=== PATIENT | male | born 1960 | race Caucasian/White ===

== ENCOUNTER 2018-01-01 11:56 | Emergency (ER) | payer BC, OTHER ==
[2018-01-01] MEDS ORDERED: Sodium Chloride 0.9% 10 ML Syringe FLUSH PRN (12:11)
[2018-01-01] MEDS ORDERED: LORazepam 2 MG/ML SDV IVPUSH ONE (12:11)
--- NOTE | 2018-01-01 12:38 | CT ---
Head CT Technique: Multiple axial sections through the brain were obtained. Intravenous contrast was not utilized. Comparison: No prior intracranial imaging. Findings: Ventricles along with basal cisterns and sulci over convexities are mildly prominent. Several small lacunar infarcts are noted within the basal ganglia. No other abnormal parenchymal densities are seen. No evidence of intracranial hemorrhage. No midline shift or mass effect is seen. Bone window settings were reviewed which shows no acute calvarial abnormality. Mild mucosal thickening is seen within portions of the ethmoid sinuses which is felt to be incidental. Impression: 1. Mild senescent change. Incidental sinus findings. 2. Nothing acute is appreciated on noncontrast head CT exam. Diagnostic code #2
[2018-01-01] MEDS ORDERED: Potassium Chloride 20 MEQ Tab.ER PO ONE (14:45)
--- NOTE | 2018-01-01 15:16 | EDM.PDOC ---
ED HPI GENERAL MEDICAL PROBLEM - General Chief Complaint: Neurological Problem Stated Complaint: [facility] Time Seen by Provider: 01/01/18 12:10 Source of Information: Reports: Patient, EMS History Limitations: Reports: No Limitations - History of Present Illness INITIAL COMMENTS - FREE TEXT/NARRATIVE: The patient presents by [facility] for a seizure. He was at work and he had a generalized tonic clonic seizure. This lasted a few minutes. He was post ictal when EMS arrived. He had no headache, neck pain, chest pain, abdominal pain, nausea or vomiting. He does admit to drinking about a litre of alcohol a night but he has been trying to cut back. He has never had a seuzure before. Onset: Sudden Duration: Minutes: Location: Reports: Generalized Improves with: Reports: None Worsens with: Reports: None Associated Symptoms: Reports: No Other Symptoms - Related Data Allergies Allergy/AdvReac Type Severity Reaction Status Date / Time No Known Allergies Allergy Verified 01/01/18 12:01 Home Meds: Home Meds Albuterol [Proventil HFA] 2 puff INH Q4H PRN #1 inhaler 01/01/18 [Rx] Potassium Chloride 20 meq PO DAILY #20 tablet.er 01/01/18 [Rx] Past Medical History Cardiovascular History: Reports: Hypertension Social & Family History - Tobacco Use Smoking Status *Q: Current Every Day Smoker Years of Tobacco use: 40 Packs/Tins Daily: 1 - Recreational Drug Use Recreational Drug Use: No ED ROS GENERAL - Review of Systems Review Of Systems: See Below Constitutional: Reports: No Symptoms HEENT: Reports: No Symptoms Respiratory: Reports: No Symptoms Cardiovascular: Reports: No Symptoms Endocrine: Reports: No Symptoms GI/Abdominal: Reports: No Symptoms : Reports: No Symptoms Musculoskeletal: Reports: No Symptoms Skin: Reports: No Symptoms Neurological: Reports: Seizure. Denies: Headache, Numbness, Tingling - Physical Exam Exam: See Below Exam Limited By: No Limitations General Appearance: Alert, No Apparent Distress Ears: Normal External Exam Nose: Normal Inspection Head Exam: Atraumatic, Normocephalic Neck: Normal Inspection Respiratory/Chest: No Respiratory Distress, Lungs Clear, Normal Breath Sounds Cardiovascular: Regular Rate, Rhythm, No Edema, No Murmur GI/Abdominal: Soft, Non-Tender, No Organomegaly, No Mass Neuro Exam (Abbreviated): Alert, Oriented, No Motor/Sensory Deficits Course - Vital Signs Last Recorded V/S: Last Vital Signs Temp 98.1 F 01/01/18 12:01 Pulse 96 01/01/18 12:01 Resp 14 01/01/18 12:01 BP 191/118 H 01/01/18 12:01 Pulse Ox 97 01/01/18 12:01 - Orders/Labs/Meds Orders: Active Orders 24 hr Category Date Time Status Cardiac Monitoring [RC] . DIRECTED Care 01/01/18 12:11 Active Peripheral IV Care [RC] . DIRECTED Care 01/01/18 12:11 Active Sodium Chloride 0.9% [Saline Flush] Med 01/01/18 12:11 Active 10 ml FLUSH ASDIRECTED PRN Peripheral IV Insertion Adult [OM.PC] Stat Oth 01/01/18 12:11 Ordered Medication Orders Sodium Chloride (Saline Flush) 10 ml FLUSH ASDIRECTED PRN PRN Reason: Keep Vein Open Last Admin: 01/01/18 12:26 Dose: 10 ml Labs: Laboratory Tests 01/01/18 01/01/18 01/01/18 Range/Units 12:02 12:05 12:05 WBC 5.25 (4.23-9.07) K/mm3 RBC 4.22 L (4.63-6.08) M/mm3 Hgb 15.2 (13.7-17.5) gm/L Hct 45.0 (40.1-51.0) % MCV 106.6 H (79.0-92.2) fl MCH 36.0 H (25.7-32.2) pg MCHC 33.8 (32.2-35.5) g/dl RDW Std Deviation 54.9 H (35.1-43.9) fL Plt Count 116 L (163-337) K/mm3 MPV 10.9 (9.4-12.3) fl Neut % (Auto) 70.3 H (34.0-67.9) % Lymph % (Auto) 15.2 L (21.8-53.1) % Dade % (Auto) 12.8 H (5.3-12.2) % Eos % (Auto) 0.4 L (0.8-7.0) Baso % (Auto) 1.1 (0.1-1.2) % Neut # (Auto) 3.69 (1.78-5.38) K/mm3 Lymph # (Auto) 0.80 L (1.32-3.57) K/mm3 Dade # (Auto) 0.67 (0.30-0.82) K/mm3 Eos # (Auto) 0.02 L (0.04-0.54) K/mm3 Baso # (Auto) 0.06 (0.01-0.08) K/mm3 Manual Slide Review Abnormal smear Sodium 137 (136-145) mEq/L Potassium 2.5 L (3.5-5.1) mEq/L Chloride 90 L (98-107) mEq/L Carbon Dioxide 26 (21-32) mEq/L Anion Gap 23.5 H (5-15) BUN 6 L (7-18) mg/dL Creatinine 1.2 (0.7-1.3) mg/dL Est Cr Clr Drug Dosing 73.18 mL/min Estimated GFR (MDRD) > 60 (>60) mL/min BUN/Creatinine Ratio 5.0 L (14-18) Glucose 150 H (74-106) mg/dL POC Glucose 127 H (70-105) mg/dL Calcium 9.2 (8.5-10.1) mg/dL Magnesium 1.2 L (1.8-2.4) mg/dl Total Bilirubin 2.1 H (0.2-1.0) mg/dL AST 299 H (15-37) U/L ALT 124 H (16-63) U/L Alkaline Phosphatase 117 H (46-116) U/L Total Protein 6.9 (6.4-8.2) g/dl Albumin 3.8 (3.4-5.0) g/dl Globulin 3.1 gm/dL Albumin/Globulin Ratio 1.2 (1-2) Ethyl Alcohol 0.00 (0.00) gm% Meds: Medications Generic Name Dose Route Start Last Admin Trade Name Freq PRN Reason Stop Dose Admin Sodium Chloride 10 ml 01/01/18 12:11 01/01/18 12:26 Saline Flush FLUSH 10 ml ASDIRECTED PRN Administration Keep Vein Open Discontinued Medications Generic Name Dose Route Start Last Admin Trade Name Freq PRN Reason Stop Dose Admin Lorazepam 0.5 mg 01/01/18 12:11 01/01/18 12:26 Ativan IVPUSH 01/01/18 12:12 0.5 mg ONETIME ONE Administration Potassium Chloride 20 meq 01/01/18 14:45 01/01/18 14:52 Klor-Con M20 PO 01/01/18 14:46 20 meq ONETIME ONE Administration - Re-Assessments/Exams Free Text/Narrative Re-Assessment/Exam: 01/01/18 15:10 I ordered an IV NS bolus, labs, CT of his head and ativan. The CT of his head shows mild senescent change. Incidental sinus findings. Nothing acute is appreciated on noncontrast head CT exam. His CBC looks good. His potassium was low at 2.5. I ordered 20meq of potassium chloride. His glucose was 150. His magnesium was 2.1. His AST was elevated at 299. His ALT was elevated at 124. His alk phos was elevated at 117. His EOTH was negative. I called the neurologist balloon design printer at [facility] in [place] and we both agreed this was alcohol withdrawal seizures. He does want to stop drinking. I will prescribe him some ativan. He also wanted some medicine for his COPD. He is unsure of the name but the way he describes it was albuterol. Departure - Departure Time of Disposition: 15:20 Disposition: Home, Self-Care 01 Condition: Good Clinical Impression: Seizure COPD (chronic obstructive pulmonary disease) Qualifiers: COPD type: emphysema Emphysema type: unspecified Qualified Code(s): J43.9 - Emphysema, unspecified - Discharge Information Prescriptions: Albuterol [Proventil HFA] 2 puff INH Q4H PRN #1 inhaler PRN Reason: Shortness Of Breath Referrals: PCP,Not In Area [Primary Care Provider] - Yazmin Duarte [Physician] - 1 Week Additional Instructions: Take the ativan as prescribed to avoid any seizures. You may call [facility] for help stopping drinking. Their number is [phone]. Use the albuterol inhaler 2 puffs every 6 hours as needed for shortness of breath or wheezing. Drink plenty of water. Take the potassium daily. Follow up with Dr Duarte in 1 week. - My Orders Last 24 Hours: My Active Orders 01/01/18 12:11 Cardiac Monitoring [RC] . DIRECTED Peripheral IV Care [RC] . DIRECTED Sodium Chloride 0.9% [Saline Flush] 10 ml FLUSH ASDIRECTED PRN Peripheral IV Insertion Adult [OM.PC] Stat - Assessment/Plan Last 24 Hours: My Active Orders 01/01/18 12:11 Cardiac Monitoring [RC] . DIRECTED Peripheral IV Care [RC] . DIRECTED Sodium Chloride 0.9% [Saline Flush] 10 ml FLUSH ASDIRECTED PRN Peripheral IV Insertion Adult [OM.PC] Stat
== END 2018-01-01 15:37 | disposition home or self-care (01) ==
LOC: JD.ED 11:56
DX: G40.409 Other generalized epilepsy and epileptic syndromes, not intractable, without status epilepticus (principal); J43.9 Emphysema, unspecified; I10 Essential (primary) hypertension; F17.210 Nicotine dependence, cigarettes, uncomplicated; Z79.899 Other long term (current) drug therapy
CPT/HCPCS: 36415; 70450; 80053; 82962; 83735; 85025; 96374; 99285; A9270; G0480; J2060; J7050; 99284

== ENCOUNTER 2018-07-05 10:28 | Inpatient (IN) | payer SELFPAY ==
[2018-07-05] MEDS ORDERED: Thiamine 100 MG Tab PO ONE (11:31)
[2018-07-05] MEDS ORDERED: Folic Acid 1 MG Tab PO ONE (11:31)
[2018-07-05] MEDS ORDERED: Sodium Chloride 0.9% 1,000 ML IV ONE ×2 (11:31)
[2018-07-05] MEDS ORDERED: Sodium Chloride 0.9% 10 ML Syringe FLUSH PRN (11:31)
--- NOTE | 2018-07-05 11:38 | EDM.PDOCBH ---
ED HPI GENERAL MEDICAL PROBLEM - General Chief Complaint: Drug or Alcohol Abuse Stated Complaint: DEHYDRATED Time Seen by Provider: 07/05/18 11:10 Source of Information: Reports: Patient History Limitations: Reports: Intoxication - History of Present Illness INITIAL COMMENTS - FREE TEXT/NARRATIVE: Patient is a 58-year-old male who presents to ED wishing to undergo alcohol detox. Patient's been drinking approximately 1 L of whiskey for the past 42 years. In addition smokes about 2-3 packs of cigarettes daily as well. Over the last few days has been attempting to wean off the alcohol. Drinks approximately 2 pints a day. He is wanting help. He has not eaten anything for the past and it 11 days. Has been consuming ensure shakes daily with only diarrhea following. States his mouth is mildly dry. He has a history of seizures with detoxing and is on no medications. He's never undergone inpatient or outpatient treatment for alcoholism. He feels depressed and anxious. There are no hallucinations. Denies any suicidal or homicidal ideations. 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 He has a history of hypertension and COPD. He has not been taking his hypertension meds for the past 2 weeks. Denies any surgeries. Denies recreational drug use. PCP is located in [place]. Patient's last drink was this morning. - Related Data Allergies Allergy/AdvReac Type Severity Reaction Status Date / Time No Known Allergies Allergy Verified 07/05/18 15:53 Home Meds: Home Meds Albuterol [Proventil HFA] 2 puff INH Q4H PRN #1 inhaler 01/01/18 [Rx] Potassium Chloride 20 meq PO DAILY #20 tablet.er 01/01/18 [Rx] Cholecalciferol (Vitamin D3) [Vitamin D3] 0 unit PO DAILY 07/05/18 [History] Fluticasone Propionate [Flovent] 1 puff IN DAILY 07/05/18 [History] Magnesium 0 mg PO DAILY 07/05/18 [History] Vit W-Ca,Fe,FA(<1 mg) [ Vitamins] 1 tab PO DAILY 07/05/18 [ History] Tamsulosin [Flomax] 1 cap PO BEDTIME 07/05/18 [History] Past Medical History Cardiovascular History: Reports: Hypertension Respiratory History: Reports: COPD Gastrointestinal History: Reports: PUD Neurological History: Reports: Seizure, Other (See Below) Other Neuro History: 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 Psychiatric History: Reports: Addiction, Depression Endocrine/Metabolic History: Reports: Vitamin D Deficiency - Infectious Disease History Infectious Disease History: Reports: Chicken Pox, Measles - Past Surgical History HEENT Surgical History: Reports: Tonsillectomy Musculoskeletal Surgical History: Reports: Other (See Below) Other Musculoskeletal Surgeries/Procedures:: had cyst removed from neck, "right below my skull." Social & Family History - Tobacco Use Smoking Status *Q: Current Every Day Smoker Years of Tobacco use: 42 Packs/Tins Daily: 3 Second Hand Smoke Exposure: No - Caffeine Use Caffeine Use: Reports: None - Alcohol Use Days Per Week of Alcohol Use: 7 Number of Drinks Per Day: 20 Total Drinks Per Week: 140 - Recreational Drug Use Recreational Drug Use: No ED ROS GENERAL - Review of Systems Review Of Systems: See Below Constitutional: Reports: Decreased Appetite. Denies: Fever, Chills, Malaise, Weakness, Fatigue HEENT: Reports: No Symptoms Respiratory: Reports: Shortness of Breath (Chronic unchanged), Cough (Chronic unchanged) Cardiovascular: Reports: No Symptoms GI/Abdominal: Reports: Diarrhea (Intermittent with ensure ingestion), Decreased Appetite. Denies: Black Stool, Bloody Stool, Difficulty Swallowing, Hematemesis , Hematochezia, Melena, Nausea, Vomiting : Reports: No Symptoms Musculoskeletal: Reports: No Symptoms Skin: Reports: No Symptoms Neurological: Reports: No Symptoms Psychiatric: Reports: Anxiety, Depression. Denies: Confusion, Cravings, Hallucinations, Homicidal Ideation, Mood Lability, Suicidal Ideation ED EXAM, BEHAVIORAL HEALTH - Physical Exam Exam: See Below Exam Limited By: Intoxication General Appearance: Alert, WD/WN Eye Exam: Bilateral Eye: EOMI, Nystagmus (horizontal), PERRL Ears: Hearing Grossly Normal Nose: Normal Inspection Throat/Mouth: Normal Voice, No Airway Compromise Neck: Normal Inspection, Supple Respiratory/Chest: No Respiratory Distress, Lungs Clear, Normal Breath Sounds, Chest Non-Tender Cardiovascular: Normal Peripheral Pulses, Regular Rate, Rhythm, No Murmur GI/Abdominal: Normal Bowel Sounds, Soft, Non-Tender, No Organomegaly, No Distention Extremities: Normal Inspection Neurological: Alert, Normal Mood/Affect, CN II-XII Intact, Normal Cognition, No Motor/Sensory Deficits, Oriented x 3 Psychiatric: Alert, Normal Affect, Normal Cognition, Normal Mood, Oriented. No : Depressed Mood, Flat Affect, Incoherent, Restless, Tearful, Agitated, Disoriented, Inattentive, Non-Communicative, Poor Eye Contact, Uncooperative, Flight of Ideas, Homicidal Thoughts, Phobic, Roman Catholic Delusions, Suicidal Plan , Suicidal Thoughts, Tangential Thoughts, Auditory Hallucinations, Visual Hallucinations, Grandiose Thoughts, Pressured Speech, Paranoid Thoughts, Threatening Behavior, Other Skin Exam: Warm, Dry, Intact, Normal color, No rash COURSE, BEHAVIORAL HEALTH COMP - Course Vital Signs: Last Vital Signs Temp 98.1 F 07/05/18 20:00 Pulse 84 07/05/18 18:00 Resp 20 07/05/18 20:00 BP 178/97 H 07/05/18 20:00 Pulse Ox 99 07/05/18 20:00 Orders, Labs, Meds: Active Orders 24 hr Category Date Time Status Sodium Chloride 0.9% [Saline Flush] Med 07/05/18 11:31 Active 10 ml FLUSH ASDIRECTED PRN Peripheral IV Insertion Adult [OM.PC] Routine Oth 07/05/18 11:31 Ordered Medication Orders Chlordiazepoxide HCl (Librium) 25 mg PO BID [facility] Last Admin: 07/05/18 20:01 Dose: 25 mg Admin: 07/05/18 17:27 Dose: 25 mg Enoxaparin Sodium (Lovenox) 40 mg SUBCUT Q24H [facility] Last Admin: 07/05/18 17:27 Dose: 40 mg Folic Acid (Folic Acid) 1 mg PO DAILY [facility] Potassium Chloride/Sodium Chloride (1/2 Ns With 20 Meq Kcl) 1,000 mls @ 125 mls /hr IV ASDIRECTED [facility] Last Admin: 07/05/18 20:42 Dose: 125 mls/hr Lorazepam (Ativan) 2 mg IVPUSH Q6H PRN PRN Reason: Anxiety Metoprolol Tartrate (Lopressor) 5 mg IVPUSH Q6H PRN PRN Reason: heart rate > 120 Nicotine (Habitrol) 21 mg TRDERM DAILY [facility] Ondansetron HCl (Zofran) 4 mg IVPUSH Q8H PRN PRN Reason: Nausea/Vomiting Last Admin: 07/05/18 19:57 Dose: 4 mg Potassium Chloride (Klor-Con M20) 60 meq PO TID DIDI Last Admin: 07/05/18 20:00 Dose: 60 meq Quetiapine Fumarate (Seroquel) 25 mg PO BEDTIME DIDI Last Admin: 07/05/18 20:00 Dose: 25 mg Sodium Chloride (Saline Flush) 10 ml FLUSH ASDIRECTED PRN PRN Reason: Keep Vein Open Last Admin: 07/05/18 11:55 Dose: 10 ml Thiamine HCl (Vitamin B-1) 100 mg PO BEDTIME DIDI Last Admin: 07/05/18 20:00 Dose: 100 mg Laboratory Tests 07/05/18 07/05/18 07/05/18 Range/Units 11:30 11:45 11:45 WBC 2.97 L (4.23-9.07) K/mm3 RBC 3.30 L (4.63-6.08) M/mm3 Hgb 13.0 L (13.7-17.5) gm/L Hct 34.6 L (40.1-51.0) % MCV 104.8 H (79.0-92.2) fl MCH 39.4 H (25.7-32.2) pg MCHC 37.6 H (32.2-35.5) g/dl RDW Std Deviation 56.5 H (35.1-43.9) fL Plt Count 200 (163-337) K/mm3 MPV 9.5 (9.4-12.3) fl Neutrophils % (Manual) 60 (40-60) % Band Neutrophils % 1 (0-10) % Lymphocytes % (Manual) 32 (20-40) % Atypical Lymphs % 0 % Monocytes % (Manual) 4 (2-10) % Eosinophils % (Manual) 2 (0.8-7.0) % Basophils % (Manual) 1 (0.2-1.2) Platelet Estimate Adequate Poikilocytosis 1+ slight Anisocytosis 1+ slight RBC Morph Comment clinic receptionist Sodium 135 L (136-145) mEq/L Potassium 1.8 L* (3.5-5.1) mEq/L Chloride 90 L (98-107) mEq/L Carbon Dioxide 42 H* (21-32) mEq/L Anion Gap 4.8 L (5-15) BUN 3 L (7-18) mg/dL Creatinine 0.8 (0.7-1.3) mg/dL Est Cr Clr Drug Dosing 111.63 mL/min Estimated GFR (MDRD) > 60 (>60) mL/min BUN/Creatinine Ratio 3.8 L (14-18) Glucose 119 H (74-106) mg/dL Calcium 8.7 (8.5-10.1) mg/dL Magnesium 1.4 L (1.8-2.4) mg/dl Total Bilirubin 1.8 H (0.2-1.0) mg/dL AST 262 H (15-37) U/L ALT 118 H (16-63) U/L Alkaline Phosphatase 215 H (46-116) U/L Total Protein 6.0 L (6.4-8.2) g/dl Albumin 2.8 L (3.4-5.0) g/dl Globulin 3.2 gm/dL Albumin/Globulin Ratio 0.9 L (1-2) Lipase 335 (73-393) U/L TSH 3rd Generation 2.100 (0.358-3.74) uIU/mL Urine Color Yellow (Yellow) Urine Appearance Clear (Clear) Urine pH 6.5 (5.0-8.0) Ur Specific [place]vere 1.010 (1.005-1.030) Urine Protein Negative (Negative) Urine Glucose (UA) Negative (Negative) Urine Ketones Negative (Negative) Urine Occult Blood Negative (Negative) Urine Nitrite Negative (Negative) Urine Bilirubin Negative (Negative) Urine Urobilinogen 1.0 (0.2-1.0) Ur Leukocyte Esterase Trace H (Negative) Urine RBC 0-5 (0-5) /hpf Urine WBC 5-10 H (0-5) /hpf Ur Epithelial Cells 0-5 (0-5) /hpf Urine Bacteria Few (FEW) /hpf Urine Mucus Few (FEW) /hpf Salicylates (2.8-20) mg/dL Urine Opiates Screen (NEGATIVE) Ur Buprenorphine Scrn (NEGATIVE) Ur Oxycodone Screen (NEGATIVE) Urine Methadone Screen (NEGATIVE) Ur Propoxyphene Screen (NEGATIVE) Acetaminophen 1 L (10-30) ug/mL Ur Barbiturates Screen (NEGATIVE) Ur Tricyclics Screen (NEGATIVE) Ur Phencyclidine Scrn (NEGATIVE) Ur Amphetamine Screen (NEGATIVE) U Methamphetamines Scrn (NEGATIVE) U Benzodiazepines Scrn (NEGATIVE) U Cocaine Metab Screen (NEGATIVE) U Marijuana (THC) Screen (NEGATIVE) Ethyl Alcohol 0.16 (0.00) gm% 07/05/18 07/05/18 Range/Units 11:45 12:40 WBC (4.23-9.07) K/mm3 RBC (4.63-6.08) M/mm3 Hgb (13.7-17.5) gm/L Hct (40.1-51.0) % MCV (79.0-92.2) fl MCH (25.7-32.2) pg MCHC (32.2-35.5) g/dl RDW Std Deviation (35.1-43.9) fL Plt Count (163-337) K/mm3 MPV (9.4-12.3) fl Neutrophils % (Manual) (40-60) % Band Neutrophils % (0-10) % Lymphocytes % (Manual) (20-40) % Atypical Lymphs % % Monocytes % (Manual) (2-10) % Eosinophils % (Manual) (0.8-7.0) % Basophils % (Manual) (0.2-1.2) Platelet Estimate Poikilocytosis Anisocytosis RBC Morph Comment Sodium (136-145) mEq/L Potassium (3.5-5.1) mEq/L Chloride (98-107) mEq/L Carbon Dioxide (21-32) mEq/L Anion Gap (5-15) BUN (7-18) mg/dL Creatinine (0.7-1.3) mg/dL Est Cr Clr Drug Dosing mL/min Estimated GFR (MDRD) (>60) mL/min BUN/Creatinine Ratio (14-18) Glucose (74-106) mg/dL Calcium (8.5-10.1) mg/dL Magnesium (1.8-2.4) mg/dl Total Bilirubin (0.2-1.0) mg/dL AST (15-37) U/L ALT (16-63) U/L Alkaline Phosphatase (46-116) U/L Total Protein (6.4-8.2) g/dl Albumin (3.4-5.0) g/dl Globulin gm/dL Albumin/Globulin Ratio (1-2) Lipase (73-393) U/L TSH 3rd Generation (0.358-3.74) uIU/mL Urine Color (Yellow) Urine Appearance (Clear) Urine pH (5.0-8.0) Ur Specific Revere (1.005-1.030) Urine Protein (Negative) Urine Glucose (UA) (Negative) Urine Ketones (Negative) Urine Occult Blood (Negative) Urine Nitrite (Negative) Urine Bilirubin (Negative) Urine Urobilinogen (0.2-1.0) Ur Leukocyte Esterase (Negative) Urine RBC (0-5) /hpf Urine WBC (0-5) /hpf Ur Epithelial Cells (0-5) /hpf Urine Bacteria (FEW) /hpf Urine Mucus (FEW) /hpf Salicylates 1.2 L (2.8-20) mg/dL Urine Opiates Screen Negative (NEGATIVE) Ur Buprenorphine Scrn Negative (NEGATIVE) Ur Oxycodone Screen Negative (NEGATIVE) Urine Methadone Screen Negative (NEGATIVE) Ur Propoxyphene Screen Negative (NEGATIVE) Acetaminophen (10-30) ug/mL Ur Barbiturates Screen Negative (NEGATIVE) Ur Tricyclics Screen Negative (NEGATIVE) Ur Phencyclidine Scrn Negative (NEGATIVE) Ur Amphetamine Screen Negative (NEGATIVE) U Methamphetamines Scrn Negative (NEGATIVE) U Benzodiazepines Scrn Negative (NEGATIVE) U Cocaine Metab Screen Negative (NEGATIVE) U Marijuana (THC) Screen Negative (NEGATIVE) Ethyl Alcohol (0.00) gm% Medications Generic Name Dose Route Start Last Admin Trade Name Freq PRN Reason Stop Dose Admin Chlordiazepoxide HCl 25 mg 07/05/18 18:00 07/05/18 20:01 Librium PO 25 mg BID DIDI Administration Enoxaparin Sodium 40 mg 07/05/18 17:00 07/05/18 17:27 Lovenox SUBCUT 40 mg Q24H DIDI Administration Folic Acid 1 mg 07/06/18 09:00 Folic Acid PO DAILY [facility] Potassium Chloride/Sodium Chloride 1,000 mls @ 125 mls/hr 07/05/18 16:45 20:42 1/2 Ns With 20 Meq Kcl IV 125 mls/hr ASDIRECTED DIDI Administration Lorazepam 2 mg 07/05/18 16:32 Ativan IVPUSH Q6H PRN Anxiety Metoprolol Tartrate 5 mg 07/05/18 16:32 Lopressor IVPUSH Q6H PRN heart rate > 120 Nicotine 21 mg 07/06/18 09:00 Habitrol TRDERM DAILY [facility] Ondansetron HCl 4 mg 07/05/18 16:37 07/05/18 19:57 Zofran IVPUSH 4 mg Q8H PRN Administration Nausea/Vomiting Potassium Chloride 60 meq 07/05/18 21:00 07/05/18 20:00 Klor-Con M20 PO 60 meq TID DIDI Administration Quetiapine Fumarate 25 mg 07/05/18 21:00 07/05/18 20:00 Seroquel PO 25 mg BEDTIME DIDI Administration Sodium Chloride 10 ml 07/05/18 11:31 07/05/18 11:55 Saline Flush FLUSH 10 ml ASDIRECTED PRN Administration Keep Vein Open Thiamine HCl 100 mg 07/05/18 21:00 07/05/18 20:00 Vitamin B-1 PO 100 mg BEDTIME DIDI Administration Discontinued Medications Generic Name Dose Route Start Last Admin Trade Name Freq PRN Reason Stop Dose Admin Chlordiazepoxide HCl 25 mg 07/05/18 21:00 Librium PO BID DIDI Folic Acid 1 mg 07/05/18 11:31 07/05/18 11:58 Folic Acid PO 07/05/18 11:32 1 mg ONETIME ONE Administration Sodium Chloride 1,000 mls @ 999 mls/hr 07/05/18 11:31 07/05/18 12:57 Normal Saline IV 07/05/18 12:31 999 mls/hr ONETIME ONE Administration Sodium Chloride 1,000 mls @ 999 mls/hr 07/05/18 11:31 07/05/18 11:58 Normal Saline IV 07/05/18 12:31 999 mls/hr .BOLUS ONE Administration Potassium Chloride 10 meq/ 100 mls @ 100 mls/hr 07/05/18 13:00 07/05/18 14:43 Premix IV 07/05/18 13:59 100 mls/hr ASDIRECTED ONE Administration Potassium Chloride 10 meq/ 100 mls @ 100 mls/hr 07/05/18 12:59 07/05/18 13:38 Premix IV 07/05/18 13:58 100 mls/hr ASDIRECTED ONE Administration Magnesium Sulfate 2 gm/ Premix 50 mls @ 25 mls/hr 07/05/18 13:00 07/05/18 13: 55 IV 07/05/18 14:59 25 mls/hr ONETIME ONE Administration Lactated Ringer's 1,000 mls @ 999 mls/hr 07/05/18 16:33 07/05/18 17:25 Ringers, Lactated IV 07/05/18 17:33 999 mls/hr .BOLUS ONE Administration Magnesium Sulfate 4 gm/ Premix 100 mls @ 100 mls/hr 07/05/18 16:35 07/05/18 17:25 IV 07/05/18 17:34 100 mls/hr ONETIME ONE Administration Lactated Ringer's Confirm 07/05/18 19:38 07/05/18 20:01 Ringers, Lactated Administered 07/05/18 19:39 Not Given Dose 1,000 mls @ as directed .ROUTE .STK-MED ONE Lactated Ringer's 1,000 mls @ 999 mls/hr 07/05/18 19:52 07/05/18 20:01 Ringers, Lactated IV 07/05/18 20:52 999 mls/hr .BOLUS ONE Administration Potassium Chloride 40 meq 07/05/18 12:59 07/05/18 13:40 Klor-Con M20 PO 07/05/18 13:00 40 meq ONETIME ONE Administration Potassium Chloride 60 meq 07/05/18 18:26 07/05/18 18:53 Klor-Con M20 PO 07/05/18 18:27 60 meq ONETIME ONE Administration Thiamine HCl 100 mg 07/05/18 11:31 07/05/18 11:58 Vitamin B-1 PO 07/05/18 11:32 100 mg ONETIME ONE Administration Re-Assessment/Re-Exam: IV established with normal saline 2 L bolus. Timing 100 mg by mouth. Folic acid 1 mg by mouth. Initial labs and studies include: CBC, chem 14, urine drug tox, lipase, magnesium, TSH, UA, serum EtOH, salicylate level, acetaminophen level, and EKG. Labs reviewed: White blood cell count 2.97, hemoglobin 13.0, MCV 104, potassium 1.8, chloride 90, potassium 135, CO2 42, AG 4.8, creatinine 0.8, glucose 118, magnesium 1.4, AST to 62, ALT 18, lipase 335, TSH normal, UA positive for trace leukocyte esterase and urine wbc's 5-10. Salicylate 1.2. Urine drug tox negative. Acetaminophen 1. Serum EtOH 0.16. Patient received 20 mEq of potassium IV and 40 mEq by mouth. I have also started 2 g of magnesium. [address] Olea. She will see the patient in the E.D. 1347 Dr. Lynn has evaluated the patient and agrees to admit. Departure - Departure Time of Disposition: 13:53 Disposition: Admitted As Inpatient 65 Condition: Good Clinical Impression: Alcohol abuse - Discharge Information - My Orders Last 24 Hours: My Active Orders 07/05/18 11:31 Sodium Chloride 0.9% [Saline Flush] 10 ml FLUSH ASDIRECTED PRN Peripheral IV Insertion Adult [OM.PC] Routine - Assessment/Plan Last 24 Hours: My Active Orders 07/05/18 11:31 Sodium Chloride 0.9% [Saline Flush] 10 ml FLUSH ASDIRECTED PRN Peripheral IV Insertion Adult [OM.PC] Routine
[2018-07-05] MEDS ORDERED: Potassium Chloride 20 MEQ Tab.ER PO ONE ×2 (12:59→18:26)
[2018-07-05] MEDS ORDERED: Potassium Chloride 10 MEQ in Premix Bag 1 BAG IV ONE ×2 (12:59→13:00)
[2018-07-05] MEDS ORDERED: Magnesium Sulfate/Water 2 GM in Premix Bag 1 BAG IV ONE (13:00)
--- NOTE | 2018-07-05 16:27 | PCM.HP ---
H&P History of Present Illness - General Date of Service: 07/05/18 Admit Problem/Dx: Admission Diagnosis/Problem Admission Diagnosis/Problem Alcoholism Source of Information: Patient, Provider History Limitations: Reports: No Limitations - History of Present Illness Initial Comments - Free Text/Narative: 58 year old male presents to the ED wanting to under go detox for ETOH abuse/ dependence, he is agreeable for SA and psychiatry consultations. The patient drinks approximately 1 liter a day of VO. PMH includes ETOH withdrawal seizures. He states that he is depressed, and does not know how to help himself emotionally or financially. He will be admitted to the ICU per protocol. Onset of Symptoms: Reports: Unknown/Unsure Symptom Onset Date: 07/05/18 Duration of Symptoms: Reports: Day(s):, Getting Worse Location: Reports: Generalized Severity: Moderate Improves with: Reports: Medication Worsens with: Reports: None Associated Symptoms: Reports: Weakness - Related Data Allergies/Adverse Reactions: Allergies Allergy/AdvReac Type Severity Reaction Status Date / Time No Known Allergies Allergy Verified 07/05/18 15:53 Home Medications: Home Meds Albuterol [Proventil HFA] 2 puff INH Q4H PRN #1 inhaler 01/01/18 [Rx] Potassium Chloride 20 meq PO DAILY #20 tablet.er 01/01/18 [Rx] Cholecalciferol (Vitamin D3) [Vitamin D3] 0 unit PO DAILY 07/05/18 [History] Fluticasone Propionate [Flovent] 1 puff IN DAILY 07/05/18 [History] Magnesium 0 mg PO DAILY 07/05/18 [History] Vit W-Ca,Fe,FA(<1 mg) [ Vitamins] 1 tab PO DAILY 07/05/18 [ History] Tamsulosin [Flomax] 1 cap PO BEDTIME 07/05/18 [History] Past Medical History HEENT History: Reports: Impaired Vision Cardiovascular History: Reports: Hypertension Respiratory History: Reports: COPD Gastrointestinal History: Reports: PUD Neurological History: Reports: Seizure, Other (See Below) Other Neuro History: 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 Psychiatric History: Reports: Addiction, Depression Endocrine/Metabolic History: Reports: Vitamin D Deficiency - Infectious Disease History Infectious Disease History: Reports: Chicken Pox, Measles - Past Surgical History HEENT Surgical History: Reports: Tonsillectomy, Other (See Below) Other HEENT Surgeries/Procedures: cyct removal-neck srg Musculoskeletal Surgical History: Reports: Other (See Below) Other Musculoskeletal Surgeries/Procedures:: had cyst removed from neck, "right below my skull." Social & Family History - Family History Cardiac: Reports: Bypass Other Cardiac Family History: Dad Neurological: Reports: CVA Other Neurological Family History: Dad - Tobacco Use Smoking Status *Q: Current Every Day Smoker Years of Tobacco use: 45 Packs/Tins Daily: 3 Second Hand Smoke Exposure: Yes - Caffeine Use Caffeine Use: Reports: None - Alcohol Use Days Per Week of Alcohol Use: 7 Number of Drinks Per Day: 12 Total Drinks Per Week: 84 Date of Last Drink: 07/05/18 Time of Last Drink: 08:00 - Recreational Drug Use Recreational Drug Use: No H&P Review of Systems - Review of Systems: Review Of Systems: See Below General: Reports: Weakness HEENT: Reports: No Symptoms Pulmonary: Reports: No Symptoms Cardiovascular: Reports: No Symptoms Gastrointestinal: Reports: No Symptoms Genitourinary: Reports: No Symptoms Musculoskeletal: Reports: No Symptoms Skin: Reports: No Symptoms Psychiatric: Reports: Depression Neurological: Reports: No Symptoms Hematologic/Lymphatic: Reports: No Symptoms Immunologic: Reports: No Symptoms Exam - Exam Exam: See Below - Vital Signs Vital Signs: Last Vital Signs Temp 37.1 C 07/05/18 15:56 Pulse 80 07/05/18 10:35 Resp 16 07/05/18 15:56 BP 161/99 H 07/05/18 15:56 Pulse Ox 92 L 07/05/18 15:56 Weight: 80.785 kg - Exam General: Alert, Oriented, Cooperative HEENT: Conjunctiva Clear, EOMI, Hearing Intact, Nares Patent, Normal Nasal Septum, Pupils Equal, Pupils Reactive, Scleral Icterus, PERRLA Neck: Trachea Midline Lungs: Normal Respiratory Effort Cardiovascular: Regular Rate, Regular Rhythm GI/Abdominal Exam: Normal Bowel Sounds, Soft, Non-Tender, No Organomegaly, No Distention, Distended (Male) Exam: Deferred Rectal (Males) Exam: Deferred Back Exam: Normal Inspection Extremities: Normal Inspection, Non-Tender, Normal Capillary Refill Skin: Warm Neurological: Cranial Nerves Intact, Normal Speech Neuro Extensive - Mental Status: Alert, Oriented x3 Neuro Extensive - Motor, Sensory, Reflexes: CN II-XII Intact Psychiatric: Alert, Depressed - Patient Data Lab Results Last 24 hrs: Laboratory Results - last 24 hr 07/05/18 07/05/18 07/05/18 Range/Units 11:30 11:45 11:45 WBC 2.97 L (4.23-9.07) K/mm3 RBC 3.30 L (4.63-6.08) M/mm3 Hgb 13.0 L (13.7-17.5) gm/L Hct 34.6 L (40.1-51.0) % MCV 104.8 H (79.0-92.2) fl MCH 39.4 H (25.7-32.2) pg MCHC 37.6 H (32.2-35.5) g/dl RDW Std Deviation 56.5 H (35.1-43.9) fL Plt Count 200 (163-337) K/mm3 MPV 9.5 (9.4-12.3) fl Neutrophils % (Manual) 60 (40-60) % Band Neutrophils % 1 (0-10) % Lymphocytes % (Manual) 32 (20-40) % Atypical Lymphs % 0 % Monocytes % (Manual) 4 (2-10) % Eosinophils % (Manual) 2 (0.8-7.0) % Basophils % (Manual) 1 (0.2-1.2) Platelet Estimate Adequate Poikilocytosis 1+ slight Anisocytosis 1+ slight 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2 gm/dL Albumin/Globulin Ratio 0.9 L (1-2) Lipase 335 (73-393) U/L TSH 3rd Generation 2.100 (0.358-3.74) uIU/mL Urine Color Yellow (Yellow) Urine Appearance Clear (Clear) Urine pH 6.5 (5.0-8.0) Ur Specific [place] 1.010 (1.005-1.030) Urine Protein Negative (Negative) Urine Glucose (UA) Negative (Negative) Urine Ketones Negative (Negative) Urine Occult Blood Negative (Negative) Urine Nitrite Negative (Negative) Urine Bilirubin Negative (Negative) Urine Urobilinogen 1.0 (0.2-1.0) Ur Leukocyte Esterase Trace H (Negative) Urine RBC 0-5 (0-5) /hpf Urine WBC 5-10 H (0-5) /hpf Ur Epithelial Cells 0-5 (0-5) /hpf Urine Bacteria Few (FEW) /hpf Urine Mucus Few (FEW) /hpf Salicylates (2.8-20) mg/dL Urine Opiates Screen (NEGATIVE) Ur Buprenorphine Scrn (NEGATIVE) Ur Oxycodone Screen (NEGATIVE) Urine Methadone Screen (NEGATIVE) Ur Propoxyphene Screen (NEGATIVE) Acetaminophen 1 L (10-30) ug/mL Ur Barbiturates Screen (NEGATIVE) Ur Tricyclics Screen (NEGATIVE) Ur Phencyclidine Scrn (NEGATIVE) Ur Amphetamine Screen (NEGATIVE) U Methamphetamines Scrn (NEGATIVE) U Benzodiazepines Scrn (NEGATIVE) U Cocaine Metab Screen (NEGATIVE) U Marijuana (THC) Screen (NEGATIVE) Ethyl Alcohol 0.16 (0.00) gm% 07/05/18 07/05/18 Range/Units 11:45 12:40 WBC (4.23-9.07) K/mm3 RBC (4.63-6.08) M/mm3 Hgb (13.7-17.5) gm/L Hct (40.1-51.0) % MCV (79.0-92.2) fl MCH (25.7-32.2) pg MCHC (32.2-35.5) g/dl RDW Std Deviation (35.1-43.9) fL Plt Count (163-337) K/mm3 MPV (9.4-12.3) fl Neutrophils % (Manual) (40-60) % Band Neutrophils % (0-10) % Lymphocytes % (Manual) (20-40) % Atypical Lymphs % % Monocytes % (Manual) (2-10) % Eosinophils % (Manual) (0.8-7.0) % Basophils % (Manual) (0.2-1.2) Platelet Estimate Poikilocytosis Anisocytosis RBC Morph Comment Sodium (136-145) mEq/L Potassium (3.5-5.1) mEq/L Chloride (98-107) mEq/L Carbon Dioxide (21-32) mEq/L Anion Gap (5-15) BUN (7-18) mg/dL Creatinine (0.7-1.3) mg/dL Est Cr Clr Drug Dosing mL/min Estimated GFR (MDRD) (>60) mL/min BUN/Creatinine Ratio (14-18) Glucose (74-106) mg/dL Calcium (8.5-10.1) mg/dL Magnesium (1.8-2.4) mg/dl Total Bilirubin (0.2-1.0) mg/dL AST (15-37) U/L ALT (16-63) U/L Alkaline Phosphatase (46-116) U/L Total Protein (6.4-8.2) g/dl Albumin (3.4-5.0) g/dl Globulin gm/dL Albumin/Globulin Ratio (1-2) Lipase (73-393) U/L TSH 3rd Generation (0.358-3.74) uIU/mL Urine Color (Yellow) Urine Appearance (Clear) Urine pH (5.0-8.0) Ur Specific [place] (1.005-1.030) Urine Protein (Negative) Urine Glucose (UA) (Negative) Urine Ketones (Negative) Urine Occult Blood (Negative) Urine Nitrite (Negative) Urine Bilirubin (Negative) Urine Urobilinogen (0.2-1.0) Ur Leukocyte Esterase (Negative) Urine RBC (0-5) /hpf Urine WBC (0-5) /hpf Ur Epithelial Cells (0-5) /hpf Urine Bacteria (FEW) /hpf Urine Mucus (FEW) /hpf Salicylates 1.2 L (2.8-20) mg/dL Urine Opiates Screen Negative (NEGATIVE) Ur Buprenorphine Scrn Negative (NEGATIVE) Ur Oxycodone Screen Negative (NEGATIVE) Urine Methadone Screen Negative (NEGATIVE) Ur Propoxyphene Screen Negative (NEGATIVE) Acetaminophen (10-30) ug/mL Ur Barbiturates Screen Negative (NEGATIVE) Ur Tricyclics Screen Negative (NEGATIVE) Ur Phencyclidine Scrn Negative (NEGATIVE) Ur Amphetamine Screen Negative (NEGATIVE) U Methamphetamines Scrn Negative (NEGATIVE) U Benzodiazepines Scrn Negative (NEGATIVE) U Cocaine Metab Screen Negative (NEGATIVE) U Marijuana (THC) Screen Negative (NEGATIVE) Ethyl Alcohol (0.00) gm% Result Diagrams: 07/07/18 05:35 07/07/18 05:35 - Problem List (1) Alcohol dependence SNOMED Code(s): 83687944 ICD Code: F10.20 - ALCOHOL DEPENDENCE, UNCOMPLICATED Status: Acute Current Visit: Yes (2) Alcohol withdrawal seizure SNOMED Code(s): 117840026 ICD Code: F10.239 - ALCOHOL DEPENDENCE WITH WITHDRAWAL, UNSPECIFIED; R56.9 - UNSPECIFIED CONVULSIONS Status: Acute Current Visit: Yes (3) Major depression in complete remission SNOMED Code(s): 51083474 ICD Code: F32.5 - MAJOR DEPRESSIVE DISORDER, SINGLE EPISODE, IN FULL REMISSION Status: Acute Current Visit: Yes (4) Hypertension SNOMED Code(s): 68161255 ICD Code: I10 - ESSENTIAL (PRIMARY) HYPERTENSION Status: Acute Current Visit: Yes (5) Hypokalemia SNOMED Code(s): 19177041 ICD Code: E87.6 - HYPOKALEMIA Status: Acute Current Visit: Yes (6) Alcohol abuse SNOMED Code(s): 68529269 ICD Code: F10.10 - ALCOHOL ABUSE, UNCOMPLICATED Status: Acute Current Visit: Yes Problem List Initiated/Reviewed/Updated: Yes Orders Last 24hrs: Active Orders 24 hr Category Date Time Status Admission Status [Patient Status] [ADT] Routine ADT 07/05/18 15:18 Active Cardiac Monitoring [RC] . DIRECTED Care 07/05/18 15:18 Active EKG 12 Lead [EKG Documentation Completion] [RC] STAT Care 07/05/18 11:32 Active Peripheral IV Care [RC] . DIRECTED Care 07/05/18 11:31 Active Sodium Chloride 0.9% [Saline Flush] Med 07/05/18 11:31 Active 10 ml FLUSH ASDIRECTED PRN Peripheral IV Insertion Adult [OM.PC] Routine Oth 07/05/18 11:31 Ordered Medication Orders Sodium Chloride (Saline Flush) 10 ml FLUSH ASDIRECTED PRN PRN Reason: Keep Vein Open Last Admin: 07/05/18 11:55 Dose: 10 ml Assessment/Plan Comment:: Impression: ETOH abuse/dependence Cirrhosis Hx of alcohol withdrawal seizures Chronic Tobacco dependence Hypertension Plan: ICU ETOH protocol CIWA Correct electrolytes SZ precautions Aspiration precautions GI/DVT prophylaxis Consult SA/Psych Consult CM
[2018-07-05] MEDS ORDERED: Metoprolol Tartrate 5 MG/5 ML SDV IVPUSH PRN ×2 (16:32→21:02)
[2018-07-05] MEDS ORDERED: Lactated Ringers 1,000 ML IV ONE ×2 (16:33→19:52)
[2018-07-05] MEDS ORDERED: Magnesium Sulfate/Water 4 GM in Premix Bag 1 BAG IV ONE (16:35)
[2018-07-05] MEDS ORDERED: Ondansetron 4 MG/2 ML SDV IVPUSH PRN (16:37)
[2018-07-05 16:40] LABS: ACETAMINOPHEN 1 ug/mL (10-30)
[2018-07-05] MEDS: chlordiazePOXIDE 25 MG Cap PO SCH ×2 (17:27→20:01)
[2018-07-05] MEDS: Enoxaparin 40 MG/0.4 ML Syringe SUBCUT SCH (17:27)
[2018-07-05] MEDS ORDERED: Lactated Ringers 1,000 ML ONE (19:38)
[2018-07-05] MEDS: Thiamine 100 MG Tab PO SCH (20:00)
[2018-07-05] MEDS: Potassium Chloride 20 MEQ Tab.ER PO SCH (20:00)
[2018-07-05] MEDS: QUEtiapine 25 MG Tab PO SCH (20:00)
[2018-07-05] MEDS: Sodium Chloride 0.45% with KCl 1,000 ML IV SCH (20:42)
[2018-07-05] MEDS ORDERED: Tamsulosin 0.4 MG Cap.ER PO SCH (21:00)
[2018-07-05] MEDS ORDERED: chlordiazePOXIDE 25 MG Cap PO SCH (21:00)
[2018-07-05] MEDS ORDERED: Promethazine 12.5 MG in Sodium Chloride 0.9% 50 ML IV PRN (21:02)
[2018-07-05] MEDS: LORazepam 2 MG/ML SDV IVPUSH PRN (21:25)
[2018-07-05] MEDS ORDERED: Terazosin 1 MG Cap PO ONE (21:30)
[2018-07-06] MEDS: Sodium Chloride 0.45% with KCl 1,000 ML IV SCH (05:21)
[2018-07-06] MEDS: hydrALAZINE 20 MG/ML SDV IVPUSH PRN ×2 (05:22→11:37)
[2018-07-06] MEDS: Nicotine 21 MG/24 Hr Patch TRDERM SCH (09:16)
[2018-07-06] MEDS: Folic Acid 1 MG Tab PO SCH (09:17)
[2018-07-06] MEDS: Potassium Chloride 20 MEQ Tab.ER PO SCH ×3 (09:17→20:22)
[2018-07-06] MEDS: chlordiazePOXIDE 25 MG Cap PO SCH ×3 (09:26→20:23)
[2018-07-06] MEDS ORDERED: Albuterol/Ipratropium 3.0-0.5 MG/3 ML Neb Soln NEB PRN (12:34)
[2018-07-06] MEDS: FLUoxetine 10 MG Cap PO SCH (13:03)
--- NOTE | 2018-07-06 13:03 | CR ---
Chest: 2 views of the chest were obtained. Comparison: No prior chest x-ray. Heart size and mediastinum are normal. Posterior costophrenic angles are not well seen most likely positional. Lateral costophrenic angles appear unremarkable. Lungs are clear with no acute parenchymal change. Mild scoliosis is noted within the spine. Bony structures are within normal limits for the patient's age. Impression: 1. Incidental findings. Nothing acute is seen on 2 view chest x-ray. Diagnostic code #2
[2018-07-06] MEDS: Enoxaparin 40 MG/0.4 ML Syringe SUBCUT SCH (15:59)
--- NOTE | 2018-07-06 18:06 | PCM.PN ---
- General Info Date of Service: 07/06/18 Functional Status: Reports: Pain Controlled, Tolerating Diet, Ambulating, Urinating - Review of Systems General: Reports: No Symptoms HEENT: Reports: No Symptoms Pulmonary: Reports: No Symptoms Cardiovascular: Reports: No Symptoms Gastrointestinal: Reports: No Symptoms Genitourinary: Reports: No Symptoms Musculoskeletal: Reports: No Symptoms Skin: Reports: No Symptoms Neurological: Reports: No Symptoms Psychiatric: Reports: No Symptoms - Patient Data Vitals - Most Recent: Last Vital Signs Temp 36.9 C 07/06/18 15:35 Pulse 94 07/06/18 15:35 Resp 16 07/06/18 15:35 BP 144/83 H 07/06/18 15:35 Pulse Ox 89 L 07/06/18 17:16 Weight - Most Recent: 82.599 kg I&O - Last 24 Hours: Intake & Output 07/06/18 07/06/18 07/06/18 06:59 14:59 22:59 Intake Total 3877 440 1530 Output Total 900 Balance 3877 440 630 Lab Results Last 24 Hours: Laboratory Results - last 24 hr 07/05/18 07/06/18 07/06/18 Range/Units 17:44 05:20 05:20 WBC 2.94 L (4.23-9.07) K/mm3 RBC 2.68 L (4.63-6.08) M/mm3 Hgb 10.6 L (13.7-17.5) gm/L Hct 29.2 L (40.1-51.0) % MCV 109.0 H (79.0-92.2) fl MCH 39.6 H (25.7-32.2) pg MCHC 36.3 H (32.2-35.5) g/dl RDW Std Deviation 59.5 H (35.1-43.9) fL Plt Count 145 L (163-337) K/mm3 MPV 10.3 (9.4-12.3) fl Neut % (Auto) 54.4 (34.0-67.9) % Lymph % (Auto) 32.0 (21.8-53.1) % [place] % (Auto) 10.2 (5.3-12.2) % Eos % (Auto) 2.0 (0.8-7.0) Baso % (Auto) 1.4 H (0.1-1.2) % Neut # (Auto) 1.60 L (1.78-5.38) K/mm3 Lymph # (Auto) 0.94 L (1.32-3.57) K/mm3 [place] # (Auto) 0.30 (0.30-0.82) K/mm3 Eos # (Auto) 0.06 (0.04-0.54) K/mm3 Baso # (Auto) 0.04 (0.01-0.08) K/mm3 Manual Slide Review Abnormal smear Sodium 139 138 (136-145) mEq/L Potassium 1.9 L* 2.1 L* (3.5-5.1) mEq/L Chloride 95 L 97 L (98-107) mEq/L Carbon Dioxide 37 H 38 H (21-32) mEq/L Anion Gap 8.9 5.1 (5-15) BUN 2 L 2 L (7-18) mg/dL Creatinine 0.7 0.7 (0.7-1.3) mg/dL Est Cr Clr Drug Dosing 128.41 128.41 mL/min Estimated GFR (MDRD) > 60 > 60 (>60) mL/min BUN/Creatinine Ratio 2.9 L 2.9 L (14-18) Glucose 107 H 88 (74-106) mg/dL Calcium 8.1 L 7.8 L (8.5-10.1) mg/dL Magnesium 2.0 (1.8-2.4) mg/dl Total Bilirubin 2.6 H (0.2-1.0) mg/dL AST 195 H (15-37) U/L ALT 90 H (16-63) U/L Alkaline Phosphatase 174 H (46-116) U/L Total Protein 4.7 L (6.4-8.2) g/dl Albumin 2.2 L (3.4-5.0) g/dl Globulin 2.5 gm/dL Albumin/Globulin Ratio 0.9 L (1-2) Med Orders - Current: Current Medications Albuterol/Ipratropium (Duoneb 3.0-0.5 Mg/3 Ml) 3 ml NEB QID PRN PRN Reason: Shortness of Breath Last Admin: 07/06/18 17:15 Dose: 3 ml Chlordiazepoxide HCl (Librium) 25 mg PO TID [facility] Last Admin: 07/06/18 15:59 Dose: 25 mg Enoxaparin Sodium (Lovenox) 40 mg SUBCUT Q24H [facility] Last Admin: 07/06/18 15:59 Dose: 40 mg Flunisolide (Nasalide Nasal [place]) 0 ml NASBOTH Q12H [facility] Last Admin: 07/06/18 09:26 Dose: 2 sprays Fluoxetine HCl (Prozac) 20 mg PO DAILY [facility] Last Admin: 07/06/18 13:03 Dose: 20 mg Folic Acid (Folic Acid) 1 mg PO DAILY [facility] Last Admin: 07/06/18 09:17 Dose: 1 mg Hydralazine HCl (Apresoline) 20 mg IVPUSH Q6H PRN PRN Reason: Hypertension Last Admin: 07/06/18 11:37 Dose: 20 mg Promethazine HCl 12.5 mg/ (Sodium Chloride) 50.5 mls @ 100 mls/hr IV Q6H PRN PRN Reason: Nausea/Vomiting Lorazepam (Ativan) 2 mg IVPUSH Q6H PRN PRN Reason: Anxiety Last Admin: 07/05/18 21:25 Dose: 2 mg Metoprolol Tartrate (Lopressor) 5 mg IVPUSH Q4H PRN PRN Reason: heart rate > 120 Nicotine (Habitrol) 21 mg TRDERM DAILY [facility] Last Admin: 07/06/18 09:16 Dose: 21 mg Ondansetron HCl (Zofran) 4 mg IVPUSH Q8H PRN PRN Reason: Nausea/Vomiting Last Admin: 07/05/18 19:57 Dose: 4 mg Potassium Chloride (Klor-Con M20) 60 meq PO TID [facility] Last Admin: 07/06/18 15:58 Dose: 60 meq Quetiapine Fumarate (Seroquel) 25 mg PO BEDTIME [facility] Last Admin: 07/05/18 20:00 Dose: 25 mg Sodium Chloride (Saline Flush) 10 ml FLUSH ASDIRECTED PRN PRN Reason: Keep Vein Open Last Admin: 07/05/18 11:55 Dose: 10 ml Terazosin HCl (Hytrin) 4 mg PO BEDTIME [facility] Thiamine HCl (Vitamin B-1) 100 mg PO BEDTIME [facility] Last Admin: 07/05/18 20:00 Dose: 100 mg Discontinued Medications Chlordiazepoxide HCl (Librium) 25 mg PO BID [facility]I Chlordiazepoxide HCl (Librium) 25 mg PO BID [facility] Last Admin: 07/05/18 20:01 Dose: 25 mg Folic Acid (Folic Acid) 1 mg PO ONETIME ONE Stop: 07/05/18 11:32 Last Admin: 07/05/18 11:58 Dose: 1 mg Sodium Chloride (Normal Saline) 1,000 mls @ 999 mls/hr IV ONETIME ONE Stop: 07/05/18 12:31 Last Admin: 07/05/18 12:57 Dose: 999 mls/hr Sodium Chloride (Normal Saline) 1,000 mls @ 999 mls/hr IV .BOLUS ONE Stop: 07/05/18 12:31 Last Admin: 07/05/18 11:58 Dose: 999 mls/hr Potassium Chloride 10 meq/ (Premix) 100 mls @ 100 mls/hr IV ASDIRECTED ONE Stop: 07/05/18 13:59 Last Admin: 07/05/18 14:43 Dose: 100 mls/hr Potassium Chloride 10 meq/ (Premix) 100 mls @ 100 mls/hr IV ASDIRECTED ONE Stop: 07/05/18 13:58 Last Admin: 07/05/18 13:38 Dose: 100 mls/hr Magnesium Sulfate 2 gm/ Premix 50 mls @ 25 mls/hr IV ONETIME ONE Stop: 07/05/18 14:59 Last Admin: 07/05/18 13:55 Dose: 25 mls/hr Lactated Ringer's (Ringers, Lactated) 1,000 mls @ 999 mls/hr IV .BOLUS ONE Stop: 07/05/18 17:33 Last Admin: 07/05/18 17:25 Dose: 999 mls/hr Magnesium Sulfate 4 gm/ Premix 100 mls @ 100 mls/hr IV ONETIME ONE Stop: 07/05/18 17:34 Last Admin: 07/05/18 17:25 Dose: 100 mls/hr Potassium Chloride/Sodium Chloride (1/2 Ns With 20 Meq Kcl) 1,000 mls @ 125 mls /hr IV ASDIRECTED [facility] Last Admin: 07/06/18 05:21 Dose: 125 mls/hr Lactated Ringer's (Ringers, Lactated) Confirm Administered Dose 1,000 mls @ as directed .ROUTE .STK-MED ONE Stop: 07/05/18 19:39 Last Admin: 07/05/18 20:01 Dose: Not Given Lactated Ringer's (Ringers, Lactated) 1,000 mls @ 999 mls/hr IV .BOLUS ONE Stop: 07/05/18 20:52 Last Admin: 07/05/18 20:01 Dose: 999 mls/hr Metoprolol Tartrate (Lopressor) 5 mg IVPUSH Q6H PRN PRN Reason: heart rate > 120 Potassium Chloride (Klor-Con M20) 40 meq PO ONETIME ONE Stop: 07/05/18 13:00 Last Admin: 07/05/18 13:40 Dose: 40 meq Potassium Chloride (Klor-Con M20) 60 meq PO ONETIME ONE Stop: 07/05/18 18:27 Last Admin: 07/05/18 18:53 Dose: 60 meq Tamsulosin HCl (Flomax) 0.4 mg PO BEDTIME [facility] Last Admin: 07/05/18 21:04 Dose: Not Given Terazosin HCl (Hytrin) 4 mg PO BEDTIME [facility] Last Admin: 07/05/18 21:22 Dose: Not Given Terazosin HCl (Hytrin) 4 mg PO ONETIME ONE Stop: 07/05/18 21:31 Last Admin: 07/05/18 21:21 Dose: 4 mg Thiamine HCl (Vitamin B-1) 100 mg PO ONETIME ONE Stop: 07/05/18 11:32 Last Admin: 07/05/18 11:58 Dose: 100 mg Thiamine HCl (Vitamin B-1) 100 mg PO BEDTIME DIDI - Exam Quality Assessment: DVT Prophylaxis General: Alert, Oriented, Cooperative, No Acute Distress HEENT: Pupils Equal, Pupils Reactive, EOMI Neck: Trachea Midline, No JVD Lungs: Normal Respiratory Effort Cardiovascular: Regular Rate, Tachycardia GI/Abdominal Exam: Normal Bowel Sounds, Soft, Non-Tender, No Organomegaly, No Distention (Male) Exam: Deferred Back Exam: Normal Inspection Extremities: Normal Inspection, Non-Tender, Normal Capillary Refill Skin: Warm Neurological: No New Focal Deficit, Normal Gait, Normal Speech Psy/Mental Status: Alert, Normal Affect, Normal Mood - Problem List Review Problem List Initiated/Reviewed/Updated: Yes - My Orders Last 24 Hours: My Active Orders 07/05/18 17:23 Consult to Case Management/Auto Body Repair Estimator [CONS] Routine 07/05/18 20:59 hydrALAZINE [Apresoline] 20 mg IVPUSH Q6H PRN 07/05/18 21:00 Flunisolide [Nasalide Nasal [place]] 0 ml NASBOTH Q12H Potassium Chloride [Klor-Con M20] 60 meq PO TID QUEtiapine [SEROquel] 25 mg PO BEDTIME Thiamine [Vitamin B-1] 100 mg PO BEDTIME 07/05/18 21:02 Metoprolol Tartrate [Lopressor] 5 mg IVPUSH Q4H PRN Promethazine [Phenergan] 12.5 mg Sodium Chloride 0.9% [Normal Saline] 50 ml IV Q6H 07/06/18 09:00 Consult for Substance Abuse [CONS] Routine Consult to Physician [CONS] Routine Folic Acid 1 mg PO DAILY Nicotine [Habitrol] 21 mg TRDERM DAILY chlordiazePOXIDE [Librium] 25 mg PO TID 07/06/18 12:34 RT Aerosol Therapy [RC] ASDIRECTED Albuterol/Ipratropium [DuoNeb 3.0-0.5 MG/3 ML] 3 ml NEB QID PRN 07/06/18 21:00 Terazosin [Hytrin] 4 mg PO BEDTIME 07/06/18 Dinner Regular Diet [DIET] 07/07/18 05:00 CBC WITH AUTO DIFF [HEME] DAILY COMPREHENSIVE METABOLIC PN,CMP [CHEM] DAILY 07/08/18 05:00 CBC WITH AUTO DIFF [HEME] DAILY COMPREHENSIVE METABOLIC PN,CMP [CHEM] DAILY 07/09/18 05:00 CBC WITH AUTO DIFF [HEME] DAILY COMPREHENSIVE METABOLIC PN,CMP [CHEM] DAILY - Plan Plan:: Impression: ETOH abuse/dependence Cirrhosis Hx of alcohol withdrawal seizures Chronic Tobacco dependence Hypertension Plan: ICU ETOH protocol CIWA Advance diet as tolerated SA consult, 07/07 Correct electrolytes SZ precautions Aspiration precautions GI/DVT prophylaxis Consult Psych, 07/06 Consult CM
--- NOTE | 2018-07-06 19:46 | CONS ---
CONSULTING PHYSICIAN: Austin Vieyra MD DATE OF CONSULTATION: 07/06/2018 PSYCHIATRIC EVALUATION This is a 60-minute inpatient clinical event. IDENTIFICATION: The patient is a 58-year-old male, who was admitted to the inpatient MICU at [facility] in [place], [place] on 07/05/2018. He is seen for psychiatric consultation. CHIEF COMPLAINT: "My potassium was way too low." HISTORY OF PRESENT ILLNESS: The patient is a 58-year-old male, who reports that he has been drinking about a liter of whiskey a day, and he states he is "tired of the drinking." He states that he has also been getting more depressed and also having problems with his appetite. He has lost about 10 pounds over the past couple of months. He is more isolative. He has lack of energy, lack of interest, and he states he is "just more down all the time." He denies any mood swings or anxiety. He denies any illicit substance use complicating his clinical picture. He reports variable sleep patterns with sometimes "I don't sleep at all, but lately I have been sleeping a lot." He denies being suicidal or homicidal. He denies any psychotic, delusional, or paranoid symptoms. 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 ALLERGIES: No known drug allergies. PAST MEDICAL HISTORY: 1. Hypertension. 2. Seizure x1 back in 12/2017, which the patient is stating was to his thinking "an alcohol-related seizure" because he has been trying to cut down on his drinking. 3. Hypokalemia. REVIEW OF SYSTEMS: Aside from cardiovascular, neuro, and endocrine, all other major organ-systems are negative at this point in time for acute difficulties or complications. FAMILY PSYCHIATRIC AND CD HISTORY: None reported. PAST PSYCHIATRIC AND CD HISTORY: The patient denies any previous psychiatric hospitalizations or chemical dependency treatments. He has never been to AA. He has denied any past psychiatric medication history, any previous suicide attempts or self-injurious behavior history, or any eating disorder history. He is a 2- to 3-pack per day smoker. SOCIAL HISTORY: The patient was born and raised in [place], [place]. He is and . He has 3 children. He has been in current relationship for 9 years. 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 He lives alone in [place], [place]. He enjoys doing yard work in his spare time, and he is Evangelical in terms of his dany formation. MENTAL STATUS EXAM: The patient is a 58-year-old soft-spoken white male in no apparent distress. Speech is of regular rate and rhythm. The patient is cognitively oriented x3. Psychomotor activity is within normal limits. There are no abnormal motor movements or tics observed. Gait and station are not observed as the patient is in the bed for the purposes of the inpatient consult. Mood is depressed. Affect is consistent with stated mood and restrictive, but cooperative overall for the purposes of the inpatient consult. There is no behavioral or stated evidence of acute suicidal or homicidal ideation or acute psychotic, delusional, or paranoid symptoms. Thought processes are organized. There are no manic symptoms or loose associations evident. Judgment and insight appear unimpaired at this point in time. Motivation for help appears good. VITALS: 137/74, 90, 16, 98.6 degrees. IMPRESSION: Roosevelt I: 1. Alcohol dependence, F10.20. 2. Major depressive disorder, F32.3. Roosevelt II: None. Roosevelt III: 1. Hypokalemia. 2. Hypertension. 3. History of reported seizure x1 back in 12/2017, which the patient feels is alcohol related. Roosevelt IV: Severe. Roosevelt V: 55. PLAN: 1. Sobriety. 2. AA rep to visit the patient while in the unit. 3. Pastoral guidance. 4. CD eval for the purposes of seeing what type of outpatient treatment resources are available for the patient. 5. Folic acid supplementation. 6. Thiamine supplementation. 7. Librium 25 mg t.i.d. for withdrawal symptoms. 8. Ativan per CIWA protocol. 9. Seroquel 25 mg at bedtime is already prescribed. 10.Begin trial of Prozac 20 mg q.a.m. for symptoms of depression. 11.We will continue to follow up with the patient on an as-needed basis while he remains on the inpatient MICU at [facility] in [place], [place]. 12.We will follow up with the patient sooner if there are any complications in the interim. 13.Recommend that when the patient is medically stabilized and transitioned back to the community, they follow up with Outpatient Psychiatry to assess his overall function and efficacy of his newly initiated psychiatric medication regimen for treatment of his depression. 14.If the patient is unable to stay sober on his own, I would recommend more intensive treatment setting such as inpatient treatment for his alcohol dependence. 15.Crisis plan is in place. MICHELLEODAL /[id number]
[2018-07-06] MEDS: Thiamine 100 MG Tab PO SCH (20:23)
[2018-07-06] MEDS: QUEtiapine 25 MG Tab PO SCH (20:23)
[2018-07-06] MEDS ORDERED: Thiamine 100 MG Tab PO SCH (21:00)
[2018-07-06] MEDS: LORazepam 2 MG/ML SDV IVPUSH PRN (22:01)
[2018-07-07] MEDS: FLUoxetine 10 MG Cap PO SCH (08:03)
[2018-07-07] MEDS: Potassium Chloride 20 MEQ Tab.ER PO SCH ×3 (08:03→20:17)
[2018-07-07] MEDS: Nicotine 21 MG/24 Hr Patch TRDERM SCH (08:04)
[2018-07-07] MEDS: Folic Acid 1 MG Tab PO SCH (08:04)
[2018-07-07] MEDS: chlordiazePOXIDE 25 MG Cap PO SCH ×3 (08:04→20:19)
[2018-07-07] MEDS ORDERED: Magnesium Sulfate/Water 4 GM in Premix Bag 1 BAG IV ONE ×2 (11:53→12:10)
--- NOTE | 2018-07-07 17:27 | PCM.PN ---
- General Info Date of Service: 07/07/18 Functional Status: Reports: Pain Controlled, Tolerating Diet, Ambulating, Urinating - Review of Systems General: Reports: No Symptoms HEENT: Reports: No Symptoms Pulmonary: Reports: No Symptoms Cardiovascular: Reports: No Symptoms Gastrointestinal: Reports: No Symptoms Genitourinary: Reports: No Symptoms Musculoskeletal: Reports: No Symptoms Skin: Reports: No Symptoms Neurological: Reports: No Symptoms Psychiatric: Reports: No Symptoms - Patient Data Vitals - Most Recent: Last Vital Signs Temp 37.0 C 07/07/18 15:00 Pulse 90 07/07/18 15:00 Resp 24 H 07/07/18 15:00 BP 151/95 H 07/07/18 15:00 Pulse Ox 92 L 07/07/18 15:00 Weight - Most Recent: 82.599 kg I&O - Last 24 Hours: Intake & Output 07/07/18 07/07/18 07/07/18 06:59 14:59 22:59 Intake Total 640 120 320 Balance 640 120 320 Lab Results Last 24 Hours: Laboratory Results - last 24 hr 07/07/18 07/07/18 07/07/18 Range/Units 05:35 05:35 05:35 WBC 4.33 (4.23-9.07) K/mm3 RBC 2.67 L (4.63-6.08) M/mm3 Hgb 10.5 L (13.7-17.5) gm/L Hct 29.7 L (40.1-51.0) % MCV 111.2 H (79.0-92.2) fl MCH 39.3 H (25.7-32.2) pg MCHC 35.4 (32.2-35.5) g/dl RDW Std Deviation 64.6 H (35.1-43.9) fL Plt Count 144 L (163-337) K/mm3 MPV 10.0 (9.4-12.3) fl Neut % (Auto) 67.0 (34.0-67.9) % Lymph % (Auto) 20.3 L (21.8-53.1) % [place] % (Auto) 7.9 (5.3-12.2) % Eos % (Auto) 3.9 (0.8-7.0) Baso % (Auto) 0.7 (0.1-1.2) % Neut # (Auto) 2.90 (1.78-5.38) K/mm3 Lymph # (Auto) 0.88 L (1.32-3.57) K/mm3 [place] # (Auto) 0.34 (0.30-0.82) K/mm3 Eos # (Auto) 0.17 (0.04-0.54) K/mm3 Baso # (Auto) 0.03 (0.01-0.08) K/mm3 Manual Slide Review Abnormal smear Sodium 136 (136-145) mEq/L Potassium 2.6 L (3.5-5.1) mEq/L Chloride 98 (98-107) mEq/L Carbon Dioxide 36 H (21-32) mEq/L Anion Gap 4.6 L (5-15) BUN 2 L (7-18) mg/dL Creatinine 0.7 (0.7-1.3) mg/dL Est Cr Clr Drug Dosing 128.41 mL/min Estimated GFR (MDRD) > 60 (>60) mL/min BUN/Creatinine Ratio 2.9 L (14-18) Glucose 99 (74-106) mg/dL Calcium 8.3 L (8.5-10.1) mg/dL Magnesium 1.7 L (1.8-2.4) mg/dl Total Bilirubin 2.1 H (0.2-1.0) mg/dL AST 150 H (15-37) U/L ALT 68 H (16-63) U/L Alkaline Phosphatase 170 H (46-116) U/L Total Protein 4.9 L (6.4-8.2) g/dl Albumin 2.2 L (3.4-5.0) g/dl Globulin 2.7 gm/dL Albumin/Globulin Ratio 0.8 L (1-2) Med Orders - Current: Current Medications Albuterol/Ipratropium (Duoneb 3.0-0.5 Mg/3 Ml) 3 ml NEB QID PRN PRN Reason: Shortness of Breath Last Admin: 07/06/18 17:15 Dose: 3 ml Chlordiazepoxide HCl (Librium) 25 mg PO TID [facility] Last Admin: 07/07/18 14:54 Dose: 25 mg Enoxaparin Sodium (Lovenox) 40 mg SUBCUT Q24H [facility] Last Admin: 07/06/18 15:59 Dose: 40 mg Flunisolide (Nasalide Nasal [place]) 0 ml NASBOTH Q12H [facility] Last Admin: 07/07/18 08:05 Dose: 2 sprays Fluoxetine HCl (Prozac) 20 mg PO DAILY [facility] Last Admin: 07/07/18 08:03 Dose: 20 mg Folic Acid (Folic Acid) 1 mg PO DAILY [facility] Last Admin: 07/07/18 08:04 Dose: 1 mg Hydralazine HCl (Apresoline) 20 mg IVPUSH Q6H PRN PRN Reason: Hypertension Last Admin: 07/06/18 11:37 Dose: 20 mg Promethazine HCl 12.5 mg/ (Sodium Chloride) 50.5 mls @ 100 mls/hr IV Q6H PRN PRN Reason: Nausea/Vomiting Lorazepam (Ativan) 2 mg IVPUSH Q6H PRN PRN Reason: Anxiety Last Admin: 07/06/18 22:01 Dose: 2 mg Metoprolol Tartrate (Lopressor) 5 mg IVPUSH Q4H PRN PRN Reason: heart rate > 120 Nicotine (Habitrol) 21 mg TRDERM DAILY [facility] Last Admin: 07/07/18 08:04 Dose: 21 mg Ondansetron HCl (Zofran) 4 mg IVPUSH Q8H PRN PRN Reason: Nausea/Vomiting Last Admin: 07/05/18 19:57 Dose: 4 mg Potassium Chloride (Klor-Con M20) 60 meq PO TID [facility] Last Admin: 07/07/18 14:54 Dose: 60 meq Quetiapine Fumarate (Seroquel) 25 mg PO BEDTIME [facility] Last Admin: 07/06/18 20:23 Dose: 25 mg Sodium Chloride (Saline Flush) 10 ml FLUSH ASDIRECTED PRN PRN Reason: Keep Vein Open Last Admin: 07/05/18 11:55 Dose: 10 ml Terazosin HCl (Hytrin) 4 mg PO BEDTIME [facility] Last Admin: 07/06/18 20:22 Dose: 4 mg Thiamine HCl (Vitamin B-1) 100 mg PO BEDTIME [facility] Last Admin: 07/06/18 20:23 Dose: 100 mg Discontinued Medications Chlordiazepoxide HCl (Librium) 25 mg PO BID [facility] Chlordiazepoxide HCl (Librium) 25 mg PO BID [facility] Last Admin: 07/05/18 20:01 Dose: 25 mg Folic Acid (Folic Acid) 1 mg PO ONETIME ONE Stop: 07/05/18 11:32 Last Admin: 07/05/18 11:58 Dose: 1 mg Sodium Chloride (Normal Saline) 1,000 mls @ 999 mls/hr IV ONETIME ONE Stop: 07/05/18 12:31 Last Admin: 07/05/18 12:57 Dose: 999 mls/hr Sodium Chloride (Normal Saline) 1,000 mls @ 999 mls/hr IV .BOLUS ONE Stop: 07/05/18 12:31 Last Admin: 07/05/18 11:58 Dose: 999 mls/hr Potassium Chloride 10 meq/ (Premix) 100 mls @ 100 mls/hr IV ASDIRECTED ONE Stop: 07/05/18 13:59 Last Admin: 07/05/18 14:43 Dose: 100 mls/hr Potassium Chloride 10 meq/ (Premix) 100 mls @ 100 mls/hr IV ASDIRECTED ONE Stop: 07/05/18 13:58 Last Admin: 07/05/18 13:38 Dose: 100 mls/hr Magnesium Sulfate 2 gm/ Premix 50 mls @ 25 mls/hr IV ONETIME ONE Stop: 07/05/18 14:59 Last Admin: 07/05/18 13:55 Dose: 25 mls/hr Lactated Ringer's (Ringers, Lactated) 1,000 mls @ 999 mls/hr IV .BOLUS ONE Stop: 07/05/18 17:33 Last Admin: 07/05/18 17:25 Dose: 999 mls/hr Magnesium Sulfate 4 gm/ Premix 100 mls @ 100 mls/hr IV ONETIME ONE Stop: 07/05/18 17:34 Last Admin: 07/05/18 17:25 Dose: 100 mls/hr Potassium Chloride/Sodium Chloride (1/2 Ns With 20 Meq Kcl) 1,000 mls @ 125 mls /hr IV ASDIRECTED DIDI Last Admin: 07/06/18 05:21 Dose: 125 mls/hr Lactated Ringer's (Ringers, Lactated) Confirm Administered Dose 1,000 mls @ as directed .ROUTE .STK-MED ONE Stop: 07/05/18 19:39 Last Admin: 07/05/18 20:01 Dose: Not Given Lactated Ringer's (Ringers, Lactated) 1,000 mls @ 999 mls/hr IV .BOLUS ONE Stop: 07/05/18 20:52 Last Admin: 07/05/18 20:01 Dose: 999 mls/hr Magnesium Sulfate 4 gm/ Premix 50 mls @ 25 mls/hr IV ONETIME ONE Stop: 07/07/18 13:52 Last Admin: 07/07/18 13:06 Dose: Not Given Magnesium Sulfate 4 gm/ Premix 100 mls @ 50 mls/hr IV ONETIME ONE Stop: 07/07/18 14:09 Last Infusion: 07/07/18 12:18 Dose: 25 mls/hr Metoprolol Tartrate (Lopressor) 5 mg IVPUSH Q6H PRN PRN Reason: heart rate > 120 Potassium Chloride (Klor-Con M20) 40 meq PO ONETIME ONE Stop: 07/05/18 13:00 Last Admin: 07/05/18 13:40 Dose: 40 meq Potassium Chloride (Klor-Con M20) 60 meq PO ONETIME ONE Stop: 07/05/18 18:27 Last Admin: 07/05/18 18:53 Dose: 60 meq Tamsulosin HCl (Flomax) 0.4 mg PO BEDTIME [facility] Last Admin: 07/05/18 21:04 Dose: Not Given Terazosin HCl (Hytrin) 4 mg PO BEDTIME [facility] Last Admin: 07/05/18 21:22 Dose: Not Given Terazosin HCl (Hytrin) 4 mg PO ONETIME ONE Stop: 07/05/18 21:31 Last Admin: 07/05/18 21:21 Dose: 4 mg Thiamine HCl (Vitamin B-1) 100 mg PO ONETIME ONE Stop: 07/05/18 11:32 Last Admin: 07/05/18 11:58 Dose: 100 mg Thiamine HCl (Vitamin B-1) 100 mg PO BEDTIME DIDI - Exam Quality Assessment: DVT Prophylaxis General: Alert, Oriented, Cooperative, No Acute Distress HEENT: Pupils Equal, Pupils Reactive, EOMI Neck: Supple, Trachea Midline, No JVD Lungs: Normal Respiratory Effort Cardiovascular: Regular Rate, Regular Rhythm GI/Abdominal Exam: Normal Bowel Sounds, Soft, Non-Tender, No Organomegaly, No Distention (Male) Exam: Deferred Back Exam: Normal Inspection Extremities: Normal Inspection, Non-Tender, Normal Capillary Refill Skin: Warm Neurological: No New Focal Deficit, Normal Gait, Normal Speech Psy/Mental Status: Alert, Depressed - Problem List Review Problem List Initiated/Reviewed/Updated: Yes - My Orders Last 24 Hours: My Active Orders 07/06/18 19:47 Patient Status [ADT] Routine 07/06/18 21:00 Terazosin [Hytrin] 4 mg PO BEDTIME 07/06/18 Dinner Regular Diet [DIET] 07/08/18 05:00 CBC WITH AUTO DIFF [HEME] DAILY COMPREHENSIVE METABOLIC PN,CMP [CHEM] DAILY 07/09/18 05:00 CBC WITH AUTO DIFF [HEME] DAILY COMPREHENSIVE METABOLIC PN,CMP [CHEM] DAILY - Plan Plan:: Impression: ETOH abuse/dependence Cirrhosis Hx of alcohol withdrawal seizures Chronic Tobacco dependence Hypertension Plan: ICU ETOH protocol CIWA Prozac started by Psych, 07/06 Advance diet as tolerated SA consult, 07/07; will have paperwork for IP treatment Correct electrolytes SZ precautions Aspiration precautions GI/DVT prophylaxis Consult CM
[2018-07-07] MEDS: Enoxaparin 40 MG/0.4 ML Syringe SUBCUT SCH (18:32)
[2018-07-07] MEDS: QUEtiapine 25 MG Tab PO SCH (20:20)
[2018-07-07] MEDS: Thiamine 100 MG Tab PO SCH (20:21)
[2018-07-07] MEDS: LORazepam 2 MG/ML SDV IVPUSH PRN (20:49)
--- NOTE | 2018-07-08 01:05 | CONS ---
CONSULTING PHYSICIAN: Jef Zhou LAC DATE OF CONSULTATION: 07/07/2018 TIME: 9:48 p.m. REASON FOR CONSULTATION: The patient is a 58-year-old male admitted to [facility] ICU on 07/05/2018 for alcoholism and detoxification. An Alcohol and Drug consultation was requested by his medical treatment team. SOURCE OF INFORMATION: Hospital records, staff report, background research, prescription drug monitoring report, and an JONATHAN was signed to include the patient's brother and sister in the evaluation. HISTORY OF PRESENT ILLNESS: The patient is a 58-year-old male who was brought to [facility] ED by his sister. The patient had a VIVIANA of 0.16 and they requested medical assistance for detoxification as the patient had attempted to achieve sobriety previously in 12/2017 but experienced alcohol-related withdrawals that included seizures. This admission, they requested close medical monitoring. The patient reports that he began approximately a month ago to wean himself off drinking, but he has yet been unsuccessful. When asked when his last drink was, he reported that he drank a half a glass of Straight Guadalupe before entering the hospital on 07/05/2018, but he had also drank about a half a pint the night before. The patient reports that he has been trying to cut back from half to a pint of Guadalupe a day; however, he is yet to be able to achieve sobriety. By self report, it appears it is difficult for the patient to achieve and maintain sobriety because his primary source of social interaction and entertainment is drinking with friends at his home. This has been a pattern of socialization throughout his life. The positives that the patient gets from drinking with friends seem to outweigh any negative consequences he may experience. The patient requested assistance with achieving sobriety. PSYCHOSOCIAL HISTORY: The patient reports that he was born and raised in [place], [place], by his biological parents. His father is and his mother has dementia and lives at [place]. The patient has one brother who lives in [place] and one sister who lives in [place]. The patient lives alone in a home that he owns. The patient reports that he graduated from [employer] in 1976 where he maintained average grades. He reports that he was not involved in any extra- curricular activity, but worked at [employer]. After graduating from high school, the patient reports that he went se[employer]isiving for the next 5 years until he went to the [employer] when he was approximately 20 to 21 years old. 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 The patient reports that he was at age 24 in 1996 and was at approximately 37. The patient reports that he has 3 children from other relationships. He has been in a current relationship for the past 9 years. 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 The patient enjoys socializing with friends and yard work in his spare time and he is a [employer]. MENTAL HEALTH HISTORY: The patient was seen for a psychiatric evaluation by Dr. Austin Vieyra MD, who subsequently diagnosed the patient with major depressive disorder. SUBSTANCE ABUSE HISTORY: The patient reports that he began drinking socially while in high school and would typically drink 6 beers or drinks per occasion. After high school, he went to work [employer] for the next 5 years and states that he would drink 6 to 7 days a week, typically a half to a fifth bottle of VO per occasion. He left that job and went to work on the [employer] where he reports that he had an 800 dollar a month cocaine habit. His primary method of administration was snorting. 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 He reports drinking 4 to 5 times a week, typically 4 to 5 beers per occasion or 4 to 5 drinks. He reports that during his 30s, he started work at his dad's Work in [employer] and drank 6 days a week. He typically would start drinking at happy hour and have 4 to 5 whiskeys. However, he could drink up to 1 L per occasion. During his 40s and 50s, the patient reports drinking 6 days a week up to 1 L per day of whiskey. The patient reports that 4 years ago after [place] moved to [facility], his business suffered greatly and he began to drink 7 days a week, drinking up to 1 L of Guadalupe a day. In the last month, he states he has been trying to wean himself off alcohol as his medical situation has become more problematic. He has been trying to drink a half to a pint of Guadalupe daily; however, he has been experiencing withdrawal symptoms. In 12/2017, he presented to [facility] ICU after an alcohol-related seizure. He was prescribed Librium at that time and was referred to outpatient treatment. The patient did not follow through with the treatment recommendations, and states that he has never had any substance abuse treatment or education. The patient presents with no alcohol or drug-related criminal charges, and he states that he does not drink and drive; rather, he likes to stay at home and drink with his friends. The patient reports that there may be alcoholism somewhere in his biological family history, but he is not sure. Collateral report from the patient's sister indicates that the family is very concerned about the patient as it appears to them his drinking has caused him to lose his business and consequently he has no insurance or money. The patient's sister reports that approximately 7 weeks ago she checked in on the patient and "His eyes were yellow, his skin was medina, his extremities were swollen. He was not able to eat or he would start to shake. He could not do anything but sleep. He did not know if it was day or night. He did not let anyone into his house because it was a mess and he was not going to the bathroom properly." The patient is presenting to [facility] with elevated liver enzymes subsequent to chronic and severe alcohol dependence. ASAM DIMENSIONS: Dimension 1: Score 2. The patient has some difficulty tolerating and coping with withdrawal discomfort, but responds to support and treatment. The patient displays signs and symptoms of [id number] withdrawals including alcohol- related seizures. Dimension 2: Score 2. The patient has some difficulty tolerating and coping with physical problems, has complications of his endocrine system secondary to alcohol use. The patient's sister reports that the patient neglects and does not seek care for serious biomedical problems. Dimension 3: Score 2. The patient was diagnosed by Dr. Austin Vieyra MD, with major depressive disorder. Dimension 4: Score 3+. The patient appears to have minimal awareness of his addiction and resistance to substance abuse treatment is high despite negative consequences, and the patient appears to need intensive motivating strategies in a 24-hour structure. Dimension 5: Score 3+. The patient has little recognition and understanding of relapse and recidivism issues and displays high vulnerability for further substance use or mental health problems. The patient appears to be unable to control use without a 24-hour structure and monitoring. Dimension 6: Score 3. The patient is minimally engaged in structured meaningful activity. His peer group supports and assists him in his drinking habits and his environment could complicate his recovery. DIAGNOSES: The patient meets DSM-5 criteria for the following diagnoses: 1. F10.20, alcohol use disorder, severe. 2. F10.239, alcohol withdrawal without perceptual disturbance. 3. F10.229, alcohol intoxication. 4. F17.200, tobacco use disorder, severe. ASSESSMENT/SUMMARY: The patient presents to [facility] with chronic and severe alcohol dependence with accompanying withdrawals. The patient appears to be in stage IV alcoholism manifesting with psychological dependence and loss of control, deterioration of significant life organs, inability to eat regular nutritious meals without digestive complications, consequential depressive disorder, an inability to achieve and maintain sobriety without professional intervention, impairment in significant life areas, and denial that alcoholism is a mitigating factor in his negative consequences. Although the patient requested assistance in achieving sobriety upon admission, he now maintains that he can achieve sobriety without intervention. The positive social aspects of drinking with friends appears to make life tolerable for this patient, and he verbalizes that he cannot see a life without continuing to have a "couple of drinks with friends." The patient meets ASAM criteria for a level 3.5 medically monitored inpatient treatment as he will need continued medical monitoring and stabilization through the remainder of his detoxification as well as assistance with continued mental healthcare and a structured monitored environment for continued substance abuse abstinence and treatment. The patient meets ASAM imminent danger criteria for a petition for involuntary commitment as this patient demonstrates a maladaptive pattern of alcohol use resulting in substantial deterioration of physical and psychological health based on poor self-control and lack of good judgment with providing for nutrition and personal care. The patient's brother and sister were consulted and the patient's brother verbalized that he believes the patient needs structured care. Without professional intervention, it is almost certain that this patient will continue drinking as he has been unable to achieve sobriety for any length of time throughout his lifetime. Dr. Lynn was consulted regarding the patient's safe discharge plan, and it was agreed upon that a petition for involuntary commitment may be the most beneficial intervention tool to ensure the patient's safety and assist him in achieving sobriety. A petition for involuntary commitment was exercised on 07/07/2018, and placed in the patient's chart. The charge nurse was notified of the executed petition. ANU Galdamez, will be consulted on 07/08/2018, and will be making arrangements with [facility] for screening for the [facility] and transportation with the [facility]'s Department. PARTHA /[id number]
[2018-07-08] MEDS: hydrALAZINE 20 MG/ML SDV IVPUSH PRN ×2 (02:09→08:45)
[2018-07-08] MEDS: FLUoxetine 10 MG Cap PO SCH (08:28)
[2018-07-08] MEDS: Folic Acid 1 MG Tab PO SCH (08:28)
[2018-07-08] MEDS: chlordiazePOXIDE 25 MG Cap PO SCH ×3 (08:28→20:23)
[2018-07-08] MEDS: Potassium Chloride 20 MEQ Tab.ER PO SCH ×3 (08:29→20:22)
[2018-07-08] MEDS: Nicotine 21 MG/24 Hr Patch TRDERM SCH (08:35)
[2018-07-08] MEDS: Enoxaparin 40 MG/0.4 ML Syringe SUBCUT SCH (18:00)
[2018-07-08] MEDS: QUEtiapine 25 MG Tab PO SCH (20:23)
[2018-07-08] MEDS: Thiamine 100 MG Tab PO SCH (20:23)
--- NOTE | 2018-07-08 20:54 | PCM.PN ---
<Sheela Sheets - Last Filed: 07/08/18 21:26> - General Info Date of Service: 07/08/18 Admission Dx/Problem (Free Text): Admission Diagnosis/Problem Admission Diagnosis/Problem Alcoholism Subjective Update: In to see Ebenezer. He is sitting up in bed watching TV. He looks comfortable and currently states he has no complaints. No new symptoms. Will likely transfer tomorrow to [facility]. Functional Status: Reports: Pain Controlled, Tolerating Diet, Ambulating, Urinating - Review of Systems General: Reports: No Symptoms. Denies: Fever, Chills HEENT: Reports: No Symptoms Pulmonary: Reports: No Symptoms. Denies: Shortness of Breath, Cough Cardiovascular: Reports: No Symptoms. Denies: Chest Pain Gastrointestinal: Reports: No Symptoms. Denies: Abdominal Pain, Diarrhea, Nausea, Vomiting Genitourinary: Reports: No Symptoms Musculoskeletal: Reports: No Symptoms Skin: Reports: Jaundice Neurological: Reports: No Symptoms Psychiatric: Reports: No Symptoms - Patient Data Vitals - Most Recent: Last Vital Signs Temp 98.1 F 07/08/18 15:35 Pulse 97 07/08/18 15:35 Resp 26 H 07/08/18 15:35 BP 141/80 H 07/08/18 20:23 Pulse Ox 93 L 07/08/18 15:35 Weight - Most Recent: 84.776 kg I&O - Last 24 Hours: Intake & Output 07/08/18 07/08/18 07/08/18 06:59 14:59 22:59 Intake Total 800 120 400 Balance 800 120 400 Lab Results Last 24 Hours: Laboratory Results - last 24 hr 07/08/18 07/08/18 07/08/18 Range/Units 05:24 05:24 05:24 WBC 5.00 (4.23-9.07) K/mm3 RBC 2.80 L (4.63-6.08) M/mm3 Hgb 10.9 L (13.7-17.5) gm/L Hct 31.6 L (40.1-51.0) % MCV 112.9 H (79.0-92.2) fl MCH 38.9 H (25.7-32.2) pg MCHC 34.5 (32.2-35.5) g/dl RDW Std Deviation 66.7 H (35.1-43.9) fL Plt Count 149 L (163-337) K/mm3 MPV 10.7 (9.4-12.3) fl Neut % (Auto) 72.2 H (34.0-67.9) % Lymph % (Auto) 17.0 L (21.8-53.1) % [place] % (Auto) 7.8 (5.3-12.2) % Eos % (Auto) 2.4 (0.8-7.0) Baso % (Auto) 0.4 (0.1-1.2) % Neut # (Auto) 3.61 (1.78-5.38) K/mm3 Lymph # (Auto) 0.85 L (1.32-3.57) K/mm3 [place] # (Auto) 0.39 (0.30-0.82) K/mm3 Eos # (Auto) 0.12 (0.04-0.54) K/mm3 Baso # (Auto) 0.02 (0.01-0.08) K/mm3 Manual Slide Review Abnormal smear Sodium 136 (136-145) mEq/L Potassium 3.3 L (3.5-5.1) mEq/L Chloride 101 (98-107) mEq/L Carbon Dioxide 29 (21-32) mEq/L Anion Gap 9.3 (5-15) BUN 2 L (7-18) mg/dL Creatinine 0.7 (0.7-1.3) mg/dL Est Cr Clr Drug Dosing 128.41 mL/min Estimated GFR (MDRD) > 60 (>60) mL/min BUN/Creatinine Ratio 2.9 L (14-18) Glucose 107 H (74-106) mg/dL Calcium 8.5 (8.5-10.1) mg/dL Magnesium 1.7 L (1.8-2.4) mg/dl Total Bilirubin 1.7 H (0.2-1.0) mg/dL AST 130 H (15-37) U/L ALT 72 H (16-63) U/L Alkaline Phosphatase 192 H (46-116) U/L Total Protein 5.2 L (6.4-8.2) g/dl Albumin 2.4 L (3.4-5.0) g/dl Globulin 2.8 gm/dL Albumin/Globulin Ratio 0.9 L (1-2) Med Orders - Current: Current Medications Albuterol/Ipratropium (Duoneb 3.0-0.5 Mg/3 Ml) 3 ml NEB QID PRN PRN Reason: Shortness of Breath Last Admin: 07/06/18 17:15 Dose: 3 ml Chlordiazepoxide HCl (Librium) 25 mg PO TID [facility] Last Admin: 07/08/18 20:23 Dose: 25 mg Enoxaparin Sodium (Lovenox) 40 mg SUBCUT Q24H [facility] Last Admin: 07/08/18 18:00 Dose: 40 mg Flunisolide (Nasalide Nasal [place]) 0 ml NASBOTH Q12H [facility] Last Admin: 07/08/18 20:23 Dose: 2 sprays Fluoxetine HCl (Prozac) 20 mg PO DAILY [facility] Last Admin: 07/08/18 08:28 Dose: 20 mg Folic Acid (Folic Acid) 1 mg PO DAILY [facility] Last Admin: 07/08/18 08:28 Dose: 1 mg Hydralazine HCl (Apresoline) 20 mg IVPUSH Q6H PRN PRN Reason: Hypertension Last Admin: 07/08/18 08:45 Dose: 20 mg Promethazine HCl 12.5 mg/ (Sodium Chloride) 50.5 mls @ 100 mls/hr IV Q6H PRN PRN Reason: Nausea/Vomiting Lorazepam (Ativan) 2 mg IVPUSH Q6H PRN PRN Reason: Anxiety Last Admin: 07/07/18 20:49 Dose: 2 mg Metoprolol Tartrate (Lopressor) 5 mg IVPUSH Q4H PRN PRN Reason: heart rate > 120 Nicotine (Habitrol) 21 mg TRDERM DAILY [facility] Last Admin: 07/08/18 08:35 Dose: 21 mg Ondansetron HCl (Zofran) 4 mg IVPUSH Q8H PRN PRN Reason: Nausea/Vomiting Last Admin: 07/05/18 19:57 Dose: 4 mg Potassium Chloride (Klor-Con M20) 60 meq PO TID [facility] Last Admin: 07/08/18 20:22 Dose: 60 meq Quetiapine Fumarate (Seroquel) 25 mg PO BEDTIME [facility] Last Admin: 07/08/18 20:23 Dose: 25 mg Sodium Chloride (Saline Flush) 10 ml FLUSH ASDIRECTED PRN PRN Reason: Keep Vein Open Last Admin: 07/05/18 11:55 Dose: 10 ml Terazosin HCl (Hytrin) 4 mg PO BEDTIME [facility] Last Admin: 07/08/18 20:23 Dose: 4 mg Thiamine HCl (Vitamin B-1) 100 mg PO BEDTIME [facility] Last Admin: 07/08/18 20:23 Dose: 100 mg Discontinued Medications Chlordiazepoxide HCl (Librium) 25 mg PO BID [facility] Chlordiazepoxide HCl (Librium) 25 mg PO BID [facility] Last Admin: 07/05/18 20:01 Dose: 25 mg Folic Acid (Folic Acid) 1 mg PO ONETIME ONE Stop: 07/05/18 11:32 Last Admin: 07/05/18 11:58 Dose: 1 mg Sodium Chloride (Normal Saline) 1,000 mls @ 999 mls/hr IV ONETIME ONE Stop: 07/05/18 12:31 Last Admin: 07/05/18 12:57 Dose: 999 mls/hr Sodium Chloride (Normal Saline) 1,000 mls @ 999 mls/hr IV .BOLUS ONE Stop: 07/05/18 12:31 Last Admin: 07/05/18 11:58 Dose: 999 mls/hr Potassium Chloride 10 meq/ (Premix) 100 mls @ 100 mls/hr IV ASDIRECTED ONE Stop: 07/05/18 13:59 Last Admin: 07/05/18 14:43 Dose: 100 mls/hr Potassium Chloride 10 meq/ (Premix) 100 mls @ 100 mls/hr IV ASDIRECTED ONE Stop: 07/05/18 13:58 Last Admin: 07/05/18 13:38 Dose: 100 mls/hr Magnesium Sulfate 2 gm/ Premix 50 mls @ 25 mls/hr IV ONETIME ONE Stop: 07/05/18 14:59 Last Admin: 07/05/18 13:55 Dose: 25 mls/hr Lactated Ringer's (Ringers, Lactated) 1,000 mls @ 999 mls/hr IV .BOLUS ONE Stop: 07/05/18 17:33 Last Admin: 07/05/18 17:25 Dose: 999 mls/hr Magnesium Sulfate 4 gm/ Premix 100 mls @ 100 mls/hr IV ONETIME ONE Stop: 09/21/18 17:34 Last Admin: 07/05/18 17:25 Dose: 100 mls/hr Potassium Chloride/Sodium Chloride (1/2 Ns With 20 Meq Kcl) 1,000 mls @ 125 mls /hr IV ASDIRECTED [facility] Last Admin: 07/06/18 05:21 Dose: 125 mls/hr Lactated Ringer's (Ringers, Lactated) Confirm Administered Dose 1,000 mls @ as directed .ROUTE .STK-MED ONE Stop: 07/05/18 19:39 Last Admin: 07/05/18 20:01 Dose: Not Given Lactated Ringer's (Ringers, Lactated) 1,000 mls @ 999 mls/hr IV .BOLUS ONE Stop: 07/05/18 20:52 Last Admin: 07/05/18 20:01 Dose: 999 mls/hr Magnesium Sulfate 4 gm/ Premix 50 mls @ 25 mls/hr IV ONETIME ONE Stop: 07/07/18 13:52 Last Admin: 07/07/18 13:06 Dose: Not Given Magnesium Sulfate 4 gm/ Premix 100 mls @ 50 mls/hr IV ONETIME ONE Stop: 07/07/18 14:09 Last Infusion: 07/07/18 12:18 Dose: 25 mls/hr Metoprolol Tartrate (Lopressor) 5 mg IVPUSH Q6H PRN PRN Reason: heart rate > 120 Potassium Chloride (Klor-Con M20) 40 meq PO ONETIME ONE Stop: 07/05/18 13:00 Last Admin: 07/05/18 13:40 Dose: 40 meq Potassium Chloride (Klor-Con M20) 60 meq PO ONETIME ONE Stop: 07/05/18 18:27 Last Admin: 07/05/18 18:53 Dose: 60 meq Tamsulosin HCl (Flomax) 0.4 mg PO BEDTIME [facility] Last Admin: 07/05/18 21:04 Dose: Not Given Terazosin HCl (Hytrin) 4 mg PO BEDTIME [facility] Last Admin: 07/05/18 21:22 Dose: Not Given Terazosin HCl (Hytrin) 4 mg PO ONETIME ONE Stop: 07/05/18 21:31 Last Admin: 07/05/18 21:21 Dose: 4 mg Thiamine HCl (Vitamin B-1) 100 mg PO ONETIME ONE Stop: 07/05/18 11:32 Last Admin: 07/05/18 11:58 Dose: 100 mg Thiamine HCl (Vitamin B-1) 100 mg PO BEDTIME [facility] - Exam Quality Assessment: DVT Prophylaxis. No: Supplemental Oxygen General: Alert, Oriented, Cooperative, No Acute Distress HEENT: Pupils Equal, Pupils Reactive, EOMI, Mucous Membr. Moist/[place] Neck: Supple Lungs: Clear to Auscultation, Normal Respiratory Effort Cardiovascular: Regular Rate, Regular Rhythm GI/Abdominal Exam: Normal Bowel Sounds, Soft, Non-Tender, No Organomegaly, No Distention, No Abnormal Bruit, No Mass, Pelvis Stable (Male) Exam: Deferred Back Exam: Normal Inspection, Full Range of Motion Extremities: Normal Inspection, Normal Range of Motion, Non-Tender, No Pedal Edema, Normal Capillary Refill Peripheral Pulses: 3+: Posterior Tibial (L), Posterior Tibial (R), Dorsalis Pedis (L), Dorsalis Pedis (R) Skin: Warm, Dry, Intact Neurological: No New Focal Deficit Psy/Mental Status: Alert, Normal Affect, Normal Mood - Problem List & Annotations (1) Alcohol abuse SNOMED Code(s): 56404824 Code(s): F10.10 - ALCOHOL ABUSE, UNCOMPLICATED Status: Acute Priority: High Current Visit: Yes (2) Alcohol dependence SNOMED Code(s): 78187862 Code(s): F10.20 - ALCOHOL DEPENDENCE, UNCOMPLICATED Status: Acute Priority: High Current Visit: Yes Qualifiers: Complication of substance-induced condition: with unspecified complication (3) Alcohol withdrawal seizure SNOMED Code(s): 307229660 Code(s): F10.239 - ALCOHOL DEPENDENCE WITH WITHDRAWAL, UNSPECIFIED; R56.9 - UNSPECIFIED CONVULSIONS Status: Acute Priority: High Current Visit: Yes Qualifiers: Complication of substance-induced condition: with unspecified complication Qualified Code(s): F10.239 - Alcohol dependence with withdrawal, unspecified; R56.9 - Unspecified convulsions - Problem List Review Problem List Initiated/Reviewed/Updated: Yes - Plan Plan:: Impression: ETOH abuse/dependence * ETOH 0.16 * Patient's been drinking approximately 1 L of whiskey for the past 42 years; Drinks approximately 2 pints a day * He has not eaten anything for the past and it 11 days * He wants help * SA and Psych Consult * Dr. Vieyra--> AA, Folic acid, Thiamine, Librium, Ativan, Seroquel, Prozac * Jef Zhou--> inpt treatment at [facility] Hx of alcohol withdrawal seizures * He's never undergone inpatient or outpatient treatment for alcoholism Cirrhosis Hypokalemia, Improving * 1.8--> 3.3 * Monitor and Replenish PRN Chronic Tobacco dependence * 2-3 packs of cigarettes daily * Smoking cessation counseling given * Nicotine patch Hypertension * He has not been taking his hypertension meds for the past 2 weeks * Hydralazine PRN COPD Plan: ICU ETOH protocol CIWA protocol Prozac started by Psych, 07/06 Involuntary commitment exercised Sunday07/07/18 Advance diet as tolerated SA consult, 07/07; will have paperwork for IP treatment Correct electrolytes SZ precautions Aspiration precautions GI/DVT prophylaxis Consult CM/SW--> [facility] Service [place] for screening for [facility] Code: Full Code; PCP: Dr. Sudarshan Reed in [place] Likely transfer to [facility] in the AM <Linette Lynn - Last Filed: 07/09/18 13:19> - Patient Data Vitals - Most Recent: Last Vital Signs Temp 36.6 C 07/09/18 09:06 Pulse 88 07/09/18 09:06 Resp 16 07/09/18 09:06 BP 147/84 H 07/09/18 09:06 Pulse Ox 95 07/09/18 09:06 I&O - Last 24 Hours: Intake & Output 07/08/18 07/09/18 07/09/18 22:59 06:59 14:59 Intake Total 490 300 120 Balance 490 300 120 Lab Results Last 24 Hours: Laboratory Results - last 24 hr 07/09/18 07/09/18 Range/Units 05:33 05:38 WBC 6.16 (4.23-9.07) K/mm3 RBC 2.86 L (4.63-6.08) M/mm3 Hgb 11.3 L (13.7-17.5) gm/L Hct 32.5 L (40.1-51.0) % MCV 113.6 H (79.0-92.2) fl MCH 39.5 H (25.7-32.2) pg MCHC 34.8 (32.2-35.5) g/dl RDW Std Deviation 71.3 H (35.1-43.9) fL Plt Count 157 L (163-337) K/mm3 MPV 10.7 (9.4-12.3) fl Neut % (Auto) 74.0 H (34.0-67.9) % Lymph % (Auto) 15.6 L (21.8-53.1) % [place] % (Auto) 7.5 (5.3-12.2) % Eos % (Auto) 2.1 (0.8-7.0) Baso % (Auto) 0.5 (0.1-1.2) % Neut # (Auto) 4.56 (1.78-5.38) K/mm3 Lymph # (Auto) 0.96 L (1.32-3.57) K/mm3 [place] # (Auto) 0.46 (0.30-0.82) K/mm3 Eos # (Auto) 0.13 (0.04-0.54) K/mm3 Baso # (Auto) 0.03 (0.01-0.08) K/mm3 Manual Slide Review Abnormal smear Sodium 135 L (136-145) mEq/L Potassium 4.0 (3.5-5.1) mEq/L Chloride 105 (98-107) mEq/L Carbon Dioxide 25 (21-32) mEq/L Anion Gap 9.0 (5-15) BUN 3 L (7-18) mg/dL Creatinine 0.6 L (0.7-1.3) mg/dL Est Cr Clr Drug Dosing 149.10 mL/min Estimated GFR (MDRD) > 60 (>60) mL/min BUN/Creatinine Ratio 5.0 L (14-18) Glucose 109 H (74-106) mg/dL Calcium 8.9 (8.5-10.1) mg/dL Total Bilirubin 1.5 H (0.2-1.0) mg/dL AST 97 H (15-37) U/L ALT 67 H (16-63) U/L Alkaline Phosphatase 196 H (46-116) U/L Total Protein 5.3 L (6.4-8.2) g/dl Albumin 2.4 L (3.4-5.0) g/dl Globulin 2.9 gm/dL Albumin/Globulin Ratio 0.8 L (1-2) Med Orders - Current: Current Medications Albuterol/Ipratropium (Duoneb 3.0-0.5 Mg/3 Ml) 3 ml NEB QID PRN PRN Reason: Shortness of Breath Last Admin: 07/06/18 17:15 Dose: 3 ml Chlordiazepoxide HCl (Librium) 25 mg PO TID [facility] Last Admin: 07/09/18 09:07 Dose: 25 mg Enoxaparin Sodium (Lovenox) 40 mg SUBCUT Q24H [facility] Last Admin: 07/08/18 18:00 Dose: 40 mg Flunisolide (Nasalide Nasal [place]) 0 ml NASBOTH Q12H [facility] Last Admin: 07/09/18 09:07 Dose: 2 sprays Fluoxetine HCl (Prozac) 20 mg PO DAILY [facility] Last Admin: 07/09/18 09:07 Dose: 20 mg Folic Acid (Folic Acid) 1 mg PO DAILY [facility] Last Admin: 07/09/18 09:07 Dose: 1 mg Hydralazine HCl (Apresoline) 20 mg IVPUSH Q6H PRN PRN Reason: Hypertension Last Admin: 07/08/18 08:45 Dose: 20 mg Promethazine HCl 12.5 mg/ (Sodium Chloride) 50.5 mls @ 100 mls/hr IV Q6H PRN PRN Reason: Nausea/Vomiting Lorazepam (Ativan) 2 mg IVPUSH Q6H PRN PRN Reason: Anxiety Last Admin: 07/07/18 20:49 Dose: 2 mg Metoprolol Tartrate (Lopressor) 5 mg IVPUSH Q4H PRN PRN Reason: heart rate > 120 Miscellaneous Information (Remove Patch) 1 ea TRDERM DAILY [facility] Nicotine (Habitrol) 21 mg TRDERM DAILY [facility] Last Admin: 07/09/18 09:06 Dose: 21 mg Ondansetron HCl (Zofran) 4 mg IVPUSH Q8H PRN PRN Reason: Nausea/Vomiting Last Admin: 07/05/18 19:57 Dose: 4 mg Potassium Chloride (Klor-Con M20) 60 meq PO TID [facility] Last Admin: 07/09/18 09:07 Dose: 60 meq Quetiapine Fumarate (Seroquel) 25 mg PO BEDTIME [facility] Last Admin: 07/08/18 20:23 Dose: 25 mg Sodium Chloride (Saline Flush) 10 ml FLUSH ASDIRECTED PRN PRN Reason: Keep Vein Open Last Admin: 07/05/18 11:55 Dose: 10 ml Terazosin HCl (Hytrin) 4 mg PO BEDTIME [facility] Last Admin: 07/08/18 20:23 Dose: 4 mg Thiamine HCl (Vitamin B-1) 100 mg PO BEDTIME [facility] Last Admin: 07/08/18 20:23 Dose: 100 mg Discontinued Medications Chlordiazepoxide HCl (Librium) 25 mg PO BID [facility] Chlordiazepoxide HCl (Librium) 25 mg PO BID [facility] Last Admin: 07/05/18 20:01 Dose: 25 mg Folic Acid (Folic Acid) 1 mg PO ONETIME ONE Stop: 07/05/18 11:32 Last Admin: 07/05/18 11:58 Dose: 1 mg Sodium Chloride (Normal Saline) 1,000 mls @ 999 mls/hr IV ONETIME ONE Stop: 07/05/18 12:31 Last Admin: 07/05/18 12:57 Dose: 999 mls/hr Sodium Chloride (Normal Saline) 1,000 mls @ 999 mls/hr IV .BOLUS ONE Stop: 07/05/18 12:31 Last Admin: 07/05/18 11:58 Dose: 999 mls/hr Potassium Chloride 10 meq/ (Premix) 100 mls @ 100 mls/hr IV ASDIRECTED ONE Stop: 07/05/18 13:59 Last Admin: 07/05/18 14:43 Dose: 100 mls/hr Potassium Chloride 10 meq/ (Premix) 100 mls @ 100 mls/hr IV ASDIRECTED ONE Stop: 07/05/18 13:58 Last Admin: 07/05/18 13:38 Dose: 100 mls/hr Magnesium Sulfate 2 gm/ Premix 50 mls @ 25 mls/hr IV ONETIME ONE Stop: 07/05/18 14:59 Last Admin: 07/05/18 13:55 Dose: 25 mls/hr Lactated Ringer's (Ringers, Lactated) 1,000 mls @ 999 mls/hr IV .BOLUS ONE Stop: 07/05/18 17:33 Last Admin: 07/05/18 17:25 Dose: 999 mls/hr Magnesium Sulfate 4 gm/ Premix 100 mls @ 100 mls/hr IV ONETIME ONE Stop: 07/05/18 17:34 Last Admin: 07/05/18 17:25 Dose: 100 mls/hr Potassium Chloride/Sodium Chloride (1/2 Ns With 20 Meq Kcl) 1,000 mls @ 125 mls /hr IV ASDIRECTED [facility] Last Admin: 07/06/18 05:21 Dose: 125 mls/hr Lactated Ringer's (Ringers, Lactated) Confirm Administered Dose 1,000 mls @ as directed .ROUTE .STK-MED ONE Stop: 07/05/18 19:39 Last Admin: 07/05/18 20:01 Dose: Not Given Lactated Ringer's (Ringers, Lactated) 1,000 mls @ 999 mls/hr IV .BOLUS ONE Stop: 07/05/18 20:52 Last Admin: 07/05/18 20:01 Dose: 999 mls/hr Magnesium Sulfate 4 gm/ Premix 50 mls @ 25 mls/hr IV ONETIME ONE Stop: 07/07/18 13:52 Last Admin: 07/07/18 13:06 Dose: Not Given Magnesium Sulfate 4 gm/ Premix 100 mls @ 50 mls/hr IV ONETIME ONE Stop: 07/07/18 14:09 Last Infusion: 07/07/18 12:18 Dose: 25 mls/hr Magnesium Sulfate 2 gm/ Premix 50 mls @ 25 mls/hr IV ONETIME ONE Stop: 07/09/18 08:15 Last Admin: 07/09/18 06:47 Dose: 25 mls/hr Magnesium Oxide (Magnesium Oxide) 800 mg PO ONETIME ONE Stop: 07/09/18 09:41 Last Admin: 07/09/18 11:44 Dose: 800 mg Metoprolol Tartrate (Lopressor) 5 mg IVPUSH Q6H PRN PRN Reason: heart rate > 120 Potassium Chloride (Klor-Con M20) 40 meq PO ONETIME ONE Stop: 07/05/18 13:00 Last Admin: 07/05/18 13:40 Dose: 40 meq Potassium Chloride (Klor-Con M20) 60 meq PO ONETIME ONE Stop: 07/05/18 18:27 Last Admin: 07/05/18 18:53 Dose: 60 meq Tamsulosin HCl (Flomax) 0.4 mg PO BEDTIME [facility] Last Admin: 07/05/18 21:04 Dose: Not Given Terazosin HCl (Hytrin) 4 mg PO BEDTIME [facility] Last Admin: 07/05/18 21:22 Dose: Not Given Terazosin HCl (Hytrin) 4 mg PO ONETIME ONE Stop: 07/05/18 21:31 Last Admin: 07/05/18 21:21 Dose: 4 mg Thiamine HCl (Vitamin B-1) 100 mg PO ONETIME ONE Stop: 07/05/18 11:32 Last Admin: 07/05/18 11:58 Dose: 100 mg Thiamine HCl (Vitamin B-1) 100 mg PO BEDTIME [facility] - Problem List & Annotations (1) Alcohol abuse SNOMED Code(s): 06986187 Code(s): F10.10 - ALCOHOL ABUSE, UNCOMPLICATED Status: Acute Priority: High Current Visit: Yes (2) Alcohol dependence SNOMED Code(s): 97152093 Code(s): F10.20 - ALCOHOL DEPENDENCE, UNCOMPLICATED Status: Acute Priority: High Current Visit: Yes Qualifiers: Complication of substance-induced condition: with unspecified complication (3) Alcohol withdrawal seizure SNOMED Code(s): 350899832 Code(s): F10.239 - ALCOHOL DEPENDENCE WITH WITHDRAWAL, UNSPECIFIED; R56.9 - UNSPECIFIED CONVULSIONS Status: Acute Priority: High Current Visit: Yes Qualifiers: Complication of substance-induced condition: with unspecified complication Qualified Code(s): F10.239 - Alcohol dependence with withdrawal, unspecified; R56.9 - Unspecified convulsions (4) Hypertension SNOMED Code(s): 37167043 Code(s): I10 - ESSENTIAL (PRIMARY) HYPERTENSION Status: Acute Current Visit: Yes (5) Major depression in complete remission SNOMED Code(s): 68453485 Code(s): F32.5 - MAJOR DEPRESSIVE DISORDER, SINGLE EPISODE, IN FULL REMISSION Status: Acute Current Visit: Yes (6) COPD (chronic obstructive pulmonary disease) SNOMED Code(s): 01400089 Code(s): J44.9 - CHRONIC OBSTRUCTIVE PULMONARY DISEASE, UNSPECIFIED Status : Acute Current Visit: No Qualifiers: COPD type: emphysema Emphysema type: unspecified Qualified Code(s): J43.9 - Emphysema, unspecified - My Orders Last 24 Hours: My Active Orders 07/09/18 12:26 Ready for Discharge [RC] PER UNIT ROUTINE 07/10/18 09:00 Remove Patch 1 ea TRDERM DAILY - Plan Plan:: Transferred to [place] with telemetry, stable on floor. Will discuss with [facility] providers about transfer for SA treatment.
[2018-07-09] MEDS ORDERED: Magnesium Sulfate/Water 2 GM in Premix Bag 1 BAG IV ONE (06:16)
[2018-07-09] MEDS: Nicotine 21 MG/24 Hr Patch TRDERM SCH (09:06)
[2018-07-09] MEDS: FLUoxetine 10 MG Cap PO SCH (09:07)
[2018-07-09] MEDS: Potassium Chloride 20 MEQ Tab.ER PO SCH (09:07)
[2018-07-09] MEDS: chlordiazePOXIDE 25 MG Cap PO SCH ×2 (09:07→15:29)
[2018-07-09] MEDS: Folic Acid 1 MG Tab PO SCH (09:07)
[2018-07-09] MEDS ORDERED: Magnesium Oxide 400 MG Tab PO ONE (09:40)
--- NOTE | 2018-07-09 12:27 | PCM.DCSUM1 ---
Discharge Summary - Hospital Course Free Text/Narrative:: 58 year old male who was prompted to come to the ED by his sister who was concerned that he had "a month to live". The patient was treated for ETOH detoxification, he received consultation for different forms of substance abuse including: tobacco; ETOH. The patient was seen by the SA counselor as well as Psychiatry. Treatment was provided for acute on chronic chemical dependency. Electrolytes were corrected. Severe hypokalemia was treated over multiple days. He was DCd to [facility] via escort per protocol. Dx Major depression ETOH dependence ETOH withdrawal History ETOH withdrawal seizure Cirrhosis Tobacco dependence Hypokalemia HPI Initial Comments: 58 year old male presents to the ED wanting to under go detox for ETOH abuse/ dependence, he is agreeable for SA and psychiatry consultations. The patient drinks approximately 1 liter a day of VO. PMH includes ETOH withdrawal seizures. He states that he is depressed, and does not know how to help himself emotionally or financially. He will be admitted to the ICU per protocol. Diagnosis: Stroke: No - Discharge Data Discharge Date: 07/09/18 Discharge Disposition: DC/Tfer to Psych Hosp/Unit 65 Condition: Good - Discharge Diagnosis/Problem(s) (1) Alcohol abuse SNOMED Code(s): 38484650 ICD Code: F10.10 - ALCOHOL ABUSE, UNCOMPLICATED Status: Acute Priority: High (2) Alcohol dependence SNOMED Code(s): 32769134 ICD Code: F10.20 - ALCOHOL DEPENDENCE, UNCOMPLICATED Status: Acute Priority: High Qualifiers: Complication of substance-induced condition: with unspecified complication (3) Alcohol withdrawal seizure SNOMED Code(s): 884217980 ICD Code: F10.239 - ALCOHOL DEPENDENCE WITH WITHDRAWAL, UNSPECIFIED; R56.9 - UNSPECIFIED CONVULSIONS Status: Acute Priority: High Qualifiers: Complication of substance-induced condition: with unspecified complication Qualified Code(s): F10.239 - Alcohol dependence with withdrawal, unspecified; R56.9 - Unspecified convulsions (4) Hypertension SNOMED Code(s): 95346375 ICD Code: I10 - ESSENTIAL (PRIMARY) HYPERTENSION Status: Acute (5) Major depression in complete remission SNOMED Code(s): 78946867 ICD Code: F32.5 - MAJOR DEPRESSIVE DISORDER, SINGLE EPISODE, IN FULL REMISSION Status: Acute (6) COPD (chronic obstructive pulmonary disease) SNOMED Code(s): 51889734 ICD Code: J44.9 - CHRONIC OBSTRUCTIVE PULMONARY DISEASE, UNSPECIFIED Status : Acute Qualifiers: COPD type: emphysema Emphysema type: unspecified Qualified Code(s): J43.9 - Emphysema, unspecified - Patient Summary/Data Consults: Consultations 07/05/18 17:23 Consult to Case Management/Clinic Office Coordinator [CONS] Routine 07/06/18 09:00 Consult for Substance Abuse [CONS] Routine Consult to Physician [CONS] Routine - Patient Instructions Diet: Heart Healthy Diet Activity: As Tolerated Driving: Do Not Drive Showering/Bathing: May Shower Notify Provider of: Fever, Increased Pain, Nausea and/or Vomiting - Discharge Plan *PRESCRIPTION DRUG MONITORING PROGRAM REVIEWED*: Not Applicable *COPY OF PRESCRIPTION DRUG MONITORING REPORT IN PATIENT BRIAN: Not Applicable Prescriptions/Med Rec: RX: FLUoxetine [PROzac] 20 mg PO DAILY #30 cap RX: Folic Acid 1 mg PO DAILY #30 tablet RX: Magnesium 500 mg PO DAILY #60 tablet RX: Nicotine [Habitrol] 21 mg TRDERM DAILY 30 Days patch RX: QUEtiapine [SEROquel] 25 mg PO BEDTIME #30 tablet RX: Terazosin [Hytrin] 4 mg PO BEDTIME #30 cap RX: Thiamine [Vitamin B-1] 100 mg PO BEDTIME #30 tablet Home Medications: Home Meds RX: Albuterol [Proventil HFA] 2 puff INH Q4H PRN #1 inhaler 01/01/18 [Rx] RX: Potassium Chloride 20 meq PO DAILY #20 tablet.er 01/01/18 [Rx] RX: Cholecalciferol (Vitamin D3) [Vitamin D3] 0 unit PO DAILY 07/05/18 [History] RX: Fluticasone Propionate [Flovent] 1 puff IN DAILY 07/05/18 [History] RX: Vit W-Ca,Fe,FA(<1 mg) [ Vitamins] 1 tab PO DAILY 07/05/18 [ History] RX: FLUoxetine [PROzac] 20 mg PO DAILY #30 cap 07/09/18 [Rx] RX: Folic Acid 1 mg PO DAILY #30 tablet 07/09/18 [Rx] RX: Magnesium 500 mg PO DAILY #60 tablet 07/09/18 [Rx] RX: Nicotine [Habitrol] 21 mg TRDERM DAILY 30 Days patch 07/09/18 [Rx] RX: QUEtiapine [SEROquel] 25 mg PO BEDTIME #30 tablet 07/09/18 [Rx] RX: Terazosin [Hytrin] 4 mg PO BEDTIME #30 cap 07/09/18 [Rx] RX: Thiamine [Vitamin B-1] 100 mg PO BEDTIME #30 tablet 07/09/18 [Rx] Patient Handouts: Alcohol Use Disorder, What You Need to Know About Alcohol Abuse and Dependence, Adult, Chemical Dependency, How to Take Your Blood Pressure, Recovering From Addiction, Steps to Quit Smoking Referrals: Sudarshan Reed MD [Primary Care Provider] - (schedule a follow up appointment with your primary care provider as soon as possible. Ask about receiving a TDaP vaccine.) - Discharge Summary/Plan Comment DC Time >30 min.: Yes (discussed patient care for transfer to [facility]) Discharge Summary/Plan Comment: Impression: ETOH abuse/dependence * ETOH 0.16 * Patient's been drinking approximately 1 L of whiskey for the past 42 years; Drinks approximately 2 pints a day * He has not eaten anything for the past and it 11 days * He wants help * SA and Psych Consult * Dr. Vieyra--> AA, Folic acid, Thiamine, Librium, Ativan, Seroquel, Prozac * Jef Zhou--> inpt treatment at [facility] Hx of alcohol withdrawal seizures * He's never undergone inpatient or outpatient treatment for alcoholism Cirrhosis Hypokalemia, Improving * 1.8--> 3.3 * Monitor and Replenish PRN Chronic Tobacco dependence * 2-3 packs of cigarettes daily * Smoking cessation counseling given * Nicotine patch Hypertension * He has not been taking his hypertension meds for the past 2 weeks * Hydralazine PRN COPD Plan: ICU ETOH protocol CIWA protocol Prozac started by Psych, 07/06 Involuntary commitment exercised Sunday07/07/18 Advance diet as tolerated SA consult, 07/07; will have paperwork for IP treatment Correct electrolytes SZ precautions Aspiration precautions GI/DVT prophylaxis Consult CM/SW--> [facility] [place] for screening for [facility] Code: Full Code; PCP: Dr. Sudarshan Reed in [place] Likely transfer to [facility] in the AM Additional CC's: Sudarshan Reed Discussed with [facility] substance abuse treatment, he has been accepted. Medication at DC will be continued except benzodiazepines. Prozac and additional recommendations from psych will be continued. - General Info Date of Service: 07/05/18 Functional Status: Reports: Tolerating Diet, Ambulating, Urinating - Review of Systems General: Reports: No Symptoms HEENT: Reports: No Symptoms Pulmonary: Reports: No Symptoms Cardiovascular: Reports: No Symptoms Gastrointestinal: Reports: No Symptoms Genitourinary: Reports: No Symptoms Musculoskeletal: Reports: No Symptoms Skin: Reports: No Symptoms Neurological: Reports: No Symptoms Psychiatric: Reports: No Symptoms - Patient Data Vitals - Most Recent: Last Vital Signs Temp 36.6 C 07/09/18 09:06 Pulse 88 07/09/18 09:06 Resp 16 07/09/18 09:06 BP 147/84 H 07/09/18 09:06 Pulse Ox 95 07/09/18 09:06 Weight - Most Recent: 82.1 kg I&O - Last 24 hours: Intake & Output 07/08/18 07/09/18 07/09/18 22:59 06:59 14:59 Intake Total 490 300 120 Balance 490 300 120 Lab Results - Last 24 hrs: Laboratory Results - last 24 hr 07/09/18 07/09/18 Range/Units 05:33 05:38 WBC 6.16 (4.23-9.07) K/mm3 RBC 2.86 L (4.63-6.08) M/mm3 Hgb 11.3 L (13.7-17.5) gm/L Hct 32.5 L (40.1-51.0) % MCV 113.6 H (79.0-92.2) fl MCH 39.5 H (25.7-32.2) pg MCHC 34.8 (32.2-35.5) g/dl RDW Std Deviation 71.3 H (35.1-43.9) fL Plt Count 157 L (163-337) K/mm3 MPV 10.7 (9.4-12.3) fl Neut % (Auto) 74.0 H (34.0-67.9) % Lymph % (Auto) 15.6 L (21.8-53.1) % [place] % (Auto) 7.5 (5.3-12.2) % Eos % (Auto) 2.1 (0.8-7.0) Baso % (Auto) 0.5 (0.1-1.2) % Neut # (Auto) 4.56 (1.78-5.38) K/mm3 Lymph # (Auto) 0.96 L (1.32-3.57) K/mm3 [place] # (Auto) 0.46 (0.30-0.82) K/mm3 Eos # (Auto) 0.13 (0.04-0.54) K/mm3 Baso # (Auto) 0.03 (0.01-0.08) K/mm3 Manual Slide Review Abnormal smear Sodium 135 L (136-145) mEq/L Potassium 4.0 (3.5-5.1) mEq/L Chloride 105 (98-107) mEq/L Carbon Dioxide 25 (21-32) mEq/L Anion Gap 9.0 (5-15) BUN 3 L (7-18) mg/dL Creatinine 0.6 L (0.7-1.3) mg/dL Est Cr Clr Drug Dosing 149.10 mL/min Estimated GFR (MDRD) > 60 (>60) mL/min BUN/Creatinine Ratio 5.0 L (14-18) Glucose 109 H (74-106) mg/dL Calcium 8.9 (8.5-10.1) mg/dL Total Bilirubin 1.5 H (0.2-1.0) mg/dL AST 97 H (15-37) U/L ALT 67 H (16-63) U/L Alkaline Phosphatase 196 H (46-116) U/L Total Protein 5.3 L (6.4-8.2) g/dl Albumin 2.4 L (3.4-5.0) g/dl Globulin 2.9 gm/dL Albumin/Globulin Ratio 0.8 L (1-2) Med Orders - Current: Current Medications Albuterol/Ipratropium (Duoneb 3.0-0.5 Mg/3 Ml) 3 ml NEB QID PRN PRN Reason: Shortness of Breath Last Admin: 07/06/18 17:15 Dose: 3 ml Chlordiazepoxide HCl (Librium) 25 mg PO TID [facility] Last Admin: 07/09/18 09:07 Dose: 25 mg Enoxaparin Sodium (Lovenox) 40 mg SUBCUT Q24H [facility] Last Admin: 07/08/18 18:00 Dose: 40 mg Flunisolide (Nasalide Nasal [place]) 0 ml NASBOTH Q12H [facility] Last Admin: 07/09/18 09:07 Dose: 2 sprays Fluoxetine HCl (Prozac) 20 mg PO DAILY [facility] Last Admin: 07/09/18 09:07 Dose: 20 mg Folic Acid (Folic Acid) 1 mg PO DAILY [facility] Last Admin: 07/09/18 09:07 Dose: 1 mg Hydralazine HCl (Apresoline) 20 mg IVPUSH Q6H PRN PRN Reason: Hypertension Last Admin: 07/08/18 08:45 Dose: 20 mg Promethazine HCl 12.5 mg/ (Sodium Chloride) 50.5 mls @ 100 mls/hr IV Q6H PRN PRN Reason: Nausea/Vomiting Lorazepam (Ativan) 2 mg IVPUSH Q6H PRN PRN Reason: Anxiety Last Admin: 07/07/18 20:49 Dose: 2 mg Metoprolol Tartrate (Lopressor) 5 mg IVPUSH Q4H PRN PRN Reason: heart rate > 120 Miscellaneous Information (Remove Patch) 1 ea TRDERM DAILY [facility] Nicotine (Habitrol) 21 mg TRDERM DAILY [facility] Last Admin: 07/09/18 09:06 Dose: 21 mg Ondansetron HCl (Zofran) 4 mg IVPUSH Q8H PRN PRN Reason: Nausea/Vomiting Last Admin: 07/05/18 19:57 Dose: 4 mg Potassium Chloride (Klor-Con M20) 60 meq PO TID [facility] Last Admin: 07/09/18 09:07 Dose: 60 meq Quetiapine Fumarate (Seroquel) 25 mg PO BEDTIME [facility] Last Admin: 07/08/18 20:23 Dose: 25 mg Sodium Chloride (Saline Flush) 10 ml FLUSH ASDIRECTED PRN PRN Reason: Keep Vein Open Last Admin: 07/05/18 11:55 Dose: 10 ml Terazosin HCl (Hytrin) 4 mg PO BEDTIME [facility] Last Admin: 07/08/18 20:23 Dose: 4 mg Thiamine HCl (Vitamin B-1) 100 mg PO BEDTIME [facility] Last Admin: 07/08/18 20:23 Dose: 100 mg Discontinued Medications Chlordiazepoxide HCl (Librium) 25 mg PO BID [facility] Chlordiazepoxide HCl (Librium) 25 mg PO BID [facility] Last Admin: 07/05/18 20:01 Dose: 25 mg Folic Acid (Folic Acid) 1 mg PO ONETIME ONE Stop: 07/05/18 11:32 Last Admin: 07/05/18 11:58 Dose: 1 mg Sodium Chloride (Normal Saline) 1,000 mls @ 999 mls/hr IV ONETIME ONE Stop: 07/05/18 12:31 Last Admin: 07/05/18 12:57 Dose: 999 mls/hr Sodium Chloride (Normal Saline) 1,000 mls @ 999 mls/hr IV .BOLUS ONE Stop: 07/05/18 12:31 Last Admin: 07/05/18 11:58 Dose: 999 mls/hr Potassium Chloride 10 meq/ (Premix) 100 mls @ 100 mls/hr IV ASDIRECTED ONE Stop: 07/05/18 13:59 Last Admin: 07/05/18 14:43 Dose: 100 mls/hr Potassium Chloride 10 meq/ (Premix) 100 mls @ 100 mls/hr IV ASDIRECTED ONE Stop: 07/05/18 13:58 Last Admin: 07/05/18 13:38 Dose: 100 mls/hr Magnesium Sulfate 2 gm/ Premix 50 mls @ 25 mls/hr IV ONETIME ONE Stop: 07/05/18 14:59 Last Admin: 07/05/18 13:55 Dose: 25 mls/hr Lactated Ringer's (Ringers, Lactated) 1,000 mls @ 999 mls/hr IV .BOLUS ONE Stop: 07/05/18 17:33 Last Admin: 07/05/18 17:25 Dose: 999 mls/hr Magnesium Sulfate 4 gm/ Premix 100 mls @ 100 mls/hr IV ONETIME ONE Stop: 07/05/18 17:34 Last Admin: 07/05/18 17:25 Dose: 100 mls/hr Potassium Chloride/Sodium Chloride (1/2 Ns With 20 Meq Kcl) 1,000 mls @ 125 mls /hr IV ASDIRECTED [facility] Last Admin: 07/06/18 05:21 Dose: 125 mls/hr Lactated Ringer's (Ringers, Lactated) Confirm Administered Dose 1,000 mls @ as directed .ROUTE .STK-MED ONE Stop: 07/05/18 19:39 Last Admin: 07/05/18 20:01 Dose: Not Given Lactated Ringer's (Ringers, Lactated) 1,000 mls @ 999 mls/hr IV .BOLUS ONE Stop: 07/05/18 20:52 Last Admin: 07/05/18 20:01 Dose: 999 mls/hr Magnesium Sulfate 4 gm/ Premix 50 mls @ 25 mls/hr IV ONETIME ONE Stop: 07/07/18 13:52 Last Admin: 07/07/18 13:06 Dose: Not Given Magnesium Sulfate 4 gm/ Premix 100 mls @ 50 mls/hr IV ONETIME ONE Stop: 07/07/18 14:09 Last Infusion: 07/07/18 12:18 Dose: 25 mls/hr Magnesium Sulfate 2 gm/ Premix 50 mls @ 25 mls/hr IV ONETIME ONE Stop: 07/09/18 08:15 Last Admin: 07/09/18 06:47 Dose: 25 mls/hr Magnesium Oxide (Magnesium Oxide) 800 mg PO ONETIME ONE Stop: 07/09/18 09:41 Last Admin: 07/09/18 11:44 Dose: 800 mg Metoprolol Tartrate (Lopressor) 5 mg IVPUSH Q6H PRN PRN Reason: heart rate > 120 Potassium Chloride (Klor-Con M20) 40 meq PO ONETIME ONE Stop: 07/05/18 13:00 Last Admin: 07/05/18 13:40 Dose: 40 meq Potassium Chloride (Klor-Con M20) 60 meq PO ONETIME ONE Stop: 07/05/18 18:27 Last Admin: 07/05/18 18:53 Dose: 60 meq Tamsulosin HCl (Flomax) 0.4 mg PO BEDTIME DIDI Last Admin: 07/05/18 21:04 Dose: Not Given Terazosin HCl (Hytrin) 4 mg PO BEDTIME DIDI Last Admin: 07/05/18 21:22 Dose: Not Given Terazosin HCl (Hytrin) 4 mg PO ONETIME ONE Stop: 07/05/18 21:31 Last Admin: 07/05/18 21:21 Dose: 4 mg Thiamine HCl (Vitamin B-1) 100 mg PO ONETIME ONE Stop: 07/05/18 11:32 Last Admin: 07/05/18 11:58 Dose: 100 mg Thiamine HCl (Vitamin B-1) 100 mg PO BEDTIME DIDI - Exam Quality Assessment: Reports: DVT Prophylaxis General: Reports: Alert, Oriented, Cooperative, No Acute Distress HEENT: Reports: Pupils Equal, Pupils Reactive, EOMI Neck: Reports: Trachea Midline, No JVD Lungs: Reports: Normal Respiratory Effort, Decreased Breath Sounds, Rhonchi Cardiovascular: Reports: Regular Rate, Regular Rhythm GI/Abdominal Exam: Normal Bowel Sounds, Soft, Non-Tender, No Organomegaly, No Distention (Male) Exam: Deferred Rectal (Males) Exam: Deferred Back Exam: Reports: Normal Inspection Extremities: Normal Inspection, Non-Tender, No Pedal Edema, Normal Capillary Refill Skin: Reports: Warm Neurological: Reports: No New Focal Deficit Psy/Mental Status: Reports: Alert, Depressed
[2018-07-09] MEDS ORDERED: Pneumococcal Polyvalent-23 Vaccine 0.5 ML SDV IM ONE (15:00)
[2018-07-09] MEDS ORDERED: Scopolamine 1.5 MG Transdermal Patch TRDERM ONE (15:20)
== END 2018-07-09 15:45 | DRG 897 ==
LOC: SUPCPDRO 10:28 → JD.ED 10:28 → JD.ICU 15:18 → JD.MS 07-07 14:28
PROVIDERS: ADMIT Internal Medicine Cardiovascular Disease; ATTEND Internal Medicine Cardiovascular Disease
PROC: 3E0234Z Introduction of Serum, Toxoid and Vaccine into Muscle, Percutaneous Approach (ICD-10-PCS; principal; 2018-07-05)
DX: F10.239 Alcohol dependence with withdrawal, unspecified (principal); F32.9 Major depressive disorder, single episode, unspecified; I10 Essential (primary) hypertension; K74.60 Unspecified cirrhosis of liver; E87.6 Hypokalemia; F17.210 Nicotine dependence, cigarettes, uncomplicated; H54.7 Unspecified visual loss; E55.9 Vitamin D deficiency, unspecified; K27.9 Peptic ulcer, site unspecified, unspecified as acute or chronic, without hemorrhage or perforation; F10.229 Alcohol dependence with intoxication, unspecified; J43.9 Emphysema, unspecified; Z23 Encounter for immunization; Z79.899 Other long term (current) drug therapy
CPT/HCPCS: 36415; 71046; 71046-26; 80048; 80053; 80306; 81001; 83690; 83735; 84443; 85007; 85025; 85027; 90471; 90732; 93005; 94640; 96361; 96365; 96366; 96368; 99285; 99285-25; A9270-GY; G0480; J0360; J1650; J2060; J2405; J3475; J3480; J7040; J7050; J7120; J7620-GY

== ENCOUNTER 2018-10-18 08:14 | Emergency (ER) | payer MEDICAID ==
--- NOTE | 2018-10-18 08:34 | EDM.PDOC ---
ED HPI GENERAL MEDICAL PROBLEM - General Chief Complaint: Laceration Stated Complaint: HEAD LAC Time Seen by Provider: 10/18/18 08:34 - History of Present Illness INITIAL COMMENTS - FREE TEXT/NARRATIVE: 58-year-old male presents emergency room with a head laceration. Patient fell around 1 AM this morning. He hit the back of his head on a sharp edge of a head board. He denies loss of consciousness he states he had one drink last night. Patient has a problem with chronic alcoholism. Patient denies any unusual behavior. Last tetanus shot was probably over 10 years ago. Patient does not have any nausea or vomiting. He has a problem of being a little lightheaded when he stands up this is been an ongoing issue for him. Head Pain Score (Numeric/FACES): 5 - Related Data Allergies Allergy/AdvReac Type Severity Reaction Status Date / Time No Known Allergies Allergy Verified 10/18/18 08:21 Home Meds: Home Meds Potassium Chloride 20 meq PO DAILY #20 tablet.er 01/01/18 [Rx] Cholecalciferol (Vitamin D3) [Vitamin D3] 0 unit PO DAILY 07/05/18 [History] Fluticasone Propionate [Flovent] 1 puff IN DAILY 07/05/18 [History] Vit Calc,Iron,Folic [ Vitamins] 1 tab PO DAILY 07/05/18 [ History] Magnesium 500 mg PO DAILY #60 tablet 07/09/18 [Rx] Terazosin [Hytrin] 4 mg PO BEDTIME #30 cap 07/09/18 [Rx] Thiamine [Vitamin B-1] 100 mg PO BEDTIME #30 tablet 07/09/18 [Rx] Past Medical History HEENT History: Reports: Impaired Vision Cardiovascular History: Reports: Hypertension Respiratory History: Reports: COPD Gastrointestinal History: Reports: PUD Neurological History: Reports: Seizure, Other (See Below) Other Neuro History: 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 Psychiatric History: Reports: Addiction, Depression Endocrine/Metabolic History: Reports: Vitamin D Deficiency - Infectious Disease History Infectious Disease History: Reports: Chicken Pox, Measles - Past Surgical History HEENT Surgical History: Reports: Tonsillectomy, Other (See Below) Other HEENT Surgeries/Procedures: cyct removal-neck srg Musculoskeletal Surgical History: Reports: Other (See Below) Other Musculoskeletal Surgeries/Procedures:: had cyst removed from neck, "right below my skull." Social & Family History - Family History Cardiac: Reports: Bypass Other Cardiac Family History: Dad Neurological: Reports: CVA Other Neurological Family History: Dad - Caffeine Use Caffeine Use: Reports: None ED ROS GENERAL - Review of Systems Review Of Systems: See Below Constitutional: Reports: No Symptoms HEENT: Reports: No Symptoms Respiratory: Reports: No Symptoms Cardiovascular: Reports: No Symptoms GI/Abdominal: Reports: No Symptoms Neurological: Reports: No Symptoms Psychiatric: Reports: No Symptoms ED EXAM, SKIN/RASH Exam: See Below Exam Limited By: Other (The patient does smell of alcohol use) General Appearance: Alert, No Apparent Distress Eye Exam: Bilateral Eye: EOMI, Normal Inspection, PERRL Ears: Normal External Exam, Normal Canal, Hearing Grossly Normal, Normal TMs Nose: Normal Inspection, Normal Mucosa, No Blood Throat/Mouth: Normal Inspection, Normal Lips, Normal Teeth, Normal Gums, Normal Oropharynx, Normal Voice, No Airway Compromise Head: Other (He has a large scalp laceration right occiput. No significant swelling or tenderness noted with palpation). No: Facial Swelling, Sinus Tenderness Neck: Normal Inspection, Supple, Non-Tender, Full Range of Motion Respiratory/Chest: No Respiratory Distress, Lungs Clear, Normal Breath Sounds Cardiovascular: Regular Rate, Rhythm, No Edema, No Murmur GI/Abdominal: Normal Bowel Sounds, Soft, Non-Tender Back Exam: Normal Inspection, Full Range of Motion. No: CVA Tenderness (L), CVA Tenderness (R) Extremities: Normal Inspection, No Pedal Edema Neurological: Alert, Oriented, Normal Cognition, Normal Reflexes, No Motor/ Sensory Deficits, Other (Cranial nerves II through XII grossly intact all muscle groups the upper extremities are equal and appropriate bilaterally deep tendon reflexes the brachial radialis are equal and appropriate bilaterally. Cerebellar testing is within normal limits) ED SKIN PROCEDURES - Laceration/Wound Repair Head Lac/Wound length In cm: 7 Appearance: Clean, Other (Curvilinear) Anesthetic Type: Local Local Anesthesia - Lidocaine (Xylocaine): 1% Plain Local Anesthetic Volume: Other (6 mL of lidocaine without epinephrine were used) Skin Prep: Saline Exploration/Debridement/Repair: Wound Explored, In a Bloodless Field, Explored to Base Closed with: [place] # of Sutures: 8 Suture Type: Other ([place]) Tetanus Status Addressed: Other (Tetanus is updated) Complications: No Progress/Comments: Patient tolerated primary closure with lidocaine and kelli Course - Vital Signs Last Recorded V/S: Last Vital Signs Temp 36.7 C 10/18/18 08:31 Pulse 94 10/18/18 08:31 Resp 16 10/18/18 08:31 BP 167/99 H 10/18/18 08:31 Pulse Ox 97 10/18/18 08:31 Orthostatic Blood Pressure [ 141/101 Standing] Orthostatic Blood Pressure [ 159/112 Sitting] Orthostatic Blood Pressure [ 165/105 Supine] - Orders/Labs/Meds Orders: Active Orders 24 hr Category Date Time Status Vaccines to be Administered [RC] PER UNIT ROUTINE Care 10/18/18 08:47 Active Meds: Medications Discontinued Medications Generic Name Dose Route Start Last Admin Trade Name Cleo PRN Reason Stop Dose Admin Diphtheria/Tetanus/Acell Pertussis 0.5 ml 10/18/18 08:46 10/18/18 09:03 Adacel IM 10/18/18 08:47 0.5 ml .ONCE ONE Administration Lidocaine HCl 10 ml 10/18/18 08:46 10/18/18 09:04 Xylocaine 1% INJECT 10/18/18 08:47 10 ml ONETIME ONE Administration - Re-Assessments/Exams Free Text/Narrative Re-Assessment/Exam: 10/18/18 08:53 With the patient smelling of alcohol history of alcoholism and recommended patient get a head CT. After some discussion he agrees with this we will also update his tetanus anticipate primary closure of his scalp laceration 10/18/18 10:[address] did confirm my initial impression of no acute changes he has some age- related changes we will discharge home Departure - Departure Time of Disposition: 10:27 Disposition: Home, Self-Care 01 Clinical Impression: Head injury, Scalp laceration - Discharge Information Instructions: Stitches, Kelli, or Adhesive Wound Closure, [id number], Head Injury, Adult, [id number] Referrals: Wang Garsia MD [Primary Care Provider] - Forms: ED Department Discharge Additional Instructions: Return to the emergency room with any questions problems worsening symptoms. Staple removal in 12 days. This can be done at the clinic or here at the emergency room. Avoid alcohol. Follow-up with your regular provider early next week for recheck. - My Orders Last 24 Hours: My Active Orders 10/18/18 08:47 Vaccines to be Administered [RC] PER UNIT ROUTINE - Assessment/Plan Last 24 Hours: My Active Orders 10/18/18 08:47 Vaccines to be Administered [RC] PER UNIT ROUTINE
[2018-10-18] MEDS ORDERED: Diphtheria,Pertussis(Acell),Tetanus Vaccine 0.5 ML Syringe IM ONE (08:46)
[2018-10-18] MEDS ORDERED: Lidocaine 1% 10 ML MDV INJECT ONE (08:46)
--- NOTE | 2018-10-18 09:28 | CT ---
Head CT Technique: Multiple axial sections through the brain were obtained. Intravenous contrast was not utilized. Comparison: Prior head CT study of 01/01/18. Findings: Ventricles along with basal cisterns and sulci over the convexities are mildly prominent. 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 No other abnormal parenchymal densities are seen. No evidence of intracranial hemorrhage. No midline shift or mass effect is seen. Soft tissue swelling is noted within the posterior right scalp. Small amount of soft tissue air is seen compatible with scalp laceration. Bone window settings were reviewed which show no acute skull fracture. Visualized sinuses show minimal mucosal thickening within the ethmoid sinuses which is incidental. Impression: 1. Senescent change as noted above. 2. Soft tissue swelling within the posterior right scalp with soft tissue air compatible with scalp laceration. 3. No skull fracture is seen. No acute intracranial abnormality is identified. Diagnostic code #2
== END 2018-10-18 10:38 | disposition home or self-care (01) ==
LOC: JD.ED 08:14
DX: S01.01XA Laceration without foreign body of scalp, initial encounter (principal); S09.90XA Unspecified injury of head, initial encounter; I10 Essential (primary) hypertension; J44.9 Chronic obstructive pulmonary disease, unspecified; Z23 Encounter for immunization; Z79.899 Other long term (current) drug therapy; W22.8XXA Striking against or struck by other objects, initial encounter
CPT/HCPCS: 12002; 70450; 70450-26; 90471; 90700; 99284-25

== ENCOUNTER 2018-10-29 11:21 | Emergency (ER) | payer MEDICAID | END 2018-10-29 11:33 | disposition home or self-care (01) | LOC: JD.ED 11:21 | DX: S01.01XD Laceration without foreign body of scalp, subsequent encounter (principal); W22.8XXD Striking against or struck by other objects, subsequent encounter ==

== ENCOUNTER 2018-11-20 13:38 | Emergency (ER) | payer MEDICAID ==
[2018-11-20] MEDS ORDERED: Sodium Chloride 0.9% 10 ML Syringe FLUSH PRN (14:08)
[2018-11-20] MEDS ORDERED: Aspirin 81 MG Tab.Chew PO ONE (14:08)
--- NOTE | 2018-11-20 14:42 | CR ---
Chest: Portable view of the chest was obtained. Comparison: Previous chest x-ray of 07/06/18. Heart size is normal. Tortuous thoracic aorta is seen. Lungs are clear with no acute parenchymal change. Mild scoliosis is noted within the spine with slight degenerative change. Impression: 1. Incidental findings. Nothing acute is appreciated. Diagnostic code #2
[2018-11-20] MEDS ORDERED: Potassium Chloride 20 MEQ Tab.ER ONE (15:24)
[2018-11-20] MEDS ORDERED: Potassium Chloride 20 MEQ Tab.ER PO ONE (15:26)
--- NOTE | 2018-11-20 16:39 | EDM.PDOC ---
ED HPI GENERAL MEDICAL PROBLEM - General Chief Complaint: Chest Pain Stated Complaint: PAIN IN HIS CHEST Time Seen by Provider: 11/20/18 13:57 Source of Information: Reports: Patient, RN Notes Reviewed - History of Present Illness INITIAL COMMENTS - FREE TEXT/NARRATIVE: 58-year-old male comes in with mild achy chest discomfort left lower chest the last several days. Did go to the walk-in clinic today with that concern and they did refer him here for further evaluation. He has not been coughing any more than usual and is not short of breath. No fever chills abdominal pain nausea or vomiting. Does have history of hypertension. He has no known history for coronary artery disease. His family history is negative for heart disease. He does smoke Chest Pain Score (Numeric/FACES): 1 - Related Data Allergies Allergy/AdvReac Type Severity Reaction Status Date / Time No Known Allergies Allergy Verified 11/20/18 13:47 Home Meds: Home Meds Potassium Chloride 20 meq PO DAILY #20 tablet.er 01/01/18 [Rx] Cholecalciferol (Vitamin D3) [Vitamin D3] 0 unit PO DAILY 07/05/18 [History] Vit Calc,Iron,Folic [ Vitamins] 1 tab PO DAILY 07/05/18 [ History] Magnesium 500 mg PO DAILY #60 tablet 07/09/18 [Rx] Terazosin [Hytrin] 4 mg PO DAILY 11/20/18 [History] Thiamine [Vitamin B-1] 100 mg PO DAILY 11/20/18 [History] Past Medical History HEENT History: Reports: Impaired Vision Cardiovascular History: Reports: Hypertension Respiratory History: Reports: COPD Gastrointestinal History: Reports: PUD Musculoskeletal History: Reports: Back Pain, Chronic Neurological History: Reports: Seizure, Other (See Below) Other Neuro History: 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 Psychiatric History: Reports: Addiction, Depression Endocrine/Metabolic History: Reports: Vitamin D Deficiency - Infectious Disease History Infectious Disease History: Reports: Chicken Pox, Measles - Past Surgical History HEENT Surgical History: Reports: Tonsillectomy, Other (See Below) Other HEENT Surgeries/Procedures: cyct removal-neck srg Musculoskeletal Surgical History: Reports: Other (See Below) Other Musculoskeletal Surgeries/Procedures:: had cyst removed from neck, "right below my skull." Social & Family History - Family History Cardiac: Reports: Bypass Other Cardiac Family History: Dad Neurological: Reports: CVA Other Neurological Family History: Dad - Tobacco Use Smoking Status *Q: Current Every Day Smoker Years of Tobacco use: 40 Packs/Tins Daily: 2 Second Hand Smoke Exposure: No - Caffeine Use Caffeine Use: Reports: None - Alcohol Use Days Per Week of Alcohol Use: 7 Number of Drinks Per Day: 4 Total Drinks Per Week: 28 - Recreational Drug Use Recreational Drug Use: No ED ROS GENERAL - Review of Systems Review Of Systems: See Below Constitutional: Denies: Fever, Chills HEENT: Denies: Throat Pain Respiratory: Reports: Cough. Denies: Shortness of Breath, Wheezing, Pleuritic Chest Pain, Sputum (Chronic) GI/Abdominal: Denies: Abdominal Pain, Nausea, Vomiting Musculoskeletal: Denies: Shoulder Pain, Arm Pain, Back Pain Skin: Reports: No Symptoms Neurological: Denies: Dizziness, Trouble Speaking, Difficulty Walking ED EXAM, GENERAL - Physical Exam Exam: See Below General Appearance: Alert, No Apparent Distress Eye Exam: Bilateral Eye: PERRL Throat/Mouth: Normal Inspection Head: Atraumatic Neck: Supple Respiratory/Chest: No Respiratory Distress, Lungs Clear, Normal Breath Sounds, Chest Non-Tender. No: Respiratory Distress, Rhonchi, Wheezing Cardiovascular: Regular Rate, Rhythm GI/Abdominal: Soft, Non-Tender Back Exam: No: CVA Tenderness (L), CVA Tenderness (R) Extremities: No: Pedal Edema, Leg Pain Neurological: Alert, Oriented, No Motor/Sensory Deficits Skin Exam: Warm, Dry, Normal Color EKG INTERPRETATION EKG Date: 11/20/18 Rhythm: NSR [place]: Normal P-Wave: Present QRS: Normal ST-T: Other (There are T-wave inversions V3, [address] elevation, mild ST depression V4 and 5) Course - Vital Signs Last Recorded V/S: Last Vital Signs Temp 97.9 F 11/20/18 13:40 Pulse 74 11/20/18 13:40 Resp 16 11/20/18 13:40 BP 182/92 H 11/20/18 13:40 Pulse Ox 98 11/20/18 13:40 - Orders/Labs/Meds Orders: Active Orders 24 hr Category Date Time Status EKG 12 Lead [EKG Documentation Completion] [RC] STAT Care 11/20/18 14:08 Active Peripheral IV Care [RC] . DIRECTED Care 11/20/18 14:08 Active Peripheral IV Insertion Adult [OM.PC] Stat Oth 11/20/18 14:08 Ordered Labs: Laboratory Tests 11/20/18 11/20/18 11/20/18 Range/Units 14:14 14:14 14:14 WBC 5.44 (4.23-9.07) K/mm3 RBC 4.79 (4.63-6.08) M/mm3 Hgb 16.2 (13.7-17.5) gm/L Hct 46.4 (40.1-51.0) % MCV 96.9 H (79.0-92.2) fl MCH 33.8 H (25.7-32.2) pg MCHC 34.9 (32.2-35.5) g/dl RDW Std Deviation 54.9 H (35.1-43.9) fL Plt Count 196 (163-337) K/mm3 MPV 9.6 (9.4-12.3) fl Neut % (Auto) 68.7 H (34.0-67.9) % Lymph % (Auto) 18.6 L (21.8-53.1) % Walker % (Auto) 11.4 (5.3-12.2) % Eos % (Auto) 0.4 L (0.8-7.0) Baso % (Auto) 0.9 (0.1-1.2) % Neut # (Auto) 3.74 (1.78-5.38) K/mm3 Lymph # (Auto) 1.01 L (1.32-3.57) K/mm3 [place] # (Auto) 0.62 (0.30-0.82) K/mm3 Eos # (Auto) 0.02 L (0.04-0.54) K/mm3 Baso # (Auto) 0.05 (0.01-0.08) K/mm3 Sodium 142 (136-145) mEq/L Potassium 3.0 L (3.5-5.1) mEq/L Chloride 99 (98-107) mEq/L Carbon Dioxide 32 (21-32) mEq/L Anion Gap 14.0 (5-15) BUN 10 (7-18) mg/dL Creatinine 1.0 (0.7-1.3) mg/dL Est Cr Clr Drug Dosing 89.89 mL/min Estimated GFR (MDRD) > 60 (>60) mL/min BUN/Creatinine Ratio 10.0 L (14-18) Glucose 135 H (74-106) mg/dL Calcium 9.3 (8.5-10.1) mg/dL Total Bilirubin 1.2 H (0.2-1.0) mg/dL AST 35 (15-37) U/L ALT 28 (16-63) U/L Alkaline Phosphatase 111 (46-116) U/L Troponin I < 0.017 (0.00-0.056) ng/mL Total Protein 7.0 (6.4-8.2) g/dl Albumin 3.5 (3.4-5.0) g/dl Globulin 3.5 gm/dL Albumin/Globulin Ratio 1.0 (1-2) 11/20/18 Range/Units 16:30 WBC (4.23-9.07) K/mm3 RBC (4.63-6.08) M/mm3 Hgb (13.7-17.5) gm/L Hct (40.1-51.0) % MCV (79.0-92.2) fl MCH (25.7-32.2) pg MCHC (32.2-35.5) g/dl RDW Std Deviation (35.1-43.9) fL Plt Count (163-337) K/mm3 MPV (9.4-12.3) fl Neut % (Auto) (34.0-67.9) % Lymph % (Auto) (21.8-53.1) % Walker % (Auto) (5.3-12.2) % Eos % (Auto) (0.8-7.0) Baso % (Auto) (0.1-1.2) % Neut # (Auto) (1.78-5.38) K/mm3 Lymph # (Auto) (1.32-3.57) K/mm3 Walker # (Auto) (0.30-0.82) K/mm3 Eos # (Auto) (0.04-0.54) K/mm3 Baso # (Auto) (0.01-0.08) K/mm3 Sodium (136-145) mEq/L Potassium (3.5-5.1) mEq/L Chloride (98-107) mEq/L Carbon Dioxide (21-32) mEq/L Anion Gap (5-15) BUN (7-18) mg/dL Creatinine (0.7-1.3) mg/dL Est Cr Clr Drug Dosing mL/min Estimated GFR (MDRD) (>60) mL/min BUN/Creatinine Ratio (14-18) Glucose (74-106) mg/dL Calcium (8.5-10.1) mg/dL Total Bilirubin (0.2-1.0) mg/dL AST (15-37) U/L ALT (16-63) U/L Alkaline Phosphatase (46-116) U/L Troponin I < 0.017 (0.00-0.056) ng/mL Total Protein (6.4-8.2) g/dl Albumin (3.4-5.0) g/dl Globulin gm/dL Albumin/Globulin Ratio (1-2) Meds: Medications Discontinued Medications Generic Name Dose Route Start Last Admin Trade Name Freq PRN Reason Stop Dose Admin Aspirin 324 mg 11/20/18 14:08 11/20/18 14:22 Aspirin PO 11/20/18 14:09 324 mg ONETIME ONE Administration Potassium Chloride Confirm 11/20/18 15:24 11/20/18 15:27 Klor-Con M20 Administered 11/20/18 15:25 Not Given Dose 20 meq .ROUTE .STK-MED ONE Potassium Chloride 20 meq 11/20/18 15:26 11/20/18 15:27 Klor-Con M20 PO 11/20/18 15:27 20 meq ONETIME ONE Administration Sodium Chloride 10 ml 11/20/18 14:08 11/20/18 14:14 Saline Flush FLUSH 10 ml ASDIRECTED PRN Administration Keep Vein Open - Re-Assessments/Exams Free Text/Narrative Re-Assessment/Exam: 11/21/18 08:47 Patient did rest comfortably while in the ED. His initial troponin came back normal other labs all relatively normal. Chest x-ray was normal. We also did do a repeat troponin which came back normal. disharge instructions as documented. 11/21/18 08:48. Blood pressure was mildly elevated initially but did trend down. He states his provider has called in a medication change for him. Have advised him to increase his medication as prescribed. Departure - Departure Time of Disposition: 08:47 Disposition: Home, Self-Care 01 Condition: Fair Clinical Impression: Atypical chest pain, Hypertension Referrals: PCP,None [Primary Care Provider] - Forms: ED Department Discharge - My Orders Last 24 Hours: My Active Orders 11/20/18 14:08 EKG 12 Lead [EKG Documentation Completion] [RC] STAT Peripheral IV Care [RC] . DIRECTED Peripheral IV Insertion Adult [OM.PC] Stat - Assessment/Plan Last 24 Hours: My Active Orders 11/20/18 14:08 EKG 12 Lead [EKG Documentation Completion] [RC] STAT Peripheral IV Care [RC] . DIRECTED Peripheral IV Insertion Adult [OM.PC] Stat
== END 2018-11-20 17:32 | disposition home or self-care (01) ==
LOC: JD.ED 13:38
DX: R07.89 Other chest pain (principal); I10 Essential (primary) hypertension; F17.210 Nicotine dependence, cigarettes, uncomplicated; Z79.899 Other long term (current) drug therapy
CPT/HCPCS: 36415; 71045; 80053; 84484; 85025; 93005; 99285; A9270

== ENCOUNTER 2018-11-26 11:57 | Emergency (ER) | payer MEDICAID ==
--- NOTE | 2018-11-26 12:40 | EDM.PDOC ---
ED HPI GENERAL MEDICAL PROBLEM - General Chief Complaint: Cardiovascular Problem Stated Complaint: HIGH BLOOD PRESSURE Time Seen by Provider: 11/26/18 12:12 Source of Information: Reports: Patient, RN Notes Reviewed - History of Present Illness INITIAL COMMENTS - FREE TEXT/NARRATIVE: 58 year old male presents with hx of elevated BP at home this AM. States he can "feel when his BP is elevated" Did take his usual AM medication about an hour ago. No chest pain or difficulty breathing. Chronic cough. Not short or breath. No [place] or other unusual sx. - Related Data Allergies Allergy/AdvReac Type Severity Reaction Status Date / Time No Known Allergies Allergy Verified 11/26/18 12:14 Home Meds: Home Meds FLUoxetine HCl [Fluoxetine] 20 mg PO DAILY 11/26/18 [History] Lisinopril/Hydrochlorothiazide [Lisinopril-Hctz 20-25 mg Tab] 2 tab PO DAILY 10/02 [History] Naltrexone HCl [Revia] 50 mg PO DAILY 11/26/18 [History] traZODone HCl [Trazodone HCl] 100 mg PO BEDTIME 11/26/18 [History] Past Medical History HEENT History: Reports: Impaired Vision Cardiovascular History: Reports: Hypertension Respiratory History: Reports: COPD Gastrointestinal History: Reports: PUD Musculoskeletal History: Reports: Back Pain, Chronic Neurological History: Reports: Seizure, Other (See Below) Other Neuro History: 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 Psychiatric History: Reports: Addiction, Depression Endocrine/Metabolic History: Reports: Vitamin D Deficiency - Infectious Disease History Infectious Disease History: Reports: Chicken Pox, Measles - Past Surgical History HEENT Surgical History: Reports: Tonsillectomy, Other (See Below) Other HEENT Surgeries/Procedures: cyct removal-neck srg Musculoskeletal Surgical History: Reports: Other (See Below) Other Musculoskeletal Surgeries/Procedures:: had cyst removed from neck, "right below my skull." Social & Family History - Family History Cardiac: Reports: Bypass Other Cardiac Family History: Dad Neurological: Reports: CVA Other Neurological Family History: Dad - Tobacco Use Smoking Status *Q: Current Every Day Smoker Years of Tobacco use: 40 Packs/Tins Daily: 3 Used Tobacco, but Quit: No Second Hand Smoke Exposure: No - Caffeine Use Caffeine Use: Reports: None - Alcohol Use Days Per Week of Alcohol Use: 3 Number of Drinks Per Day: 7 Total Drinks Per Week: 21 - Recreational Drug Use Recreational Drug Use: No ED ROS GENERAL - Review of Systems Review Of Systems: See Below Constitutional: Denies: Fever, Chills, Diaphoresis HEENT: Denies: Vertigo, Vision Change Respiratory: Reports: Cough (chronic). Denies: Shortness of Breath, Wheezing Cardiovascular: Denies: Chest Pain Endocrine: Denies: Fatigue GI/Abdominal: Denies: Abdominal Pain, Nausea, Vomiting Musculoskeletal: Reports: No Symptoms Skin: Reports: No Symptoms Neurological: Reports: Dizziness (mild gone), Headache (mild, gone). Denies: Numbness, Tingling, Trouble Speaking, Difficulty Walking ED EXAM, GENERAL - Physical Exam Exam: See Below General Appearance: Alert, No Apparent Distress Eye Exam: Bilateral Eye: PERRL Throat/Mouth: Normal Inspection, Normal Oropharynx Head: Atraumatic. No: Facial Swelling Neck: Supple, Full Range of Motion Respiratory/Chest: Lungs Clear, Normal Breath Sounds Cardiovascular: Regular Rate, Rhythm GI/Abdominal: Soft, Non-Tender Back Exam: No: CVA Tenderness (L), CVA Tenderness (R) Extremities: Normal Inspection. No: Pedal Edema, Leg Pain, Increased Warmth, Redness Skin Exam: Warm, Dry, Normal Color Course - Vital Signs Last Recorded V/S: Last Vital Signs Temp 98.5 F 11/26/18 12:11 Pulse 85 11/26/18 12:11 Resp 18 11/26/18 12:11 BP 155/90 H 11/26/18 13:51 Pulse Ox 96 11/26/18 12:11 - Orders/Labs/Meds Meds: Medications Discontinued Medications Generic Name Dose Route Start Last Admin Trade Name Cleo PRN Reason Stop Dose Admin Clonidine HCl 0.1 mg 11/26/18 13:18 11/26/18 13:24 Catapres PO 11/26/18 13:19 0.1 mg ONETIME ONE Administration - Re-Assessments/Exams Free Text/Narrative Re-Assessment/Exam: 11/26/18 22:14 EKG, other labs not done today, he had complete eval here in the ED 6 days ago for atypical chest pain. He is in NSR, no ectopy, BP only mildly high on arrival, given clonidine 0.1 mg PO. He is asking why his BP is often elevated in the morning even after he takes his medication. I suspect he is not giving it enough time to work. We called pharmacy, are informed he is currently taking lisinopril/hctz 2 tabs q AM, will have him go to 1 bid and see if that helps even out his BP, discharge instr. as documented. Departure - Departure Time of Disposition: 13:32 Disposition: Home, Self-Care 01 Condition: Fair Clinical Impression: Hypertension Qualifiers: Hypertension type: essential hypertension Qualified Code(s): I10 - Essential ( primary) hypertension Instructions: Hypertension Referrals: Doris Waller PA-C [Ordering Only Provider] - Forms: ED Department Discharge Additional Instructions: Take your lisinopril/Hctz blood pressure medicine one tab in the morning when you first get up, 2nd tab in the evening any time after your evening meal. This should even out your blood pressure through out the day better. Keep a record of some readings and follow up with Doris at the clinic as planned. If your reading continue high 2nd medication will need to be added.
[2018-11-26] MEDS ORDERED: cloNIDine 0.1 MG Tab PO ONE (13:18)
== END 2018-11-26 13:50 | disposition home or self-care (01) ==
LOC: JD.ED 11:57
DX: I10 Essential (primary) hypertension (principal); J44.9 Chronic obstructive pulmonary disease, unspecified; F17.210 Nicotine dependence, cigarettes, uncomplicated; Z79.899 Other long term (current) drug therapy
CPT/HCPCS: 99283; A9270

== ENCOUNTER 2018-11-27 17:47 | Emergency (ER) | payer MEDICAID ==
[2018-11-27] MEDS ORDERED: LORazepam 2 MG/ML SDV IVPUSH ONE (18:21)
[2018-11-27] MEDS ORDERED: Sodium Chloride 0.9% 10 ML Syringe FLUSH PRN (18:21)
[2018-11-27] MEDS ORDERED: Sodium Chloride 0.9% 1,000 ML IV SCH (18:30)
--- NOTE | 2018-11-27 19:37 | EDM.PDOC ---
ED HPI GENERAL MEDICAL PROBLEM - General Chief Complaint: Neurological Problem Stated Complaint: [facility] Time Seen by Provider: 11/27/18 17:56 Source of Information: Reports: Patient, RN Notes Reviewed - History of Present Illness INITIAL COMMENTS - FREE TEXT/NARRATIVE: 58 year old male was at [facility], therapy session, had a brief generalize seizure. Hx of quite heavy alcohol consumption. No alcohol today. Was seen here in the ED 1 week ago for atypical chest pain, yesterday for HTN at clinic, referred here, on arrival to ED yesterday BP only mildly elevated. See those records for details. On arrival to ED today awake, does not really remember what happend. No chest pain, difficulty breathing, [place], neck, back, abd or other pain at this time. Hx of 1 prior seizure about a yr ago, likely alcohol withdrawal. No hx of known seizure disorder. - Related Data Allergies Allergy/AdvReac Type Severity Reaction Status Date / Time No Known Allergies Allergy Verified 11/26/18 12:14 Home Meds: Home Meds FLUoxetine HCl [Fluoxetine] 20 mg PO DAILY 11/26/18 [History] Lisinopril/Hydrochlorothiazide [Lisinopril-Hctz 20-25 mg Tab] 2 tab PO DAILY 10/02 [History] Naltrexone HCl [Revia] 50 mg PO DAILY 11/26/18 [History] traZODone HCl [Trazodone HCl] 100 mg PO BEDTIME 11/26/18 [History] Past Medical History HEENT History: Reports: Impaired Vision Cardiovascular History: Reports: Hypertension Respiratory History: Reports: COPD Gastrointestinal History: Reports: PUD Musculoskeletal History: Reports: Back Pain, Chronic Neurological History: Reports: Seizure, Other (See Below) Other Neuro History: 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 Psychiatric History: Reports: Addiction, Depression Endocrine/Metabolic History: Reports: Vitamin D Deficiency - Infectious Disease History Infectious Disease History: Reports: Chicken Pox, Measles - Past Surgical History HEENT Surgical History: Reports: Tonsillectomy, Other (See Below) Other HEENT Surgeries/Procedures: cyct removal-neck srg Musculoskeletal Surgical History: Reports: Other (See Below) Other Musculoskeletal Surgeries/Procedures:: had cyst removed from neck, "right below my skull." Social & Family History - Family History Family Medical History: Noncontributory Cardiac: Reports: Bypass Other Cardiac Family History: Dad Neurological: Reports: CVA Other Neurological Family History: Dad - Tobacco Use Smoking Status *Q: Current Every Day Smoker Years of Tobacco use: 40 Packs/Tins Daily: 3 - Caffeine Use Caffeine Use: Reports: None - Alcohol Use Days Per Week of Alcohol Use: 7 Number of Drinks Per Day: 3 Total Drinks Per Week: 21 - Recreational Drug Use Recreational Drug Use: No ED ROS GENERAL - Review of Systems Review Of Systems: See Below Constitutional: Denies: Fever, Chills, Diaphoresis HEENT: Reports: No Symptoms Respiratory: Denies: Shortness of Breath Cardiovascular: Denies: Chest Pain GI/Abdominal: Denies: Abdominal Pain, Nausea, Vomiting Musculoskeletal: Reports: No Symptoms Skin: Reports: No Symptoms Neurological: Reports: Dizziness (improving). Denies: Numbness, Tingling, Trouble Speaking, Weakness ED EXAM, NEURO - Physical Exam Exam: See Below General Appearance: Alert, No Apparent Distress Eye Exam: Bilateral Eye: PERRL Throat/Mouth: Normal Inspection, Normal Oropharynx, Other (no tongue injury) Head Exam: Atraumatic Neck: Supple, Non-Tender Respiratory/Chest: No Respiratory Distress, Lungs Clear, Normal Breath Sounds Cardiovascular: Regular Rate, Rhythm GI/Abdominal: Soft, Non-Tender Neurological: Alert, No Motor/Sensory Deficits Back Exam: No: CVA Tenderness (L), CVA Tenderness (R) Extremities: Normal Inspection, Normal Range of Motion. No: Pedal Edema Skin Exam: Warm, Dry, Intact, Normal Color EKG INTERPRETATION EKG Date: 11/27/18 Rhythm: Other (sinus tach, rate 120) [place]: Normal P-Wave: Present QRS: Normal ST-T: Depressed (V4,5,6) Course - Vital Signs Last Recorded V/S: Last Vital Signs Temp 99.0 F 11/27/18 17:51 Pulse 123 H 11/27/18 17:51 Resp 18 11/27/18 17:51 BP 204/120 H 11/27/18 17:51 Pulse Ox 96 11/27/18 17:51 - Orders/Labs/Meds Orders: Active Orders 24 hr Category Date Time Status EKG 12 Lead [EKG Documentation Completion] [RC] STAT Care 11/27/18 18:24 Active Peripheral IV Care [RC] . DIRECTED Care 11/27/18 18:22 Active Sodium Chloride 0.9% [Normal Saline] 1,000 ml Med 11/27/18 18:30 Active IV ONETIME Sodium Chloride 0.9% [Saline Flush] Med 11/27/18 18:21 Active 10 ml FLUSH ASDIRECTED PRN Peripheral IV Insertion Adult [OM.PC] Stat Oth 11/27/18 18:21 Ordered Medication Orders Sodium Chloride (Normal Saline) 1,000 mls @ 999 mls/hr IV ONETIME DIDI Last Admin: 11/27/18 18:28 Dose: 999 mls/hr Sodium Chloride (Saline Flush) 10 ml FLUSH ASDIRECTED PRN PRN Reason: Keep Vein Open Last Admin: 11/27/18 18:28 Dose: 10 ml Labs: Laboratory Tests 11/27/18 11/27/18 Range/Units 18:50 18:50 WBC 6.71 (4.23-9.07) K/mm3 RBC 4.39 L (4.63-6.08) M/mm3 Hgb 15.5 (13.7-17.5) gm/L Hct 43.4 (40.1-51.0) % MCV 98.9 H (79.0-92.2) fl MCH 35.3 H (25.7-32.2) pg MCHC 35.7 H (32.2-35.5) g/dl RDW Std Deviation 58.8 H (35.1-43.9) fL Plt Count 142 L (163-337) K/mm3 MPV 9.7 (9.4-12.3) fl Neut % (Auto) 81.3 H (34.0-67.9) % Lymph % (Auto) 9.4 L (21.8-53.1) % [place] % (Auto) 8.6 (5.3-12.2) % Eos % (Auto) 0.1 L (0.8-7.0) Baso % (Auto) 0.3 (0.1-1.2) % Neut # (Auto) 5.45 H (1.78-5.38) K/mm3 Lymph # (Auto) 0.63 L (1.32-3.57) K/mm3 [place] # (Auto) 0.58 (0.30-0.82) K/mm3 Eos # (Auto) 0.01 L (0.04-0.54) K/mm3 Baso # (Auto) 0.02 (0.01-0.08) K/mm3 Manual Slide Review Normal smear Sodium 133 L (136-145) mEq/L Potassium 3.2 L (3.5-5.1) mEq/L Chloride 94 L (98-107) mEq/L Carbon Dioxide 29 (21-32) mEq/L Anion Gap 13.2 (5-15) BUN 11 (7-18) mg/dL Creatinine 1.2 (0.7-1.3) mg/dL Est Cr Clr Drug Dosing 74.91 mL/min Estimated GFR (MDRD) > 60 (>60) mL/min BUN/Creatinine Ratio 9.2 L (14-18) Glucose 182 H (74-106) mg/dL Calcium 9.3 (8.5-10.1) mg/dL Total Bilirubin 2.1 H (0.2-1.0) mg/dL AST 41 H (15-37) U/L ALT 31 (16-63) U/L Alkaline Phosphatase 98 (46-116) U/L Total Protein 7.0 (6.4-8.2) g/dl Albumin 3.6 (3.4-5.0) g/dl Globulin 3.4 gm/dL Albumin/Globulin Ratio 1.1 (1-2) Ethyl Alcohol 0.00 (0.00) gm% Meds: Medications Generic Name Dose Route Start Last Admin Trade Name Freq PRN Reason Stop Dose Admin Sodium Chloride 1,000 mls @ 999 mls/hr 11/27/18 18:30 11/27/18 18:28 Normal Saline IV 999 mls/hr ONETIME DIDI Administration Sodium Chloride 10 ml 11/27/18 18:21 11/27/18 18:28 Saline Flush FLUSH 10 ml ASDIRECTED PRN Administration Keep Vein Open Discontinued Medications Generic Name Dose Route Start Last Admin Trade Name Freq PRN Reason Stop Dose Admin Lorazepam 1 mg 11/27/18 18:21 11/27/18 18:28 Ativan IVPUSH 11/27/18 18:22 1 mg ONETIME ONE Administration Lorazepam 1 mg 11/27/18 20:03 11/27/18 20:20 Ativan PO 11/27/18 20:04 1 mg ONETIME ONE Administration - Re-Assessments/Exams Free Text/Narrative Re-Assessment/Exam: 11/27/18 20:34 gave patient 1 mg ativan, close to 1 liter NS, he has been resting comfortably, labs are OK, no further seizure activity, he states he just had head CT at clinic very recently, will not repeat that at this time, He wants to quite drinking, discharge instr. as documented. Departure - Departure Time of Disposition: 20:36 Disposition: Home, Self-Care 01 Condition: Fair Clinical Impression: Alcohol withdrawal seizure Qualifiers: Complication of substance-induced condition: with unspecified complication Qualified Code(s): F10.239 - Alcohol dependence with withdrawal, unspecified - Discharge Information Instructions: Alcohol Withdrawal, [id number] Referrals: PCP,None [Primary Care Provider] - Forms: ED Department Discharge Additional Instructions: continue to avoid further alcohol, continue blood pressure medication, potassium and other medications as previously prescribed and advised. Drink plenty of water to maintain hydration. Ativan 1mg has been sent home with you. Take that tonight at bedtime. Than take ativan 0.5 mg q 6 to 8 hr the next 2 to 3 days to help for any further alcohol withdrawal symptoms you may have. Follow up clinic as needed, return to ED as needed. - My Orders Last 24 Hours: My Active Orders 11/27/18 18:21 Sodium Chloride 0.9% [Saline Flush] 10 ml FLUSH ASDIRECTED PRN Peripheral IV Insertion Adult [OM.PC] Stat 11/27/18 18:22 Peripheral IV Care [RC] . DIRECTED 11/27/18 18:24 EKG 12 Lead [EKG Documentation Completion] [RC] STAT 11/27/18 18:30 Sodium Chloride 0.9% [Normal Saline] 1,000 ml IV ONETIME - Assessment/Plan Last 24 Hours: My Active Orders 11/27/18 18:21 Sodium Chloride 0.9% [Saline Flush] 10 ml FLUSH ASDIRECTED PRN Peripheral IV Insertion Adult [OM.PC] Stat 11/27/18 18:22 Peripheral IV Care [RC] . DIRECTED 11/27/18 18:24 EKG 12 Lead [EKG Documentation Completion] [RC] STAT 11/27/18 18:30 Sodium Chloride 0.9% [Normal Saline] 1,000 ml IV ONETIME
[2018-11-27] MEDS ORDERED: LORazepam 1 MG Tab PO ONE (20:03)
== END 2018-11-27 20:20 | disposition home or self-care (01) ==
LOC: JD.ED 17:47
DX: F10.239 Alcohol dependence with withdrawal, unspecified (principal); F17.210 Nicotine dependence, cigarettes, uncomplicated; I10 Essential (primary) hypertension; Z79.899 Other long term (current) drug therapy
CPT/HCPCS: 36415; 80053; 85025; 93005; 96361; 96374; 99284; A9270; G0480; J2060; J7040; 93010

== ENCOUNTER 2018-12-27 13:24 | Emergency (ER) | payer MEDICAID ==
--- NOTE | 2018-12-27 14:12 | EDM.PDOCBH ---
ED HPI GENERAL MEDICAL PROBLEM - General Chief Complaint: Drug or Alcohol Abuse Stated Complaint: DETOX Time Seen by Provider: 12/27/18 13:45 Source of Information: Reports: Patient, Family History Limitations: Reports: Intoxication - History of Present Illness INITIAL COMMENTS - FREE TEXT/NARRATIVE: The patient presents for a prescription to help him withdraw from alcohol. He called [facility] in [place] to get help stopping drinking. He is on a waiting list and they told him to go get a prescription for a medicine to start taking when they call him to come in for rehab. He is here with his sister and they are both not sure what the medication is. He does have bad seizures when he tries to quit on his own. He has no problems now. He does admit to drinking today. The patient was admitted to our hospital last month and he was detoxed but he started drinking again. Onset: Gradual Duration: Week(s): Severity: Moderate Improves with: Reports: None Worsens with: Reports: None Associated Symptoms: Reports: No Other Symptoms - Related Data Allergies Allergy/AdvReac Type Severity Reaction Status Date / Time No Known Allergies Allergy Verified 11/26/18 12:14 Home Meds: Home Meds FLUoxetine HCl [Fluoxetine] 20 mg PO DAILY 11/26/18 [History] Lisinopril/Hydrochlorothiazide [Lisinopril-Hctz 20-25 mg Tab] 2 tab PO DAILY 10/02 [History] Naltrexone HCl [Revia] 50 mg PO DAILY 11/26/18 [History] traZODone HCl [Trazodone HCl] 100 mg PO BEDTIME 11/26/18 [History] Past Medical History HEENT History: Reports: Impaired Vision Cardiovascular History: Reports: Hypertension Respiratory History: Reports: COPD Gastrointestinal History: Reports: PUD Musculoskeletal History: Reports: Back Pain, Chronic Neurological History: Reports: Seizure, Other (See Below) Other Neuro History: 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 Psychiatric History: Reports: Addiction, Depression Endocrine/Metabolic History: Reports: Vitamin D Deficiency - Infectious Disease History Infectious Disease History: Reports: Chicken Pox, Measles - Past Surgical History HEENT Surgical History: Reports: Tonsillectomy, Other (See Below) Other HEENT Surgeries/Procedures: cyct removal-neck srg Musculoskeletal Surgical History: Reports: Other (See Below) Other Musculoskeletal Surgeries/Procedures:: had cyst removed from neck, "right below my skull." Social & Family History - Family History Family Medical History: Noncontributory Cardiac: Reports: Bypass Other Cardiac Family History: Dad Neurological: Reports: CVA Other Neurological Family History: Dad - Tobacco Use Smoking Status *Q: Current Every Day Smoker Years of Tobacco use: 42 Packs/Tins Daily: 2 - Caffeine Use Caffeine Use: Reports: None - Recreational Drug Use Recreational Drug Use: Yes Recreational Drug Type: Reports: Marijuana/Hashish Other Recreational Drug Type: high school days had marijuana ED ROS GENERAL - Review of Systems Review Of Systems: See Below Constitutional: Reports: No Symptoms HEENT: Reports: No Symptoms Respiratory: Reports: No Symptoms Cardiovascular: Reports: No Symptoms Endocrine: Reports: No Symptoms GI/Abdominal: Reports: No Symptoms : Reports: No Symptoms Musculoskeletal: Reports: No Symptoms ED EXAM, BEHAVIORAL HEALTH - Physical Exam Exam: See Below Exam Limited By: No Limitations General Appearance: Alert, No Apparent Distress Ears: Normal External Exam Nose: Normal Inspection Head: Atraumatic, Normocephalic Neck: Normal Inspection Respiratory/Chest: No Respiratory Distress, Lungs Clear, Normal Breath Sounds Cardiovascular: Regular Rate, Rhythm, No Edema, No Murmur GI/Abdominal: Soft, Non-Tender, No Organomegaly, No Mass Back Exam: Normal Inspection Extremities: Normal Inspection Neurological: Alert, No Motor/Sensory Deficits, Oriented x 3 COURSE, BEHAVIORAL HEALTH COMP - Course Vital Signs: Last Vital Signs Temp 98.3 F 12/27/18 13:46 Pulse 79 12/27/18 13:46 Resp 20 12/27/18 13:46 BP 181/94 H 12/27/18 13:46 Pulse Ox 98 12/27/18 13:46 Re-Assessment/Re-Exam: I did call [facility] and talked with Amy the nurse on duty and she says they will handle that when he comes. They do an intake and figure out what meds to give him. She did not recommend anything now unless he is having troubles now. Departure - Departure Time of Disposition: 14:30 Disposition: Home, Self-Care 01 Condition: Good Clinical Impression: Alcohol dependence Qualifiers: Substance use status: with intoxication Complication of substance-induced condition: uncomplicated Qualified Code(s): F10.220 - Alcohol dependence with intoxication, uncomplicated - Discharge Information *PRESCRIPTION DRUG MONITORING PROGRAM REVIEWED*: No *COPY OF PRESCRIPTION DRUG MONITORING REPORT IN PATIENT BRIAN: No Referrals: PCP,None [Primary Care Provider] - Additional Instructions: Take the zofran every 6 hours as needed for nausea and vomiting. Take the ativan 1mg 3 times per day for 3 days. Then 1mg 2 times per day for 3 days and then 1mg at night for 3 days. Please return if you are worse.
== END 2018-12-27 14:43 | disposition home or self-care (01) ==
LOC: JD.ED 13:24
DX: F10.220 Alcohol dependence with intoxication, uncomplicated (principal); F32.9 Major depressive disorder, single episode, unspecified; F17.210 Nicotine dependence, cigarettes, uncomplicated; I10 Essential (primary) hypertension; Z79.899 Other long term (current) drug therapy
CPT/HCPCS: 99284

== ENCOUNTER 2018-12-28 12:47 | Emergency (ER) | payer MEDICAID ==
[2018-12-28] MEDS ORDERED: LORazepam 2 MG/ML SDV IVPUSH ONE (13:29)
[2018-12-28] MEDS ORDERED: Sodium Chloride 0.9% 1,000 ML IV ONE (13:30)
--- NOTE | 2018-12-28 13:48 | EDM.PDOC ---
ED HPI GENERAL MEDICAL PROBLEM - General Chief Complaint: Drug or Alcohol Abuse Stated Complaint: DETOX Time Seen by Provider: 12/28/18 13:01 Source of Information: Reports: Patient History Limitations: Reports: No Limitations - History of Present Illness INITIAL COMMENTS - FREE TEXT/NARRATIVE: 58 y/o Male presents to ER wanting "detox from alcohol." Patient is well known to ER. He was seen and evaluated yesterday. He was given a regiment of Ativan. He did not start the medication as prescribed. He got it filled just before coming to the ER. He states he called [facility] and they recommended he come to ER for detox because he has a history of seizures. He states the seizures happen when he tried to stop cold turkey without any medication on board. He denies any tremors, hallucinations, fever or chills. He admits to drinking a half of pint of Eduardo prior to arrival. He is accompanied his sister. She wants him admitted for detox, she doesn't want to take him home with her. Onset: Today Onset Date: 12/28/18 Duration: Waxing/Waning Quality: Denies: Ache Severity: Mild Improves with: Reports: None Worsens with: Reports: None Associated Symptoms: Reports: No Other Symptoms - Related Data Allergies Allergy/AdvReac Type Severity Reaction Status Date / Time No Known Allergies Allergy Verified 11/26/18 12:14 Home Meds: Home Meds FLUoxetine HCl [Fluoxetine] 20 mg PO DAILY 11/26/18 [History] Lisinopril/Hydrochlorothiazide [Lisinopril-Hctz 20-25 mg Tab] 2 tab PO DAILY 10/02 [History] Naltrexone HCl [Revia] 50 mg PO DAILY 11/26/18 [History] traZODone HCl [Trazodone HCl] 100 mg PO BEDTIME 11/26/18 [History] Magnesium 200 mg PO ASDIRECTED #2 tablet 12/28/18 [Rx] Potassium Chloride 20 meq PO ASDIRECTED #2 tablet.er 12/28/18 [Rx] Past Medical History HEENT History: Reports: Impaired Vision Cardiovascular History: Reports: Hypertension Respiratory History: Reports: COPD Gastrointestinal History: Reports: PUD Musculoskeletal History: Reports: Back Pain, Chronic Neurological History: Reports: Seizure, Other (See Below) Other Neuro History: 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 Psychiatric History: Reports: Addiction, Depression Endocrine/Metabolic History: Reports: Vitamin D Deficiency - Infectious Disease History Infectious Disease History: Reports: Chicken Pox, Measles - Past Surgical History HEENT Surgical History: Reports: Tonsillectomy, Other (See Below) Other HEENT Surgeries/Procedures: cyct removal-neck srg Musculoskeletal Surgical History: Reports: Other (See Below) Other Musculoskeletal Surgeries/Procedures:: had cyst removed from neck, "right below my skull." Social & Family History - Family History Family Medical History: Noncontributory Cardiac: Reports: Bypass Other Cardiac Family History: Dad Neurological: Reports: CVA Other Neurological Family History: Dad - Tobacco Use Smoking Status *Q: Current Every Day Smoker Years of Tobacco use: 45 Packs/Tins Daily: 3 - Caffeine Use Caffeine Use: Reports: Soda - Recreational Drug Use Recreational Drug Use: No ED ROS GENERAL - Review of Systems Review Of Systems: See Below Constitutional: Reports: Other (No tremors or shakes noted). Denies: Fever, Chills, Fatigue HEENT: Reports: No Symptoms Respiratory: Reports: No Symptoms Cardiovascular: Reports: No Symptoms Endocrine: Reports: No Symptoms GI/Abdominal: Reports: No Symptoms. Denies: Abdominal Pain : Reports: No Symptoms Musculoskeletal: Reports: No Symptoms Skin: Reports: No Symptoms Neurological: Reports: No Symptoms, Change in Speech Psychiatric: Reports: Other Hematologic/Lymphatic: Reports: No Symptoms (No tremors or shakes, admits to drinking 1 L of Eduardo daily) Immunologic: Reports: No Symptoms - Physical Exam Exam: See Below Exam Limited By: No Limitations General Appearance: Alert, WD/WN, No Apparent Distress Nose: Normal Inspection, Normal Mucosa, No Blood Throat/Mouth: Normal Inspection, Normal Lips, Normal Teeth, Normal Gums, Normal Oropharynx, Normal Voice, No Airway Compromise Head Exam: Atraumatic, Normocephalic Neck: Normal Inspection, Supple, Non-Tender, Full Range of Motion Respiratory/Chest: No Respiratory Distress, Lungs Clear, Normal Breath Sounds, No Accessory Muscle Use, Chest Non-Tender Cardiovascular: Normal Peripheral Pulses, Regular Rate, Rhythm, No Edema, No Gallop, No JVD, No Murmur, No Rub GI/Abdominal: Normal Bowel Sounds, Soft, Non-Tender, No Organomegaly, No Distention, No Abnormal Bruit, No Mass, Pelvis Stable Neuro Exam (Abbreviated): Alert, Oriented, CN II-XII Intact, Normal Cognition, Normal Gait, Normal Reflexes, No Motor/Sensory Deficits. No: Confused Back Exam: Normal Inspection, Full Range of Motion Extremities: Normal Inspection, Normal Range of Motion, Non-Tender, No Pedal Edema, Normal Capillary Refill Psychiatric: Normal Affect, Normal Mood Skin Exam: Warm, Dry, Intact, Normal Color Comments: Her CIWAA is zero Course - Vital Signs Text/Narrative:: 58 year old white male presents emergency room for wanting to be admitted for detox. I do not feel the patient meets criteria at this time because he was recently admitted for detox and he continued to drink once he was discharged. I feel the patient would benefit from taking the Ativan at home and be monitored by his family members. I did discuss with the patient that we do not have any beds at this time for detox. Patient is comfortable going home with his sister for detox even though she is apprehensive. Last Recorded V/S: Last Vital Signs Temp 98.0 F 12/28/18 12:54 Pulse 71 12/28/18 12:54 Resp 18 12/28/18 12:54 BP 156/96 H 12/28/18 12:54 Pulse Ox 96 12/28/18 12:54 - Orders/Labs/Meds Labs: Laboratory Tests 12/28/18 12/28/18 12/28/18 Range/Units 13:43 13:43 13:43 WBC 4.00 L (4.23-9.07) K/mm3 RBC 4.02 L (4.63-6.08) M/mm3 Hgb 14.6 (13.7-17.5) gm/L Hct 41.0 (40.1-51.0) % MCV 102.0 H (79.0-92.2) fl MCH 36.3 H (25.7-32.2) pg MCHC 35.6 H (32.2-35.5) g/dl RDW Std Deviation 55.2 H (35.1-43.9) fL Plt Count 107 L (163-337) K/mm3 MPV 10.2 (9.4-12.3) fl Neut % (Auto) 51.1 (34.0-67.9) % Lymph % (Auto) 33.0 (21.8-53.1) % Kent % (Auto) 12.8 H (5.3-12.2) % Eos % (Auto) 1.5 (0.8-7.0) Baso % (Auto) 1.3 H (0.1-1.2) % Neut # (Auto) 2.05 (1.78-5.38) K/mm3 Lymph # (Auto) 1.32 (1.32-3.57) K/mm3 Kent # (Auto) 0.51 (0.30-0.82) K/mm3 Eos # (Auto) 0.06 (0.04-0.54) K/mm3 Baso # (Auto) 0.05 (0.01-0.08) K/mm3 Sodium 143 (136-145) mEq/L Potassium 2.5 L (3.5-5.1) mEq/L Chloride 102 (98-107) mEq/L Carbon Dioxide 30 (21-32) mEq/L Anion Gap 13.5 (5-15) BUN 6 L (7-18) mg/dL Creatinine 0.9 (0.7-1.3) mg/dL Est Cr Clr Drug Dosing 96.39 mL/min Estimated GFR (MDRD) > 60 (>60) mL/min BUN/Creatinine Ratio 6.7 L (14-18) Glucose 111 H (74-106) mg/dL Calcium 9.4 (8.5-10.1) mg/dL Magnesium 1.3 L (1.8-2.4) mg/dl Total Bilirubin 0.5 (0.2-1.0) mg/dL AST 108 H (15-37) U/L ALT 77 H (16-63) U/L Alkaline Phosphatase 95 (46-116) U/L Total Protein 6.6 (6.4-8.2) g/dl Albumin 3.4 (3.4-5.0) g/dl Globulin 3.2 gm/dL Albumin/Globulin Ratio 1.1 (1-2) Ethyl Alcohol 0.19 (0.00) gm% Meds: Medications Discontinued Medications Generic Name Dose Route Start Last Admin Trade Name Freq PRN Reason Stop Dose Admin Sodium Chloride 1,000 mls @ 999 mls/hr 12/28/18 13:30 12/28/18 13:47 Normal Saline IV 12/28/18 14:30 999 mls/hr ONETIME ONE Administration Lorazepam 2 mg 12/28/18 13:29 12/28/18 13:40 Ativan IVPUSH 12/28/18 13:30 2 mg ONETIME ONE Administration Magnesium Oxide 400 mg 12/28/18 14:49 12/28/18 14:59 Magnesium Oxide PO 12/28/18 14:50 400 mg ONETIME ONE Administration Potassium Chloride 40 meq 12/28/18 14:25 12/28/18 14:30 Klor-Con M20 PO 12/28/18 14:26 40 meq ONETIME ONE Administration - Re-Assessments/Exams Free Text/Narrative Re-Assessment/Exam: 12/28/18 14:07 Marjorie with [facility] is at bedside evaluating patient. 12/28/18 14:27 His WBC is 4.0 I feel this is due to his verbalized immune system. His H&H is 14.6 and 41.0. His potassium is low at 2.5 I did address this by given him 40 mEq by mouth, repeat that again in 2 hours. I spoke with Marjorie at [facility] and she did accept the patient. 12/28/18 14:50 His magnesium is low at 1.3 I will give him magnesium 400 mg by mouth now and discharged with 400 mg to be given later today. 12/28/18 14:53 I discussed plan of care with patient and he is in agreement to be admitted to [facility] for evaluation and treatment. Patient is stable for discharge. Departure - Departure Time of Disposition: 14:54 Disposition: Home, Self-Care 01 Condition: Good Clinical Impression: Alcohol abuse Alcohol withdrawal syndrome Qualifiers: Complication of substance-induced condition: uncomplicated Qualified Code(s): F10.230 - Alcohol dependence with withdrawal, uncomplicated - Discharge Information *PRESCRIPTION DRUG MONITORING PROGRAM REVIEWED*: Not Applicable *COPY OF PRESCRIPTION DRUG MONITORING REPORT IN PATIENT BRIAN: Not Applicable Prescriptions: Magnesium 200 mg PO ASDIRECTED #2 tablet Potassium Chloride 20 meq PO ASDIRECTED #2 tablet.er Instructions: Alcohol Use Disorder Referrals: PCP,None [Primary Care Provider] - Additional Instructions: You were evaluated for alcohol detox. You are being discharged to resident program at [facility]. Your potassium was low at 2.5. I will prescribe potassium and magnesium. Take this medication as prescribed. You should take the Ativan as previously prescribed. Return to the emergency room for any new or acutely worsening symptoms.
[2018-12-28] MEDS ORDERED: Potassium Chloride 20 MEQ Tab.ER PO ONE (14:25)
[2018-12-28] MEDS ORDERED: Magnesium Oxide 400 MG Tab PO ONE (14:49)
== END 2018-12-28 15:09 | disposition home or self-care (01) ==
LOC: JD.ED 12:47
DX: F10.230 Alcohol dependence with withdrawal, uncomplicated (principal); F17.210 Nicotine dependence, cigarettes, uncomplicated; I10 Essential (primary) hypertension; J44.9 Chronic obstructive pulmonary disease, unspecified; F32.9 Major depressive disorder, single episode, unspecified; Z79.899 Other long term (current) drug therapy; Y90.6 Blood alcohol level of 120-199 mg/100 ml
CPT/HCPCS: 36415; 80053; 83735; 85025; 96361; 96374; 99284; A9270; G0480; J2060; J7040

== ENCOUNTER 2019-02-05 09:15 | Emergency (ER) | payer MEDICAID ==
--- NOTE | 2019-02-05 09:57 | EDM.PDOCBH ---
ED HPI GENERAL MEDICAL PROBLEM - General Chief Complaint: Drug or Alcohol Abuse Stated Complaint: NEEDS DETOX MEDS Time Seen by Provider: 02/05/19 09:25 Source of Information: Reports: Patient History Limitations: Reports: No Limitations - History of Present Illness INITIAL COMMENTS - FREE TEXT/NARRATIVE: The patient presents for meds for detoxing. He has alcoholism and he recently tried to quit at [facility] but he started drinking again. He last drank yesterday. He is trying to get back in to [facility]. He has nausea. He has no shakes yet. He has no fever, chills, cough, abdominal pain or vomiting. Onset: Gradual Severity: Moderate Improves with: Reports: None Worsens with: Reports: None Associated Symptoms: Reports: Nausea/Vomiting. Denies: Chest Pain, Cough, Fever /Chills, Headaches, Shortness of Breath - Related Data Allergies Allergy/AdvReac Type Severity Reaction Status Date / Time No Known Allergies Allergy Verified 02/05/19 09:31 Home Meds: Home Meds FLUoxetine HCl [Fluoxetine] 20 mg PO DAILY 11/26/18 [History] Lisinopril/Hydrochlorothiazide [Lisinopril-Hctz 20-25 mg Tab] 2 tab PO DAILY 10/02 [History] Naltrexone HCl [Revia] 50 mg PO DAILY 11/26/18 [History] traZODone HCl [Trazodone HCl] 100 mg PO BEDTIME 11/26/18 [History] Magnesium 200 mg PO ASDIRECTED #2 tablet 12/28/18 [Rx] Potassium Chloride 20 meq PO ASDIRECTED #2 tablet.er 12/28/18 [Rx] LORazepam [Ativan] 1 mg PO DAILY #18 tablet 02/05/19 [Rx] Ondansetron [Zofran ODT] 4 mg PO Q6H PRN #20 tab.dis 02/05/19 [Rx] Past Medical History HEENT History: Reports: Impaired Vision Cardiovascular History: Reports: Hypertension Respiratory History: Reports: COPD Gastrointestinal History: Reports: PUD Musculoskeletal History: Reports: Back Pain, Chronic Neurological History: Reports: Seizure, Other (See Below) Other Neuro History: 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 Psychiatric History: Reports: Addiction, Depression Endocrine/Metabolic History: Reports: Vitamin D Deficiency - Infectious Disease History Infectious Disease History: Reports: Chicken Pox, Measles - Past Surgical History HEENT Surgical History: Reports: Tonsillectomy, Other (See Below) Other HEENT Surgeries/Procedures: cyct removal-neck srg Musculoskeletal Surgical History: Reports: Other (See Below) Other Musculoskeletal Surgeries/Procedures:: had cyst removed from neck, "right below my skull." Social & Family History - Family History Family Medical History: Noncontributory Cardiac: Reports: Bypass Other Cardiac Family History: Dad Neurological: Reports: CVA Other Neurological Family History: Dad - Tobacco Use Smoking Status *Q: Current Every Day Smoker Years of Tobacco use: 40 Packs/Tins Daily: 2.5 - Caffeine Use Caffeine Use: Reports: None - Recreational Drug Use Recreational Drug Use: Yes Drug Use in Last 12 Months: No Recreational Drug Type: Reports: Cocaine ED ROS GENERAL - Review of Systems Review Of Systems: See Below Constitutional: Reports: No Symptoms HEENT: Reports: No Symptoms Respiratory: Reports: No Symptoms Cardiovascular: Reports: No Symptoms Endocrine: Reports: No Symptoms GI/Abdominal: Reports: Nausea. Denies: Abdominal Pain, Vomiting : Reports: No Symptoms Musculoskeletal: Reports: No Symptoms ED EXAM, BEHAVIORAL HEALTH - Physical Exam Exam: See Below Exam Limited By: No Limitations General Appearance: Alert, No Apparent Distress Ears: Normal External Exam Nose: Normal Inspection Head: Atraumatic, Normocephalic Neck: Normal Inspection Respiratory/Chest: No Respiratory Distress, Lungs Clear, Normal Breath Sounds Cardiovascular: Regular Rate, Rhythm, No Edema, No Murmur GI/Abdominal: Soft, Non-Tender, No Organomegaly, No Mass Extremities: Normal Inspection Neurological: Alert, No Motor/Sensory Deficits, Oriented x 3 COURSE, BEHAVIORAL HEALTH COMP - Course Vital Signs: Last Vital Signs Temp 96.9 F 02/05/19 09:29 Pulse 87 02/05/19 09:29 Resp 16 02/05/19 09:29 BP 163/107 H 02/05/19 09:29 Pulse Ox 97 02/05/19 09:29 Departure - Departure Time of Disposition: 09:55 Disposition: Home, Self-Care 01 Condition: Good Clinical Impression: Alcohol dependence Qualifiers: Substance use status: unspecified alcohol-induced disorder Qualified Code(s): F10.29 - Alcohol dependence with unspecified alcohol-induced disorder Alcohol withdrawal syndrome Qualifiers: Complication of substance-induced condition: uncomplicated Qualified Code(s): F10.230 - Alcohol dependence with withdrawal, uncomplicated - Discharge Information *PRESCRIPTION DRUG MONITORING PROGRAM REVIEWED*: No *COPY OF PRESCRIPTION DRUG MONITORING REPORT IN PATIENT BRIAN: No Prescriptions: LORazepam [Ativan] 1 mg PO DAILY #18 tablet Ondansetron [Zofran ODT] 4 mg PO Q6H PRN #20 tab.dis PRN Reason: Nausea\\vomiting Referrals: PCP,None [Primary Care Provider] - Additional Instructions: Take the medication as prescribed. Follow up with [facility]. Please return if you are worse.
== END 2019-02-05 10:05 | disposition home or self-care (01) ==
LOC: JD.ED 09:15
DX: F10.230 Alcohol dependence with withdrawal, uncomplicated (principal); R11.2 Nausea with vomiting, unspecified; I10 Essential (primary) hypertension; F17.210 Nicotine dependence, cigarettes, uncomplicated; Z79.899 Other long term (current) drug therapy; Z98.890 Other specified postprocedural states
CPT/HCPCS: 99284

== ENCOUNTER 2019-04-12 07:37 | Emergency (ER) | payer MEDICAID ==
--- NOTE | 2019-04-12 08:30 | EDM.PDOCBH ---
ED HPI GENERAL MEDICAL PROBLEM - General Chief Complaint: Drug or Alcohol Abuse Stated Complaint: NEEDS CLEARED FOR RCC Time Seen by Provider: 04/12/19 07:54 Source of Information: Reports: Patient History Limitations: Reports: No Limitations - History of Present Illness INITIAL COMMENTS - FREE TEXT/NARRATIVE: The patient presents for medical clearance for RCC. He is an alcoholic and he has a bed at the [facility]. He last drank yesterday. He is looking to stop drinking. He has some shakes but none noticeable to me. He has no fever, chills, cough, congestion, chest pain, shortness of breath or abdominal pain. He does have some nausea at times. He was in [facility] earlier in the year and that did not help. Onset: Gradual Duration: Day(s): Severity: Mild Improves with: Reports: None Worsens with: Reports: None Associated Symptoms: Reports: Nausea/Vomiting. Denies: Chest Pain, Cough, Fever /Chills, Headaches, Shortness of Breath - Related Data Allergies Allergy/AdvReac Type Severity Reaction Status Date / Time No Known Allergies Allergy Verified 04/12/19 07:55 Home Meds: Home Meds LORazepam [Ativan] 1 mg PO DAILY #18 tablet 04/12/19 [Rx] Ondansetron [Zofran ODT] 4 mg PO Q6H #10 tab.dis 04/12/19 [Rx] Past Medical History HEENT History: Reports: Impaired Vision Cardiovascular History: Reports: Hypertension Respiratory History: Reports: COPD Gastrointestinal History: Reports: PUD Musculoskeletal History: Reports: Back Pain, Chronic Neurological History: Reports: Seizure, Other (See Below) Other Neuro History: 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 Psychiatric History: Reports: Addiction, Depression Endocrine/Metabolic History: Reports: Vitamin D Deficiency - Infectious Disease History Infectious Disease History: Reports: Chicken Pox, Measles - Past Surgical History HEENT Surgical History: Reports: Tonsillectomy, Other (See Below) Other HEENT Surgeries/Procedures: cyct removal-neck srg Musculoskeletal Surgical History: Reports: Other (See Below) Other Musculoskeletal Surgeries/Procedures:: had cyst removed from neck, "right below my skull." Social & Family History - Family History Family Medical History: Noncontributory Cardiac: Reports: Bypass Other Cardiac Family History: Dad Neurological: Reports: CVA Other Neurological Family History: Dad - Caffeine Use Caffeine Use: Reports: None ED ROS GENERAL - Review of Systems Review Of Systems: See Below Constitutional: Reports: No Symptoms HEENT: Reports: No Symptoms Respiratory: Reports: No Symptoms Cardiovascular: Reports: No Symptoms Endocrine: Reports: No Symptoms GI/Abdominal: Reports: Nausea. Denies: Abdominal Pain, Vomiting : Reports: No Symptoms Musculoskeletal: Reports: No Symptoms Skin: Reports: No Symptoms ED EXAM, BEHAVIORAL HEALTH - Physical Exam Exam: See Below Exam Limited By: No Limitations General Appearance: Alert, No Apparent Distress Ears: Normal External Exam Nose: Normal Inspection Head: Atraumatic, Normocephalic Neck: Normal Inspection Respiratory/Chest: No Respiratory Distress, Lungs Clear, Normal Breath Sounds Cardiovascular: Regular Rate, Rhythm, No Edema, No Murmur GI/Abdominal: Soft, Non-Tender, No Organomegaly, No Mass Back Exam: Normal Inspection Extremities: Normal Inspection COURSE, BEHAVIORAL HEALTH COMP - Course Vital Signs: Last Vital Signs Temp 98.4 F 04/12/19 07:55 Pulse 88 04/12/19 07:55 Resp 18 04/12/19 07:55 BP 179/99 H 04/12/19 07:55 Pulse Ox 94 L 04/12/19 07:55 Departure - Departure Time of Disposition: 08:30 Disposition: Home, Self-Care 01 Condition: Good Clinical Impression: Alcohol dependence Qualifiers: Substance use status: unspecified alcohol-induced disorder Qualified Code(s): F10.29 - Alcohol dependence with unspecified alcohol-induced disorder - Discharge Information *PRESCRIPTION DRUG MONITORING PROGRAM REVIEWED*: Not Applicable *COPY OF PRESCRIPTION DRUG MONITORING REPORT IN PATIENT BRIAN: Not Applicable Prescriptions: LORazepam [Ativan] 1 mg PO DAILY #18 tablet Ondansetron [Zofran ODT] 4 mg PO Q6H #10 tab.dis Referrals: PCP,None [Primary Care Provider] - Additional Instructions: Take the zofran every 6 hours for nausea. Take the ativan 1 pill by mouth 3 times per day for 3 days and then 1 pill by mouth 2 times per day for 3 days and then 1 pill by mouth at night for 3 days. Please return if you are worse. A medical screening exam was done and you are medically cleared to go to the [facility].
== END 2019-04-12 09:00 | disposition home or self-care (01) ==
LOC: JD.ED 07:37
DX: F10.29 Alcohol dependence with unspecified alcohol-induced disorder (principal)
CPT/HCPCS: 99282; 99283

== ENCOUNTER 2019-07-14 16:10 | Emergency (ER) | payer MEDICAID, OTHER ==
[2019-07-14] MEDS ORDERED: Sodium Chloride 0.9% 1,000 ML IV SCH ×3 (17:30→20:30)
[2019-07-14] MEDS: Sodium Chloride 0.9% 10 ML Syringe FLUSH PRN ×2 (17:48→19:00)
--- NOTE | 2019-07-14 17:49 | CT ---
Head CT Technique: Multiple axial sections through the brain were obtained. Intravenous contrast was not utilized. Comparison: Prior head CT study of 10/18/18. Findings: Ventricles along with basal cisterns and sulci over convexities are mildly prominent. Several old lacunar infarcts are noted within the basal ganglia. No other abnormal parenchymal densities are seen. No evidence of intracranial hemorrhage. No midline shift or mass effect is seen. Mild atherosclerotic calcification is noted within the carotid siphon. Bone window settings were reviewed which shows no acute calvarial abnormality. Visualized mastoid sinuses and paranasal sinuses show nothing acute. Impression: 1. Slight senescent change as noted above. 2. Nothing acute is appreciated on noncontrast head CT exam. Diagnostic code #2
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
[2019-07-14] MEDS ORDERED: Sodium Chloride 0.9% 10 ML Syringe FLUSH PRN (18:43)
[2019-07-14] MEDS ORDERED: Potassium Chloride 10 MEQ in Premix Bag 1 BAG IV ONE (18:44)
[2019-07-14] MEDS ORDERED: Sodium Chloride 3% 500 ML IV SCH (19:00)
== END 2019-07-14 20:35 ==
LOC: JD.ED 16:10
DX: E87.6 Hypokalemia (principal); E83.42 Hypomagnesemia; E87.1 Hypo-osmolality and hyponatremia; I10 Essential (primary) hypertension; F17.210 Nicotine dependence, cigarettes, uncomplicated
CPT/HCPCS: 36415; 70450; 80048; 80053; 80306; 80320; 83605; 83735; 85025; 93005; 96361; 96365; 96366; 96368; 99285; J3480; J7040; J7131; 93010; 99283; G0480

== ENCOUNTER 2019-10-01 12:49 | Inpatient (IN) | payer SELFPAY ==
[2019-10-01] MEDS ORDERED: Thiamine 100 MG Tab PO ONE (13:19)
[2019-10-01] MEDS ORDERED: Sodium Chloride 0.9% 1,000 ML IV ONE ×2 (13:19→16:00)
[2019-10-01] MEDS ORDERED: Metoclopramide 10 MG/2 ML SDV IVPUSH ONE (13:19)
[2019-10-01] MEDS ORDERED: Sodium Chloride 0.9% 10 ML Syringe FLUSH PRN ×2 (13:19)
[2019-10-01] MEDS ORDERED: Folic Acid 1 MG Tab PO ONE (13:19)
--- NOTE | 2019-10-01 13:34 | EDM.PDOC ---
ED HPI GENERAL MEDICAL PROBLEM - General Chief Complaint: Drug or Alcohol Abuse Stated Complaint: ALCOHOL DETOX Time Seen by Provider: 10/01/19 13:02 Source of Information: Reports: Patient, Old Records History Limitations: Reports: Intoxication (pt answers questions, but is acutely intoxicated with alcohol) - History of Present Illness INITIAL COMMENTS - FREE TEXT/NARRATIVE: Patient is a 59-year-old male who presents to the ED for the evaluation of alcohol issues. Apparently he was dropped off by [facility] staff, as he try to go there for management. He was told that there were no rooms at the crisis center at [facility], and that they directed him to come here to try to get into [place], or a [facility] in [place]. Patient notes that he has had about 1/5 of whiskey today, and also took 3 Ativan tablets that he had leftover, he states he just wanted to sleep so he would not drink anymore. He notes this was not in an attempt to end his life at all. Patient recalls that he has had seizures in the past due to alcohol withdrawal. His most recent treatment stay was at [facility] in the middle of August, and he was evaluated in this ER by myself and sent there for management. Patient expresses the want to be in treatment, or in a supervised program, as he states he does not have the self will to go home and not drink. Patient states that he did vomit today , he noticed some streaks of blood in his vomitus, but this was not profuse blood in his vomit. Patient states that he does not take any sort of antacids like omeprazole. - Related Data Allergies Allergy/AdvReac Type Severity Reaction Status Date / Time No Known Allergies Allergy Verified 08/29/19 18:24 Home Meds: Home Meds LORazepam [Ativan] 1 mg PO TID #12 tab 08/29/19 [Rx] Past Medical History HEENT History: Reports: Impaired Vision Cardiovascular History: Reports: Hypertension Respiratory History: Reports: COPD Gastrointestinal History: Reports: PUD Musculoskeletal History: Reports: Back Pain, Chronic Neurological History: Reports: Seizure, Other (See Below) Other Neuro History: 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 Psychiatric History: Reports: Addiction, Depression Endocrine/Metabolic History: Reports: Vitamin D Deficiency - Infectious Disease History Infectious Disease History: Reports: Chicken Pox, Measles - Past Surgical History HEENT Surgical History: Reports: Tonsillectomy, Other (See Below) Other HEENT Surgeries/Procedures: cyct removal-neck srg Musculoskeletal Surgical History: Reports: Other (See Below) Other Musculoskeletal Surgeries/Procedures:: had cyst removed from neck, "right below my skull." Social & Family History - Family History Family Medical History: Noncontributory Cardiac: Reports: Bypass Other Cardiac Family History: Dad Neurological: Reports: CVA Other Neurological Family History: Dad - Tobacco Use Smoking Status *Q: Current Every Day Smoker Years of Tobacco use: 43 Packs/Tins Daily: 2 - Caffeine Use Caffeine Use: Reports: Coffee Other Caffeine Use: 2 pots daily - Recreational Drug Use Recreational Drug Use: No ED ROS GENERAL - Review of Systems Review Of Systems: See Below Constitutional: Denies: Fever, Chills Respiratory: Denies: Shortness of Breath, Cough Cardiovascular: Denies: Chest Pain GI/Abdominal: Reports: Nausea, Vomiting. Denies: Abdominal Pain ED EXAM, GENERAL - Physical Exam Exam: See Below Exam Limited By: Intoxication (answers quesitons appropriately, and follow commands) General Appearance: Alert, WD/WN, No Apparent Distress Throat/Mouth: Normal Inspection, Normal Lips, Normal Teeth, Normal Gums, Normal Oropharynx, Normal Voice, No Airway Compromise Respiratory/Chest: No Respiratory Distress, Lungs Clear, Normal Breath Sounds, No Accessory Muscle Use, Chest Non-Tender Cardiovascular: Normal Peripheral Pulses, Regular Rate, Rhythm, No Edema, No Murmur Peripheral Pulses: 3+: Radial (L), Radial (R) GI/Abdominal: Normal Bowel Sounds, Soft, Non-Tender, No Distention, No Mass Extremities: Normal Inspection, Normal Capillary Refill Neurological: Alert (pt is acutely intoxicated with alcohol, but is appropriate and follow commands.), Oriented, Normal Cognition, No Motor/Sensory Deficits Psychiatric: Normal Affect, Normal Mood Skin Exam: Warm, Dry, Intact, Normal Color, No Rash Course - Vital Signs Last Recorded V/S: Last Vital Signs Temp 98.4 F 10/01/19 13:08 Pulse 87 10/01/19 13:08 Resp 20 10/01/19 13:08 BP 168/116 H 10/01/19 13:08 Pulse Ox 95 10/01/19 13:08 - Orders/Labs/Meds Orders: Active Orders 24 hr Category Date Time Status Peripheral IV Care [RC] Q2HR Care 10/01/19 13:19 Active Sodium Chloride 0.9% [Normal Saline] 1,000 ml Med 10/01/19 16:00 Active IV ONETIME Sodium Chloride 0.9% [Saline Flush] Med 10/01/19 13:19 Active 10 ml FLUSH ASDIRECTED PRN Sodium Chloride 0.9% [Saline Flush] Med 10/01/19 13:19 Active 10 ml FLUSH ASDIRECTED PRN Peripheral IV Insertion Adult [OM.PC] Stat Oth 10/01/19 13:19 Ordered Medication Orders Sodium Chloride (Normal Saline) 1,000 mls @ 125 mls/hr IV ONETIME ONE Stop: 10/01/19 23:59 Last Admin: 10/01/19 16:27 Dose: 125 mls/hr Lactated Ringer's (Ringers, Lactated) 1,000 mls @ 250 mls/hr IV ASDIRECTED DIDI Lorazepam (Ativan) 1 mg IVPUSH Q6H PRN PRN Reason: Withdrawal Symptoms Miscellaneous Information (Remove Patch) 1 ea TRDERM DAILY DIDI Nicotine (Habitrol) 21 mg TRDERM DAILY DIDI Ondansetron HCl (Zofran) 4 mg IV Q6H PRN PRN Reason: Nausea/Vomiting Ondansetron HCl (Zofran Odt) 4 mg PO Q6H PRN PRN Reason: nausea, able to take PO Sodium Chloride (Saline Flush) 10 ml FLUSH ASDIRECTED PRN PRN Reason: Keep Vein Open Last Admin: 10/01/19 13:49 Dose: 10 ml Sodium Chloride (Saline Flush) 10 ml FLUSH ASDIRECTED PRN PRN Reason: Keep Vein Open Last Admin: 10/01/19 13:49 Dose: 10 ml Thiamine HCl (Vitamin B-1) 1 mg PO Q6H PRN PRN Reason: Withdrawal Symptoms Labs: Laboratory Tests 10/01/19 10/01/19 10/01/19 Range/Units 13:25 13:25 13:25 WBC 6.95 (4.23-9.07) K/mm3 RBC 4.83 (4.63-6.08) M/mm3 Hgb 15.3 (13.7-17.5) gm/dl Hct 43.2 (40.1-51.0) % MCV 89.4 D (79.0-92.2) fl MCH 31.7 (25.7-32.2) pg MCHC 35.4 (32.2-35.5) g/dl RDW Std Deviation 44.0 H (35.1-43.9) fL Plt Count 223 (163-337) K/mm3 MPV 10.3 (9.4-12.3) fl Neut % (Auto) 66.0 (34.0-67.9) % Lymph % (Auto) 26.2 (21.8-53.1) % Moore % (Auto) 5.9 (5.3-12.2) % Eos % (Auto) 0.6 L (0.8-7.0) Baso % (Auto) 1.2 (0.1-1.2) % Neut # (Auto) 4.59 (1.78-5.38) K/mm3 Lymph # (Auto) 1.82 (1.32-3.57) K/mm3 Moore # (Auto) 0.41 (0.30-0.82) K/mm3 Eos # (Auto) 0.04 (0.04-0.54) K/mm3 Baso # (Auto) 0.08 (0.01-0.08) K/mm3 PT 10.9 (9.7-12.0) SECONDS INR 1.00 Puncture Site ABG pH (7.35-7.45) ABG pCO2 (35.0-45.0) mmHg ABG pO2 (80.0-100.0) mmHg ABG HCO3 (22.0-26.0) meq/L ABG O2 Saturation (96.0-97.0) % ABG Base Excess (-2-2.0) Burak Test A-a Gradient mmHg O2 Delivery Device FiO2 (21.00-100.00) % Sodium 142 (136-145) mEq/L Potassium 3.5 (3.5-5.1) mEq/L Chloride 104 (98-107) mEq/L Carbon Dioxide 24 (21-32) mEq/L Anion Gap 17.5 H (5-15) BUN 7 (7-18) mg/dL Creatinine 0.9 (0.7-1.3) mg/dL Est Cr Clr Drug Dosing 95.20 mL/min Estimated GFR (MDRD) > 60 (>60) mL/min BUN/Creatinine Ratio 7.8 L (14-18) Glucose 120 H (74-106) mg/dL Lactic Acid (0.4-2.0) mmol/L Calcium 9.1 (8.5-10.1) mg/dL Magnesium 1.6 L (1.8-2.4) mg/dl Total Bilirubin 0.3 (0.2-1.0) mg/dL AST 35 (15-37) U/L ALT 28 (16-63) U/L Alkaline Phosphatase 86 (46-116) U/L Total Protein 7.5 (6.4-8.2) g/dl Albumin 4.0 (3.4-5.0) g/dl Globulin 3.5 gm/dL Albumin/Globulin Ratio 1.1 (1-2) Salicylates (2.8-20) mg/dL Urine Opiates Screen (ZDDYKC=811) Ur Buprenorphine Scrn (CUTOFF=10) Ur Oxycodone Screen (UIH3FT=614) Urine Methadone Screen (VTS5BQ=287) Ur Propoxyphene Screen (XRIKLX=797) Acetaminophen (10-30) ug/mL Ur Barbiturates Screen (SVMVRG=062) Ur Tricyclics Screen (WXDRHT=825) Ur Phencyclidine Scrn (CUTOFF=25) Ur Amphetamine Screen (ENROJH=809) U Methamphetamines Scrn (NZMFAK=052) U Benzodiazepines Scrn (SPBHRI=646) U Cocaine Metab Screen (HMXORW=507) U Marijuana (THC) Screen (CUTOFF=50) Ethyl Alcohol 0.25 (0.00) gm% 10/01/19 10/01/19 10/01/19 Range/Units 13:25 13:25 15:15 WBC (4.23-9.07) K/mm3 RBC (4.63-6.08) M/mm3 Hgb (13.7-17.5) gm/dl Hct (40.1-51.0) % MCV (79.0-92.2) fl MCH (25.7-32.2) pg MCHC (32.2-35.5) g/dl RDW Std Deviation (35.1-43.9) fL Plt Count (163-337) K/mm3 MPV (9.4-12.3) fl Neut % (Auto) (34.0-67.9) % Lymph % (Auto) (21.8-53.1) % Moore % (Auto) (5.3-12.2) % Eos % (Auto) (0.8-7.0) Baso % (Auto) (0.1-1.2) % Neut # (Auto) (1.78-5.38) K/mm3 Lymph # (Auto) (1.32-3.57) K/mm3 Moore # (Auto) (0.30-0.82) K/mm3 Eos # (Auto) (0.04-0.54) K/mm3 Baso # (Auto) (0.01-0.08) K/mm3 PT (9.7-12.0) SECONDS INR Puncture Site ABG pH (7.35-7.45) ABG pCO2 (35.0-45.0) mmHg ABG pO2 (80.0-100.0) mmHg ABG HCO3 (22.0-26.0) meq/L ABG O2 Saturation (96.0-97.0) % ABG Base Excess (-2-2.0) Burak Test A-a Gradient mmHg O2 Delivery Device FiO2 (21.00-100.00) % Sodium (136-145) mEq/L Potassium (3.5-5.1) mEq/L Chloride (98-107) mEq/L Carbon Dioxide (21-32) mEq/L Anion Gap (5-15) BUN (7-18) mg/dL Creatinine (0.7-1.3) mg/dL Est Cr Clr Drug Dosing mL/min Estimated GFR (MDRD) (>60) mL/min BUN/Creatinine Ratio (14-18) Glucose (74-106) mg/dL Lactic Acid 4.4 H* (0.4-2.0) mmol/L Calcium (8.5-10.1) mg/dL Magnesium (1.8-2.4) mg/dl Total Bilirubin (0.2-1.0) mg/dL AST (15-37) U/L ALT (16-63) U/L Alkaline Phosphatase (46-116) U/L Total Protein (6.4-8.2) g/dl Albumin (3.4-5.0) g/dl Globulin gm/dL Albumin/Globulin Ratio (1-2) Salicylates 3.6 (2.8-20) mg/dL Urine Opiates Screen (PAHMWX=972) Ur Buprenorphine Scrn (CUTOFF=10) Ur Oxycodone Screen (BAP9JE=813) Urine Methadone Screen (GKN4YR=686) Ur Propoxyphene Screen (YYDEBC=652) Acetaminophen 0 L (10-30) ug/mL Ur Barbiturates Screen (WKBRUW=855) Ur Tricyclics Screen (VCXIYK=974) Ur Phencyclidine Scrn (CUTOFF=25) Ur Amphetamine Screen (TOVKMX=855) U Methamphetamines Scrn (DGIYAJ=348) U Benzodiazepines Scrn (JHZQRV=020) U Cocaine Metab Screen (OESJHH=792) U Marijuana (THC) Screen (CUTOFF=50) Ethyl Alcohol (0.00) gm% 10/01/19 10/01/19 Range/Units 15:35 15:51 WBC (4.23-9.07) K/mm3 RBC (4.63-6.08) M/mm3 Hgb (13.7-17.5) gm/dl Hct (40.1-51.0) % MCV (79.0-92.2) fl MCH (25.7-32.2) pg MCHC (32.2-35.5) g/dl RDW Std Deviation (35.1-43.9) fL Plt Count (163-337) K/mm3 MPV (9.4-12.3) fl Neut % (Auto) (34.0-67.9) % Lymph % (Auto) (21.8-53.1) % Moore % (Auto) (5.3-12.2) % Eos % (Auto) (0.8-7.0) Baso % (Auto) (0.1-1.2) % Neut # (Auto) (1.78-5.38) K/mm3 Lymph # (Auto) (1.32-3.57) K/mm3 Moore # (Auto) (0.30-0.82) K/mm3 Eos # (Auto) (0.04-0.54) K/mm3 Baso # (Auto) (0.01-0.08) K/mm3 PT (9.7-12.0) SECONDS INR Puncture Site Lt radial ABG pH 7.37 (7.35-7.45) ABG pCO2 36.8 (35.0-45.0) mmHg ABG pO2 75.0 L (80.0-100.0) mmHg ABG HCO3 20.5 L (22.0-26.0) meq/L ABG O2 Saturation 95.4 L (96.0-97.0) % ABG Base Excess -3.8 L (-2-2.0) Burak Test Positive A-a Gradient 29 mmHg O2 Delivery Device Room air FiO2 21.00 (21.00-100.00) % Sodium (136-145) mEq/L Potassium (3.5-5.1) mEq/L Chloride (98-107) mEq/L Carbon Dioxide (21-32) mEq/L Anion Gap (5-15) BUN (7-18) mg/dL Creatinine (0.7-1.3) mg/dL Est Cr Clr Drug Dosing mL/min Estimated GFR (MDRD) (>60) mL/min BUN/Creatinine Ratio (14-18) Glucose (74-106) mg/dL Lactic Acid (0.4-2.0) mmol/L Calcium (8.5-10.1) mg/dL Magnesium (1.8-2.4) mg/dl Total Bilirubin (0.2-1.0) mg/dL AST (15-37) U/L ALT (16-63) U/L Alkaline Phosphatase (46-116) U/L Total Protein (6.4-8.2) g/dl Albumin (3.4-5.0) g/dl Globulin gm/dL Albumin/Globulin Ratio (1-2) Salicylates (2.8-20) mg/dL Urine Opiates Screen Negative (RNXBCH=300) Ur Buprenorphine Scrn Negative (CUTOFF=10) Ur Oxycodone Screen Presumptive positive H (FGR3BY=891) Urine Methadone Screen Negative (YEH3TZ=554) Ur Propoxyphene Screen Negative (DUINOX=594) Acetaminophen (10-30) ug/mL Ur Barbiturates Screen Negative (GUDDUI=104) Ur Tricyclics Screen Negative (ZOMPCE=313) Ur Phencyclidine Scrn Negative (CUTOFF=25) Ur Amphetamine Screen Negative (CKLHVW=991) U Methamphetamines Scrn Negative (PIIXYF=898) U Benzodiazepines Scrn Negative (PCHWDV=017) U Cocaine Metab Screen Negative (FFTTDZ=278) U Marijuana (THC) Screen Negative (CUTOFF=50) Ethyl Alcohol (0.00) gm% Meds: Medications Generic Name Dose Route Start Last Admin Trade Name Cleo PRN Reason Stop Dose Admin Sodium Chloride 1,000 mls @ 125 mls/hr 10/01/19 16:00 10/01/19 16:27 Normal Saline IV 10/01/19 23:59 125 mls/hr ONETIME ONE Administration Lactated Ringer's 1,000 mls @ 250 mls/hr 10/01/19 18:00 Ringers, Lactated IV ASDIRECTED DIDI Lorazepam 1 mg 10/01/19 17:49 Ativan IVPUSH Q6H PRN Withdrawal Symptoms Miscellaneous Information 1 ea 10/02/19 09:00 Remove Patch TRDERM DAILY DIDI Nicotine 21 mg 10/01/19 18:00 Habitrol TRDERM DAILY DIDI Ondansetron HCl 4 mg 10/01/19 17:49 Zofran IV Q6H PRN Nausea/Vomiting Ondansetron HCl 4 mg 10/01/19 17:49 Zofran Odt PO Q6H PRN nausea, able to take PO Sodium Chloride 10 ml 10/01/19 13:19 10/01/19 13:49 Saline Flush FLUSH 10 ml ASDIRECTED PRN Administration Keep Vein Open Sodium Chloride 10 ml 10/01/19 13:19 10/01/19 13:49 Saline Flush FLUSH 10 ml ASDIRECTED PRN Administration Keep Vein Open Thiamine HCl 1 mg 10/01/19 17:49 Vitamin B-1 PO Q6H PRN Withdrawal Symptoms Discontinued Medications Generic Name Dose Route Start Last Admin Trade Name Cleo PRN Reason Stop Dose Admin Folic Acid 1 mg 10/01/19 13:19 10/01/19 13:47 Folic Acid PO 10/01/19 13:20 1 mg ONETIME ONE Administration Sodium Chloride 1,000 mls @ 999 mls/hr 10/01/19 13:19 10/01/19 13:47 Normal Saline IV 10/01/19 14:19 999 mls/hr ONETIME ONE Administration Magnesium Sulfate 2 gm/ Premix 50 mls @ 25 mls/hr 10/01/19 14:14 10/01/19 14: 19 IV 10/01/19 16:13 25 mls/hr ONETIME ONE Administration Lorazepam 1 mg 10/01/19 17:28 10/01/19 18:09 Ativan IVPUSH 10/01/19 17:29 1 mg ONETIME ONE Administration Metoclopramide HCl 10 mg 10/01/19 13:19 10/01/19 13:46 Reglan IVPUSH 10/01/19 13:20 10 mg ONETIME ONE Administration Pantoprazole Sodium 40 mg 10/01/19 13:42 10/01/19 13:51 Protonix Iv IVPUSH 10/01/19 13:43 40 mg ONETIME ONE Administration Thiamine HCl 100 mg 10/01/19 13:19 10/01/19 13:47 Vitamin B-1 PO 10/01/19 13:20 100 mg ONETIME ONE Administration - Re-Assessments/Exams Free Text/Narrative Re-Assessment/Exam: 10/01/19 13:39 Patient presents to the ED for alcohol use. Labs to be drawn, he will get be given some IV fluids, 10 mg Reglan for nausea management with folic acid and thiamine as well. I will try to be in contact with [facility], see if they will help facilitate placement into [place] if we can detox him here. 10/01/19 13:50 I was in contact with Sugey at [facility], she states that he has been to their facility multiple times for alcohol treatment, and does suggest that he try to get into [place] on outpatient basis, but notes that [place] will not take patients that are actively detoxing, so he would need to be medically detoxed before he can go to [place] for this. I would also agree that he should probably have medical detox, due to his history of alcohol withdrawal seizures. Will await labs, and try to talk with Dr. Jodie Linares regarding admission for alcohol detox. 10/01/19 14:15 Patient's labs are done, demonstrate a CBC with no acute worrisome abnormality, metabolic panel essentially within normal limits, magnesium level 1.6, and a blood alcohol level of 0.25. Patient will be given 2 g of magnesium for supplementation as well. Urine drug screen is still pending. However I anticipate this will be negative except for benzodiazepines as he had been taking Ativan at home. 10/01/19 15:07 Dr. Jodie Linares has been here, and is going to see the patient for evaluation. She requested that ABG, salicylate level, and a lactic acid be obtained for further evaluation. 10/01/19 15:[address] Jodie Linares, she suggests that he be transferred to [place], and she has been in contact with [facility] in [place], and they tentatively accept the patient for admission. He will have to be placed on hold , and Dr. Linares is filling out the paperwork at this time. [facility] in [place] requested a Tylenol level be obtained as well, and then call with lab results for final acceptance. 10/01/19 16:16 Requested labs are back, lactic acid is 4.4, patient's Tylenol level is WNL, and salicylates are WNL. I believe that the lactic acid is due to dehydration, that is self-inflicted due to the patient's alcohol use. He has gotten 1 L of fluids, and is getting a second liter at maintenance rate. Of note patient's urine screen is positive for oxycodone, but negative for benzodiazepines. ABG is demonstrates no acute worrisome abnormalities. 10/01/19 16:29 When asked about why there was oxycodone that showed up on his drug screen, the patient is unsure. He states that he only had an Ativan script at home, and he states that he was sure that he only took the 3 tablets of Ativan so he could sleep and not drink any more alcohol. Departure - Departure Time of Disposition: 17:44 Disposition: Admitted As Inpatient 65 Condition: Fair Clinical Impression: Alcohol abuse Alcohol intoxication Qualifiers: Complication of substance-induced condition: uncomplicated Qualified Code(s): F10.920 - Alcohol use, unspecified with intoxication, uncomplicated - Discharge Information *PRESCRIPTION DRUG MONITORING PROGRAM REVIEWED*: No *COPY OF PRESCRIPTION DRUG MONITORING REPORT IN PATIENT BRIAN: No Sepsis Event Note - Evaluation Sepsis Screening Result: No Definite Risk - Focused Exam Vital Signs: Vital Signs Temp Pulse Resp BP Pulse Ox 10/01/19 13:08 98.4 F 87 20 168/116 H 95 Date Exam was Performed: 10/01/19 Time Exam was Performed: 18:39 - My Orders Last 24 Hours: My Active Orders 10/01/19 13:19 Peripheral IV Care [RC] Q2HR Sodium Chloride 0.9% [Saline Flush] 10 ml FLUSH ASDIRECTED PRN Sodium Chloride 0.9% [Saline Flush] 10 ml FLUSH ASDIRECTED PRN Peripheral IV Insertion Adult [OM.PC] Stat 10/01/19 16:00 Sodium Chloride 0.9% [Normal Saline] 1,000 ml IV ONETIME - Assessment/Plan Last 24 Hours: My Active Orders 10/01/19 13:19 Peripheral IV Care [RC] Q2HR Sodium Chloride 0.9% [Saline Flush] 10 ml FLUSH ASDIRECTED PRN Sodium Chloride 0.9% [Saline Flush] 10 ml FLUSH ASDIRECTED PRN Peripheral IV Insertion Adult [OM.PC] Stat 10/01/19 16:00 Sodium Chloride 0.9% [Normal Saline] 1,000 ml IV ONETIME
[2019-10-01] MEDS ORDERED: Pantoprazole 40 MG Vial IVPUSH ONE (13:42)
[2019-10-01] MEDS ORDERED: Magnesium Sulfate/Water 2 GM in Premix Bag 1 BAG IV ONE (14:14)
[2019-10-01] MEDS ORDERED: LORazepam 2 MG/ML SDV IVPUSH ONE (17:28)
[2019-10-01] MEDS ORDERED: Ondansetron 4 MG/2 ML SDV IV PRN (17:49)
[2019-10-01] MEDS ORDERED: Thiamine 200 MG/2 ML MDV PO PRN (17:49)
[2019-10-01] MEDS ORDERED: Ondansetron 4 MG Tab.DIS PO PRN (17:49)
--- NOTE | 2019-10-01 17:58 | PCM.HP.2 ---
H&P History of Present Illness - General Date of Service: 10/01/19 Admit Problem/Dx: Admission Diagnosis/Problem Admission Diagnosis/Problem Alcohol withdrawal syndrome - History of Present Illness Initial Comments - Free Text/Narative: This is a 59 year old male with past medical history of alcohol abuse with multiple inpatient rehab stays who comes to the ED sent by [facility] for alcohol detox. As per patient he drank his usual 5th of whisky this morning and took Ativan x 3 tablets which was prescribed 1 month ago because he wanted to stop drinking. Afterwards he went to [facility] who told him the facility was not appropriate for his needs due to having multiple stays without being able to stop drinking. Patient states he had a 1 month stay there in mid August. Denies any suicidal, homicidal ideation, self harm behaviors, use of illicit drugs, previous withdrawals with seizures. Denies any current symptoms. Had 1 episode of dark vomit in the ED. - Related Data Allergies/Adverse Reactions: Allergies Allergy/AdvReac Type Severity Reaction Status Date / Time No Known Allergies Allergy Verified 08/29/19 18:24 Home Medications: Home Meds LORazepam [Ativan] 1 mg PO TID #12 tab 08/29/19 [Rx] Past Medical History HEENT History: Reports: Impaired Vision Cardiovascular History: Reports: Hypertension Respiratory History: Reports: COPD Gastrointestinal History: Reports: PUD Musculoskeletal History: Reports: Back Pain, Chronic Neurological History: Reports: Seizure, Other (See Below) Other Neuro History: 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 Psychiatric History: Reports: Addiction, Depression Endocrine/Metabolic History: Reports: Vitamin D Deficiency - Infectious Disease History Infectious Disease History: Reports: Chicken Pox, Measles - Past Surgical History HEENT Surgical History: Reports: Tonsillectomy, Other (See Below) Other HEENT Surgeries/Procedures: cyct removal-neck srg Musculoskeletal Surgical History: Reports: Other (See Below) Other Musculoskeletal Surgeries/Procedures:: had cyst removed from neck, "right below my skull." Social & Family History - Family History Family Medical History: Noncontributory Cardiac: Reports: Bypass Other Cardiac Family History: Dad Neurological: Reports: CVA Other Neurological Family History: Dad - Tobacco Use Smoking Status *Q: Current Every Day Smoker Years of Tobacco use: 43 Packs/Tins Daily: 2 - Caffeine Use Caffeine Use: Reports: Coffee Other Caffeine Use: 2 pots daily - Recreational Drug Use Recreational Drug Use: No H&P Review of Systems - Review of Systems: Review Of Systems: See Below General: Denies: Fever, Chills, Malaise, Weakness, Fatigue, Night Sweats, Diaphoresis, Decreased Appetite, Weight Loss HEENT: Denies: Contact Lenses, Dysphasia, Ear Pain, Eye Pain, Glasses, Headaches , Hearing Changes, Post Nasal Drip, Sinus Congestion, Sore Throat, Vertigo, Visual Changes Pulmonary: Denies: Shortness of Breath, Wheezing, Pleuritic Chest Pain, Cough, Sputum Cardiovascular: Denies: Chest Pain, Palpitations, Dyspnea on Exertion, Orthopnea , PND, Edema, Lightheadedness, Syncope, Claudication, Blood Pressure Problem Gastrointestinal: Reports: Nausea, Vomiting. Denies: Abdominal Pain, Anorexia, Black Stool, Bloody Stool, Constipation, Diarrhea, Decreased Appetite, Difficulty Swallowing, Distension, Flatus, Hematemesis, Hematochezia, Melena Genitourinary: Denies: Dysuria, Frequency, Burning, Pain, Urgency, Incontinence Musculoskeletal: Denies: Joint Pain, Joint Swelling, Muscle Pain, Muscle Stiffness Skin: Denies: Cyanosis, Jaundice, Mottled, Pallor, Diaphoresis Psychiatric: Denies: Confusion, Depression, Mood Lability, Anxiety, Agitation Neurological: Denies: Confusion, Dizziness, Headache, Numbness, Paresthesia Exam - Exam Exam: See Below - Vital Signs Vital Signs: Last Vital Signs Temp 98.4 F 10/01/19 13:08 Pulse 87 10/01/19 13:08 Resp 20 10/01/19 13:08 BP 168/116 H 10/01/19 13:08 Pulse Ox 95 10/01/19 13:08 Weight: 77.111 kg - Exam General: Alert, Other (intoxicated) HEENT: Other (erythematous conjunctiva, PEERLA, EOMI, no purulent drainage, no nistagmus) Neck: Supple, Trachea Midline Lungs: Clear to Auscultation, Normal Respiratory Effort. No: Crackles, Rales, Rhonchi, Rub, Wheezing Cardiovascular: Regular Rate, Regular Rhythm. No: Systolic Murmur, Diastolic Murmur, Rubs, Gallop/S3, Gallop/S4 GI/Abdominal Exam: Normal Bowel Sounds, Soft, Non-Tender, No Organomegaly Extremities: Normal Inspection, No Pedal Edema Psychiatric: No: Labile Mood, Anxious, Depressed, Agitated, Suicidal Ideation, Homicidal Ideation - Patient Data Result Diagrams: 10/01/19 13:25 10/01/19 13:25 Sepsis Event Note - Evaluation Sepsis Screening Result: No Definite Risk - Focused Exam Vital Signs: Vital Signs Temp Pulse Resp BP Pulse Ox 10/01/19 13:08 98.4 F 87 20 168/116 H 95 Date Exam was Performed: 10/01/19 Time Exam was Performed: 17:53 *Q Meaningful Use (ADM) - VTE *Q VTE Mechanical Contraindications *Q: At Risk for Falls - Problem List (1) Alcohol intoxication SNOMED Code(s): 21408838 ICD Code: F10.929 - ALCOHOL USE, UNSPECIFIED WITH INTOXICATION, UNSPECIFIED Status: Acute Current Visit: No Qualifiers: Complication of substance-induced condition: uncomplicated Qualified Code(s ): F10.920 - Alcohol use, unspecified with intoxication, uncomplicated (2) Lactic acidemia SNOMED Code(s): 361202724 ICD Code: E87.2 - ACIDOSIS Status: Acute Current Visit: Yes (3) Smoker SNOMED Code(s): 21853420 ICD Code: F17.200 - NICOTINE DEPENDENCE, UNSPECIFIED, UNCOMPLICATED Status : Acute Current Visit: Yes (4) Alcohol abuse SNOMED Code(s): 42441576 ICD Code: F10.10 - ALCOHOL ABUSE, UNCOMPLICATED Status: Acute Priority: High Current Visit: No (5) Alcohol dependence SNOMED Code(s): 11416926 ICD Code: F10.20 - ALCOHOL DEPENDENCE, UNCOMPLICATED Status: Acute Priority: High Current Visit: No Qualifiers: Substance use status: unspecified alcohol-induced disorder Qualified Code(s ): F10.29 - Alcohol dependence with unspecified alcohol-induced disorder (6) Hypomagnesemia SNOMED Code(s): 391061992 ICD Code: E83.42 - HYPOMAGNESEMIA Status: Acute Current Visit: No Problem List Initiated/Reviewed/Updated: Yes Assessment/Plan Comment:: Acute alcohol intoxication Alcohol abuse disorder Lactic acidemia Hypomagnesemia Polysubstance abuse Drinks 5th of whiskey daily Multiple failed rehab stays, x 6 Most recent rehab stay at [facility] for 1 month Has been in [place] and [facility] before Magnesium repleted in ED UDS + Oxycodone, patient adamantly denies ingesting anything other than Ativan for which UDS is negative Episode of "dark" vomit in ED, unclear if coffee groun PLAN - CIWA protocol - LR at 250ml/hr - Banana bag in AM - Thiamine and folic acid supplementation - Psychiatry consult - facility manager histology and director of social work consult for placement - FOBT - Repeat CBC in AM Smoker Smokes 2-3 ppd PLAN - Nicotine patch PROPHYLAXIS DVT- Ambulate GI- Pantoprazole CODE STATUS: FULL CODE DISPOSITION: Patient will be admitted to ICU for alcohol detox, psychiatry evaluation. Discharged to in patient rehab unit once sober.
[2019-10-01] MEDS ORDERED: Nicotine 21 MG/24 Hr Patch TRDERM SCH (18:00)
[2019-10-01] MEDS ORDERED: LORazepam 2 MG/ML SDV IVPUSH PRN (18:00)
[2019-10-01] MEDS: Lactated Ringers 1,000 ML IV SCH ×2 (18:44→22:47)
[2019-10-02] MEDS ORDERED: hydrALAZINE 20 MG/ML SDV IVPUSH ONE ×2 (06:33→08:40)
[2019-10-02] MEDS ORDERED: Morphine 2 MG/ML Syringe IVPUSH ONE (06:33)
[2019-10-02] MEDS: REMOVE TRDERM SCH ×2 (08:31→17:06)
[2019-10-02] MEDS: Nicotine 21 MG/24 Hr Patch TRDERM SCH ×2 (08:32→17:05)
[2019-10-02] MEDS ORDERED: Lisinopril 10 MG Tab PO ONE (10:46)
[2019-10-02] MEDS ORDERED: Thiamine 1,000 MG, Magnesium Sulfate 4 GM, Folic Acid 1 MG in Dextrose 5%-0.9% NaCl 1,0... IV SCH (15:00)
--- NOTE | 2019-10-02 18:15 | PCM.PN ---
- General Info Date of Service: 10/02/19 Subjective Update: Slept ok No seizures - Patient Data Weight - Most Recent: 80.694 kg - Exam Physical Findings Comments:: General: Alert HEENT: Other (erythematous conjunctiva, PEERLA, EOMI, no purulent drainage, no nistagmus) Neck: Supple, Trachea Midline Lungs: Clear to Auscultation, Normal Respiratory Effort. No: Crackles, Rales, Rhonchi, Rub, Wheezing Cardiovascular: Regular Rate, Regular Rhythm. No: Systolic Murmur, Diastolic Murmur, Rubs, Gallop/S3, Gallop/S4 GI/Abdominal Exam: Normal Bowel Sounds, Soft, Non-Tender, No Organomegaly Extremities: Normal Inspection, No Pedal Edema Psychiatric: No: Labile Mood, Anxious, Depressed, Agitated, Suicidal Ideation, Homicidal Ideation Sepsis Event Note - Evaluation Sepsis Screening Result: No Definite Risk - Focused Exam Vital Signs: Vital Signs Temp Resp BP BP Pulse Ox Pulse Ox 10/02/19 17:42 96 10/02/19 16:00 97.5 F 16 149/84 H 95 10/02/19 13:32 16 141/79 H 96 10/02/19 12:00 98.7 F 16 169/92 H 94 L 10/02/19 10:57 164/98 H 10/02/19 10:52 16 164/98 H 94 L 10/02/19 09:54 16 176/91 H 96 10/02/19 09:00 16 183/97 H 96 10/02/19 07:36 97.8 F 16 174/84 H 94 L Date Exam was Performed: 10/02/19 Time Exam was Performed: 18:18 - Problem List & Annotations (1) Alcohol intoxication SNOMED Code(s): 35974376 Code(s): F10.929 - ALCOHOL USE, UNSPECIFIED WITH INTOXICATION, UNSPECIFIED Status: Acute Current Visit: Yes Qualifiers: Complication of substance-induced condition: uncomplicated Qualified Code(s ): F10.920 - Alcohol use, unspecified with intoxication, uncomplicated (2) Lactic acidemia SNOMED Code(s): 734701731 Code(s): E87.2 - ACIDOSIS Status: Acute Current Visit: Yes (3) Smoker SNOMED Code(s): 84390909 Code(s): F17.200 - NICOTINE DEPENDENCE, UNSPECIFIED, UNCOMPLICATED Status: Acute Current Visit: Yes (4) Alcohol abuse SNOMED Code(s): 66060256 Code(s): F10.10 - ALCOHOL ABUSE, UNCOMPLICATED Status: Acute Priority: High Current Visit: Yes (5) Alcohol dependence SNOMED Code(s): 37665182 Code(s): F10.20 - ALCOHOL DEPENDENCE, UNCOMPLICATED Status: Acute Priority: High Current Visit: No Qualifiers: Substance use status: unspecified alcohol-induced disorder Qualified Code(s ): F10.29 - Alcohol dependence with unspecified alcohol-induced disorder (6) Hypomagnesemia SNOMED Code(s): 994144858 Code(s): E83.42 - HYPOMAGNESEMIA Status: Acute Current Visit: No - Problem List Review Problem List Initiated/Reviewed/Updated: Yes - Plan Plan:: Acute alcohol intoxication Alcohol abuse disorder Lactic acidemia Hypomagnesemia Polysubstance abuse Drinks 5th of whiskey daily Multiple failed rehab stays, x 6 Most recent rehab stay at [facility] for 1 month Has been in [facility] before Magnesium repleted in ED UDS + Oxycodone, patient adamantly denies ingesting anything other than Ativan for which UDS is negative Episode of "dark" vomit in ED, unclear if coffee ground PLAN - CIWA protocol - LR at 250ml/hr - Banana bag today - Thiamine and folic acid supplementation - Psychiatry consult - track manager and renal social worker consult for placement - FOBT - Repeat CBC in AM Smoker Smokes 2-3 ppd PLAN - Nicotine patch PROPHYLAXIS DVT- Ambulate GI- Pantoprazole CODE STATUS: FULL CODE DISPOSITION: Patient admitted to ICU for alcohol detox, psychiatry evaluation. Discharged to in patient rehab unit once sober.
[2019-10-02] MEDS: Lisinopril 10 MG Tab PO SCH (20:33)
[2019-10-02] MEDS: QUEtiapine 25 MG Tab PO SCH (20:33)
[2019-10-02] MEDS: Topiramate 25 MG Tab PO SCH (20:33)
[2019-10-03] MEDS: Lisinopril 10 MG Tab PO SCH (08:58)
[2019-10-03] MEDS: QUEtiapine 25 MG Tab PO SCH (08:58)
[2019-10-03] MEDS: Topiramate 25 MG Tab PO SCH (08:59)
[2019-10-03] MEDS ORDERED: Nicotine 21 MG/24 Hr Patch TRDERM SCH (09:00)
[2019-10-03] MEDS ORDERED: REMOVE TRDERM SCH (09:00)
[2019-10-03] MEDS ORDERED: FLUoxetine 20 MG Cap PO SCH (09:00)
[2019-10-03] MEDS ORDERED: Potassium Chloride 20 MEQ Tab.ER PO ONE (11:00)
[2019-10-03] MEDS ORDERED: Thiamine 100 MG Tab PO SCH (11:00)
[2019-10-03] MEDS ORDERED: Folic Acid 1 MG Tab PO SCH (11:00)
--- NOTE | 2019-10-03 12:25 | PCM.DCSUM1 ---
Discharge Summary - Hospital Course HPI Initial Comments: This is a 59 year old male with past medical history of alcohol abuse with multiple inpatient rehab stays who comes to the ED sent by [facility] for alcohol detox. As per patient he drank his usual 5th of whisky this morning and took Ativan x 3 tablets which was prescribed 1 month ago because he wanted to stop drinking. Afterwards he went to [facility] who told him the facility was not appropriate for his needs due to having multiple stays without being able to stop drinking. Patient states he had a 1 month stay there in mid August. Denies any suicidal, homicidal ideation, self harm behaviors, use of illicit drugs, previous withdrawals with seizures. Denies any current symptoms. Had 1 episode of dark vomit in the ED. Diagnosis: Stroke: No - Discharge Data Discharge Date: 10/03/19 Discharge Disposition: Home, Self-Care 01 Condition: Good - Referral to Home Health Primary Care Physician: PCP None - Discharge Diagnosis/Problem(s) (1) Alcohol intoxication SNOMED Code(s): 30939175 ICD Code: F10.929 - ALCOHOL USE, UNSPECIFIED WITH INTOXICATION, UNSPECIFIED Status: Acute Current Visit: Yes Qualifiers: Complication of substance-induced condition: uncomplicated Qualified Code(s ): F10.920 - Alcohol use, unspecified with intoxication, uncomplicated (2) Lactic acidemia SNOMED Code(s): 076703879 ICD Code: E87.2 - ACIDOSIS Status: Acute Current Visit: Yes (3) Smoker SNOMED Code(s): 78414959 ICD Code: F17.200 - NICOTINE DEPENDENCE, UNSPECIFIED, UNCOMPLICATED Status : Acute Current Visit: Yes (4) Alcohol abuse SNOMED Code(s): 67916114 ICD Code: F10.10 - ALCOHOL ABUSE, UNCOMPLICATED Status: Acute Priority: High Current Visit: Yes (5) Alcohol dependence SNOMED Code(s): 71893254 ICD Code: F10.20 - ALCOHOL DEPENDENCE, UNCOMPLICATED Status: Acute Priority: High Current Visit: No Qualifiers: Substance use status: unspecified alcohol-induced disorder Qualified Code(s ): F10.29 - Alcohol dependence with unspecified alcohol-induced disorder (6) Hypomagnesemia SNOMED Code(s): 908741044 ICD Code: E83.42 - HYPOMAGNESEMIA Status: Acute Current Visit: No - Patient Summary/Data Consults: Consultations 10/01/19 17:49 Consult to Case Management/[employer]er [CONS] Routine Consult to Physician [CONS] Routine Hospital Course: Patient was admitted to the ICU for alcohol withdrawal protocol Psychiatry evaluated patient and recommended starting prozaac, seroquel. Also patient was started on Thiamine and folic acid. Patient had a meeting with AA and decided he did not want to go to inpatient treatment. I discussed with him and stated that my recommendation was to go in to inpatient rehab. Patient voiced understanding of my recommendation but still decided to go to AA. - Patient Instructions Diet: Usual Diet as Tolerated Activity: As Tolerated ( +-) - Discharge Plan *PRESCRIPTION DRUG MONITORING PROGRAM REVIEWED*: No *COPY OF PRESCRIPTION DRUG MONITORING REPORT IN PATIENT BRIAN: No Prescriptions/Med Rec: FLUoxetine HCl [Fluoxetine HCl] 20 mg PO DAILY #30 capsule NS Folic Acid 1 mg PO DAILY #30 tablet lisinopriL [Prinivil] 10 mg PO DAILY #30 tablet Nicotine [Habitrol] 21 mg TRDERM Q24H #30 patch QUEtiapine [SEROquel] 50 mg PO DAILY #60 tablet Thiamine [Vitamin B-1] 100 mg PO DAILY #30 tablet Topiramate [Topamax] 25 mg PO BID #30 tablet Home Medications: Home Meds FLUoxetine HCl [Fluoxetine HCl] 20 mg PO DAILY #30 capsule NS 10/03/19 [Rx] Folic Acid 1 mg PO DAILY #30 tablet 10/03/19 [Rx] Nicotine [Habitrol] 21 mg TRDERM Q24H #30 patch 10/03/19 [Rx] QUEtiapine [SEROquel] 50 mg PO DAILY #60 tablet 10/03/19 [Rx] Thiamine [Vitamin B-1] 100 mg PO DAILY #30 tablet 10/03/19 [Rx] Topiramate [Topamax] 25 mg PO BID #30 tablet 10/03/19 [Rx] lisinopriL [Prinivil] 10 mg PO DAILY #30 tablet 10/03/19 [Rx] Patient Handouts: Alcohol Use Disorder, Alcohol Intoxication, [id number], Steps to Quit Smoking Referrals: Rebecca Campbell MD [Physician] - - Discharge Summary/Plan Comment DC Time >30 min.: Yes (Coordination of transport and discussion of plan of care ) - Patient Data Vitals - Most Recent: Last Vital Signs Temp 97.6 F 10/03/19 08:00 Pulse 74 10/03/19 08:00 Resp 17 10/03/19 08:00 BP 136/85 10/03/19 08:58 Pulse Ox 99 10/03/19 08:00 Weight - Most Recent: 81.329 kg I&O - Last 24 hours: Intake & Output 10/02/19 10/03/19 10/03/19 22:59 06:59 14:59 Intake Total 605 1000 300 Output Total 575 Balance 30 1000 300 Lab Results - Last 24 hrs: Laboratory Results - last 24 hr 10/02/19 10/03/19 Range/Units 12:48 04:58 Sodium 140 (136-145) mEq/L Potassium 3.0 L (3.5-5.1) mEq/L Chloride 104 (98-107) mEq/L Carbon Dioxide 26 (21-32) mEq/L Anion Gap 13.0 (5-15) BUN 8 (7-18) mg/dL Creatinine 0.8 (0.7-1.3) mg/dL Est Cr Clr Drug Dosing 107.78 mL/min Estimated GFR (MDRD) > 60 (>60) mL/min BUN/Creatinine Ratio 10.0 L (14-18) Glucose 108 H (74-106) mg/dL Lactic Acid 1.0 (0.4-2.0) mmol/L Calcium 8.8 (8.5-10.1) mg/dL Phosphorus 3.2 (2.6-4.7) mg/dL Magnesium 2.1 (1.8-2.4) mg/dl Med Orders - Current: Current Medications Fluoxetine HCl (Prozac) 20 mg PO DAILY [facility] Last Admin: 10/03/19 08:58 Dose: 20 mg Folic Acid (Folic Acid) 1 mg PO DAILY [facility] Lisinopril (Prinivil) 10 mg PO DAILY [facility] Last Admin: 10/03/19 08:58 Dose: 10 mg Lorazepam (Ativan) 1 mg IVPUSH Q6H PRN PRN Reason: Withdrawal Symptoms Stop: 10/04/19 18:01 Miscellaneous Information (Remove Patch) 1 ea TRDERM Q24H DIDI Last Admin: 10/03/19 08:59 Dose: 1 ea Nicotine (Habitrol) 21 mg TRDERM Q24H [facility] Last Admin: 10/03/19 08:59 Dose: 21 mg Ondansetron HCl (Zofran) 4 mg IV Q6H PRN PRN Reason: Nausea/Vomiting Ondansetron HCl (Zofran Odt) 4 mg PO Q6H PRN PRN Reason: nausea, able to take PO Quetiapine Fumarate (Seroquel) 50 mg PO DAILY [facility] Last Admin: 10/03/19 08:58 Dose: 50 mg Sodium Chloride (Saline Flush) 10 ml FLUSH ASDIRECTED PRN PRN Reason: Keep Vein Open Last Admin: 10/01/19 13:49 Dose: 10 ml Thiamine HCl (Vitamin B-1) 100 mg PO DAILY [facility] Topiramate (Topamax) 25 mg PO BID [facility] Last Admin: 10/03/19 08:59 Dose: 25 mg Discontinued Medications Folic Acid (Folic Acid) 1 mg PO ONETIME ONE Stop: 10/01/19 13:20 Last Admin: 10/01/19 13:47 Dose: 1 mg Hydralazine HCl (Apresoline) 10 mg IVPUSH ONETIME ONE Stop: 10/02/19 08:41 Last Admin: 10/02/19 09:26 Dose: 10 mg Sodium Chloride (Normal Saline) 1,000 mls @ 999 mls/hr IV ONETIME ONE Stop: 10/01/19 14:19 Last Admin: 10/01/19 13:47 Dose: 999 mls/hr Magnesium Sulfate 2 gm/ Premix 50 mls @ 25 mls/hr IV ONETIME ONE Stop: 10/01/19 16:13 Last Admin: 10/01/19 14:19 Dose: 25 mls/hr Sodium Chloride (Normal Saline) 1,000 mls @ 125 mls/hr IV ONETIME ONE Stop: 10/01/19 23:59 Last Admin: 10/01/19 16:27 Dose: 125 mls/hr Lactated Ringer's (Ringers, Lactated) 1,000 mls @ 250 mls/hr IV ASDIRECTED [facility] Last Admin: 10/01/19 22:47 Dose: 250 mls/hr Thiamine HCl 1,000 mg/Magnesium Sulfate 4 gm/ Folic Acid 1 mg/ Dextrose/Sodium Chloride 1,018.2 mls @ 125 mls/hr IV Q24H [facility] Stop: 10/03/19 23:09 Last Admin: 10/02/19 14:42 Dose: 125 mls/hr Lisinopril (Prinivil) 10 mg PO ONETIME ONE Stop: 10/02/19 10:47 Last Admin: 10/02/19 10:57 Dose: 10 mg Lorazepam (Ativan) 1 mg IVPUSH ONETIME ONE Stop: 10/01/19 17:29 Last Admin: 10/01/19 18:09 Dose: 1 mg Metoclopramide HCl (Reglan) 10 mg IVPUSH ONETIME ONE Stop: 10/01/19 13:20 Last Admin: 10/01/19 13:46 Dose: 10 mg Miscellaneous Information (Remove Patch) 1 ea TRDERM Q24H [facility] Last Admin: 10/02/19 17:06 Dose: Not Given Nicotine (Habitrol) 21 mg TRDERM DAILY [facility] Last Admin: 10/01/19 18:44 Dose: 21 mg Nicotine (Habitrol) 21 mg TRDERM Q24H [facility] Last Admin: 10/02/19 17:05 Dose: Not Given Pantoprazole Sodium (Protonix Iv) 40 mg IVPUSH ONETIME ONE Stop: 10/01/19 13:43 Last Admin: 10/01/19 13:51 Dose: 40 mg Potassium Chloride (Klor-Con M20) 40 meq PO ONETIME ONE Stop: 10/03/19 11:01 Sodium Chloride (Saline Flush) 10 ml FLUSH ASDIRECTED PRN PRN Reason: Keep Vein Open Last Admin: 10/01/19 13:49 Dose: 10 ml Thiamine HCl (Vitamin B-1) 100 mg PO ONETIME ONE Stop: 10/01/19 13:20 Last Admin: 10/01/19 13:47 Dose: 100 mg *Q Meaningful Use (DIS) - VTE *Q VTE Mechanical Contraindications *Q: At Risk for Falls
== END 2019-10-03 12:49 | disposition home or self-care (01) | DRG 897 ==
LOC: JD.ED 12:49 → JD.ICU 17:44
PROVIDERS: ADMIT Internal Medicine; ATTEND Internal Medicine
DX: F10.229 Alcohol dependence with intoxication, unspecified (principal); E87.2 Acidosis; F10.239 Alcohol dependence with withdrawal, unspecified; E83.42 Hypomagnesemia; F17.200 Nicotine dependence, unspecified, uncomplicated; I10 Essential (primary) hypertension; J44.9 Chronic obstructive pulmonary disease, unspecified; G89.29 Other chronic pain; M54.9 Dorsalgia, unspecified; F32.9 Major depressive disorder, single episode, unspecified; Z79.899 Other long term (current) drug therapy
CPT/HCPCS: 36415; 36600; 80048; 80053; 80306; 82803; 83605; 83735; 84100; 85025; 85027; 85610; 96361; 96365; 96366; 96375; 99283; 99284-25; A9270-GY; C9113; G0480; J0360; J2060; J2765; J3411; J3475; J7030; J7042; J7120

== ENCOUNTER 2019-12-13 16:47 | Emergency (ER) | payer SELFPAY ==
[2019-12-13] MEDS ORDERED: Thiamine 200 MG/2 ML MDV IVPUSH ONE (17:08)
--- NOTE | 2019-12-13 17:14 | EDM.PDOC ---
ED HPI GENERAL MEDICAL PROBLEM - General Chief Complaint: Drug or Alcohol Abuse Stated Complaint: [facility] Time Seen by Provider: 12/13/19 17:07 Source of Information: Reports: Patient History Limitations: Reports: No Limitations - History of Present Illness INITIAL COMMENTS - FREE TEXT/NARRATIVE: 59-year-old male brought to the ED by ambulance. I believe the patient's called the ambulance after he had fallen in the kitchen at home and banged up his left arm. He has numerous bruises on both upper extremities and states he falls quite regularly. He calls them seizures and states he is been doing it since he was age 3. His apparently states that he does not have a seizure disorder that he has a chronic alcohol problem with cerebellar ataxia. He loses his balance extremely easily. He gives a history of drinking alcohol heavily for 43 years and particularly him very heavily for the last 8 years. Drinks a quart of whiskey daily. Presents acutely intoxicated. He has markedly dysarthric. He has the hiccups he states for the last 8 days. He denies any heartburn or indigestion. He states he does have pain in the center of his chest which is likely related to the hiccups. He also smokes 2 to 3 packs of cigarettes per day. When I asked him when his last tetanus toxoid was he states is been longer than 10 years ago. However when we looked it up he had a tetanus shot in January 2019. Has bruises on his face and had and therefore is at risk of a subdural hemorrhage that could be making him lose his balance. Onset: Other (Running falls usually due to being intoxicated by alcohol. This felt that he most likely has significant cerebellar ataxia with loss of his balance from chronic alcoholism.) Onset Date: 12/13/19 (Fall at home today and struck the kitchen covered with his left arm tearing the skin in multiple areas and apparently there was blood all over the kitchen floor.) Duration: Chronic, Getting Worse Location: Reports: Face, Chest, Upper Extremity, Left, Upper Extremity, Right ( Contusions abrasions and skin tears to both upper extremities), Other (Neck hiccups for the last 8 days.) Quality: Reports: Burning, Sharp, Stabbing Severity: Moderate Improves with: Reports: None Worsens with: Reports: None Context: Reports: Trauma (He keeps falling down due to chronic alcoholism. I suspect he has significant cerebellar ataxia causing him to lose his balance and fall frequently. He has hit his head on multiple occasions and therefore deserves a CT to rule out a new occult subdural hematoma.). Denies: Activity, Exercise, Lifting, Sick Contact Associated Symptoms: Reports: Chest Pain, Cough (Planes that his heart hurts. He has a very bad harsh cough but he smokes 3 packs a day), cough w sputum, Loss of Appetite, Malaise (Brown sputum), Nausea/Vomiting (Occasionally vomit first thing in the morning.), Other (Cups for the last 8 days.). Denies: Confusion, Diaphoresis, Fever/Chills, Headaches (Losing weight gradually) Treatments DIE TESTER: Reports: Other (see below) (Denies being on any medications at this time) Chest Pain Score (Numeric/FACES): 8 - Related Data Allergies Allergy/AdvReac Type Severity Reaction Status Date / Time No Known Allergies Allergy Verified 08/29/19 18:24 Home Meds: Home Meds . [No Known Home Meds] 12/13/19 [History] Past Medical History HEENT History: Reports: Impaired Vision Cardiovascular History: Reports: Hypertension Respiratory History: Reports: COPD (Tonic heavy cigarette smoker 2 to 3 packs/ day. He has a [id number] history) Gastrointestinal History: Reports: PUD Musculoskeletal History: Reports: Back Pain, Chronic Neurological History: Reports: Seizure, Other (See Below) Other Neuro History: 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 Psychiatric History: Reports: Addiction, Depression Endocrine/Metabolic History: Reports: Vitamin D Deficiency - Infectious Disease History Infectious Disease History: Reports: Chicken Pox, Measles - Past Surgical History HEENT Surgical History: Reports: Tonsillectomy, Other (See Below) Other HEENT Surgeries/Procedures: cyct removal-neck srg Musculoskeletal Surgical History: Reports: Other (See Below) Other Musculoskeletal Surgeries/Procedures:: had cyst removed from neck, "right below my skull." Social & Family History - Family History Family Medical History: Noncontributory Cardiac: Reports: Bypass Other Cardiac Family History: Dad Neurological: Reports: CVA Other Neurological Family History: Dad - Tobacco Use Smoking Status *Q: Current Every Day Smoker Years of Tobacco use: 43 Packs/Tins Daily: 3 Used Tobacco, but Quit: No - Caffeine Use Caffeine Use: Reports: Coffee Other Caffeine Use: 2 pots daily - Living Situation & Occupation Living situation: Reports: Single Occupation: Employed ED ROS GENERAL - Review of Systems Review Of Systems: See Below Constitutional: Reports: Malaise, Weakness, Fatigue, Decreased Appetite, Weight Loss (He continues to slowly lose weight due to chronic alcoholism and malnutrition.). Denies: Fever, Chills HEENT: Reports: No Symptoms Respiratory: Reports: Shortness of Breath, Wheezing, Cough, Sputum (Neck severe cough. Smokes 2 to 3 packs/day). Denies: Pleuritic Chest Pain, Hemoptysis, Other Cardiovascular: Reports: Blood Pressure Problem, Dyspnea on Exertion. Denies: Palpitations Endocrine: Reports: Fatigue GI/Abdominal: Reports: Vomiting (Patient will vomiting in the morning. Alcohol induced gastritis.), Other (Has the hiccups for the last 8 days.) : Reports: Frequency Musculoskeletal: Reports: Back Pain, Joint Pain Skin: Reports: Other (Today he has multiple ecchymoses of both upper extremities most likely because of cirrhosis of the liver and impaired clotting ability. He fell today and struck the edge of the kitchen cupboard and has numerous skin tears to his left extensor surface of forearm none of which require laceration repair.) Neurological: Reports: Tremors (Times first thing in the morning.), Difficulty Walking (Believed to be secondary to cerebellar ataxia and chronic alcoholism and intoxication.) Hematologic/Lymphatic: Reports: Easy Bleeding, Easy Bruising Immunologic: Reports: No Symptoms ED EXAM, NEURO - Physical Exam Exam: See Below Exam Limited By: Intoxication (Intoxicated by alcohol.) General Appearance: Mild Distress, Other (Marked dysarthria.) Eye Exam: Bilateral Eye: Normal Inspection, Nystagmus (Bilateral lateral gaze.) , Periorbital Changes, PERRL Nose: Other (Nose is contused and swollen but nontender. He has been bleeding from both anterior naris but the bleeding has stopped. There is dried blood in each naris.) Throat/Mouth: Other (The oropharynx is erythematous from smoking. Dentition are is in very poor condition. Obvious injuries to his teeth.) Head Exam: Atraumatic, Normocephalic, Other (Outward signs of head trauma facial swelling mostly over his nose.) Neck: Normal Inspection, Supple, Non-Tender, Full Range of Motion. No: Carotid Bruit, Lymphadenopathy (L), Lymphadenopathy (R) Respiratory/Chest: Chest Non-Tender (Pain on firm compression of all of his ribs and clavicles are intact.), Decreased Breath Sounds, Rhonchi (Creased air entry to the lower 40% of lung goldstein bilaterally.), Wheezing ( Rhonchi that clear with coughing particularly the anterior upper lobes Savanah wheezes on expiration throughout all lobes of the lung.). No: Lungs Clear, Normal Breath Sounds Cardiovascular: Regular Rate, Rhythm, No Edema, No Gallop, No Murmur, No Rub, Other (Is showing some signs of peripheral vascular disease. Pulses are only 2 + in his feet.). No: Normal Peripheral Pulses GI/Abdominal: Normal Bowel Sounds, Soft, No Organomegaly, Tender (Tenderness on palpation of his right upper quadrant), Other (And medusa of the abdomen.) Neurological: Alert, Normal Dorsiflexion, No Motor/Sensory Deficits, Oriented x 3, Ataxia. No: Normal Gait (Ataxic gait) DTR: 0: Achilles (R), Achilles (L), 1+: Bicep (R), Bicep (L), Patella (R), Patella (L) Back Exam: Normal Inspection, Full Range of Motion, Other (No signs of injuries to the thoracic or lumbar spine.). No: CVA Tenderness (L), CVA Tenderness (R) Extremities: Other (And has multiple contusions and abrasions to both forearms particular on the extensor surface where they have been bruised and contused. He has numerous superficial skin tears to the extensor surface of his left forearm which have been actively bleeding from today's injuries when he fell in the kitchen at home. He has superficial abrasions over both knees but no significant trauma to the lower extremities identified.) Psychiatric: Other Skin Exam: Warm (Traumatic affect as he is intoxicated by alcohol.), Dry, Normal Color, Ecchymosis (Skin tears both forearms as mentioned above. Multiple ecchymoses on both upper extremities.), Other. No: Intact EKG INTERPRETATION EKG Date: 12/13/19 Time: 16:51 Rhythm: NSR Rate (Beats/Min): 72 [place]: Normal P-Wave: Enlarged (Letter left atrial hypertrophy.) QRS: Other (Patient has a nonspecific intraventricular conduction delay. Decreased voltage in the limb leads.Criteria for left ventricular hypertrophy.) QT: Prolonged (QTC is mildly prolonged) EKG Interpretation Comments: Abnormal ECG Course - Vital Signs Last Recorded V/S: Last Vital Signs Temp 36.6 C 12/13/19 16:57 Pulse 78 12/13/19 16:57 Resp 16 12/13/19 16:57 BP 143/79 H 12/13/19 16:57 Pulse Ox 92 L 12/13/19 16:57 - Orders/Labs/Meds Labs: Laboratory Tests 12/13/19 Range/Units 18:15 Magnesium 1.5 L (1.8-2.4) mg/dl Troponin I 0.018 (0.00-0.056) ng/mL Ethyl Alcohol 0.44 (0.00) gm% Meds: Medications Discontinued Medications Generic Name Dose Route Start Last Admin Trade Name Cleo PRN Reason Stop Dose Admin Chlorpromazine HCl 12.5 mg 12/13/19 17:04 12/13/19 17:42 Thorazine IM 12/13/19 17:05 12.5 mg ONETIME ONE Administration Thiamine HCl 100 mg 12/13/19 17:08 12/13/19 17:42 Vitamin B-1 IVPUSH 12/13/19 17:09 100 mg ONETIME ONE Administration - Radiology Interpretation Free Text/Narrative:: 59-year-old male presents to the ED per [facility] after a fall in his kitchen at home. Apparently he had numerous abrasions contusions to his left forearm that were bleeding and he states the kitchen floor is a heck of a mass at home. Patient is a chronic alcoholic drinking a quart of whiskey daily. He states he is been drinking very hard for the last 8 years but is been drinking for 43 years. He states he loses his balance easily which she calls having seizures. 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 His tetanus toxoid is up-to-date when we elected up with his last shot was in January 2019. Today he will require wound cleansers on his forearm but there is nothing that requires laceration repair there are superficial skin tears. I will have his blood alcohol level checked as well as his serum magnesium. He was given thiamine 100 mg IV. He will receive Thorazine 12.5 mg IM to help stop his hiccups. Will have 1 view of his chest as he is complaining of central chest pain but he is very congested cough. He smokes 2 to 3 packs of cigarettes daily. He is afebrile. Will have a CT of his head to make sure were not missing a subdural hematoma due to his frequent falls that could be making him fall more. - Re-Assessments/Exams Free Text/Narrative Re-Assessment/Exam: 12/13/19 17:51 CT of his brain has been completed read. It reveals ventricles along with the basal cisterns and sulci over the convexities to be mildly prominent. Several lacunar infarcts are again noted within the basal ganglia suggesting multi-infarct likely due to uncontrolled hypertension. No other abnormal parenchymal densities were appreciated. There was no evidence of any intracranial hemorrhage or subacute hematoma. Midline shift or mass-effect identified. Bone window settings were reviewed which shows no acute calvarial abnormality. Chest x-ray reveals mild cardiomegaly. He has hyperinflated lung goldstein with a marked absence of vasculature suggesting significant panlobular emphysema changes. Pleural effusions or pneumothorax identified. There is no infiltrates in the lungs. Will be to clean up his extremities and dressed them with bacitracin ointment. 12/13/19 18:44 The thorazine did not make him all that drowsy or sleepy. It did not make his hiccups any better either. His labs are not back yet. 12/13/19 18:59 Serum magnesium level returned at 1.5. Troponin I is less than 0.018. Blood alcohol was 0.44 g% advised patient to seed cone picker magnesium collate 400 mg tablet once daily. He will be discharged home once his physical right can be found for him. Departure - Departure Time of Disposition: 18:47 Disposition: Home, Self-Care 01 Condition: Fair Clinical Impression: Alcohol intoxication Qualifiers: Complication of substance-induced condition: uncomplicated Qualified Code(s): F10.920 - Alcohol use, unspecified with intoxication, uncomplicated Fall as cause of accidental injury at home as place of occurrence Qualifiers: Encounter type: initial encounter Qualified Code(s): W19.XXXA - Unspecified fall, initial encounter Skin tear of left forearm without complication Qualifiers: Encounter type: initial encounter Qualified Code(s): S51.812A - Laceration without foreign body of left forearm, initial encounter - Discharge Information *PRESCRIPTION DRUG MONITORING PROGRAM REVIEWED*: Not Applicable *COPY OF PRESCRIPTION DRUG MONITORING REPORT IN PATIENT BRIAN: Not Applicable Instructions: Alcohol Use Disorder Referrals: PCP,Unknown [Ordering Only Provider] - Additional Instructions: Evaluation in the emergency room today in regards to fall at home with blunt trauma to your left forearm and multiple skin tears which cause bleeding. There was no deep lacerations that required surgical repair. No signs of broken bones in the left forearm. You have multiple contusions and bruises to the right forearm as well. Also recent injury to your nose with blunt trauma without fracture identified. CT of your brain revealed age-related appropriate changes and some alcohol degenerative changes in the brain that may be contributing to your loss of balance and easy falls. Often alcohol will cause deterioration in the cerebellum part of the brain which controls your balance mechanism. This too contributes to frequent falls. Remainder of your injuries are to daily cleanse them with soap and water. Showering is okay. Then apply topical antibiotic such as bacitracin or Polysporin to the wounds once daily until healed to prevent them from getting infected. The initial dressing placed in the ED could remain on for the next 2 days before you take them off and cleans the wounds. Toxoid was found to be up-to-date in January 2019 and was not updated today. Sepsis Event Note - Evaluation Sepsis Screening Result: No Definite Risk - Focused Exam Date Exam was Performed: 12/16/19 Time Exam was Performed: 07:03
--- NOTE | 2019-12-13 17:43 | CT ---
Head CT Technique: Multiple axial sections through the brain were obtained. Intravenous contrast was not utilized. Comparison: Prior head CT study of 07/14/19. Findings: Ventricles along with basal cisterns and sulci over the convexities are mildly prominent. Several lacunar infarcts are again noted within the basal ganglia. No other abnormal parenchymal densities are seen. No evidence of intracranial hemorrhage. No midline shift or mass-effect is seen. Bone window settings were reviewed which shows no acute calvarial abnormality. Visualized mastoid sinuses and paranasal sinuses show nothing acute. No acute calvarial abnormality is appreciated. Impression: 1. Mild senescent change. 2. Nothing acute is identified on noncontrast head CT exam. Diagnostic code #2 This report was dictated in [place] Standard Time
--- NOTE | 2019-12-13 17:49 | CR ---
Chest: AP view of the chest was obtained. Comparison: Prior chest x-ray of 11/20/18. Heart size is normal. Tortuous thoracic aorta is seen. Lungs are clear with no acute parenchymal change. Minimal scoliosis is noted within the spine with mild scattered degenerative change. Impression: 1. Nothing acute is appreciated on AP chest x-ray. Diagnostic code #2 This report was dictated in [place] Standard Time
== END 2019-12-13 19:31 | disposition home or self-care (01) ==
LOC: JD.ED 16:47
DX: S51.812A Laceration without foreign body of left forearm, initial encounter (principal); F10.120 Alcohol abuse with intoxication, uncomplicated; F17.210 Nicotine dependence, cigarettes, uncomplicated; J44.9 Chronic obstructive pulmonary disease, unspecified; W19.XXXA Unspecified fall, initial encounter; Y92.000 Kitchen of unspecified non-institutional (private) residence as the place of occurrence of the external cause
CPT/HCPCS: 36415; 70450; 71045; 80307; 83735; 84484; 93005; 96372; 96374; 99285; J3230; J3411; 99284

== ENCOUNTER 2019-12-24 19:21 | Emergency (ER) | payer MEDICAID, OTHER ==
[2019-12-24] MEDS ORDERED: Sodium Chloride 0.9% 10 ML Syringe FLUSH PRN (19:34)
[2019-12-24] MEDS ORDERED: LORazepam 2 MG/ML SDV IVPUSH ONE (19:36)
[2019-12-24] MEDS ORDERED: Sodium Chloride 0.9% 1,000 ML IV SCH (19:45)
--- NOTE | 2019-12-24 20:50 | EDM.PDOC ---
ED HPI GENERAL MEDICAL PROBLEM - General Chief Complaint: Neurological Problem Stated Complaint: POSS SEIZURE LACERATIONS TO FACE AND HAND Time Seen by Provider: 12/24/19 19:34 Source of Information: Reports: Patient History Limitations: Reports: No Limitations - History of Present Illness INITIAL COMMENTS - FREE TEXT/NARRATIVE: The patient thinks he may have had a seizure. He quit drinking on Sunday and his friend found him on the floor this evening. He has felt weak today. He has an abrasion and edema to his left forehead. He has abrasions to both arms. He has no headache, chest pain, abdominal pain, nausea or vomiting. He has not been shaking. He has a history of alcoholism and he has tried quitting multiple times. Onset: Sudden Duration: Minutes: Location: Reports: Head Quality: Reports: Ache Severity: Mild Improves with: Reports: None Worsens with: Reports: None Associated Symptoms: Reports: Headaches. Denies: Chest Pain, Cough, Fever/ Chills, Nausea/Vomiting, Shortness of Breath Forehead Pain Score (Numeric/FACES): 6 - Related Data Allergies Allergy/AdvReac Type Severity Reaction Status Date / Time No Known Allergies Allergy Verified 12/24/19 19:31 Home Meds: Home Meds LORazepam [Ativan] 1 mg PO DAILY #18 tablet 12/25/19 [Rx] Ondansetron [Zofran ODT] 4 mg PO Q6H PRN #20 tab.dis 12/25/19 [Rx] Past Medical History HEENT History: Reports: Impaired Vision Cardiovascular History: Reports: Hypertension Respiratory History: Reports: COPD Gastrointestinal History: Reports: PUD Musculoskeletal History: Reports: Back Pain, Chronic Neurological History: Reports: Seizure, Other (See Below) Other Neuro History: 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 Psychiatric History: Reports: Addiction, Depression Endocrine/Metabolic History: Reports: Vitamin D Deficiency - Infectious Disease History Infectious Disease History: Reports: Chicken Pox, Measles - Past Surgical History HEENT Surgical History: Reports: Tonsillectomy, Other (See Below) Other HEENT Surgeries/Procedures: cyct removal-neck srg Musculoskeletal Surgical History: Reports: Other (See Below) Other Musculoskeletal Surgeries/Procedures:: had cyst removed from neck, "right below my skull." Social & Family History - Family History Family Medical History: Noncontributory Cardiac: Reports: Bypass Other Cardiac Family History: Dad Neurological: Reports: CVA Other Neurological Family History: Dad - Tobacco Use Smoking Status *Q: Current Every Day Smoker Years of Tobacco use: 40 Packs/Tins Daily: 1 - Caffeine Use Caffeine Use: Reports: Coffee Other Caffeine Use: 2 pots daily - Alcohol Use Days Per Week of Alcohol Use: 7 Number of Drinks Per Day: 10 Total Drinks Per Week: 70 - Recreational Drug Use Recreational Drug Use: No - Living Situation & Occupation Living situation: Reports: Single Occupation: Employed ED ROS GENERAL - Review of Systems Review Of Systems: See Below Constitutional: Reports: No Symptoms HEENT: Reports: No Symptoms Respiratory: Reports: No Symptoms Cardiovascular: Reports: No Symptoms Endocrine: Reports: No Symptoms GI/Abdominal: Reports: No Symptoms : Reports: No Symptoms Musculoskeletal: Reports: No Symptoms Skin: Reports: No Symptoms - Physical Exam Exam: See Below Exam Limited By: No Limitations General Appearance: Alert, No Apparent Distress Ears: Normal External Exam Nose: Normal Inspection Throat/Mouth: Normal Inspection Head Exam: Other (Ecchymosis and edema with an abrasion to the left lateral eyebrow) Neck: Normal Inspection, Supple, Non-Tender Respiratory/Chest: No Respiratory Distress, Lungs Clear, Normal Breath Sounds Cardiovascular: Regular Rate, Rhythm, No Edema, No Murmur GI/Abdominal: Soft, Non-Tender, No Organomegaly, No Mass Neuro Exam (Abbreviated): Alert, Oriented, No Motor/Sensory Deficits Back Exam: Normal Inspection Extremities: Normal Inspection Skin Exam: Other (Abrasions and skin tears to both arms) Course - Vital Signs Last Recorded V/S: Last Vital Signs Temp 96.9 F 12/24/19 19:31 Pulse 84 12/25/19 03:35 Resp 13 12/25/19 02:30 BP 113/79 12/25/19 02:30 Pulse Ox 94 L 12/25/19 03:35 - Orders/Labs/Meds Orders: Active Orders 24 hr Category Date Time Status Cardiac Monitoring [RC] . DIRECTED Care 12/24/19 19:35 Active Peripheral IV Care [RC] . DIRECTED Care 12/24/19 19:35 Active Head wo Cont [CT] Stat Exams 12/25/19 01:16 Taken Sodium Chloride 0.9% [Normal Saline] 1,000 ml Med 12/24/19 19:45 Active IV .BOLUS Sodium Chloride 0.9% [Saline Flush] Med 12/24/19 19:34 Active 10 ml FLUSH ASDIRECTED PRN Peripheral IV Insertion Adult [OM.PC] Stat Oth 12/24/19 19:34 Ordered Medication Orders Sodium Chloride (Normal Saline) 1,000 mls @ 1,000 mls/hr IV .BOLUS DIDI Last Admin: 12/24/19 19:46 Dose: 1,000 mls/hr Sodium Chloride (Saline Flush) 10 ml FLUSH ASDIRECTED PRN PRN Reason: Keep Vein Open Last Admin: 12/24/19 19:47 Dose: 10 ml Labs: Laboratory Tests 12/24/19 12/24/19 12/24/19 Range/Units 19:32 19:32 19:32 WBC 6.23 (4.23-9.07) K/mm3 RBC 4.26 L (4.63-6.08) M/mm3 Hgb 14.3 (13.7-17.5) gm/dl Hct 40.6 (40.1-51.0) % MCV 95.3 H D (79.0-92.2) fl MCH 33.6 H (25.7-32.2) pg MCHC 35.2 (32.2-35.5) g/dl RDW Std Deviation 54.2 H (35.1-43.9) fL Plt Count 105 L D (163-337) K/mm3 MPV 9.9 (9.4-12.3) fl Neut % (Auto) 81.3 H (34.0-67.9) % Lymph % (Auto) 9.0 L (21.8-53.1) % [place] % (Auto) 9.0 (5.3-12.2) % Eos % (Auto) 0.2 L (0.8-7.0) Baso % (Auto) 0.3 (0.1-1.2) % Neut # (Auto) 5.07 (1.78-5.38) K/mm3 Lymph # (Auto) 0.56 L (1.32-3.57) K/mm3 [place] # (Auto) 0.56 (0.30-0.82) K/mm3 Eos # (Auto) 0.01 L (0.04-0.54) K/mm3 Baso # (Auto) 0.02 (0.01-0.08) K/mm3 Manual Slide Review Abnormal smear PT 11.5 (9.7-12.0) SECONDS INR 1.06 APTT 25 (22-31) SECONDS Sodium 134 L (136-145) mEq/L Potassium 3.1 L (3.5-5.1) mEq/L Chloride 93 L (98-107) mEq/L Carbon Dioxide 26 (21-32) mEq/L Anion Gap 18.1 H (5-15) BUN 9 (7-18) mg/dL Creatinine 1.0 (0.7-1.3) mg/dL Est Cr Clr Drug Dosing 85.68 mL/min Estimated GFR (MDRD) > 60 (>60) mL/min BUN/Creatinine Ratio 9.0 L (14-18) Glucose 242 H (74-106) mg/dL Calcium 9.7 (8.5-10.1) mg/dL Magnesium 1.2 L (1.8-2.4) mg/dl Total Bilirubin 1.3 H (0.2-1.0) mg/dL AST 160 H (15-37) U/L ALT 128 H (16-63) U/L Alkaline Phosphatase 116 (46-116) U/L Total Protein 6.7 (6.4-8.2) g/dl Albumin 3.6 (3.4-5.0) g/dl Globulin 3.1 gm/dL Albumin/Globulin Ratio 1.2 (1-2) Ethyl Alcohol 0.00 (0.00) gm% Meds: Medications Generic Name Dose Route Start Last Admin Trade Name Freq PRN Reason Stop Dose Admin Sodium Chloride 1,000 mls @ 1,000 mls/hr 12/24/19 19:45 12/24/19 19:46 Normal Saline IV 1,000 mls/hr .BOLUS DIDI Administration Sodium Chloride 10 ml 12/24/19 19:34 12/24/19 19:47 Saline Flush FLUSH 10 ml ASDIRECTED PRN Administration Keep Vein Open Discontinued Medications Generic Name Dose Route Start Last Admin Trade Name Freq PRN Reason Stop Dose Admin Lorazepam 1 mg 12/24/19 19:36 12/24/19 19:46 Ativan IVPUSH 12/24/19 19:37 1 mg ONETIME ONE Administration - Re-Assessments/Exams Free Text/Narrative Re-Assessment/Exam: 12/24/19 20:46 I ordered an IV saline lock, labs, ativan 1mg IV and a CT of his head. His WBC and Hgb are normal. His platelets are low at 105. His PT and PTT look good. His Na is low at 134. His K is low at 3.1. His magnesium is low at 1.2. His glucose is elevated at 242. His anion gap is elevated at 18.1. His total bili is elevated at 1.3. His AST is elevated at 160 and ALT is elevated at 128. 12/25/19 06:[address] shows a small acute hemorrhage within the left frontal cortex as well as small amount of extra axial blood believed to be mostly subarachnoid in location. Overall size of his is 2.5cm. 2nd very small area of hemorrhage involving the cortex as well as a small amount of extra-axial blood more posteriorly within the left frontal region. Scalp hematoma within the posterior left frontal region. Generalized atrophy with no other acute finding being seen. I called [facility] in [place] and talked with Dr Lira and he recommended doing a repeat CT in 6 hours and if that is stable he can go. The repeat CT at 6 hours shows stable subarachnoid hemorrhage along the anterior left frontal lobe. Small focus of subarachnoid hemorrhage along the anterior right frontal lobe has slightly increased in size. The patient is feeling good. I have observed him here for 3 more hours. I will discharge him home with some ativan for withdrawals and some zofran. I will have him follow up with Dr Lira. Departure - Departure Time of Disposition: 06:25 Disposition: Home, Self-Care 01 Condition: Good Clinical Impression: Multiple abrasions, Subarachnoid hemorrhage Fall Qualifiers: Encounter type: initial encounter Qualified Code(s): W19.XXXA - Unspecified fall, initial encounter Contusion of head Qualifiers: Encounter type: initial encounter Contusion of head detail: eyelid Laterality: left Qualified Code(s): S00.12XA - Contusion of left eyelid and periocular area , initial encounter Alcohol withdrawal seizure Qualifiers: Complication of substance-induced condition: with unspecified complication Qualified Code(s): F10.239 - Alcohol dependence with withdrawal, unspecified - Discharge Information *PRESCRIPTION DRUG MONITORING PROGRAM REVIEWED*: Not Applicable *COPY OF PRESCRIPTION DRUG MONITORING REPORT IN PATIENT BRIAN: Not Applicable Prescriptions: LORazepam [Ativan] 1 mg PO DAILY #18 tablet Ondansetron [Zofran ODT] 4 mg PO Q6H PRN #20 tab.dis PRN Reason: Nausea\\vomiting Referrals: PCP,None [Primary Care Provider] - Can Chapin MD [Ordering Only Provider] - 1 Week Forms: ED Department Discharge Additional Instructions: Take the medication as prescribed. Drink plenty of fluids. Follow up with Dr Chapin. Please return if you are worse. Sepsis Event Note - Evaluation Sepsis Screening Result: No Definite Risk - Focused Exam Vital Signs: Vital Signs Temp Pulse Pulse Resp BP BP Pulse Ox 12/25/19 03:35 84 94 L 12/25/19 02:30 83 13 113/79 92 L 12/25/19 02:29 83 14 93 L 12/25/19 02:15 82 15 114/78 93 L 12/25/19 02:14 79 16 95 12/25/19 02:09 83 15 92 L 12/24/19 19:31 96.9 F 93 16 110/76 94 L Date Exam was Performed: 12/25/19 Time Exam was Performed: 06:08 - My Orders Last 24 Hours: My Active Orders 12/24/19 19:34 Sodium Chloride 0.9% [Saline Flush] 10 ml FLUSH ASDIRECTED PRN Peripheral IV Insertion Adult [OM.PC] Stat 12/24/19 19:35 Cardiac Monitoring [RC] . DIRECTED Peripheral IV Care [RC] . DIRECTED 12/24/19 19:45 Sodium Chloride 0.9% [Normal Saline] 1,000 ml IV .BOLUS 12/25/19 01:16 Head wo Cont [CT] Stat - Assessment/Plan Last 24 Hours: My Active Orders 12/24/19 19:34 Sodium Chloride 0.9% [Saline Flush] 10 ml FLUSH ASDIRECTED PRN Peripheral IV Insertion Adult [OM.PC] Stat 12/24/19 19:35 Cardiac Monitoring [RC] . DIRECTED Peripheral IV Care [RC] . DIRECTED 12/24/19 19:45 Sodium Chloride 0.9% [Normal Saline] 1,000 ml IV .BOLUS 12/25/19 01:16 Head wo Cont [CT] Stat
--- NOTE | 2019-12-24 21:02 | CT ---
Head CT Technique: Multiple axial sections through the brain were obtained. Intravenous contrast was utilized. Findings: Soft tissue hematoma is seen within the posterior left frontal scalp. Small cortical hemorrhage within the left frontal region as well as mild extra-axial blood which mostly appears subarachnoid in location. Total area involved with this intracranial hemorrhage is about 2.5 cm. 2nd small area of minimal cortical hemorrhage and extra-axial hemorrhage is seen more posteriorly within the left frontal region. No other areas of intracranial hemorrhage. No midline shift or mass-effect is seen. Ventricles along with basal cisterns and sulci over the convexities are mildly prominent. Minimal diminished density is noted within the periventricular white matter compatible with small vessel ischemic demyelination change. Bone window settings were reviewed which show the visualized paranasal sinuses to show nothing acute. Mastoid sinuses also show nothing acute. No acute calvarial fracture is seen. Impression: 1. Small acute hemorrhage within the left frontal cortex as well as small amount of extra-axial blood believed to be mostly subarachnoid in location. Overall size of this is 2.5 cm. 2. 2nd very small area of hemorrhage involving the cortex as well as a small amount of extra-axial blood more posteriorly within the left frontal region. 3. Scalp hematoma within the posterior left frontal region. 4. Generalized atrophy with no other acute finding being seen. Diagnostic code #3 This report was dictated in MDT
--- NOTE | 2019-12-25 07:30 | CT ---
Head CT Technique: Multiple axial sections through the brain were obtained. Comparison: Prior head CT study performed earlier on the same day (8:18 PM). Findings: Scalp hematoma seen within the posterior left frontal scalp. Parenchymal hemorrhage is seen anteriorly within the left frontal lobe. This is mostly subarachnoid in location. This appears to be stable from previous exam. Other small area of extra-axial blood more posteriorly within the left frontal region shows decreased prominence. There is a very minimal cortical hemorrhage over the right parietal convexity which most likely was present previously but not seen due to differences in sectioning due to its small size. No additional intracranial hemorrhage. Stable senescent change. Impression: 1. Acute blood within the anterior left frontal region which is mostly subarachnoid in location. This appears to be fairly stable from recent head CT. 2. Other hemorrhage seen more posteriorly on the left side appears slightly less prominent. 3. Very small cortical hemorrhage now seen within the right parietal convexity most likely present on prior exam but better seen currently due to differences in sectioning. Diagnostic code #3 This report was dictated in MDT I agree with preliminary report from audrey, finalized on 12/25/19, 3:20 AM Central Time
== END 2019-12-25 06:29 | disposition home or self-care (01) ==
LOC: JD.ED 19:21
DX: S06.6X9A Traumatic subarachnoid hemorrhage with loss of consciousness of unspecified duration, initial encounter (principal); S00.12XA Contusion of left eyelid and periocular area, initial encounter; F10.239 Alcohol dependence with withdrawal, unspecified; R56.9 Unspecified convulsions; F17.210 Nicotine dependence, cigarettes, uncomplicated; J44.9 Chronic obstructive pulmonary disease, unspecified; F41.9 Anxiety disorder, unspecified; I10 Essential (primary) hypertension; W19.XXXA Unspecified fall, initial encounter; Z79.899 Other long term (current) drug therapy
CPT/HCPCS: 36415; 70450; 80053; 80307; 83735; 85025; 85610; 85730; 96361; 96374; 99285; J2060; J7030

== ENCOUNTER 2020-01-06 11:11 | Emergency (ER) | payer SELFPAY ==
[2020-01-06] MEDS ORDERED: Sodium Chloride 0.9% 1,000 ML IV ONE (11:39)
[2020-01-06] MEDS ORDERED: LORazepam 2 MG/ML SDV IVPUSH ONE (11:39)
[2020-01-06] MEDS ORDERED: Folic Acid 1 MG Tab PO ONE (11:39)
[2020-01-06] MEDS ORDERED: Sodium Chloride 0.9% 10 ML Syringe FLUSH PRN (11:39)
[2020-01-06] MEDS ORDERED: Thiamine 100 MG Tab PO ONE (11:39)
[2020-01-06] MEDS ORDERED: Metoclopramide 10 MG/2 ML SDV IVPUSH ONE (11:39)
--- NOTE | 2020-01-06 11:46 | EDM.PDOC ---
ED HPI GENERAL MEDICAL PROBLEM - General Chief Complaint: Drug or Alcohol Abuse Stated Complaint: UNSTEADY ON FEET Time Seen by Provider: 01/06/20 11:22 Source of Information: Reports: Patient, RN Notes Reviewed History Limitations: Reports: No Limitations - History of Present Illness INITIAL COMMENTS - FREE TEXT/NARRATIVE: The patient is a 59-year-old male who presents who presents to the ED for evaluation of his unsteady gait. The patient is a known chronic alcoholic, with multiple recent visits to the ER. The patient states that he has been quite unsteady on his feet all day today. He notes this to be a generalized lightheadedness, and not a world spinning type dizziness. Patient states this is not position dependent, and it does worsen when he is walking, he states that he cannot walk a straight line. The patient states that he would like to stop drinking alcohol as well again. He states that his last drink was last night, he usually drinks 1 pint of whiskey daily. Patient is denying any cough , congestion, fever/chills, shortness of breath, chest pain, nausea/vomiting/ diarrhea. Patient's not had any recent travel. Patient is not complaining of any headache, nor is he complaining of any blurred vision or double vision. He denies any falls due to the dizziness. Patient denies any drug use, and states he is still smoking cigarettes. - Related Data Allergies Allergy/AdvReac Type Severity Reaction Status Date / Time No Known Allergies Allergy Verified 01/06/20 11:21 Home Meds: Home Meds LORazepam [Ativan] 1 mg PO DAILY #18 tablet 12/25/19 [Rx] LORazepam [Ativan] 1 mg PO ASDIRECTED #9 tab 01/06/20 [Rx] Past Medical History HEENT History: Reports: Impaired Vision Cardiovascular History: Reports: Hypertension Respiratory History: Reports: COPD Gastrointestinal History: Reports: PUD Musculoskeletal History: Reports: Back Pain, Chronic Neurological History: Reports: Seizure, Other (See Below) Other Neuro History: 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 Psychiatric History: Reports: Addiction, Depression Endocrine/Metabolic History: Reports: Vitamin D Deficiency - Infectious Disease History Infectious Disease History: Reports: Chicken Pox, Measles - Past Surgical History HEENT Surgical History: Reports: Tonsillectomy, Other (See Below) Other HEENT Surgeries/Procedures: cyst removal-neck surg Musculoskeletal Surgical History: Reports: Other (See Below) Other Musculoskeletal Surgeries/Procedures:: had cyst removed from neck, "right below my skull." Social & Family History - Family History Family Medical History: Noncontributory Cardiac: Reports: Bypass Other Cardiac Family History: Dad Neurological: Reports: CVA Other Neurological Family History: Dad - Tobacco Use Smoking Status *Q: Current Every Day Smoker Years of Tobacco use: 43 Packs/Tins Daily: 2 - Caffeine Use Caffeine Use: Reports: Soda Other Caffeine Use: 2 pots daily - Alcohol Use Alcohol Use History: Yes Days Per Week of Alcohol Use: 7 Number of Drinks Per Day: 1 (pint of whiskey) Total Drinks Per Week: 7 Alcohol Use Frequency: Daily - Recreational Drug Use Recreational Drug Use: No - Living Situation & Occupation Living situation: Reports: Single Occupation: Employed ED ROS GENERAL - Review of Systems Review Of Systems: See Below Constitutional: Denies: Fever, Chills HEENT: Denies: Vision Change Respiratory: Denies: Shortness of Breath, Cough Cardiovascular: Denies: Chest Pain GI/Abdominal: Denies: Abdominal Pain, Constipation, Diarrhea, Nausea, Vomiting Neurological: Reports: Dizziness, Gait Disturbance (states he cannot walk a straight line). Denies: Confusion, Headache ED EXAM, GENERAL - Physical Exam Exam: See Below Exam Limited By: No Limitations General Appearance: Alert, WD/WN, No Apparent Distress Eye Exam: Bilateral Eye: EOMI, PERRL, Other (bilateral scleral icterus noted) Ears: Normal External Exam Nose: Normal Inspection Throat/Mouth: Normal Inspection, Normal Lips, Normal Teeth, Normal Gums, Normal Oropharynx (mildly dry oral mucosa, otherwise unremarkable), Normal Voice, No Airway Compromise Head: Normocephalic, Other (bruising noted to L jainism. pt has had recent fall with subarachnoid hemorrhage, pt denies any fall/head injury since then). No: Facial Swelling, Facial Tenderness Neck: Normal Inspection, Supple, Non-Tender, Full Range of Motion Respiratory/Chest: No Respiratory Distress, Lungs Clear, Normal Breath Sounds, No Accessory Muscle Use, Chest Non-Tender Cardiovascular: Normal Peripheral Pulses, Regular Rate, Rhythm, No Edema, No Murmur Peripheral Pulses: 3+: Radial (L), Radial (R) GI/Abdominal: Normal Bowel Sounds, Soft, Non-Tender, No Distention, No Mass Extremities: Normal Inspection, Normal Capillary Refill Neurological: Alert, Oriented, Normal Cognition Psychiatric: Normal Affect, Normal Mood Skin Exam: Warm, Dry, Intact, Normal Color, No Rash Course - Vital Signs Last Recorded V/S: Last Vital Signs Temp 98.1 F 01/06/20 11:19 Pulse 87 01/06/20 11:19 Resp 18 01/06/20 11:19 BP 164/84 H 01/06/20 11:19 Pulse Ox 98 01/06/20 11:19 - Orders/Labs/Meds Orders: Active Orders 24 hr Category Date Time Status Peripheral IV Care [RC] . DIRECTED Care 01/06/20 11:39 Ordered Sodium Chloride 0.9% [Saline Flush] Med 01/06/20 11:39 Ordered 10 ml FLUSH ASDIRECTED PRN Peripheral IV Insertion Adult [OM.PC] Stat Oth 01/06/20 11:39 Ordered Medication Orders Sodium Chloride (Saline Flush) 10 ml FLUSH ASDIRECTED PRN PRN Reason: Keep Vein Open Last Admin: 01/06/20 11:53 Dose: 10 ml Labs: Laboratory Tests 01/06/20 01/06/20 01/06/20 Range/Units 11:49 11:49 11:49 WBC 4.60 (4.23-9.07) K/mm3 RBC 4.08 L (4.63-6.08) M/mm3 Hgb 13.7 (13.7-17.5) gm/dl Hct 40.2 (40.1-51.0) % MCV 98.5 H D (79.0-92.2) fl MCH 33.6 H (25.7-32.2) pg MCHC 34.1 (32.2-35.5) g/dl RDW Std Deviation 57.6 H (35.1-43.9) fL Plt Count 239 D (163-337) K/mm3 MPV 9.7 (9.4-12.3) fl Neut % (Auto) 68.6 H (34.0-67.9) % Lymph % (Auto) 18.0 L (21.8-53.1) % [place] % (Auto) 10.4 (5.3-12.2) % Eos % (Auto) 0.4 L (0.8-7.0) Baso % (Auto) 2.6 H (0.1-1.2) % Neut # (Auto) 3.15 (1.78-5.38) K/mm3 Lymph # (Auto) 0.83 L (1.32-3.57) K/mm3 [place] # (Auto) 0.48 (0.30-0.82) K/mm3 Eos # (Auto) 0.02 L (0.04-0.54) K/mm3 Baso # (Auto) 0.12 H (0.01-0.08) K/mm3 PT 10.5 (9.7-12.0) SECONDS INR 0.96 Sodium 140 (136-145) mEq/L Potassium 2.7 L (3.5-5.1) mEq/L Chloride 101 (98-107) mEq/L Carbon Dioxide 24 (21-32) mEq/L Anion Gap 17.7 H (5-15) BUN 6 L (7-18) mg/dL Creatinine 0.8 (0.7-1.3) mg/dL Est Cr Clr Drug Dosing 107.10 mL/min Estimated GFR (MDRD) > 60 (>60) mL/min BUN/Creatinine Ratio 7.5 L (14-18) Glucose 171 H (74-106) mg/dL Calcium 8.5 (8.5-10.1) mg/dL Magnesium 1.3 L (1.8-2.4) mg/dl Total Bilirubin 0.9 (0.2-1.0) mg/dL AST 102 H (15-37) U/L ALT 120 H (16-63) U/L Alkaline Phosphatase 128 H (46-116) U/L Total Protein 6.3 L (6.4-8.2) g/dl Albumin 3.2 L (3.4-5.0) g/dl Globulin 3.1 gm/dL Albumin/Globulin Ratio 1.0 (1-2) Ethyl Alcohol 0.09 (0.00) gm% Meds: Medications Generic Name Dose Route Start Last Admin Trade Name Freq PRN Reason Stop Dose Admin Sodium Chloride 10 ml 01/06/20 11:39 01/06/20 11:53 Saline Flush FLUSH 10 ml ASDIRECTED PRN Administration Keep Vein Open Discontinued Medications Generic Name Dose Route Start Last Admin Trade Name Freq PRN Reason Stop Dose Admin Folic Acid 1 mg 01/06/20 11:39 01/06/20 11:53 Folic Acid PO 01/06/20 11:40 1 mg ONETIME ONE Administration Sodium Chloride 1,000 mls @ 999 mls/hr 01/06/20 11:39 01/06/20 11:53 Normal Saline IV 01/06/20 12:39 999 mls/hr ONETIME ONE Administration Magnesium Sulfate 2 gm/ Premix 50 mls @ 25 mls/hr 01/06/20 12:55 01/06/20 13: 06 IV 01/06/20 14:54 25 mls/hr ONETIME ONE Administration Lorazepam 1 mg 01/06/20 11:39 01/06/20 11:53 Ativan IVPUSH 01/06/20 11:40 1 mg ONETIME ONE Administration Metoclopramide HCl 10 mg 01/06/20 11:39 01/06/20 11:53 Reglan IVPUSH 01/06/20 11:40 10 mg ONETIME ONE Administration Potassium Chloride 40 meq 01/06/20 12:54 01/06/20 13:06 Klor-Con M20 PO 01/06/20 12:55 40 meq ONETIME ONE Administration Thiamine HCl 100 mg 01/06/20 11:39 01/06/20 11:53 Vitamin B-1 PO 01/06/20 11:40 100 mg ONETIME ONE Administration - Re-Assessments/Exams Free Text/Narrative Re-Assessment/Exam: 01/06/20 11:49 Patient presents to the ED for the evaluation of his unsteady gait. Have ordered some labs, fluids and IV medications for evaluation and management. 01/06/20 12:53 Patient's labs have returned, CBC is within normal limits for chronic alcoholic , potassium is low at 2.7, magnesium is low at 1.3, anion gap elevated at 17.7, blood alcohol is 0.09 at this time. He will get some potassium and magnesium supplementation in the ER. 01/06/20 15:14 Patient's magnesium is still running at this time. Patient did have to go the bathroom, nursing staff noted that he ambulated to the bathroom well, and was not dizzy or unsteady. Will discharge home after his magnesium has finished. 01/06/20 15:24 Patient was reassessed at bedside, and states he is feeling better. He states he does have some leftover Ativan from a previous detox try, I will provide him with 6 more tablets so he has a 4-day supply, he states he does not usually get nauseous and is not requesting anything for nausea. I did direct him to present to [facility], if he thinks he should need any further help from abstaining from alcohol. Departure - Departure Time of Disposition: 15:29 Disposition: Home, Self-Care 01 Condition: Fair Clinical Impression: Unsteady gait, Alcohol abuse - Discharge Information *PRESCRIPTION DRUG MONITORING PROGRAM REVIEWED*: Yes *COPY OF PRESCRIPTION DRUG MONITORING REPORT IN PATIENT BRIAN: No Instructions: Alcohol Abuse and Nutrition Referrals: PCP,None [Primary Care Provider] - Additional Instructions: You were evaluated in the ER today for your unsteady gait. You were given some IV fluids, and other IV medications, your laboratory evaluation demonstrated that you had a low potassium and low magnesium. Otherwise labs were unremarkable, and there were no other emergent needs identified at today's visit. Highly recommend you abstain from using alcohol, you have been given a few tablets of Ativan at today's visit, please take your prior Ativan prescription as directed, 1 tab 3 times a day for the next 3 days, 1 tab 2 times a day for the next 3 days, 1 tab at night for the next 3 days after that. You were given enough Ativan to provide this course of medication. You were also given 40 mEq potassium to take tomorrow. Recommend you follow-up with [facility], their telephone number [phone], you may call them tomorrow for further needs. Please return to the ER at anytime if symptoms change or worsen Sepsis Event Note - Evaluation Sepsis Screening Result: No Definite Risk - Focused Exam Vital Signs: Vital Signs Temp Pulse Resp BP Pulse Ox 01/06/20 11:19 98.1 F 87 18 164/84 H 98 Date Exam was Performed: 01/06/20 Time Exam was Performed: 15:24 - My Orders Last 24 Hours: My Active Orders 01/06/20 11:39 Peripheral IV Care [RC] . DIRECTED Sodium Chloride 0.9% [Saline Flush] 10 ml FLUSH ASDIRECTED PRN Peripheral IV Insertion Adult [OM.PC] Stat - Assessment/Plan Last 24 Hours: My Active Orders 01/06/20 11:39 Peripheral IV Care [RC] . DIRECTED Sodium Chloride 0.9% [Saline Flush] 10 ml FLUSH ASDIRECTED PRN Peripheral IV Insertion Adult [OM.PC] Stat
[2020-01-06] MEDS ORDERED: Potassium Chloride 20 MEQ Tab.ER PO ONE ×2 (12:54→15:32)
[2020-01-06] MEDS ORDERED: Magnesium Sulfate/Water 2 GM in Premix Bag 1 BAG IV ONE (12:55)
== END 2020-01-06 15:40 | disposition home or self-care (01) ==
LOC: JD.ED 11:11
DX: R26.81 Unsteadiness on feet (principal); F10.10 Alcohol abuse, uncomplicated; Y90.4 Blood alcohol level of 80-99 mg/100 ml; J44.9 Chronic obstructive pulmonary disease, unspecified; I10 Essential (primary) hypertension; F17.210 Nicotine dependence, cigarettes, uncomplicated
CPT/HCPCS: 36415; 80053; 80307; 83735; 85025; 85610; 96361; 96365; 96366; 96375; 99284; A9270; J2060; J2765; J3475; J7030

== ENCOUNTER 2020-01-15 20:30 | Emergency (ER) | payer MEDICAID, OTHER ==
[2020-01-15] MEDS ORDERED: LORazepam 2 MG/ML SDV IVPUSH ONE (21:20)
[2020-01-15] MEDS ORDERED: Folic Acid 1 MG Tab PO ONE (21:20)
[2020-01-15] MEDS ORDERED: Sodium Chloride 0.9% 10 ML Syringe FLUSH PRN (21:20)
[2020-01-15] MEDS ORDERED: Metoclopramide 10 MG/2 ML SDV IVPUSH ONE (21:20)
[2020-01-15] MEDS ORDERED: Thiamine 100 MG Tab PO ONE (21:20)
[2020-01-15] MEDS ORDERED: Sodium Chloride 0.9% 1,000 ML IV ONE ×2 (21:20→22:39)
--- NOTE | 2020-01-15 21:42 | EDM.PDOC ---
ED HPI GENERAL MEDICAL PROBLEM - General Chief Complaint: Drug or Alcohol Abuse Stated Complaint: alcohol intoxication/commitment Time Seen by Provider: 01/15/20 21:20 Source of Information: Reports: Patient, RN Notes Reviewed, Other (commitment forms from [facility]) History Limitations: Reports: Intoxication (pt is intoxicated, but does answer questions appropriately) - History of Present Illness INITIAL COMMENTS - FREE TEXT/NARRATIVE: Patient is a 59-year-old male who presents to the ED for the evaluation of his alcoholism. Patient is well-known to this ER for being a chronic alcoholic. Patient is visibly intoxicated at today's visit as well. He has been reported to be falling multiple times at home, he states he has not fallen and hit his head however he does have multiple skin tears open on his forearms. These are also in various stages of healing/bruising. Patient states that he had about 25 -30 shots of whiskey today, he states he does have a history of alcohol seizures , when he does stop drinking. He denies any other sick-like symptoms, fever/ chills, chest pain/shortness of breath, cough. He states he is a smoker as well. We did receive some involuntary commitment paperwork, for the patient to be sent to [place], that appears to be from the [facility] , but we did not receive a phone call regarding as such. And when I call the [facility] in [place], they have no clue about this patient at this time. - Related Data Allergies Allergy/AdvReac Type Severity Reaction Status Date / Time No Known Allergies Allergy Verified 01/15/20 20:32 Home Meds: Home Meds LORazepam [Ativan] 1 mg PO DAILY #18 tablet 12/25/19 [Rx] LORazepam [Ativan] 1 mg PO ASDIRECTED #9 tab 01/06/20 [Rx] Past Medical History HEENT History: Reports: Impaired Vision Cardiovascular History: Reports: Hypertension Respiratory History: Reports: COPD Gastrointestinal History: Reports: PUD Musculoskeletal History: Reports: Back Pain, Chronic Neurological History: Reports: Seizure, Other (See Below) Other Neuro History: 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 Psychiatric History: Reports: Addiction, Depression Endocrine/Metabolic History: Reports: Vitamin D Deficiency - Infectious Disease History Infectious Disease History: Reports: Chicken Pox, Measles - Past Surgical History HEENT Surgical History: Reports: Other (See Below) Other HEENT Surgeries/Procedures: cyst removal-neck surg Musculoskeletal Surgical History: Reports: Other (See Below) Other Musculoskeletal Surgeries/Procedures:: had cyst removed from neck, "right below my skull." Social & Family History - Family History Family Medical History: Noncontributory Cardiac: Reports: Bypass Other Cardiac Family History: Dad Neurological: Reports: CVA Other Neurological Family History: Dad - Tobacco Use Smoking Status *Q: Current Every Day Smoker Years of Tobacco use: 44 Packs/Tins Daily: 0.5 - Caffeine Use Caffeine Use: Reports: Soda Other Caffeine Use: 2 pots daily - Alcohol Use Alcohol Use History: Yes Days Per Week of Alcohol Use: 7 Number of Drinks Per Day: 25 Total Drinks Per Week: 175 Alcohol Use in Last Twelve Months: Yes Alcohol Use Frequency: Daily - Recreational Drug Use Recreational Drug Use: No - Living Situation & Occupation Living situation: Reports: Single Occupation: Employed ED ROS GENERAL - Review of Systems Review Of Systems: See Below Constitutional: Denies: Fever, Chills Respiratory: Denies: Shortness of Breath, Cough Cardiovascular: Denies: Chest Pain GI/Abdominal: Denies: Abdominal Pain, Constipation, Diarrhea, Nausea, Vomiting : Denies: Dysuria, Frequency, Urgency Skin: Reports: Other (see HPI) Neurological: Denies: Confusion, Headache, Seizure, Change in Speech ED EXAM, GENERAL - Physical Exam Exam: See Below Exam Limited By: No Limitations General Appearance: Alert, WD/WN, No Apparent Distress Eye Exam: Bilateral Eye: EOMI, Normal Inspection, PERRL Ears: Normal External Exam, Normal Canal, Hearing Grossly Normal, Normal TMs Nose: Normal Inspection Throat/Mouth: Normal Inspection, Normal Lips, Normal Teeth, Normal Gums, Normal Oropharynx, Normal Voice, No Airway Compromise Head: Atraumatic, Normocephalic Neck: Normal Inspection Respiratory/Chest: No Respiratory Distress, Lungs Clear, Normal Breath Sounds, No Accessory Muscle Use, Chest Non-Tender Cardiovascular: Normal Peripheral Pulses, Regular Rate, Rhythm, No Murmur Peripheral Pulses: 3+: Radial (L), Radial (R) GI/Abdominal: Normal Bowel Sounds, Soft, Non-Tender, No Distention, No Mass Extremities: Normal Inspection, Normal Capillary Refill Neurological: Alert, Oriented, Normal Cognition, No Motor/Sensory Deficits Psychiatric: Normal Affect, Normal Mood Skin Exam: Warm, Dry, Normal Color, No Rash, Wound/Incision (Multiple skin tears noted on bilateral forearms, in multiple stages of healing.) Course - Vital Signs Last Recorded V/S: Last Vital Signs Temp 97.8 F 01/15/20 20:32 Pulse 83 01/15/20 20:32 Resp 21 H 01/15/20 20:32 BP 123/72 01/15/20 20:32 Pulse Ox 97 01/15/20 20:32 - Orders/Labs/Meds Orders: Active Orders 24 hr Category Date Time Status Peripheral IV Care [RC] . DIRECTED Care 01/15/20 21:20 Active Magnesium Sulfate/Water [Magnesium Sulfate in Water Med 01/15/20 22:58 Active Premix] 2 gm Premix Bag 1 bag IV ONETIME Sodium Chloride 0.9% [Normal Saline] 1,000 ml Med 01/15/20 22:39 Active IV ONETIME Sodium Chloride 0.9% [Saline Flush] Med 01/15/20 21:20 Active 10 ml FLUSH ASDIRECTED PRN Peripheral IV Insertion Adult [OM.PC] Stat Oth 01/15/20 21:20 Ordered Medication Orders Sodium Chloride (Normal Saline) 1,000 mls @ 500 mls/hr IV ONETIME ONE Stop: 01/16/20 00:38 Last Admin: 01/15/20 22:49 Dose: 500 mls/hr Magnesium Sulfate 2 gm/ Premix 50 mls @ 25 mls/hr IV ONETIME ONE Stop: 01/16/20 00:57 Last Admin: 01/15/20 23:03 Dose: 25 mls/hr Sodium Chloride (Saline Flush) 10 ml FLUSH ASDIRECTED PRN PRN Reason: Keep Vein Open Last Admin: 01/15/20 21:53 Dose: 10 ml Labs: Laboratory Tests 01/15/20 01/15/20 01/15/20 Range/Units 21:44 21:44 21:44 WBC 5.00 (4.23-9.07) K/mm3 RBC 4.15 L (4.63-6.08) M/mm3 Hgb 14.3 (13.7-17.5) gm/dl Hct 40.2 (40.1-51.0) % MCV 96.9 H (79.0-92.2) fl MCH 34.5 H (25.7-32.2) pg MCHC 35.6 H (32.2-35.5) g/dl RDW Std Deviation 51.3 H (35.1-43.9) fL Plt Count 97 L D (163-337) K/mm3 MPV 11.1 (9.4-12.3) fl Neut % (Auto) 45.8 (34.0-67.9) % Lymph % (Auto) 38.4 (21.8-53.1) % [place] % (Auto) 13.0 H (5.3-12.2) % Eos % (Auto) 2.2 (0.8-7.0) Baso % (Auto) 0.6 (0.1-1.2) % Neut # (Auto) 2.29 (1.78-5.38) K/mm3 Lymph # (Auto) 1.92 (1.32-3.57) K/mm3 [place] # (Auto) 0.65 (0.30-0.82) K/mm3 Eos # (Auto) 0.11 (0.04-0.54) K/mm3 Baso # (Auto) 0.03 (0.01-0.08) K/mm3 Manual Slide Review Abnormal smear PT 11.4 (9.7-12.0) SECONDS INR 1.05 Sodium 132 L (136-145) mEq/L Potassium 2.3 L* (3.5-5.1) mEq/L Chloride 92 L (98-107) mEq/L Carbon Dioxide 28 (21-32) mEq/L Anion Gap 14.3 (5-15) BUN 5 L (7-18) mg/dL Creatinine 1.0 (0.7-1.3) mg/dL Est Cr Clr Drug Dosing 85.68 mL/min Estimated GFR (MDRD) > 60 (>60) mL/min BUN/Creatinine Ratio 5.0 L (14-18) Glucose 94 (74-106) mg/dL Calcium 8.4 L (8.5-10.1) mg/dL Magnesium 1.3 L (1.8-2.4) mg/dl Total Bilirubin 1.2 H (0.2-1.0) mg/dL AST 84 H (15-37) U/L ALT 64 H (16-63) U/L Alkaline Phosphatase 126 H (46-116) U/L Total Protein 6.4 (6.4-8.2) g/dl Albumin 3.4 (3.4-5.0) g/dl Globulin 3.0 gm/dL Albumin/Globulin Ratio 1.1 (1-2) Ethyl Alcohol 0.31 (0.00) gm% Meds: Medications Generic Name Dose Route Start Last Admin Trade Name Freq PRN Reason Stop Dose Admin Sodium Chloride 1,000 mls @ 500 mls/hr 01/15/20 22:39 01/15/20 22:49 Normal Saline IV 01/16/20 00:38 500 mls/hr ONETIME ONE Administration Magnesium Sulfate 2 gm/ Premix 50 mls @ 25 mls/hr 01/15/20 22:58 01/15/20 23: 03 IV 01/16/20 00:57 25 mls/hr ONETIME ONE Administration Sodium Chloride 10 ml 01/15/20 21:20 01/15/20 21:53 Saline Flush FLUSH 10 ml ASDIRECTED PRN Administration Keep Vein Open Discontinued Medications Generic Name Dose Route Start Last Admin Trade Name Freq PRN Reason Stop Dose Admin Folic Acid 1 mg 01/15/20 21:20 01/15/20 21:39 Folic Acid PO 01/15/20 21:21 1 mg ONETIME ONE Administration Sodium Chloride 1,000 mls @ 999 mls/hr 01/15/20 21:20 01/15/20 21:47 Normal Saline IV 01/15/20 22:20 999 mls/hr ONETIME ONE Administration Lorazepam 1 mg 01/15/20 21:20 01/15/20 21:51 Ativan IVPUSH 01/15/20 21:21 1 mg ONETIME ONE Administration Metoclopramide HCl 10 mg 01/15/20 21:20 01/15/20 21:48 Reglan IVPUSH 01/15/20 21:21 10 mg ONETIME ONE Administration Potassium Chloride 40 meq 01/15/20 22:57 01/15/20 23:03 Klor-Con M20 PO 01/15/20 22:58 40 meq ONETIME ONE Administration Thiamine HCl 100 mg 01/15/20 21:20 01/15/20 21:39 Vitamin B-1 PO 01/15/20 21:21 100 mg ONETIME ONE Administration - Re-Assessments/Exams Free Text/Narrative Re-Assessment/Exam: 01/15/20 21:44 I did order some labs, some IV fluids, little bit of Ativan Reglan, and other p.o. meds for further management. Did call [place], to the [facility] to talk about getting the patient transferred there, they are unaware of this patient's involuntary commitment paperwork. She gave me the number for Briseyda Menon, who appears to be their nurse coordinator, she states that she gets to the hospital usually pretty early every morning around 5:30 or 6, and told me to leave a voicemail regarding as such. We do not have capabilities at this time to admit the gentleman to the ICU for an appropriate medical detox, so he would need to go to a different facility for this purpose. I am hopeful that when Briseyda calls us back in the morning, that they will accept the patient in transfer for medical detox and then further alcohol management, and that the patient will be transferred by [facility]'s department. But I cannot say this is a definitive plan yet. 01/15/20 21:48 It was made aware to me by nursing staff, that she does not believe that [place] does any sort of alcohol detox. She suggests trying [facility] first. I will call around to see if I can get acceptance for a medical alcohol detox. Departure - Departure Time of Disposition: 22:35 Disposition: DC/Tfer to [facility] 02 Condition: Fair Clinical Impression: Alcohol withdrawal Qualifiers: Complication of substance-induced condition: uncomplicated Qualified Code(s): F10.230 - Alcohol dependence with withdrawal, uncomplicated - Discharge Information *PRESCRIPTION DRUG MONITORING PROGRAM REVIEWED*: No *COPY OF PRESCRIPTION DRUG MONITORING REPORT IN PATIENT BRIAN: No Sepsis Event Note - Evaluation Sepsis Screening Result: No Definite Risk - Focused Exam Vital Signs: Vital Signs Temp Pulse Resp BP Pulse Ox 01/15/20 20:32 97.8 F 83 21 H 123/72 97 Date Exam was Performed: 01/15/20 Time Exam was Performed: 23:41 - My Orders Last 24 Hours: My Active Orders 01/15/20 21:20 Peripheral IV Care [RC] . DIRECTED Sodium Chloride 0.9% [Saline Flush] 10 ml FLUSH ASDIRECTED PRN Peripheral IV Insertion Adult [OM.PC] Stat 01/15/20 22:39 Sodium Chloride 0.9% [Normal Saline] 1,000 ml IV ONETIME 01/15/20 22:58 Magnesium Sulfate/Water [Magnesium Sulfate in Water Premix] 2 gm Premix Bag 1 bag IV ONETIME - Assessment/Plan Last 24 Hours: My Active Orders 01/15/20 21:20 Peripheral IV Care [RC] . DIRECTED Sodium Chloride 0.9% [Saline Flush] 10 ml FLUSH ASDIRECTED PRN Peripheral IV Insertion Adult [OM.PC] Stat 01/15/20 22:39 Sodium Chloride 0.9% [Normal Saline] 1,000 ml IV ONETIME 01/15/20 22:58 Magnesium Sulfate/Water [Magnesium Sulfate in Water Premix] 2 gm Premix Bag 1 bag IV ONETIME
[2020-01-15] MEDS ORDERED: Potassium Chloride 20 MEQ Tab.ER PO ONE (22:57)
[2020-01-15] MEDS ORDERED: Magnesium Sulfate/Water 2 GM in Premix Bag 1 BAG IV ONE (22:58)
== END 2020-01-15 23:24 ==
LOC: JD.ED 20:30
DX: F10.230 Alcohol dependence with withdrawal, uncomplicated (principal); F17.210 Nicotine dependence, cigarettes, uncomplicated
CPT/HCPCS: 36415; 80053; 80307; 83735; 85025; 85610; 96361; 96365; 96375; 99285; A9270; J2060; J2765; J3475; J7030; 99284

== ENCOUNTER 2020-02-03 19:29 | Emergency (ER) | payer MEDICAID, OTHER ==
--- NOTE | 2020-02-03 19:55 | EDM.PDOCBH ---
ED HPI GENERAL MEDICAL PROBLEM - General Chief Complaint: Drug or Alcohol Abuse Stated Complaint: [facility] Time Seen by Provider: 02/03/20 19:34 Source of Information: Reports: Patient History Limitations: Reports: Intoxication - History of Present Illness INITIAL COMMENTS - FREE TEXT/NARRATIVE: Mr. Greer is a pleasant 59-year-old man with a past medical history significant for chronic daily alcoholism, who is now brought to the ED by EMS after the police were called when the patient tripped over a curb at a gas station that he had driven to. He was clearly intoxicated, and acknowledged drinking 4 whiskey & Cokes today. He was found to have a skin tear to his left forearm, but is otherwise uninjured. The patient tells me that he cannot recall when he was last sober. He denies prior medical consequences, such as delirium tremens, due to his drinking. He denies prior legal consequences, such as a DUI, and he denies prior social consequences, such as divorce or loss of employment. The patient denies recent fever, chills, sore throat, ear pain, nasal or sinus congestion, cough, dyspnea, chest pain, palpitations, nausea, vomiting, constipation, diarrhea, abdominal pain, urinary symptoms, recent weight gain or weight loss, recent bloody bowel movements or black bowel movements, recent joint aches, headaches, or rashes. Here in the ED, the patient is found to be hemodynamically stable, afebrile, saturating 94% on room air. The patient does not have a PCP. - Related Data Allergies Allergy/AdvReac Type Severity Reaction Status Date / Time No Known Allergies Allergy Verified 02/03/20 19:34 Home Meds: Home Meds . 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) Psychiatric History: Reports: Addiction (alcohol) - Infectious Disease History Infectious Disease History: Reports: Chicken Pox, Measles - Past Surgical History HEENT Surgical History: Reports: Oral Surgery (edentulous), Tonsillectomy, Other (See Below) (Posterior neck cyst excision) Social & Family History - Family History Family Medical History: Noncontributory Cardiac: Reports: Bypass Other Cardiac Family History: Dad Neurological: Reports: CVA Other Neurological Family History: Dad - Tobacco Use Smoking Status *Q: Current Every Day Smoker Years of Tobacco use: 43 Packs/Tins Daily: 2 Packs/Tins Daily Comment: Down from 2 ppd - Caffeine Use Caffeine Use: Reports: None Other Caffeine Use: 2 pots daily - Alcohol Use Alcohol Use History: Yes Alcohol Use Frequency: Daily - Recreational Drug Use Recreational Drug Use: Yes Drug Use in Last 12 Months: No Recreational Drug Type: Reports: Cocaine (last snorted around 1978), Heroin ( last snorted around 1978), Marijuana/Hashish (last smoked when 16 yrs old) - Living Situation & Occupation Living situation: Reports: , Alone 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 ED EXAM, BEHAVIORAL HEALTH - Physical Exam Exam: See Below Exam Limited By: Intoxication (significantly slurred speech, smells of alcohol) General Appearance: Alert, WD/WN, No Apparent Distress, Other (Disheveled) Eye Exam: Bilateral Eye: EOMI, Normal Inspection Ears: Normal External Exam, Hearing Grossly Normal Nose: Normal Inspection Throat/Mouth: Normal Inspection, Normal Lips, Normal Voice, No Airway Compromise Head: Atraumatic, Normocephalic Neck: Normal Inspection, Full Range of Motion Respiratory/Chest: No Respiratory Distress, Lungs Clear, Normal Breath Sounds, No Accessory Muscle Use Cardiovascular: Normal Peripheral Pulses, Regular Rate, Rhythm, No Edema, No Gallop, No JVD, No Murmur, No Rub GI/Abdominal: Normal Bowel Sounds, Soft, Non-Tender, No Organomegaly, No Distention, No Abnormal Bruit, No Mass (Male) Exam: Deferred Rectal (Males) Exam: Deferred Back Exam: Normal Inspection, Full Range of Motion, NT Extremities: Normal Range of Motion, No Pedal Edema, Normal Capillary Refill, Other (Abrasion to the left forearm, over the ulna) Neurological: Alert, No Motor/Sensory Deficits, Oriented x 3, Other (Slurred speech) Psychiatric: Normal Affect Skin Exam: Warm, Dry, Normal color, No rash EKG INTERPRETATION EKG Date: 02/03/20 Time: 19:48 Rhythm: NSR Rate (Beats/Min): 88 [place]: Normal P-Wave: Present QRS: Normal ST-T: Normal QT: Prolonged (QTc 584 ms) Comparison: Change From Previous EKG (QTc prolongation new since 12/13/2019) COURSE, BEHAVIORAL HEALTH COMP - Course Vital Signs: Last Vital Signs Temp 36.9 C 02/03/20 19:31 Pulse 68 02/04/20 03:00 Resp 14 02/04/20 03:00 BP 135/85 02/04/20 03:00 Pulse Ox 90 L 02/04/20 03:00 Orders, Labs, Meds: Active Orders 24 hr Category Date Time Status EKG Documentation Completion [RC] STAT Care 02/03/20 19:46 Active Dextrose 5%-0.9% NaCl with KCl [D5 NS with 20 mEq KCl] Med 02/03/20 20:00 Active 1,000 ml IV ASDIRECTED Medication Orders Potassium Chloride/Dextrose/Sod Cl (D5 Ns With 20 Meq Kcl) 1,000 mls @ 150 mls/ hr IV ASDIRECTED DIDI Last Admin: 02/03/20 20:20 Dose: 150 mls/hr Laboratory Tests 02/03/20 02/03/20 02/03/20 Range/Units 19:32 20:20 20:20 WBC 5.52 (4.23-9.07) K/mm3 RBC 3.97 L (4.63-6.08) M/mm3 Hgb 13.9 (13.7-17.5) gm/dl Hct 39.6 L (40.1-51.0) % MCV 99.7 H (79.0-92.2) fl MCH 35.0 H (25.7-32.2) pg MCHC 35.1 (32.2-35.5) g/dl RDW Std Deviation 53.4 H (35.1-43.9) fL Plt Count 179 D (163-337) K/mm3 MPV 10.3 (9.4-12.3) fl Neutrophils % (Manual) 76 H (40-60) % Band Neutrophils % 1 (0-10) % Lymphocytes % (Manual) 15 L (20-40) % Atypical Lymphs % 1 % Monocytes % (Manual) 3 (2-10) % Eosinophils % (Manual) 1 (0.8-7.0) % Basophils % (Manual) 3 H (0.2-1.2) Platelet Estimate Adequate Anisocytosis 1+ slight Macrocytosis 1+ slight Ovalocytes 1+ slight Sodium 138 (136-145) mEq/L Potassium 3.8 D (3.5-5.1) mEq/L Chloride 95 L (98-107) mEq/L Carbon Dioxide 16 L D (21-32) mEq/L Anion Gap 30.8 H (5-15) BUN 13 (7-18) mg/dL Creatinine 1.1 (0.7-1.3) mg/dL Est Cr Clr Drug Dosing 77.89 mL/min Estimated GFR (MDRD) > 60 (>60) mL/min BUN/Creatinine Ratio 11.8 L (14-18) Glucose 71 L (74-106) mg/dL POC Glucose 60 L (70-105) mg/dL Calcium 8.8 (8.5-10.1) mg/dL Magnesium 1.6 L (1.8-2.4) mg/dl Total Bilirubin 0.7 (0.2-1.0) mg/dL AST 107 H (15-37) U/L ALT 64 H (16-63) U/L Alkaline Phosphatase 98 (46-116) U/L Total Protein 6.9 (6.4-8.2) g/dl Albumin 3.8 (3.4-5.0) g/dl Globulin 3.1 gm/dL Albumin/Globulin Ratio 1.2 (1-2) Ethyl Alcohol 0.33 (0.00) gm% Medications Generic Name Dose Route Start Last Admin Trade Name Freq PRN Reason Stop Dose Admin Potassium Chloride/Dextrose/Sod Cl 1,000 mls @ 150 mls/hr 02/03/20 20:00 20:20 D5 Ns With 20 Meq Kcl IV 150 mls/hr ASDIRECTED DIDI Administration Discontinued Medications Generic Name Dose Route Start Last Admin Trade Name Freq PRN Reason Stop Dose Admin Magnesium Sulfate 2 gm/ Premix 50 mls @ 25 mls/hr 02/03/20 21:01 02/03/20 21: 52 IV 02/03/20 23:00 25 mls/hr ONETIME ONE Administration Medical Clearance: 02/03/20 19:49 As above, the patient was brought to the ED via EMS after they were called by police, after the patient apparently tripped and fell over a curb, abrading his left forearm. No other injury found on exam. The patient has agreed for me to check some blood work and an ECG, and he will be treated with some IV fluid that contains dextrose, since his Accu-Chek was 60. Given the patient's likely non-adherence to social distancing, I have also added a test for the SARS-CoV-2 virus. 02/03/20 20:45 Notified by Laury UZRITA that we only have a total of 6 or 7 of the SARS-CoV-2 virus test kits, and it is not known if/when we will get more. These tests would be better rationed to patients who are symptomatic of COVID-19, therefore I have canceled this patient's test. 02/03/20 21:39 The patient CBC is remarkable for a Hct lightly low at 39.6, with a Hgb low at 13.9. The remainder of his CBC is unremarkable. His CMP is remarkable for a chloride low at 95 and a bicarbonate low at 16 with a an anion gap elevated at 30.8. His blood glucose is mildly low at 71. His AST/ALT are mildly elevated at 107/64, respectively, with the remainder of his CMP being unremarkable. His magnesium level is mildly depressed at 1.6. His EtOH level is significantly elevated at 0.33. A 2 g Mg-rider was earlier ordered. The plan will be to keep the patient in the ED overnight, until he is sober. 02/04/20 06:37 The patient slept well overnight and is now sober. I will discharge him home. Departure - Departure Time of Disposition: 06:37 Disposition: Home, Self-Care 01 Condition: Good Clinical Impression: Alcoholism, Hypomagnesemia Alcohol intoxication Qualifiers: Complication of substance-induced condition: uncomplicated Qualified Code(s): F10.920 - Alcohol use, unspecified with intoxication, uncomplicated - Discharge Information *PRESCRIPTION DRUG MONITORING PROGRAM REVIEWED*: Not Applicable *COPY OF PRESCRIPTION DRUG MONITORING REPORT IN PATIENT BRIAN: Not Applicable Referrals: PCP,None [Primary Care Provider] - Additional Instructions: You were seen in the emergency room after tripping over a curb, falling, and abrading your left forearm. Work-up in the ER included blood work, which found your alcohol level to be significantly elevated at 0.33. For reference, that is over 4 times the upper legal limit for driving. An ECG was also performed. Your magnesium level was also found to be low. You were given IV replacement magnesium. We strongly recommend that you get professional help with respect to your drinking. We recommend that you go to [facility]: [address] [phone] If any other problems, please do not hesitate to return to the ER. Sepsis Event Note - Evaluation Sepsis Screening Result: No Definite Risk - Focused Exam Vital Signs: Vital Signs Temp Pulse Resp BP Pulse Ox 02/04/20 03:00 68 14 135/85 90 L 02/03/20 19:31 36.9 C 97 16 142/75 H 94 L Date Exam was Performed: 02/04/20 Time Exam was Performed: 06:37 - My Orders Last 24 Hours: My Active Orders 02/03/20 19:46 EKG Documentation Completion [RC] STAT 02/03/20 20:00 Dextrose 5%-0.9% NaCl with KCl [D5 NS with 20 mEq KCl] 1,000 ml IV ASDIRECTED - Assessment/Plan Last 24 Hours: My Active Orders 02/03/20 19:46 EKG Documentation Completion [RC] STAT 02/03/20 20:00 Dextrose 5%-0.9% NaCl with KCl [D5 NS with 20 mEq KCl] 1,000 ml IV ASDIRECTED
[2020-02-03] MEDS ORDERED: Dextrose 5%-0.9% NaCl with KCl 1,000 ML IV SCH (20:00)
[2020-02-03] MEDS ORDERED: Magnesium Sulfate/Water 2 GM in Premix Bag 1 BAG IV ONE (21:01)
== END 2020-02-04 08:30 | disposition home or self-care (01) ==
LOC: JD.ED 19:29
DX: F10.229 Alcohol dependence with intoxication, unspecified (principal); S50.812A Abrasion of left forearm, initial encounter; E83.42 Hypomagnesemia; J44.9 Chronic obstructive pulmonary disease, unspecified; F17.210 Nicotine dependence, cigarettes, uncomplicated; Y90.1 Blood alcohol level of 20-39 mg/100 ml; W01.0XXA Fall on same level from slipping, tripping and stumbling without subsequent striking against object, initial encounter
CPT/HCPCS: 36415; 80053; 80307; 82962; 83735; 85007; 85027; 93005; 96365; 96366; 96368; 99284; J3475; J3480; 93010; 99283

== ENCOUNTER 2020-02-25 11:04 | Emergency (ER) | payer MEDICAID ==
--- NOTE | 2020-02-25 14:01 | EDM.PDOCBH ---
ED HPI GENERAL MEDICAL PROBLEM - General Chief Complaint: Drug or Alcohol Abuse Stated Complaint: [facility] Time Seen by Provider: 02/25/20 11:21 Source of Information: Reports: Patient History Limitations: Reports: No Limitations - History of Present Illness INITIAL COMMENTS - FREE TEXT/NARRATIVE: The patient presents for alcohol detox. The patient has been drinking whiskey daily. He has tried multiple times to stop. He last drank yesterday. He has no nausea or vomiting now. He is not shaking but he is unsteady on his feet. This is a chronic issue. Onset: Gradual Duration: Day(s): Improves with: Reports: None Worsens with: Reports: None Associated Symptoms: Reports: No Other Symptoms - Related Data Allergies Allergy/AdvReac Type Severity Reaction Status Date / Time No Known Allergies Allergy Verified 02/25/20 11:16 Home Meds: Home Meds LORazepam [Ativan] 1 mg PO DAILY #18 tablet 02/25/20 [Rx] Ondansetron [Zofran ODT] 4 mg PO Q6H PRN #20 tab.dis 02/25/20 [Rx] cloNIDine [Catapres] 0.1 mg PO Q12HR #30 tab 02/25/20 [Rx] Past Medical History HEENT History: Reports: Impaired Vision Cardiovascular History: Reports: Hypertension Respiratory History: Reports: COPD Gastrointestinal History: Reports: PUD Genitourinary History: Reports: None Musculoskeletal History: Reports: Back Pain, Chronic Neurological History: Reports: Migraines, Seizure Other Neuro History: 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 Psychiatric History: Reports: Addiction, Depression Endocrine/Metabolic History: Reports: Vitamin D Deficiency Hematologic History: Reports: None Immunologic History: Reports: None Oncologic (Cancer) History: Reports: None Dermatologic History: Reports: None - Infectious Disease History Infectious Disease History: Reports: Chicken Pox, Measles - Past Surgical History HEENT Surgical History: Reports: Oral Surgery, Tonsillectomy, Other (See Below) Musculoskeletal Surgical History: Reports: Other (See Below) Other Musculoskeletal Surgeries/Procedures:: had cyst removed from neck, "right below my skull." Social & Family History - Family History Family Medical History: Noncontributory Cardiac: Reports: Bypass Other Cardiac Family History: Dad Neurological: Reports: CVA Other Neurological Family History: Dad - Tobacco Use Smoking Status *Q: Current Every Day Smoker Years of Tobacco use: 44 Packs/Tins Daily: 2 - Caffeine Use Caffeine Use: Reports: Coffee Other Caffeine Use: 2 pots daily - Recreational Drug Use Recreational Drug Use: No - Living Situation & Occupation Living situation: Reports: , Alone 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) ED ROS GENERAL - Review of Systems Review Of Systems: See Below Constitutional: Reports: No Symptoms HEENT: Reports: No Symptoms Respiratory: Reports: No Symptoms Cardiovascular: Reports: No Symptoms Endocrine: Reports: No Symptoms GI/Abdominal: Reports: No Symptoms : Reports: No Symptoms Musculoskeletal: Reports: No Symptoms ED EXAM, BEHAVIORAL HEALTH - Physical Exam Exam: See Below Exam Limited By: No Limitations General Appearance: Alert, No Apparent Distress Ears: Normal External Exam Nose: Normal Inspection Head: Atraumatic, Normocephalic Neck: Normal Inspection Respiratory/Chest: No Respiratory Distress, Lungs Clear, Normal Breath Sounds Cardiovascular: Regular Rate, Rhythm, No Edema, No Murmur GI/Abdominal: Soft, Non-Tender, No Organomegaly, No Mass Back Exam: Normal Inspection Extremities: Normal Inspection Neurological: Alert, No Motor/Sensory Deficits, Oriented x 3 COURSE, BEHAVIORAL HEALTH COMP - Course Vital Signs: Last Vital Signs Temp 98.9 F 02/25/20 11:10 Pulse 88 02/25/20 11:10 Resp 12 02/25/20 11:10 BP 176/86 H 02/25/20 11:10 Pulse Ox 98 02/25/20 11:10 Orders, Labs, Meds: Active Orders 24 hr Category Date Time Status Cardiac Monitoring [RC] . DIRECTED Care 02/25/20 11:40 Active Laboratory Tests 02/25/20 02/25/20 Range/Units 12:06 12:06 WBC 6.70 (4.23-9.07) K/mm3 RBC 4.02 L (4.63-6.08) M/mm3 Hgb 14.0 (13.7-17.5) gm/dl Hct 39.6 L (40.1-51.0) % MCV 98.5 H (79.0-92.2) fl MCH 34.8 H (25.7-32.2) pg MCHC 35.4 (32.2-35.5) g/dl RDW Std Deviation 50.3 H (35.1-43.9) fL Plt Count 246 (163-337) K/mm3 MPV 9.9 (9.4-12.3) fl Neut % (Auto) 75.9 H (34.0-67.9) % Lymph % (Auto) 13.7 L (21.8-53.1) % [place] % (Auto) 7.9 (5.3-12.2) % Eos % (Auto) 0.3 L (0.8-7.0) Baso % (Auto) 2.1 H (0.1-1.2) % Neut # (Auto) 5.08 (1.78-5.38) K/mm3 Lymph # (Auto) 0.92 L (1.32-3.57) K/mm3 [place] # (Auto) 0.53 (0.30-0.82) K/mm3 Eos # (Auto) 0.02 L (0.04-0.54) K/mm3 Baso # (Auto) 0.14 H (0.01-0.08) K/mm3 Sodium 140 (136-145) mEq/L Potassium 3.2 L (3.5-5.1) mEq/L Chloride 98 (98-107) mEq/L Carbon Dioxide 24 (21-32) mEq/L Anion Gap 21.2 H (5-15) BUN 9 (7-18) mg/dL Creatinine 0.7 (0.7-1.3) mg/dL Est Cr Clr Drug Dosing 120.87 mL/min Estimated GFR (MDRD) > 60 (>60) mL/min BUN/Creatinine Ratio 12.9 L (14-18) Glucose 84 (80-115) mg/dL Calcium 8.9 (8.5-10.1) mg/dL Magnesium 1.4 L (1.8-2.4) mg/dl Total Bilirubin 1.2 H (0.2-1.0) mg/dL AST 42 H (15-37) U/L ALT 39 (16-63) U/L Alkaline Phosphatase 86 (46-116) U/L Total Protein 6.8 (6.4-8.2) g/dl Albumin 3.7 (3.4-5.0) g/dl Globulin 3.1 gm/dL Albumin/Globulin Ratio 1.2 (1-2) Ethyl Alcohol 0.00 (0.00) gm% Re-Assessment/Re-Exam: I ordered labs and his CBC looks good. His anion gap was elevated. His ETOH was 0. I had Laurie our social science research assistant come talk to him and she called [facility] and they will take him. I will give him some ativan and zofran. Departure - Departure Time of Disposition: 14:10 Disposition: Home, Self-Care 01 Condition: Fair Clinical Impression: Alcohol abuse Alcohol dependence Qualifiers: Substance use status: unspecified alcohol-induced disorder Qualified Code(s): F10.29 - Alcohol dependence with unspecified alcohol-induced disorder - Discharge Information *PRESCRIPTION DRUG MONITORING PROGRAM REVIEWED*: Not Applicable *COPY OF PRESCRIPTION DRUG MONITORING REPORT IN PATIENT BRIAN: Not Applicable Prescriptions: LORazepam [Ativan] 1 mg PO DAILY #18 tablet Ondansetron [Zofran ODT] 4 mg PO Q6H PRN #20 tab.dis PRN Reason: Nausea\\vomiting Referrals: PCP,None [Primary Care Provider] - Additional Instructions: Stop drinking alcohol. Take the ativan 1mg 3 times per day for 3 days, then 1mg 2 times per day for 3 days and then 1mg at night for 3 times. Drink plenty of fluid. Take the zofran every 6 hours as needed for nausea and vomiting. Please return if you are worse. Take clonidine 0.1mg 2 times per day. Sepsis Event Note - Evaluation Sepsis Screening Result: No Definite Risk - Focused Exam Vital Signs: Vital Signs Temp Pulse Resp BP Pulse Ox 02/25/20 11:10 98.9 F 88 12 176/86 H 98 Date Exam was Performed: 02/25/20 Time Exam was Performed: 14:10 - My Orders Last 24 Hours: My Active Orders 02/25/20 11:40 Cardiac Monitoring [RC] . DIRECTED - Assessment/Plan Last 24 Hours: My Active Orders 02/25/20 11:40 Cardiac Monitoring [RC] . DIRECTED
[2020-02-25] MEDS ORDERED: cloNIDine 0.1 MG Tab PO ONE (14:17)
[2020-02-25] MEDS ORDERED: Metoprolol Tartrate 50 MG Tab PO ONE (15:13)
== END 2020-02-25 17:03 | disposition home or self-care (01) ==
LOC: JD.ED 11:04
DX: F10.29 Alcohol dependence with unspecified alcohol-induced disorder (principal); I10 Essential (primary) hypertension; J44.9 Chronic obstructive pulmonary disease, unspecified; R56.9 Unspecified convulsions; F17.210 Nicotine dependence, cigarettes, uncomplicated; Z79.899 Other long term (current) drug therapy
CPT/HCPCS: 36415; 80053; 80307; 83735; 85025; 99282; A9270; 99283

== ENCOUNTER 2020-04-09 14:39 | Emergency (ER) | payer MEDICAID ==
[2020-04-09] MEDS ORDERED: Sodium Chloride 0.9% 10 ML Syringe FLUSH PRN (15:16)
[2020-04-09] MEDS ORDERED: Dextrose 5%-Lactated Ringers 1,000 ML IV SCH ×2 (15:30→16:30)
--- NOTE | 2020-04-09 15:46 | EDM.PDOC ---
ED HPI GENERAL MEDICAL PROBLEM - General Chief Complaint: Drug or Alcohol Abuse Stated Complaint: ALCOHOL DETOX Time Seen by Provider: 04/09/20 14:51 Source of Information: Reports: Patient, Other ([facility] director of accounts payable) History Limitations: Reports: No Limitations - History of Present Illness INITIAL COMMENTS - FREE TEXT/NARRATIVE: Patient is a 60-year-old male brought into the emergency department along with his [facility] director of accounts payable for medical clearance to go to the [facility] bed. Patient has a long history of chronic alcohol abuse. He recently spent 28 days at the residential crisis center. He discharged from there approximately 2 weeks ago. He states after his discharge he did start drinking again. He verbalizes he is been drinking approximately 1/2 L of whiskey per day. He states this is less than he used to drink. In the past he would drink half gallon of whiskey per day. He has not been eating well over the last 2 weeks either. His last drink was this morning. Per the patient's and the caseworkers report, his sister became concerned yesterday and contacted the police department. A welfare check was done at that time. [facility] did a follow-up with them today and were concerned with his condition so they brought him here. Patient states he does have a history of seizures with alcohol withdrawal. He estimates that his last seizure was about 6 weeks ago. On his previous admission to the [facility], he was discharged with Zofran and Ativan which she states worked well for him. He did not have any seizures during his stay at the [facility]. Patient does have a long history of being unsteady on his feet; however, he denies any falls since his discharge from [facility] 2 weeks ago. He has not had any nausea or vomiting. He denies feeling anxious or nauseous and has no notable tremor. - Related Data Allergies Allergy/AdvReac Type Severity Reaction Status Date / Time No Known Allergies Allergy Verified 04/09/20 14:57 Home Meds: Home Meds LORazepam [Ativan] 1 mg PO DAILY #18 tablet 02/25/20 [Rx] Ondansetron [Zofran ODT] 4 mg PO Q6H PRN #20 tab.dis 02/25/20 [Rx] cloNIDine [Catapres] 0.1 mg PO Q12HR #30 tab 02/25/20 [Rx] LORazepam [Ativan] 1 mg PO ASDIRECTED #18 tab 04/09/20 [Rx] Ondansetron [Zofran ODT] 4 mg PO Q8H #9 tab.dis 04/09/20 [Rx] Past Medical History HEENT History: Reports: Impaired Vision Cardiovascular History: Reports: Hypertension Respiratory History: Reports: COPD Gastrointestinal History: Reports: PUD Genitourinary History: Reports: None Musculoskeletal History: Reports: Back Pain, Chronic Neurological History: Reports: Migraines, Seizure Other Neuro History: 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 Psychiatric History: Reports: Addiction, Depression Endocrine/Metabolic History: Reports: Vitamin D Deficiency Hematologic History: Reports: None Immunologic History: Reports: None Oncologic (Cancer) History: Reports: None Dermatologic History: Reports: None - Infectious Disease History Infectious Disease History: Reports: Chicken Pox, Measles - Past Surgical History HEENT Surgical History: Reports: Oral Surgery, Tonsillectomy Musculoskeletal Surgical History: Reports: Other (See Below) Other Musculoskeletal Surgeries/Procedures:: had cyst removed from neck, "right below my skull." Social & Family History - Family History Family Medical History: Noncontributory Cardiac: Reports: Bypass Other Cardiac Family History: Dad Neurological: Reports: CVA Other Neurological Family History: Dad - Tobacco Use Smoking Status *Q: Current Every Day Smoker Years of Tobacco use: 43 Packs/Tins Daily: 1 - Caffeine Use Caffeine Use: Reports: None Other Caffeine Use: 2 pots daily - Recreational Drug Use Recreational Drug Use: No - Living Situation & Occupation Living situation: Reports: , Alone 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 Denies: Fever, Chills HEENT: Reports: No Symptoms Respiratory: Reports: No Symptoms Cardiovascular: Reports: No Symptoms Endocrine: Reports: No Symptoms GI/Abdominal: Denies: Abdominal Pain, Black Stool, Diarrhea, Hematemesis, Nausea, Vomiting : Reports: No Symptoms Musculoskeletal: Reports: No Symptoms Skin: Reports: No Symptoms Neurological: Reports: Gait Disturbance. Denies: Confusion, Dizziness, Paresthesia, Tremors, Trouble Speaking, Change in Speech Psychiatric: Reports: No Symptoms. Denies: Agitation, Anxiety Hematologic/Lymphatic: Reports: No Symptoms Immunologic: Reports: No Symptoms ED EXAM, GENERAL - Physical Exam Exam: See Below Exam Limited By: No Limitations General Appearance: Alert, WD/WN, No Apparent Distress Respiratory/Chest: No Respiratory Distress, Lungs Clear, Normal Breath Sounds, No Accessory Muscle Use, Chest Non-Tender Cardiovascular: Normal Peripheral Pulses, Regular Rate, Rhythm, No Edema, No Gallop, No JVD, No Murmur, No Rub GI/Abdominal: Normal Bowel Sounds, Soft, Non-Tender, No Organomegaly, No Distention, No Abnormal Bruit, No Mass Neurological: Alert, Oriented, CN II-XII Intact, Normal Cognition, Normal Gait, Normal Reflexes, No Motor/Sensory Deficits Psychiatric: Normal Affect, Normal Mood Skin Exam: Warm, Dry, Intact, Normal Color, No Rash Course - Vital Signs Last Recorded V/S: Last Vital Signs Temp 98.4 F 04/09/20 19:55 Pulse 74 04/09/20 19:55 Resp 12 04/09/20 19:55 BP 148/85 H 04/09/20 19:55 Pulse Ox 92 L 04/09/20 19:55 - Orders/Labs/Meds Orders: Active Orders 24 hr Category Date Time Status Peripheral IV Care [RC] . DIRECTED Care 04/09/20 15:16 Active Peripheral IV Insertion Adult [OM.PC] Stat Oth 04/09/20 15:16 Ordered Labs: Laboratory Tests 04/09/20 04/09/20 04/09/20 Range/Units 15:20 15:20 15:20 WBC 4.31 (4.23-9.07) K/mm3 RBC 4.58 L (4.63-6.08) M/mm3 Hgb 14.9 (13.7-17.5) gm/dl Hct 42.8 (40.1-51.0) % MCV 93.4 H D (79.0-92.2) fl MCH 32.5 H (25.7-32.2) pg MCHC 34.8 (32.2-35.5) g/dl RDW Std Deviation 44.9 H (35.1-43.9) fL Plt Count 91 L D (163-337) K/mm3 MPV 11.1 (9.4-12.3) fl Neut % (Auto) 59.7 (34.0-67.9) % Lymph % (Auto) 27.1 (21.8-53.1) % [place] % (Auto) 9.7 (5.3-12.2) % Eos % (Auto) 1.2 (0.8-7.0) Baso % (Auto) 2.1 H (0.1-1.2) % Neut # (Auto) 2.57 (1.78-5.38) K/mm3 Lymph # (Auto) 1.17 L (1.32-3.57) K/mm3 [place] # (Auto) 0.42 (0.30-0.82) K/mm3 Eos # (Auto) 0.05 (0.04-0.54) K/mm3 Baso # (Auto) 0.09 H (0.01-0.08) K/mm3 Manual Slide Review Abnormal smear Sodium 136 (136-145) mEq/L Potassium 3.2 L (3.5-5.1) mEq/L Chloride 95 L (98-107) mEq/L Carbon Dioxide 26 (21-32) mEq/L Anion Gap 18.2 H (5-15) BUN 8 (7-18) mg/dL Creatinine 0.9 (0.7-1.3) mg/dL Est Cr Clr Drug Dosing 91.24 mL/min Estimated GFR (MDRD) > 60 (>60) mL/min BUN/Creatinine Ratio 8.9 L (14-18) Glucose 105 (80-115) mg/dL Calcium 8.9 (8.5-10.1) mg/dL Magnesium 1.4 L (1.8-2.4) mg/dl Total Bilirubin 1.0 (0.2-1.0) mg/dL AST 270 H (15-37) U/L ALT 200 H (16-63) U/L Alkaline Phosphatase 83 (46-116) U/L Total Protein 7.0 (6.4-8.2) g/dl Albumin 4.1 (3.4-5.0) g/dl Globulin 2.9 gm/dL Albumin/Globulin Ratio 1.4 (1-2) Ethyl Alcohol 0.22 Cancelled (0.00) gm% 04/09/20 Range/Units 19:05 WBC (4.23-9.07) K/mm3 RBC (4.63-6.08) M/mm3 Hgb (13.7-17.5) gm/dl Hct (40.1-51.0) % MCV (79.0-92.2) fl MCH (25.7-32.2) pg MCHC (32.2-35.5) g/dl RDW Std Deviation (35.1-43.9) fL Plt Count (163-337) K/mm3 MPV (9.4-12.3) fl Neut % (Auto) (34.0-67.9) % Lymph % (Auto) (21.8-53.1) % [place] % (Auto) (5.3-12.2) % Eos % (Auto) (0.8-7.0) Baso % (Auto) (0.1-1.2) % Neut # (Auto) (1.78-5.38) K/mm3 Lymph # (Auto) (1.32-3.57) K/mm3 [place] # (Auto) (0.30-0.82) K/mm3 Eos # (Auto) (0.04-0.54) K/mm3 Baso # (Auto) (0.01-0.08) K/mm3 Manual Slide Review Sodium (136-145) mEq/L Potassium (3.5-5.1) mEq/L Chloride (98-107) mEq/L Carbon Dioxide (21-32) mEq/L Anion Gap (5-15) BUN (7-18) mg/dL Creatinine (0.7-1.3) mg/dL Est Cr Clr Drug Dosing mL/min Estimated GFR (MDRD) (>60) mL/min BUN/Creatinine Ratio (14-18) Glucose (80-115) mg/dL Calcium (8.5-10.1) mg/dL Magnesium (1.8-2.4) mg/dl Total Bilirubin (0.2-1.0) mg/dL AST (15-37) U/L ALT (16-63) U/L Alkaline Phosphatase (46-116) U/L Total Protein (6.4-8.2) g/dl Albumin (3.4-5.0) g/dl Globulin gm/dL Albumin/Globulin Ratio (1-2) Ethyl Alcohol 0.13 (0.00) gm% Meds: Medications Discontinued Medications Generic Name Dose Route Start Last Admin Trade Name Freq PRN Reason Stop Dose Admin Dextrose/Lactated Ringer's 1,000 mls @ 999 mls/hr 04/09/20 15:30 04/09/20 15:27 Dextrose 5%-Lactated Ringers IV 999 mls/hr ASDIRECTED DIDI Administration Magnesium Sulfate 2 gm/ Premix 50 mls @ 25 mls/hr 04/09/20 16:29 04/09/20 16:48 IV 04/09/20 18:28 25 mls/hr ONETIME ONE Administration Dextrose/Lactated Ringer's 1,000 mls @ 500 mls/hr 04/09/20 16:30 04/09/20 16:48 Dextrose 5%-Lactated Ringers IV 500 mls/hr ASDIRECTED DIDI Administration Potassium Chloride 40 meq 04/09/20 16:29 04/09/20 16:50 Klor-Con M20 PO 04/09/20 16:30 40 meq ONETIME ONE Administration Sodium Chloride 10 ml 04/09/20 15:16 04/09/20 15:20 Saline Flush FLUSH 10 ml ASDIRECTED PRN Administration Keep Vein Open - Re-Assessments/Exams Free Text/Narrative Re-Assessment/Exam: 04/09/20 16:38 Hematology was significant for potassium slightly low at 3.2, anion gap elevated at 18.2, exam low at 1.4, AST elevated at 270, ALT elevated at 200, blood alcohol elevated at 0.22. I have ordered a another liter of D5 LR at 500 mils per hour, 2 g of magnesium IV, and 40 mEq of oral KCl. Patient continues to deny anxiety and has no visible tremors. He was reluctant to receive this treatment as he states he does not want to stay here for another 2 hours and would like to go to the [facility], however after discussion he did agree. 04/09/20 19:07 Patient is IV fluids and magnesium are completed. I have ordered a repeat blood alcohol level, however the repeat was ran off the patient's original blood which was drawn at 1520 this afternoon. Lab is now here drawing a repeat sample to recheck his blood alcohol. 04/09/201946 Patient's repeat blood alcohol level is 0.13. I have sent a prescription for Ativan and Zofran to [facility] in [facility]. Patient will be discharged to the [facility]. Departure - Departure Time of Disposition: 19:47 Disposition: Home, Self-Care 01 Condition: Good Clinical Impression: Alcohol dependence Qualifiers: Substance use status: unspecified alcohol-induced disorder Qualified Code(s): F10.29 - Alcohol dependence with unspecified alcohol-induced disorder - Discharge Information *PRESCRIPTION DRUG MONITORING PROGRAM REVIEWED*: Yes *COPY OF PRESCRIPTION DRUG MONITORING REPORT IN PATIENT BRIAN: No Prescriptions: LORazepam [Ativan] 1 mg PO ASDIRECTED #18 tab Ondansetron [Zofran ODT] 4 mg PO Q8H #9 tab.dis Instructions: Alcohol Use Disorder Referrals: PCP,None [Primary Care Provider] - Additional Instructions: You were seen in the emergency department today for medical clearance to go to the residential crisis center. Blood work was completed. Your potassium and magnesium were found to be slightly low, and your liver enzymes were elevated. Your blood alcohol level on arrival was 0.22. A repeat of this level prior to discharge was 0.13. While in the ER you received 2 L of IV fluids, oral potassium, and magnesium through your IV. You are being discharged to go to the residential crisis center. A prescription for Ativan and Zofran has been sent to [facility]. These medicatios will be given to you as prescribed. Recommend that you refrain from consuming alcohol. Return to the ER as needed. Sepsis Event Note (ED) - Evaluation Sepsis Screening Result: No Definite Risk - Focused Exam Vital Signs: Vital Signs Temp Pulse Resp BP Pulse Ox 04/09/20 19:55 98.4 F 74 12 148/85 H 92 L 04/09/20 19:00 98.3 F 68 16 151/84 H 92 L 04/09/20 14:50 97.5 F 78 18 139/95 H 94 L - My Orders Last 24 Hours: My Active Orders 04/09/20 15:16 Peripheral IV Care [RC] . DIRECTED Peripheral IV Insertion Adult [OM.PC] Stat - Assessment/Plan Last 24 Hours: My Active Orders 04/09/20 15:16 Peripheral IV Care [RC] . DIRECTED Peripheral IV Insertion Adult [OM.PC] Stat
[2020-04-09] MEDS ORDERED: Magnesium Sulfate/Water 2 GM in Premix Bag 1 BAG IV ONE (16:29)
[2020-04-09] MEDS ORDERED: Potassium Chloride 20 MEQ Tab.ER PO ONE (16:29)
== END 2020-04-09 20:30 | disposition home or self-care (01) ==
LOC: JD.ED 14:39
DX: F10.29 Alcohol dependence with unspecified alcohol-induced disorder (principal); I10 Essential (primary) hypertension; F32.9 Major depressive disorder, single episode, unspecified; F17.210 Nicotine dependence, cigarettes, uncomplicated; Z79.899 Other long term (current) drug therapy
CPT/HCPCS: 36415; 80053; 80307; 83735; 85025; 96365; 96366; 99283; 99284-25; A9270-GY; J3475; J7121

== ENCOUNTER 2020-05-04 15:44 | Emergency (ER) | payer SELFPAY ==
--- NOTE | 2020-05-04 17:28 | EDM.PDOCBH ---
<Franc Eaton - Last Filed: 05/04/20 20:07> ED HPI GENERAL MEDICAL PROBLEM - General Chief Complaint: Drug or Alcohol Abuse Stated Complaint: DETOX Time Seen by Provider: 05/04/20 15:55 Source of Information: Reports: Patient History Limitations: Reports: No Limitations - History of Present Illness INITIAL COMMENTS - FREE TEXT/NARRATIVE: Mr. Greer is a 60 YO male that presents to the ED with his counselor from [facility] for a medical evaluation. His counselor performed a check up this afternoon at his residence and noted that he was drinking again along with having expressions of self harm. He was last at [facility] on April 19, 2020. Since leaving, he has been drinking about 1/2 a fifth of whiskey per day. Last drink was approximately 1030 this morning. He admits to chronic depression. Stated that he wanted to "blow his head off this morning," but followed up that he doesn't believe in suicide and would never go through with it. When questioned further he states that he gets rid of these thoughts by pouring himself a drink. Associated symptoms are difficulty sleeping more than an hour at a time and anorexia. sheep farm worker states that the initial plan was to be committed to the [facility] but the patient agreed to willingly go to the [facility] instead. She did state that they may still proceed with commitment. - Related Data Allergies Allergy/AdvReac Type Severity Reaction Status Date / Time No Known Allergies Allergy Verified 05/04/20 15:59 Home Meds: Home Meds LORazepam [Ativan] 1 mg PO DAILY #18 tablet 02/25/20 [Rx] Ondansetron [Zofran ODT] 4 mg PO Q6H PRN #20 tab.dis 02/25/20 [Rx] cloNIDine [Catapres] 0.1 mg PO Q12HR #30 tab 02/25/20 [Rx] LORazepam [Ativan] 1 mg PO ASDIRECTED #18 tab 05/04/20 [Rx] Ondansetron [Zofran ODT] 4 mg PO Q8H #9 tab.dis 05/04/20 [Rx] Past Medical History HEENT History: Reports: Impaired Vision Cardiovascular History: Reports: Hypertension Respiratory History: Reports: COPD Gastrointestinal History: Reports: PUD Genitourinary History: Reports: None Musculoskeletal History: Reports: Back Pain, Chronic Neurological History: Reports: Migraines, Seizure Other Neuro History: 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 Psychiatric History: Reports: Addiction, Depression Endocrine/Metabolic History: Reports: Vitamin D Deficiency Hematologic History: Reports: None Immunologic History: Reports: None Oncologic (Cancer) History: Reports: None Dermatologic History: Reports: None - Infectious Disease History Infectious Disease History: Reports: Chicken Pox, Measles - Past Surgical History HEENT Surgical History: Reports: Oral Surgery, Tonsillectomy Musculoskeletal Surgical History: Reports: Other (See Below) Other Musculoskeletal Surgeries/Procedures:: had cyst removed from neck, "right below my skull." Social & Family History - Family History Family Medical History: Noncontributory Cardiac: Reports: Bypass Other Cardiac Family History: Dad Neurological: Reports: CVA Other Neurological Family History: Dad - Tobacco Use Smoking Status *Q: Current Every Day Smoker Years of Tobacco use: 40 Packs/Tins Daily: 2 - Caffeine Use Caffeine Use: Reports: None Other Caffeine Use: 2 pots daily - Recreational Drug Use Recreational Drug Use: No Drug Use in Last 12 Months: No - Living Situation & Occupation Living situation: Reports: , Alone 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 Denies: Abdominal Pain, Nausea, Vomiting Neurological: Reports: Dizziness (Admits to occassion of slight dizziness when turning too quickly. ). Denies: Headache, Syncope Psychiatric: Reports: Depression. Denies: Suicidal Ideation ED EXAM, BEHAVIORAL HEALTH - Physical Exam Exam: See Below Exam Limited By: No Limitations General Appearance: Alert, No Apparent Distress Eye Exam: Bilateral Eye: PERRL Head: Atraumatic, Normocephalic Respiratory/Chest: No Respiratory Distress, Lungs Clear, Normal Breath Sounds Cardiovascular: Regular Rate, Rhythm, No Gallop, No Murmur, No Rub GI/Abdominal: Normal Bowel Sounds, Non-Tender, No Distention Neurological: Alert, Normal Mood/Affect Psychiatric: Alert, Depressed Mood. No: Agitated, Disoriented, Inattentive, Poor Eye Contact, Uncooperative, Withdrawn, Homicidal Thoughts, Suicidal Plan, Suicidal Thoughts Skin Exam: Warm, Dry, Intact, Normal color Departure - Departure Disposition: Home, Self-Care 01 Clinical Impression: Alcohol dependence Qualifiers: Substance use status: unspecified alcohol-induced disorder Qualified Code(s): F10.29 - Alcohol dependence with unspecified alcohol-induced disorder - Discharge Information Prescriptions: LORazepam [Ativan] 1 mg PO ASDIRECTED #18 tab Ondansetron [Zofran ODT] 4 mg PO Q8H #9 tab.dis Instructions: Alcohol Intoxication, [id number] Referrals: PCP,None [Primary Care Provider] - Additional Instructions: You were seen in the emergency department today for medical clearance to go to the residential crisis center. Blood work was completed. Your potassium was found to be slightly low and you were slightly dehydrated. While in the emergency department, you received 2 L of IV fluids, a dose of Ativan, and oral replacement of potassium. Your blood alcohol was initially found to be 0.26, however after time, and IV fluids came down to 0.19. You have been medically cleared to go to the [facility] crisis [place]. A prescription for Ativan and Zofran has been provided and will be given to you by the staff at the [facility]. Recommend that you refrain from consuming alcohol and follow the treatment recommendations of [facility]. Return to the emergency department as needed. Sepsis Event Note (ED) - Evaluation Sepsis Screening Result: No Definite Risk <Libra Saba - Last Filed: 05/07/20 13:03> COURSE, BEHAVIORAL HEALTH COMP - Course Vital Signs: Last Vital Signs Temp 97 F 05/04/20 15:56 Pulse 79 05/04/20 20:00 Resp 16 05/04/20 20:00 BP 154/99 H 05/04/20 20:00 Pulse Ox 96 05/04/20 20:00 Orders, Labs, Meds: Laboratory Tests 05/04/20 05/04/20 05/04/20 Range/Units 16:34 16:34 18:40 WBC 5.24 (4.23-9.07) K/mm3 RBC 4.32 L (4.63-6.08) M/mm3 Hgb 13.9 (13.7-17.5) gm/dl Hct 40.7 (40.1-51.0) % MCV 94.2 H (79.0-92.2) fl MCH 32.2 (25.7-32.2) pg MCHC 34.2 (32.2-35.5) g/dl RDW Std Deviation 48.6 H (35.1-43.9) fL Plt Count 179 D (163-337) K/mm3 MPV 9.9 (9.4-12.3) fl Neut % (Auto) 65.5 (34.0-67.9) % Lymph % (Auto) 23.5 (21.8-53.1) % [place] % (Auto) 9.2 (5.3-12.2) % Eos % (Auto) 0.8 (0.8-7.0) Baso % (Auto) 1.0 (0.1-1.2) % Neut # (Auto) 3.44 (1.78-5.38) K/mm3 Lymph # (Auto) 1.23 L (1.32-3.57) K/mm3 [place] # (Auto) 0.48 (0.30-0.82) K/mm3 Eos # (Auto) 0.04 (0.04-0.54) K/mm3 Baso # (Auto) 0.05 (0.01-0.08) K/mm3 Sodium 142 (136-145) mEq/L Potassium 3.1 L (3.5-5.1) mEq/L Chloride 100 (98-107) mEq/L Carbon Dioxide 24 (21-32) mEq/L Anion Gap 21.1 H (5-15) BUN 8 (7-18) mg/dL Creatinine 0.8 (0.7-1.3) mg/dL Est Cr Clr Drug Dosing 102.65 mL/min Estimated GFR (MDRD) > 60 (>60) mL/min BUN/Creatinine Ratio 10.0 L (14-18) Glucose 92 (80-115) mg/dL Calcium 8.9 (8.5-10.1) mg/dL Total Bilirubin 0.6 (0.2-1.0) mg/dL AST 52 H (15-37) U/L ALT 42 (16-63) U/L Alkaline Phosphatase 128 H (46-116) U/L Total Protein 6.8 (6.4-8.2) g/dl Albumin 3.6 (3.4-5.0) g/dl Globulin 3.2 gm/dL Albumin/Globulin Ratio 1.1 (1-2) Urine Opiates Screen Negative (HNTCMP=432) Ur Buprenorphine Scrn Negative (CUTOFF=10) Ur Oxycodone Screen Negative (CKE6OI=630) Urine Methadone Screen Negative (TEU5DR=969) Ur Propoxyphene Screen Negative (SCPXXN=552) Ur Barbiturates Screen Negative (QNEVGC=150) Ur Tricyclics Screen Negative (CGWBBK=021) Ur Phencyclidine Scrn Negative (CUTOFF=25) Ur Amphetamine Screen Negative (OEGYJU=806) U Methamphetamines Scrn Negative (TAUQGX=272) U Benzodiazepines Scrn Negative (IFPAWL=861) U Cocaine Metab Screen Negative (ZLWMMV=082) U Marijuana (THC) Screen Negative (CUTOFF=50) Ethyl Alcohol 0.26 (0.00) gm% 05/04/20 Range/Units 19:10 WBC (4.23-9.07) K/mm3 RBC (4.63-6.08) M/mm3 Hgb (13.7-17.5) gm/dl Hct (40.1-51.0) % MCV (79.0-92.2) fl MCH (25.7-32.2) pg MCHC (32.2-35.5) g/dl RDW Std Deviation (35.1-43.9) fL Plt Count (163-337) K/mm3 MPV (9.4-12.3) fl Neut % (Auto) (34.0-67.9) % Lymph % (Auto) (21.8-53.1) % [place] % (Auto) (5.3-12.2) % Eos % (Auto) (0.8-7.0) Baso % (Auto) (0.1-1.2) % Neut # (Auto) (1.78-5.38) K/mm3 Lymph # (Auto) (1.32-3.57) K/mm3 [place] # (Auto) (0.30-0.82) K/mm3 Eos # (Auto) (0.04-0.54) K/mm3 Baso # (Auto) (0.01-0.08) K/mm3 Sodium (136-145) mEq/L Potassium (3.5-5.1) mEq/L Chloride (98-107) mEq/L Carbon Dioxide (21-32) mEq/L Anion Gap (5-15) BUN (7-18) mg/dL Creatinine (0.7-1.3) mg/dL Est Cr Clr Drug Dosing mL/min Estimated GFR (MDRD) (>60) mL/min BUN/Creatinine Ratio (14-18) Glucose (80-115) mg/dL Calcium (8.5-10.1) mg/dL Total Bilirubin (0.2-1.0) mg/dL AST (15-37) U/L ALT (16-63) U/L Alkaline Phosphatase (46-116) U/L Total Protein (6.4-8.2) g/dl Albumin (3.4-5.0) g/dl Globulin gm/dL Albumin/Globulin Ratio (1-2) Urine Opiates Screen (KXSPNR=952) Ur Buprenorphine Scrn (CUTOFF=10) Ur Oxycodone Screen (ELR4CI=934) Urine Methadone Screen (YXT8HN=262) Ur Propoxyphene Screen (GPKIBU=665) Ur Barbiturates Screen (ORNBYD=411) Ur Tricyclics Screen (ECGEFQ=464) Ur Phencyclidine Scrn (CUTOFF=25) Ur Amphetamine Screen (UROHHP=315) U Methamphetamines Scrn (BWXSMF=440) U Benzodiazepines Scrn (BSDXEJ=530) U Cocaine Metab Screen (GGINWX=999) U Marijuana (THC) Screen (CUTOFF=50) Ethyl Alcohol 0.19 (0.00) gm% Medications Discontinued Medications Generic Name Dose Route Start Last Admin Trade Name Freq PRN Reason Stop Dose Admin Sodium Chloride 1,000 mls @ 999 mls/hr 05/04/20 17:45 05/04/20 19:00 Normal Saline IV 05/05/20 18:46 999 mls/hr ASDIRECTED DIDI Administration Lorazepam 0.5 mg 05/04/20 19:04 05/04/20 19:16 Ativan IVPUSH 05/04/20 19:05 Not Given ONETIME ONE Potassium Chloride 40 meq 05/04/20 17:38 05/04/20 17:52 Klor-Con M20 PO 05/04/20 17:39 40 meq ONETIME ONE Administration Medical Clearance: I have read and agree with HPI as documented by KATIE Bruner student. I have ordered a CBC, CMP, EtOH, and urine drug screen. Patient has agreed to go willingly to the [facility]. He denies a suicidal plan. States he uses alcohol to treat his depression and this has been a long-term problem for him. We did speak with the social research assistant that presented with the patient, Radha. She does state that initially he was not cooperative with going to the [facility] and they were going to proceed with a commitment, however he did change his mind and is going to the [facility] willingly. She did state he may ultimately be committed anyway. 05/04/201744 Hematology was significant for potassium low at 3.1, anion gap elevated at 21.1, and EtOH of 0.26. I have ordered 2 L of NS bolus and 40 meq of oral potassium. 05/04/201944 Repeat blood alcohol came back at 0.19. Patient will be discharged to the [facility] with a prescription for scheduled Ativan and Zofran. Discharge instructions as documented. Departure - Departure Time of Disposition: 19:50 Condition: Good - Discharge Information *PRESCRIPTION DRUG MONITORING PROGRAM REVIEWED*: Yes *COPY OF PRESCRIPTION DRUG MONITORING REPORT IN PATIENT BRIAN: No
[2020-05-04] MEDS ORDERED: Potassium Chloride 20 MEQ Tab.ER PO ONE (17:38)
[2020-05-04] MEDS: Sodium Chloride 0.9% 1,000 ML IV SCH ×2 (17:52→19:00)
[2020-05-04] MEDS ORDERED: LORazepam 2 MG/ML SDV IVPUSH ONE (19:04)
== END 2020-05-04 20:08 | disposition home or self-care (01) ==
LOC: JD.ED 15:44
DX: F10.29 Alcohol dependence with unspecified alcohol-induced disorder (principal); F32.9 Major depressive disorder, single episode, unspecified; R42 Dizziness and giddiness; I10 Essential (primary) hypertension; J44.9 Chronic obstructive pulmonary disease, unspecified; F17.210 Nicotine dependence, cigarettes, uncomplicated; Y90.6 Blood alcohol level of 120-199 mg/100 ml; Z79.899 Other long term (current) drug therapy
CPT/HCPCS: 36415; 80053; 80306; 80307; 85025; 96361; 96374; 99284; A9270; J7030; J2060

== ENCOUNTER 2020-05-26 09:12 | Inpatient (IN) | payer MEDICAID ==
[2020-05-26] MEDS ORDERED: Sodium Chloride 0.9% 10 ML Syringe FLUSH PRN (09:47)
[2020-05-26] MEDS ORDERED: Ondansetron 4 MG/2 ML SDV IVPUSH ONE (09:48)
[2020-05-26] MEDS ORDERED: Sodium Chloride 0.9% 1,000 ML IV SCH (10:00)
--- NOTE | 2020-05-26 10:24 | CR ---
Chest: Portable view of the chest was obtained. Comparison: Prior chest x-ray of 12/13/19. Heart size and mediastinum are within normal limits. Lungs are clear with no acute parenchymal change. Bony structures are grossly intact. Impression: 1. Nothing acute is seen on portable chest x-ray. Diagnostic code #1 This report was dictated in MDT
[2020-05-26] MEDS ORDERED: Magnesium Sulfate/Water 2 GM in Premix Bag 1 BAG IV ONE (11:35)
[2020-05-26] MEDS ORDERED: Lactated Ringers 1,000 ML IV ONE (11:36)
[2020-05-26] MEDS ORDERED: Thiamine 100 MG in Sodium Chloride 0.9% 100 ML IV ONE (11:37)
--- NOTE | 2020-05-26 11:43 | EDM.PDOC ---
ED HPI GENERAL MEDICAL PROBLEM - General Chief Complaint: Drug or Alcohol Abuse Stated Complaint: ALCOHOL ISSUES Time Seen by Provider: 05/26/20 09:34 Source of Information: Reports: Patient, RN Notes Reviewed, Other ([facility] counselor) - History of Present Illness INITIAL COMMENTS - FREE TEXT/NARRATIVE: 60 yr old male has been brought here by his counselor from [facility], Sam Guajardo with hope of getting eventually transferred to the [facility] for further eval and treatment of Chronic alcoholism, severe alcohol dependency. He was admitted to the [facility] about 2 1/2 wks ago, signed himself out 1 day later. Has had numerous visits to this ED and hospital with similar sx. He is current drinking up to 2 liters of whisky daily, not eating, is reported to have vomited, coughed or spit up some blood. Pt is very vague about that. No current chest or abd pain. Last whisky a couple of hrs ago. Hx of DT's. States alcohol is "killing me" so does express some desire to quit drinking although appears to be quite intoxicated at this time. - Related Data Allergies Allergy/AdvReac Type Severity Reaction Status Date / Time No Known Allergies Allergy Verified 05/26/20 16:39 Home Meds: Home Meds Biotin/FA/Vit C/Vit B Complex [Nephrocaps] 1 tab PO DAILY 30 Days #60 tablet 05/28/20 [Rx] Folic Acid 1 mg PO DAILY 30 Days #30 tablet 05/28/20 [Rx] Magnesium Oxide 400 mg PO BID 30 Days #60 tablet 05/28/20 [Rx] Thiamine [Vitamin B-1] 200 mg PO DAILY 30 Days #60 tablet 05/28/20 [Rx] Past Medical History HEENT History: Reports: Impaired Vision Cardiovascular History: Reports: Hypertension Respiratory History: Reports: COPD Gastrointestinal History: Reports: PUD Genitourinary History: Reports: None Musculoskeletal History: Reports: Back Pain, Chronic Neurological History: Reports: Migraines, Seizure Other Neuro History: 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 Psychiatric History: Reports: Addiction, Depression Endocrine/Metabolic History: Reports: Vitamin D Deficiency Hematologic History: Reports: None Immunologic History: Reports: None Oncologic (Cancer) History: Reports: None Dermatologic History: Reports: None - Infectious Disease History Infectious Disease History: Reports: Chicken Pox, Measles - Past Surgical History HEENT Surgical History: Reports: Oral Surgery, Tonsillectomy Musculoskeletal Surgical History: Reports: Other (See Below) Other Musculoskeletal Surgeries/Procedures:: had cyst removed from neck, "right below my skull." Social & Family History - Family History Family Medical History: Noncontributory Cardiac: Reports: Bypass Other Cardiac Family History: Dad Neurological: Reports: CVA Other Neurological Family History: Dad - Tobacco Use Smoking Status *Q: Current Every Day Smoker Years of Tobacco use: 50 Packs/Tins Daily: 2 - Caffeine Use Caffeine Use: Reports: None Other Caffeine Use: 2 pots daily - Alcohol Use Days Per Week of Alcohol Use: 7 Number of Drinks Per Day: 10 Total Drinks Per Week: 70 Date of Last Drink: 05/26/20 Time of Last Drink: 07:30 - Recreational Drug Use Recreational Drug Use: No - Living Situation & Occupation Living situation: Reports: , Alone 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 No: Rhonchi, Wheezing Cardiovascular: Tachycardia GI/Abdominal Exam: Soft, Non-Tender. No: Guarding Back Exam: No: CVA Tenderness (L), CVA Tenderness (R) Extremities: Normal Inspection, Normal Range of Motion. No: Pedal Edema, Leg Pain, Redness Neurological: Alert, No Motor/Sensory Deficits Psychiatric: Other (moderately intoxicated, cooperative with exam, answering simple questions appropriately) Skin Exam: Warm, Dry, Normal Color Course - Vital Signs Last Recorded V/S: Last Vital Signs Temp 97.2 F 05/28/20 07:37 Pulse 73 05/28/20 07:37 Resp 18 05/28/20 07:37 BP 147/104 H 05/28/20 07:37 Pulse Ox 97 05/28/20 07:37 - Orders/Labs/Meds Labs: Laboratory Tests 05/26/20 05/26/20 05/26/20 Range/Units 10:05 10:05 14:44 WBC 4.54 (4.23-9.07) K/mm3 RBC 4.81 (4.63-6.08) M/mm3 Hgb 15.3 (13.7-17.5) gm/dl Hct 44.2 (40.1-51.0) % MCV 91.9 (79.0-92.2) fl MCH 31.8 (25.7-32.2) pg MCHC 34.6 (32.2-35.5) g/dl RDW Std Deviation 50.3 H (35.1-43.9) fL Plt Count 212 (163-337) K/mm3 MPV 10.2 (9.4-12.3) fl Neut % (Auto) 60.2 (34.0-67.9) % Lymph % (Auto) 26.4 (21.8-53.1) % Evangeline % (Auto) 9.3 (5.3-12.2) % Eos % (Auto) 1.5 (0.8-7.0) Baso % (Auto) 2.4 H (0.1-1.2) % Neut # (Auto) 2.73 (1.78-5.38) K/mm3 Lymph # (Auto) 1.20 L (1.32-3.57) K/mm3 Evangeline # (Auto) 0.42 (0.30-0.82) K/mm3 Eos # (Auto) 0.07 (0.04-0.54) K/mm3 Baso # (Auto) 0.11 H (0.01-0.08) K/mm3 Sodium 135 L (136-145) mEq/L Potassium 3.2 L (3.5-5.1) mEq/L Chloride 94 L (98-107) mEq/L Carbon Dioxide 24 (21-32) mEq/L Anion Gap 20.2 H (5-15) BUN 7 (7-18) mg/dL Creatinine 0.8 (0.7-1.3) mg/dL Est Cr Clr Drug Dosing 106.43 mL/min Estimated GFR (MDRD) > 60 (>60) mL/min BUN/Creatinine Ratio 8.8 L (14-18) Glucose 105 (80-115) mg/dL Calcium 9.0 (8.5-10.1) mg/dL Magnesium 1.4 L (1.8-2.4) mg/dl Total Bilirubin 0.4 (0.2-1.0) mg/dL AST 72 H (15-37) U/L ALT 44 (16-63) U/L Alkaline Phosphatase 157 H (46-116) U/L Total Protein 7.5 (6.4-8.2) g/dl Albumin 4.1 (3.4-5.0) g/dl Globulin 3.4 gm/dL Albumin/Globulin Ratio 1.2 (1-2) Lipase 86 (73-393) U/L Urine Opiates Screen Negative (BSGBWH=455) Ur Buprenorphine Scrn Negative (CUTOFF=10) Ur Oxycodone Screen Negative (UAC4DH=560) Urine Methadone Screen Negative (WIW1HB=371) Ur Propoxyphene Screen Negative (UKRREO=522) Ur Barbiturates Screen Negative (VXWWLU=831) Ur Tricyclics Screen Negative (JEBQVS=675) Ur Phencyclidine Scrn Negative (CUTOFF=25) Ur Amphetamine Screen Negative (MPPEZH=047) U Methamphetamines Scrn Negative (XRVJML=181) U Benzodiazepines Scrn Negative (DXWUQY=011) U Cocaine Metab Screen Negative (XPCAOT=817) U Marijuana (THC) Screen Negative (CUTOFF=50) Ethyl Alcohol 0.24 (0.00) gm% Meds: Medications Discontinued Medications Generic Name Dose Route Start Last Admin Trade Name Freq PRN Reason Stop Dose Admin Acetaminophen 650 mg 05/26/20 16:06 Tylenol PO Q6H PRN Pain (Mild 1-3) or Fever Acetaminophen 650 mg 05/26/20 16:06 Tylenol RECTAL Q6H PRN Pain (Mild 1-3) or Fever Hydrocodone Bitart/Acetaminophen 1 tab 05/26/20 16:06 [place] 325-5 Mg PO Q6H PRN Pain (moderate 4-6) Albuterol/Ipratropium 3 ml 05/26/20 16:51 Duoneb 3.0-0.5 Mg/3 Ml NEB Q4HRRT PRN Wheezing Chlordiazepoxide HCl 50 mg 05/26/20 16:15 05/27/20 12:09 Librium PO 50 mg Q4H DIDI Administration Chlordiazepoxide HCl 25 mg 05/27/20 16:00 05/28/20 03:37 Librium PO 25 mg Q4H DIDI Administration Chlordiazepoxide HCl 25 mg 05/28/20 08:18 05/28/20 10:01 Librium PO 25 mg Q4H PRN Administration alcohol withdrawal Enoxaparin Sodium 40 mg 05/27/20 09:00 Lovenox SUBCUT DAILY DIDI Folic Acid 1 mg 05/26/20 16:00 05/28/20 08:30 Folic Acid PO 1 mg DAILY DIDI Administration Sodium Chloride 1,000 mls @ 999 mls/hr 05/26/20 10:00 05/26/20 10:11 Normal Saline IV 999 mls/hr ONETIME DIDI Administration Magnesium Sulfate 2 gm/ Premix 50 mls @ 25 mls/hr 05/26/20 11:35 05/26/20 12:33 IV 05/26/20 13:34 25 mls/hr ONETIME ONE Administration Lactated Ringer's 1,000 mls @ 999 mls/hr 05/26/20 11:36 05/26/20 11:53 Ringers, Lactated IV 05/26/20 12:36 999 mls/hr .BOLUS ONE Administration Thiamine HCl 100 mg/ Sodium 101 mls @ 202 mls/hr 05/26/20 11:37 05/26/20 11:53 Chloride IV 05/26/20 11:38 202 mls/hr ONETIME ONE Administration Potassium Chloride/Sodium Chloride 1,000 mls @ 75 mls/hr 05/26/20 16:15 Normal Saline With 20 Meq Kcl IV ASDIRECTED DIDI Potassium Chloride/Dextrose/Sod Cl 1,000 mls @ 75 mls/hr 05/26/20 16:45 05/27/20 20:08 D5 Ns With 20 Meq Kcl IV 75 mls/hr ASDIRECTED DIDI Administration Magnesium Sulfate 2 gm/ Premix 50 mls @ 25 mls/hr 05/27/20 08:30 05/27/20 10:53 IV 05/27/20 12:29 25 mls/hr Q2H DIDI Administration Lorazepam 1 mg 05/26/20 15:04 05/26/20 15:34 Ativan IVPUSH 05/26/20 15:05 1 mg ONETIME ONE Administration Lorazepam 0 mg 05/26/20 16:30 05/27/20 02:07 Ativan IV 1 mg ASDIRECTED DIDI Administration Protocol Magnesium Oxide 400 mg 05/27/20 09:00 05/28/20 08:29 Magnesium Oxide PO 400 mg BID DIDI Administration Miscellaneous Information 1 ea 05/27/20 16:30 05/27/20 15:49 Remove Patch TRDERM 1 ea DAILY@1630 DIDI Administration Nicotine 21 mg 05/26/20 16:30 Habitrol TRDERM DAILY DIDI Nicotine 21 mg 05/26/20 16:30 05/27/20 15:49 Habitrol TRDERM 21 mg DAILY@1630 DIDI Administration Ondansetron HCl 4 mg 05/26/20 09:48 05/26/20 10:11 Zofran IVPUSH 05/26/20 09:49 4 mg ONETIME ONE Administration Ondansetron HCl 4 mg 05/26/20 16:06 Zofran IVPUSH Q4H PRN Nausea and Vomiting Pantoprazole Sodium 40 mg 05/26/20 21:00 05/27/20 20:07 Protonix PO 40 mg BEDTIME DIDI Administration Potassium Chloride 40 meq 05/26/20 16:00 05/26/20 17:17 Klor-Con M20 PO 05/26/20 16:01 40 meq ONETIME ONE Administration Sodium Chloride 10 ml 05/26/20 09:47 05/26/20 10:11 Saline Flush FLUSH 10 ml ASDIRECTED PRN Administration Keep Vein Open Thiamine HCl 100 mg 05/26/20 21:00 05/28/20 08:30 Vitamin B-1 PO 100 mg TID DIDI Administration Vitamin B Complex/Vit C/Folic Acid 1 tab 05/26/20 16:00 05/28/20 08:29 Nephrocaps PO 1 tab DAILY DIDI Administration - Re-Assessments/Exams Free Text/Narrative Re-Assessment/Exam: 05/26/20 15:12 etoh 0.24. magnesium low at 1.4, have given 2 grams IV. and 2 liter LR. Sam Guajardo and the [facility] staff have told myself that they feel he would be a candidate for [facility] once he has medically detoxed and is stable for that. They have told Rosalva, one of our hospital social workers that he does not need to have commital papapers and that they will arrange the transportation when it is appropriate for him to go. Departure - Departure Time of Disposition: 15:11 Disposition: Admitted As Inpatient 65 Condition: Fair Clinical Impression: Alcohol abuse with intoxication - Discharge Information Sepsis Event Note (ED) - Evaluation Sepsis Screening Result: No Definite Risk ED Communication - Discussed Case With (1) Discussed Case With (1): Admitting Provider (Dr Stallworth, decision to admit at about 15:05.)
[2020-05-26] MEDS ORDERED: LORazepam 2 MG/ML SDV IVPUSH ONE (15:04)
[2020-05-26] MEDS ORDERED: Potassium Chloride 20 MEQ Tab.ER PO ONE (16:00)
[2020-05-26] MEDS ORDERED: Acetaminophen 325 MG Tab PO PRN (16:06)
[2020-05-26] MEDS ORDERED: Acetaminophen/HYDROcodone 325-5 MG Tab PO PRN (16:06)
[2020-05-26] MEDS ORDERED: Ondansetron 4 MG/2 ML SDV IVPUSH PRN (16:06)
[2020-05-26] MEDS ORDERED: Acetaminophen 650 MG Supp RECTAL PRN (16:06)
[2020-05-26] MEDS ORDERED: NS + KCl 20mEq/L 1,000 ML IV SCH (16:15)
--- NOTE | 2020-05-26 16:28 | PCM.HP.2 ---
H&P History of Present Illness - General Date of Service: 05/26/20 Admit Problem/Dx: Admission Diagnosis/Problem Admission Diagnosis/Problem Alcohol intoxication - History of Present Illness Initial Comments - Free Text/Narative: The patient is a 60 yo male, who is well known to the facility for recurrent visits to ER and hospital for alcohol intoxication and withdrawal. The patient presented to the ED today with his counselor, Sam, from [facility], stating he wants to stop drinking alcohol. He has been trying to decrease the amount of alcohol he has been drinking. He is now drinking 1/2 gallon of whiskey in a 3 day period where he used to drink 1/2 a gallon a day. He states he woke up and started drinking at about 9AM this morning then decided he needed to quit. He has started to feel his body hurting more than before. He has LUQ sharp pains that come and go when he has been drinking too much, currently no LUQ pain. He felt nauseous this morning but no longer has nausea. The patient has a history of hemorrhoids but denies having dark stools or blood in stools. He does not have cough, no shortness of breath. He denies dizziness. He does have fine tremors of hands. His son talks to him but his daughters don't and he wants to change his drinking habits. In the ED, patient found tachycardic, HR 103, and hypertensive w/ BP 156/113, pulse ox 92% on RA, afebrile. Patient is found with potassium 3.2 and magnesium 1.4. Lipase normal, AST 72, ALT 44, alk phos 157, EtOH 0.24, urine drug screen negative. In ED, he was given magnesium 2g IV, ativan 1mg x1, and 1L NS bolus. - Related Data Allergies/Adverse Reactions: Allergies Allergy/AdvReac Type Severity Reaction Status Date / Time No Known Allergies Allergy Verified 05/26/20 16:39 Home Medications: Home Meds LORazepam [Ativan] 1 mg PO DAILY #18 tablet 02/25/20 [Rx] Ondansetron [Zofran ODT] 4 mg PO Q6H PRN #20 tab.dis 02/25/20 [Rx] cloNIDine [Catapres] 0.1 mg PO Q12HR #30 tab 02/25/20 [Rx] LORazepam [Ativan] 1 mg PO ASDIRECTED #18 tab 05/04/20 [Rx] Ondansetron [Zofran ODT] 4 mg PO Q8H #9 tab.dis 05/04/20 [Rx] Past Medical History HEENT History: Reports: Impaired Vision Cardiovascular History: Reports: Hypertension Respiratory History: Reports: COPD Gastrointestinal History: Reports: PUD Genitourinary History: Reports: None Musculoskeletal History: Reports: Back Pain, Chronic Neurological History: Reports: Migraines, Seizure Other Neuro History: 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 Psychiatric History: Reports: Addiction, Depression Endocrine/Metabolic History: Reports: Vitamin D Deficiency Hematologic History: Reports: None Immunologic History: Reports: None Oncologic (Cancer) History: Reports: None Dermatologic History: Reports: None - Infectious Disease History Infectious Disease History: Reports: Chicken Pox, Measles - Past Surgical History HEENT Surgical History: Reports: Oral Surgery, Tonsillectomy Musculoskeletal Surgical History: Reports: Other (See Below) Other Musculoskeletal Surgeries/Procedures:: had cyst removed from neck, "right below my skull." Social & Family History - Family History Family Medical History: Noncontributory Cardiac: Reports: Bypass Other Cardiac Family History: Dad Neurological: Reports: CVA Other Neurological Family History: Dad - Tobacco Use Smoking Status *Q: Current Every Day Smoker Years of Tobacco use: 50 Packs/Tins Daily: 2 - Caffeine Use Caffeine Use: Reports: None Other Caffeine Use: 2 pots daily - Alcohol Use Days Per Week of Alcohol Use: 7 Number of Drinks Per Day: 10 Total Drinks Per Week: 70 Date of Last Drink: 05/26/20 Time of Last Drink: 07:30 - Recreational Drug Use Recreational Drug Use: No - Living Situation & Occupation Living situation: Reports: , Alone 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 Denies: Fever, Chills HEENT: Reports: No Symptoms Pulmonary: Reports: No Symptoms Cardiovascular: Denies: Chest Pain, Palpitations, Orthopnea, Edema Gastrointestinal: Reports: Abdominal Pain (LUQ comes and goes), Nausea. Denies: Black Stool, Bloody Stool, Vomiting Skin: Reports: Dryness, Bruising Psychiatric: Reports: Depression, Anxiety Exam - Exam Exam: See Below - Vital Signs Vital Signs: Last Vital Signs Temp 98.4 F 05/26/20 09:23 Pulse 103 H 05/26/20 09:23 Resp 16 05/26/20 09:23 BP 156/113 H 05/26/20 09:23 Pulse Ox 92 L 05/26/20 09:23 Weight: 180 lb - Exam General: Alert, Oriented, Cooperative, Other (anxious appearing) HEENT: EOMI, Scleral Icterus (with injection bilaterally) Neck: Supple, Trachea Midline Lungs: Clear to Auscultation, Normal Respiratory Effort Cardiovascular: Regular Rhythm, Tachycardia (sinus tachycardia HR 106) GI/Abdominal Exam: Normal Bowel Sounds, Soft, Non-Tender, No Distention Extremities: No Pedal Edema, Normal Capillary Refill, Other (patient has fine as terixis of hands bilaterally) Peripheral Pulses: 2+: Posterior Tibial (L), Posterior Tibial (R) Skin: Warm, Dry, Intact, Other (Skin is thin and very dry) Neuro Extensive - Mental Status: Alert, Oriented x3, Other (slurring words) - Patient Data Lab Results Last 24 hrs: Laboratory Results - last 24 hr 05/26/20 05/26/20 05/26/20 Range/Units 10:05 10:05 14:44 WBC 4.54 (4.23-9.07) K/mm3 RBC 4.81 (4.63-6.08) M/mm3 Hgb 15.3 (13.7-17.5) gm/dl Hct 44.2 (40.1-51.0) % MCV 91.9 (79.0-92.2) fl MCH 31.8 (25.7-32.2) pg MCHC 34.6 (32.2-35.5) g/dl RDW Std Deviation 50.3 H (35.1-43.9) fL Plt Count 212 (163-337) K/mm3 MPV 10.2 (9.4-12.3) fl Neut % (Auto) 60.2 (34.0-67.9) % Lymph % (Auto) 26.4 (21.8-53.1) % [place] % (Auto) 9.3 (5.3-12.2) % Eos % (Auto) 1.5 (0.8-7.0) Baso % (Auto) 2.4 H (0.1-1.2) % Neut # (Auto) 2.73 (1.78-5.38) K/mm3 Lymph # (Auto) 1.20 L (1.32-3.57) K/mm3 [place] # (Auto) 0.42 (0.30-0.82) K/mm3 Eos # (Auto) 0.07 (0.04-0.54) K/mm3 Baso # (Auto) 0.11 H (0.01-0.08) K/mm3 Sodium 135 L (136-145) mEq/L Potassium 3.2 L (3.5-5.1) mEq/L Chloride 94 L (98-107) mEq/L Carbon Dioxide 24 (21-32) mEq/L Anion Gap 20.2 H (5-15) BUN 7 (7-18) mg/dL Creatinine 0.8 (0.7-1.3) mg/dL Est Cr Clr Drug Dosing 106.43 mL/min Estimated GFR (MDRD) > 60 (>60) mL/min BUN/Creatinine Ratio 8.8 L (14-18) Glucose 105 (80-115) mg/dL Calcium 9.0 (8.5-10.1) mg/dL Magnesium 1.4 L (1.8-2.4) mg/dl Total Bilirubin 0.4 (0.2-1.0) mg/dL AST 72 H (15-37) U/L ALT 44 (16-63) U/L Alkaline Phosphatase 157 H (46-116) U/L Total Protein 7.5 (6.4-8.2) g/dl Albumin 4.1 (3.4-5.0) g/dl Globulin 3.4 gm/dL Albumin/Globulin Ratio 1.2 (1-2) Lipase 86 (73-393) U/L Urine Opiates Screen Negative (KNQEXL=091) Ur Buprenorphine Scrn Negative (CUTOFF=10) Ur Oxycodone Screen Negative (CES1PX=233) Urine Methadone Screen Negative (ULG7UD=962) Ur Propoxyphene Screen Negative (EWRQMW=357) Ur Barbiturates Screen Negative (YMWNTU=148) Ur Tricyclics Screen Negative (MGYKJU=781) Ur Phencyclidine Scrn Negative (CUTOFF=25) Ur Amphetamine Screen Negative (VFYOLY=065) U Methamphetamines Scrn Negative (CTKYQM=522) U Benzodiazepines Scrn Negative (MTDOKE=411) U Cocaine Metab Screen Negative (GDVQFH=864) U Marijuana (THC) Screen Negative (CUTOFF=50) Ethyl Alcohol 0.24 (0.00) gm% Result Diagrams: 05/26/20 10:05 05/26/20 10:05 Sepsis Event Note - Evaluation Sepsis Screening Result: No Definite Risk - Focused Exam Vital Signs: Vital Signs Temp Pulse Resp BP Pulse Ox 05/26/20 09:23 98.4 F 103 H 16 156/113 H 92 L - Problem List (1) Alcohol abuse with intoxication SNOMED Code(s): 71264034 ICD Code: F10.129 - ALCOHOL ABUSE WITH INTOXICATION, UNSPECIFIED Status: Acute Priority: High Current Visit: Yes (2) Hypertension SNOMED Code(s): 56181116 ICD Code: I10 - ESSENTIAL (PRIMARY) HYPERTENSION Status: Chronic Current Visit: Yes Qualifiers: Hypertension type: essential hypertension Qualified Code(s): I10 - Essential (primary) hypertension (3) Hypokalemia SNOMED Code(s): 59329529 ICD Code: E87.6 - HYPOKALEMIA Status: Acute Current Visit: Yes (4) Hypomagnesemia SNOMED Code(s): 823054611 ICD Code: E83.42 - HYPOMAGNESEMIA Status: Acute Current Visit: Yes (5) Hyponatremia SNOMED Code(s): 74512442 ICD Code: E87.1 - HYPO-OSMOLALITY AND HYPONATREMIA Status: Acute Current Visit: No (6) COPD (chronic obstructive pulmonary disease) SNOMED Code(s): 88391667 ICD Code: J44.9 - CHRONIC OBSTRUCTIVE PULMONARY DISEASE, UNSPECIFIED Status: Chronic Current Visit: No Qualifiers: COPD type: emphysema Emphysema type: unspecified Qualified Code(s): J43.9 - Emphysema, unspecified Problem List Initiated/Reviewed/Updated: Yes Orders Last 24hrs: Active Orders 24 hr Category Date Time Status Admission Status [Patient Status] [ADT] Routine ADT 05/26/20 15:37 Active Antiembolic Devices [RC] PER UNIT ROUTINE Care 05/26/20 16:07 Ordered CIWAA Assessment [RC] Q1H Care 05/26/20 16:14 Ordered Communication Order [RC] ASDIRECTED Care 05/26/20 16:06 Ordered Communication Order [RC] PRN Care 05/26/20 16:06 Ordered EKG 12 Lead [EKG Documentation Completion] [RC] STAT Care 05/26/20 09:46 Active Head of Bed Elevation [RC] ASDIRECTED Care 05/26/20 16:06 Ordered Height and Weight [RC] DAILY Care 05/26/20 16:06 Ordered Intake and Output Strict [RC] Q4HR Care 05/26/20 16:06 Ordered Notify Provider [RC] PRN Care 05/26/20 16:19 Ordered Oxygen Therapy [RC] ASDIRECTED Care 05/26/20 16:06 Ordered Peripheral IV Care [RC] . DIRECTED Care 05/26/20 09:47 Active Telemetry Monitoring [Cardiac Monitoring] [RC] . Care 05/26/20 16:00 Ordered DIRECTED Vital Signs [RC] Q4HR Care 05/26/20 16:06 Ordered Consult to Case Management/Process Improvement Analyst [CONS] Cons 05/26/20 16:06 Ordered Routine COMPREHENSIVE METABOLIC PN,CMP [CHEM] AM Lab 05/27/20 05:11 Ordered LIPASE [CHEM] AM Lab 05/27/20 05:11 Ordered LIPID PANEL [CHEM] AM Lab 05/27/20 05:11 Ordered MAGNESIUM [CHEM] AM Lab 05/27/20 05:11 Ordered Acetaminophen [Tylenol] Med 05/26/20 16:06 Ordered 650 mg PO Q6H PRN Acetaminophen [Tylenol] Med 05/26/20 16:06 Ordered 650 mg RECTAL Q6H PRN Acetaminophen/HYDROcodone [[place] 325-5 MG] Med 05/26/20 16:06 Ordered 1 tab PO Q6H PRN Biotin/FA/Vit C/Vit B Complex [Nephrocaps] Med 05/26/20 16:00 Ordered 1 tab PO DAILY Enoxaparin [Lovenox] Med 05/27/20 09:00 Ordered 40 mg SUBCUT DAILY Folic Acid Med 05/26/20 16:00 Ordered 1 mg PO DAILY LORazepam [Ativan] Med 05/26/20 16:30 Ordered See Protocol IV ASDIRECTED Nicotine [Habitrol] Med 05/26/20 16:30 Ordered 21 mg TRDERM DAILY Ondansetron [Zofran] Med 05/26/20 16:06 Ordered 4 mg IVPUSH Q4H PRN Pantoprazole [ProTONIX] Med 05/26/20 21:00 Ordered 40 mg PO BEDTIME Sodium Chloride 0.9% [Normal Saline] 1,000 ml Med 05/26/20 10:00 Active IV ONETIME Sodium Chloride 0.9% [Saline Flush] Med 05/26/20 09:47 Active 10 ml FLUSH ASDIRECTED PRN Sodium Chloride 0.9% with KCl 20 mEq @ 75 mL/Hr (1000 Med 05/26/20 16:15 Ordered mL) NS + KCl 20mEq/L [Normal Saline with 20 mEq KCl] 1,000 ml IV ASDIRECTED Thiamine [Vitamin B-1] Med 05/26/20 21:00 Ordered 100 mg PO TID chlordiazePOXIDE [Librium] Med 05/26/20 16:15 Ordered 50 mg PO Q4H Antiembolic Hose [OM.PC] Routine Oth 05/26/20 16:06 Ordered Peripheral IV Insertion Adult [OM.PC] Stat Oth 05/26/20 09:47 Ordered Seizure Precautions [OM.PC] Routine Oth 05/26/20 16:06 Ordered Resuscitation Status Routine Resus Stat 05/26/20 16:06 Ordered Medication Orders Acetaminophen (Tylenol) 650 mg PO Q6H PRN PRN Reason: Pain (Mild 1-3) or Fever Acetaminophen (Tylenol) 650 mg RECTAL Q6H PRN PRN Reason: Pain (Mild 1-3) or Fever Hydrocodone Bitart/Acetaminophen ([place] 325-5 Mg) 1 tab PO Q6H PRN PRN Reason: Pain (moderate 4-6) Chlordiazepoxide HCl (Librium) 50 mg PO Q4H DIDI Enoxaparin Sodium (Lovenox) 40 mg SUBCUT DAILY DIDI Folic Acid (Folic Acid) 1 mg PO DAILY DIDI Sodium Chloride (Normal Saline) 1,000 mls @ 999 mls/hr IV ONETIME DIDI Last Admin: 05/26/20 10:11 Dose: 999 mls/hr Documented by: FESTUS Potassium Chloride/Sodium Chloride (Normal Saline With 20 Meq Kcl) 1,000 mls @ 75 mls/hr IV ASDIRECTED DIDI Lorazepam (Ativan) 0 mg IV ASDIRECTED DIDI; Protocol Nicotine (Habitrol) 21 mg TRDERM DAILY DIDI Ondansetron HCl (Zofran) 4 mg IVPUSH Q4H PRN PRN Reason: Nausea and Vomiting Pantoprazole Sodium (Protonix) 40 mg PO BEDTIME [facility] Sodium Chloride (Saline Flush) 10 ml FLUSH ASDIRECTED PRN PRN Reason: Keep Vein Open Last Admin: 05/26/20 10:11 Dose: 10 ml Documented by: FESTUS Thiamine HCl (Vitamin B-1) 100 mg PO TID [facility] Vitamin B Complex/Vit C/Folic Acid (Nephrocaps) 1 tab PO DAILY [facility] Assessment/Plan Comment:: Alcohol Withdrawal/ impending Delirium Tremens: Patient will be admitted to ICU under close clinical, cardiac, respiratory monitoring as patient has history of delirium tremens, seizures from alcohol withdrawal. -Will start on IVF with D5 NS w/ KCL 20meq @ 75mls/hour. PO Thiamine 200 mg, Folic acid 1 mg, MultiVitamins 1 tablet daily. We will continue magnesium supplementation as needed. -We will start Librium 50mg PO Q4H (to be held for sedation), and Ativan as needed per [facility] protocol. -Seizure precautions in place. -We will check the patients lipase, ammonia level, LFTs, Magnesium, Phosphorus, TSH, fasting lipid panel, and HBa1c in AM. -Urine drug screen was negative. -on site services specialist consulted for help with placement, possibly at [place]. Hypomagnesemia: -Mg 1.4. -Pt was given mag sulfate 2g IV x1. Will recheck in AM. Hypokalemia: -Potassium is 3.2. -Gave KCl 40meq po x1. Will recheck in AM. Hypoglycemia: -Blood sugar is 60. -Pt started on D5 NS w/ KCl 20meq running at 75ml/hr. Hyponatremia. -Sodium 134. -Pt started on D5 NS w/ KCl 20meq running at 75ml/hr. Hypertension: -Patient has not been on home medications for hypertension. -We will keep close cardiac monitoring and close monitoring of blood pressure. Hx of anxiety/depression: -Patient will hopefully be discharged to inpatient treatment for alcohol abuse and anxiety/depression further evaluated and treated there. For now, librium and ativan as stated above. COPD: No acute exacerbation for now. Patient will receive duoneb nebulizer treatments q4h as needed for wheezing. GI prophylaxis: Pantoprazole 40mg oral daily. DVT prophylaxis: lovenox 40mg subcu daily. Nicotine dependence: The patient smokes 2 packs of cigarettes per day. Will give nicotine patch 21mg q24h while in house. Will discuss smoking cessation with patient. Disposition: will work with case liner, neonatal social worker for placement at [facility]. - Mortality Measure Prognosis:: Good
[2020-05-26] MEDS ORDERED: Nicotine 21 MG/24 Hr Patch TRDERM SCH (16:30)
[2020-05-26] MEDS ORDERED: Albuterol/Ipratropium 3.0-0.5 MG/3 ML Neb Soln NEB PRN (16:51)
[2020-05-26] MEDS: Dextrose 5%-0.9% NaCl with KCl 1,000 ML IV SCH (17:17)
[2020-05-26] MEDS: Folic Acid 1 MG Tab PO SCH (17:17)
[2020-05-26] MEDS: Biotin/Folic Acid/Vitamin C/Vitamin B Complex Tab PO SCH (17:17)
[2020-05-26] MEDS: chlordiazePOXIDE 25 MG Cap PO SCH ×2 (17:17→20:11)
[2020-05-26] MEDS: Nicotine 21 MG/24 Hr Patch TRDERM SCH (17:18)
[2020-05-26] MEDS: Thiamine 100 MG Tab PO SCH (20:11)
[2020-05-26] MEDS: Pantoprazole 40 MG Tab.CR PO SCH (20:11)
[2020-05-26] MEDS: LORazepam 2 MG/ML SDV IV SCH (20:12)
[2020-05-27] MEDS: chlordiazePOXIDE 25 MG Cap PO SCH ×7 (00:16→23:38)
[2020-05-27] MEDS: LORazepam 2 MG/ML SDV IV SCH (02:07)
[2020-05-27] MEDS: Dextrose 5%-0.9% NaCl with KCl 1,000 ML IV SCH ×2 (06:12→20:08)
[2020-05-27 07:28] LABS: HEMOGLOBIN A1C 5.6 % (4.50-6.20)
[2020-05-27] MEDS: Magnesium Oxide 400 MG Tab PO SCH ×2 (08:33→20:07)
[2020-05-27] MEDS: Thiamine 100 MG Tab PO SCH ×3 (08:34→20:07)
[2020-05-27] MEDS: Biotin/Folic Acid/Vitamin C/Vitamin B Complex Tab PO SCH (08:34)
[2020-05-27] MEDS: Magnesium Sulfate/Water 2 GM in Premix Bag 1 BAG IV SCH ×2 (08:37→10:53)
[2020-05-27] MEDS: Folic Acid 1 MG Tab PO SCH (08:37)
[2020-05-27] MEDS ORDERED: Enoxaparin 40 MG/0.4 ML Syringe SUBCUT SCH (09:00)
--- NOTE | 2020-05-27 15:05 | PCM.PN ---
- General Info Date of Service: 05/27/20 Subjective Update: The patient was seen by me at bedside, case discussed with Dr. Duarte. The patient is without extremity tremors today. He is without nausea. No confusion. He is still on board to stop drinking. He received ativan 1mg at about 2am due to anxiety, otherwise, patient has not needed extra doses of ativan. He had a BM this morning, denies blood in stools or dark stools. Patient remains with some sinus tachycardia, HR 102. BP 135/84, pulse ox 96% on RA. Sodium 136, potassium up to 3.6 from 3.2, magnesium 1.7 was 1.3 yesterday and has been replaced. AST 48, ALT 33, Alk phos 118, ammonia 47. - Review of Systems Systems Review Comment:: General: Reports: Weakness. Good appetite today. Denies: Fever, Chills HEENT: Reports: No Symptoms Pulmonary: Reports: No Symptoms Cardiovascular: Denies: Chest Pain, Palpitations, Orthopnea, Edema Gastrointestinal: Reports: Abdominal Pain (LUQ comes and goes), no nausea today. Denies: Black Stool, Bloody Stool, Vomiting Skin: Reports: Dryness, Bruising Psychiatric: Reports: Depression, Anxiety - Patient Data Vitals - Most Recent: Last Vital Signs Temp 97.9 F 05/27/20 12:00 Pulse 103 H 05/26/20 09:23 Resp 18 05/27/20 12:00 BP 135/84 05/27/20 12:00 Pulse Ox 96 05/27/20 12:00 Weight - Most Recent: 182 lb I&O - Last 24 Hours: Intake & Output 05/26/20 05/27/20 05/27/20 22:59 06:59 14:59 Intake Total 120 738 Balance 120 738 Lab Results Last 24 Hours: Laboratory Results - last 24 hr 05/26/20 05/26/20 05/27/20 Range/Units 14:44 18:10 06:05 Sodium 136 (136-145) mEq/L Potassium 3.6 (3.5-5.1) mEq/L Chloride 101 (98-107) mEq/L Carbon Dioxide 28 (21-32) mEq/L Anion Gap 10.6 (5-15) BUN 9 (7-18) mg/dL Creatinine 0.7 (0.7-1.3) mg/dL Est Cr Clr Drug Dosing 121.63 mL/min Estimated GFR (MDRD) > 60 (>60) mL/min BUN/Creatinine Ratio 12.9 L (14-18) Glucose 106 (80-115) mg/dL Hemoglobin A1c (4.50-6.20) % Calcium 8.4 L (8.5-10.1) mg/dL Magnesium 1.7 L (1.8-2.4) mg/dl Total Bilirubin 0.6 (0.2-1.0) mg/dL AST 48 H (15-37) U/L ALT 33 (16-63) U/L Alkaline Phosphatase 118 H (46-116) U/L Ammonia (11-32) umol/L Total Protein 5.9 L (6.4-8.2) g/dl Albumin 3.0 L (3.4-5.0) g/dl Globulin 2.9 gm/dL Albumin/Globulin Ratio 1.0 (1-2) Triglycerides 38 (<150) mg/dL Cholesterol 168 (<200) mg/dL LDL Cholesterol Direct 36 (<100) mg/dL HDL Cholesterol 104.0 H (40-59) mg/dL Lipase 113 (73-393) U/L Urine Opiates Screen Negative (FANXRF=552) Ur Buprenorphine Scrn Negative (CUTOFF=10) Ur Oxycodone Screen Negative (MDV0UW=394) Urine Methadone Screen Negative (RYX8ZO=728) Ur Propoxyphene Screen Negative (NRSZED=543) Ur Barbiturates Screen Negative (FLVHNQ=372) Ur Tricyclics Screen Negative (UJELWK=765) Ur Phencyclidine Scrn Negative (CUTOFF=25) Ur Amphetamine Screen Negative (TFJVAT=610) U Methamphetamines Scrn Negative (QGJAOJ=080) U Benzodiazepines Scrn Negative (BGSAOY=965) U Cocaine Metab Screen Negative (WCGRRI=742) U Marijuana (THC) Screen Negative (CUTOFF=50) COVID-19 (SHON) Negative (NEGATIVE) 05/27/20 05/27/20 Range/Units 06:05 06:05 Sodium (136-145) mEq/L Potassium (3.5-5.1) mEq/L Chloride (98-107) mEq/L Carbon Dioxide (21-32) mEq/L Anion Gap (5-15) BUN (7-18) mg/dL Creatinine (0.7-1.3) mg/dL Est Cr Clr Drug Dosing mL/min Estimated GFR (MDRD) (>60) mL/min BUN/Creatinine Ratio (14-18) Glucose (80-115) mg/dL Hemoglobin A1c 5.60 (4.50-6.20) % Calcium (8.5-10.1) mg/dL Magnesium (1.8-2.4) mg/dl Total Bilirubin (0.2-1.0) mg/dL AST (15-37) U/L ALT (16-63) U/L Alkaline Phosphatase (46-116) U/L Ammonia 47 H (11-32) umol/L Total Protein (6.4-8.2) g/dl Albumin (3.4-5.0) g/dl Globulin gm/dL Albumin/Globulin Ratio (1-2) Triglycerides (<150) mg/dL Cholesterol (<200) mg/dL LDL Cholesterol Direct (<100) mg/dL HDL Cholesterol (40-59) mg/dL Lipase (73-393) U/L Urine Opiates Screen (OLSCYO=865) Ur Buprenorphine Scrn (CUTOFF=10) Ur Oxycodone Screen (FDX8OQ=116) Urine Methadone Screen (DBT4OT=286) Ur Propoxyphene Screen (VIRJON=695) Ur Barbiturates Screen (DACFMQ=842) Ur Tricyclics Screen (DVHIMG=015) Ur Phencyclidine Scrn (CUTOFF=25) Ur Amphetamine Screen (NGCBFB=019) U Methamphetamines Scrn (RVCHJL=676) U Benzodiazepines Scrn (XWHEOE=096) U Cocaine Metab Screen (WYVUVD=514) U Marijuana (THC) Screen (CUTOFF=50) COVID-19 (SHON) (NEGATIVE) Med Orders - Current: Current Medications Acetaminophen (Tylenol) 650 mg PO Q6H PRN PRN Reason: Pain (Mild 1-3) or Fever Acetaminophen (Tylenol) 650 mg RECTAL Q6H PRN PRN Reason: Pain (Mild 1-3) or Fever Hydrocodone Bitart/Acetaminophen ([place] 325-5 Mg) 1 tab PO Q6H PRN PRN Reason: Pain (moderate 4-6) Albuterol/Ipratropium (Duoneb 3.0-0.5 Mg/3 Ml) 3 ml NEB Q4HRRT PRN PRN Reason: Wheezing Chlordiazepoxide HCl (Librium) 25 mg PO Q4H [facility] Folic Acid (Folic Acid) 1 mg PO DAILY [facility] Last Admin: 05/27/20 08:37 Dose: 1 mg Documented by: Potassium Chloride/Dextrose/Sod Cl (D5 Ns With 20 Meq Kcl) 1,000 mls @ 75 mls/hr IV ASDIRECTED [facility] Last Admin: 05/27/20 06:12 Dose: 75 mls/hr Documented by: Lorazepam (Ativan) 0 mg IV ASDIRECTED [facility]; Protocol Last Admin: 05/27/20 02:07 Dose: 1 mg Documented by: Magnesium Oxide (Magnesium Oxide) 400 mg PO BID [facility] Last Admin: 05/27/20 08:33 Dose: 400 mg Documented by: Miscellaneous Information (Remove Patch) 1 ea TRDERM DAILY@1630 [facility] Nicotine (Habitrol) 21 mg TRDERM DAILY@1630 [facility] Last Admin: 05/26/20 17:18 Dose: Not Given Documented by: Ondansetron HCl (Zofran) 4 mg IVPUSH Q4H PRN PRN Reason: Nausea and Vomiting Pantoprazole Sodium (Protonix) 40 mg PO BEDTIME [facility] Last Admin: 05/26/20 20:11 Dose: 40 mg Documented by: Sodium Chloride (Saline Flush) 10 ml FLUSH ASDIRECTED PRN PRN Reason: Keep Vein Open Last Admin: 05/26/20 10:11 Dose: 10 ml Documented by: Thiamine HCl (Vitamin B-1) 100 mg PO TID [facility] Last Admin: 05/27/20 08:34 Dose: 100 mg Documented by: Vitamin B Complex/Vit C/Folic Acid (Nephrocaps) 1 tab PO DAILY [facility] Last Admin: 05/27/20 08:34 Dose: 1 tab Documented by: Discontinued Medications Chlordiazepoxide HCl (Librium) 50 mg PO Q4H [facility] Last Admin: 05/27/20 12:09 Dose: 50 mg Documented by: Enoxaparin Sodium (Lovenox) 40 mg SUBCUT DAILY [facility] Sodium Chloride (Normal Saline) 1,000 mls @ 999 mls/hr IV ONETIME [facility] Last Admin: 05/26/20 10:11 Dose: 999 mls/hr Documented by: Magnesium Sulfate 2 gm/ Premix 50 mls @ 25 mls/hr IV ONETIME ONE Stop: 05/26/20 13:34 Last Admin: 05/26/20 12:33 Dose: 25 mls/hr Documented by: Lactated Ringer's (Ringers, Lactated) 1,000 mls @ 999 mls/hr IV .BOLUS ONE Stop: 05/26/20 12:36 Last Admin: 05/26/20 11:53 Dose: 999 mls/hr Documented by: Thiamine HCl 100 mg/ Sodium (Chloride) 101 mls @ 202 mls/hr IV ONETIME ONE Stop: 05/26/20 11:38 Last Admin: 05/26/20 11:53 Dose: 202 mls/hr Documented by: Potassium Chloride/Sodium Chloride (Normal Saline With 20 Meq Kcl) 1,000 mls @ 75 mls/hr IV ASDIRECTED [facility] Magnesium Sulfate 2 gm/ Premix 50 mls @ 25 mls/hr IV Q2H [facility] Stop: 05/27/20 12:29 Last Admin: 05/27/20 10:53 Dose: 25 mls/hr Documented by: Lorazepam (Ativan) 1 mg IVPUSH ONETIME ONE Stop: 05/26/20 15:05 Last Admin: 05/26/20 15:34 Dose: 1 mg Documented by: Nicotine (Habitrol) 21 mg TRDERM DAILY [facility] Ondansetron HCl (Zofran) 4 mg IVPUSH ONETIME ONE Stop: 05/26/20 09:49 Last Admin: 05/26/20 10:11 Dose: 4 mg Documented by: Potassium Chloride (Klor-Con M20) 40 meq PO ONETIME ONE Stop: 05/26/20 16:01 Last Admin: 05/26/20 17:17 Dose: 40 meq Documented by: - Exam Physical Findings Comments:: General: Alert, Oriented, Cooperative, no longer anxious appearing. Sitting up at bedside eating breakfast. HEENT: EOMI, PERRL Neck: Supple, Trachea Midline Lungs: Clear to Auscultation, Normal Respiratory Effort Cardiovascular: Regular Rhythm, Tachycardia (sinus tachycardia HR 102) GI/Abdominal Exam: Normal Bowel Sounds, Soft, Non-Tender, No Distention Extremities: No Pedal Edema, Normal Capillary Refill, Other (patient has fine asterixis of hands bilaterally) Skin: Warm, Dry, Intact, Other (Skin is thin and dry) Neuro Extensive - Mental Status: Alert, Oriented x3, no longer slurring words. Sepsis Event Note - Evaluation Sepsis Screening Result: No Definite Risk - Focused Exam Vital Signs: Vital Signs Temp Resp BP Pulse Ox 05/27/20 12:00 97.9 F 18 135/84 96 05/27/20 08:00 98.7 F 18 156/91 H 96 05/27/20 03:17 98.5 F 19 149/95 H 96 - Problem List & Annotations (1) Alcohol abuse with intoxication SNOMED Code(s): 38792819 Code(s): F10.129 - ALCOHOL ABUSE WITH INTOXICATION, UNSPECIFIED Status: Acu te Priority: High Current Visit: Yes (2) Hypertension SNOMED Code(s): 80759551 Code(s): I10 - ESSENTIAL (PRIMARY) HYPERTENSION Status: Chronic Current Visit: Yes Qualifiers: Hypertension type: essential hypertension Qualified Code(s): I10 - Essential (primary) hypertension (3) Hypokalemia SNOMED Code(s): 21662030 Code(s): E87.6 - HYPOKALEMIA Status: Acute Current Visit: Yes (4) Hypomagnesemia SNOMED Code(s): 307374531 Code(s): E83.42 - HYPOMAGNESEMIA Status: Acute Current Visit: Yes (5) Hyponatremia SNOMED Code(s): 48129021 Code(s): E87.1 - HYPO-OSMOLALITY AND HYPONATREMIA Status: Acute Current V isit: No (6) COPD (chronic obstructive pulmonary disease) SNOMED Code(s): 67719742 Code(s): J44.9 - CHRONIC OBSTRUCTIVE PULMONARY DISEASE, UNSPECIFIED Status: Chronic Current Visit: No Qualifiers: COPD type: emphysema Emphysema type: unspecified Qualified Code(s): J43.9 - Emphysema, unspecified - Problem List Review Problem List Initiated/Reviewed/Updated: Yes - My Orders Last 24 Hours: My Active Orders 05/26/20 16:00 Telemetry Monitoring [Cardiac Monitoring] [RC] . DIRECTED Biotin/FA/Vit C/Vit B Complex [Nephrocaps] 1 tab PO DAILY Folic Acid 1 mg PO DAILY 05/26/20 16:06 Communication Order [RC] ASDIRECTED Communication Order [RC] PRN Head of Bed Elevation [RC] ASDIRECTED Height and Weight [RC] 04 Intake and Output Strict [RC] 04,16 Oxygen Therapy [RC] ASDIRECTED Vital Signs [RC] Q4HR Consult to Case Management/[employer] Supervisor [CONS] Routine Acetaminophen [Tylenol] 650 mg PO Q6H PRN Acetaminophen [Tylenol] 650 mg RECTAL Q6H PRN Acetaminophen/HYDROcodone [[place] 325-5 MG] 1 tab PO Q6H PRN Ondansetron [Zofran] 4 mg IVPUSH Q4H PRN Antiembolic Hose [OM.PC] Routine Seizure Precautions [OM.PC] Routine Resuscitation Status Routine 05/26/20 16:07 Antiembolic Devices [RC] BID 05/26/20 16:14 CIWAA Assessment [RC] Q1HR 05/26/20 16:19 Notify Provider [RC] PRN 05/26/20 16:30 LORazepam [Ativan] See Protocol IV ASDIRECTED Nicotine [Habitrol] 21 mg TRDERM DAILY@1630 05/26/20 16:45 Dextrose 5%-0.9% NaCl with KCl [D5 NS with 20 mEq KCl] 1,000 ml IV ASDIRECTED 05/26/20 16:51 Albuterol/Ipratropium [DuoNeb 3.0-0.5 MG/3 ML] 3 ml NEB Q4HRRT PRN 05/26/20 16:52 RT Aerosol Therapy [RC] ASDIRECTED 05/26/20 17:30 SCD [Sequential Compression Device] [OM.PC] Routine 05/26/20 21:00 Pantoprazole [ProTONIX] 40 mg PO BEDTIME Thiamine [Vitamin B-1] 100 mg PO TID 05/27/20 09:00 Magnesium Oxide 400 mg PO BID 05/27/20 16:00 chlordiazePOXIDE [Librium] 25 mg PO Q4H 05/27/20 16:30 Remove Patch 1 ea TRDERM DAILY@1630 - Plan Plan:: Alcohol Withdrawal/ impending Delirium Tremens: Patient will be admitted to ICU under close clinical, cardiac, respiratory monitoring as patient has history of delirium tremens, seizures from alcohol withdrawal. -Continue PO Thiamine 200 mg, Folic acid 1 mg, MultiVitamins 1 tablet daily. -Decreasing Librium to 25mg PO Q4H (to be held for sedation), and Ativan as needed per [facility] protocol. Will continue to wean librium tonight. -Seizure precautions in place. -Ammonia 48, pt not confused or lethargic. Pt had BM today. Will recheck ammonia in AM. -Urine drug screen was negative. -[employer]ice [employer] services consulted for help with placement, possibly at [facility]. Hypomagnesemia: -Mg 1.7 up from 1.3 yesterday. -Pt was given mag sulfate 2g IV x1. Continue mag ox 400mg po BID. Will recheck in AM. Hypokalemia: -Resolved. -Potassium is 3.6 up from 3.2. -Will recheck in AM. Hypoglycemia: -Resolved. Blood sugar is 106 today. -Will monitor in AM. Hyponatremia. -Resolved. Sodium 136 today. Hypertension: -Patient has not been on home medications for hypertension. -We will keep close cardiac monitoring and close monitoring of blood pressure. Hx of anxiety/depression: -Patient will hopefully be discharged to inpatient treatment for alcohol abuse and anxiety/depression further evaluated and treated there. For now, librium and ativan as stated above. COPD: No acute exacerbation for now. Patient will receive duoneb nebulizer treatments q4h as needed for wheezing. GI prophylaxis: Pantoprazole 40mg oral daily. DVT prophylaxis: lovenox 40mg subcu daily. Nicotine dependence: The patient smokes 2 packs of cigarettes per day. Will give nicotine patch 21mg q24h while in house. Will discuss smoking cessation with patient. Pt continues to refuse nicotine patch and says it hasn't help him quit in past. Disposition: will work with nurse case management, director social, [facility] services for placement at [facility] for [facility] program.
[2020-05-27] MEDS: Nicotine 21 MG/24 Hr Patch TRDERM SCH (15:49)
[2020-05-27] MEDS: Pantoprazole 40 MG Tab.CR PO SCH (20:07)
[2020-05-28] MEDS: chlordiazePOXIDE 25 MG Cap PO SCH (03:37)
[2020-05-28] MEDS ORDERED: chlordiazePOXIDE 25 MG Cap PO PRN (08:18)
[2020-05-28] MEDS: Biotin/Folic Acid/Vitamin C/Vitamin B Complex Tab PO SCH (08:29)
[2020-05-28] MEDS: Magnesium Oxide 400 MG Tab PO SCH (08:29)
[2020-05-28] MEDS: Thiamine 100 MG Tab PO SCH (08:30)
[2020-05-28] MEDS: Folic Acid 1 MG Tab PO SCH (08:30)
--- NOTE | 2020-05-28 08:34 | PCM.DCSUM1 ---
Discharge Summary - Hospital Course HPI Initial Comments: The patient is a 60 yo male, who is well known to the facility for recurrent visits to ER and hospital for alcohol intoxication and withdrawal. The patient presented to the ED on 05/26/2020 with his counselor, Sam, from [facility], stating he wants to stop drinking alcohol. He has been trying to decrease the amount of alcohol he has been drinking. He is now drinking 1/2 gallon of whiskey in a 3 day period where he used to drink 1/2 a gallon a day. He has started to feel his body hurting more than before. He has LUQ sharp pains that come and go when he has been drinking too much, currently no LUQ pain. He felt nauseous this morning but no longer has nausea. The patient has a history of hemorrhoids but denies having dark stools or blood in stools. He does not have cough, no shortness of breath. He denies dizziness. He does have fine trem ors of hands. His son talks to him but his daughters don't and he wants to change his drinking habits. In the ED, patient found tachycardic, HR 103, and hypertensive w/ BP 156/113, pulse ox 92% on RA, afebrile. Patient is found with potassium 3.2 and magnesium 1.4. Lipase normal, AST 72, ALT 44, alk phos 157, EtOH 0.24, urine drug screen negative, COVID 19 negative. In ED, he was given magnesium 2g IV, ativan 1mg x1, and 1L NS bolus. - Discharge Data Discharge Date: 05/28/20 Discharge Disposition: DC/Tfer to Inpt Rehab Fac 62 Condition: Good - Referral to Home Health Primary Care Physician: PCP None - Discharge Diagnosis/Problem(s) (1) Alcohol abuse with intoxication SNOMED Code(s): 13327963 ICD Code: F10.129 - ALCOHOL ABUSE WITH INTOXICATION, UNSPECIFIED Status: Acute Priority: High Current Visit: Yes (2) Hypertension SNOMED Code(s): 73171625 ICD Code: I10 - ESSENTIAL (PRIMARY) HYPERTENSION Status: Chronic Current Visit: Yes Qualifiers: Hypertension type: essential hypertension Qualified Code(s): I10 - Essential (primary) hypertension (3) Hypokalemia SNOMED Code(s): 26254230 ICD Code: E87.6 - HYPOKALEMIA Status: Acute Current Visit: Yes (4) Hypomagnesemia SNOMED Code(s): 554753106 ICD Code: E83.42 - HYPOMAGNESEMIA Status: Acute Current Visit: Yes (5) Hyponatremia SNOMED Code(s): 74561318 ICD Code: E87.1 - HYPO-OSMOLALITY AND HYPONATREMIA Status: Acute Current Visit: No (6) COPD (chronic obstructive pulmonary disease) SNOMED Code(s): 21904222 ICD Code: J44.9 - CHRONIC OBSTRUCTIVE PULMONARY DISEASE, UNSPECIFIED Status: Chronic Current Visit: No Qualifiers: COPD type: emphysema Emphysema type: unspecified Qualified Code(s): J43.9 - Emphysema, unspecified - Patient Summary/Data Consults: Consultations 05/26/20 16:06 Consult to Case Management/[employer] [CONS] Routine Hospital Course: The patient was admitted to ICU on telemetry and continuous respiratory monitoring as the patient has a history of seizures, delirium tremens. He was started on librium 50mg oral q4h which was weaned down and ativan 1mg IV as needed per CIWA scale. The patient was found with hypokalemia, hyponatremia, hypoglycemia, and hypomagnesemia, all electrolytes were replenished. He was started on a multivitamin, thiamine and folate. His diet was advanced and was tolerated at regular diet w/ thin liquids. The patient did not have arrhythmias while at hospital, no seizure activity. He has remained on room air. The patient was weaned from librium and he did not require for last 24 hours. He has not had any nausea or vomiting. The patient has had systolic blood pressures 138- 160. This can be reevaluated in 1-2 weeks with PCP when patient out of acute p hase of alcohol detoxification. The patient's ammonia on admission was 48 and today ammonia is 35. The patient is discharged on multivitamins, thiamine, folate, and mag-oxide supplementation. The patient refuses nicotine patch as he says it hasn't worked for him, smoking cessation was discussed. He is discharged to the [facility] and is accepted to [place] for inpatient rehabilitation. - Discharge Plan Prescriptions/Med Rec: Folic Acid 1 mg PO DAILY 30 Days #30 tablet Magnesium Oxide 400 mg PO BID 30 Days #60 tablet Biotin/FA/Vit C/Vit B Complex [Nephrocaps] 1 tab PO DAILY 30 Days #60 tablet Thiamine [Vitamin B-1] 200 mg PO DAILY 30 Days #60 tablet Home Medications: Home Meds Biotin/FA/Vit C/Vit B Complex [Nephrocaps] 1 tab PO DAILY 30 Days #60 tablet 05/28/20 [Rx] Folic Acid 1 mg PO DAILY 30 Days #30 tablet 05/28/20 [Rx] Magnesium Oxide 400 mg PO BID 30 Days #60 tablet 05/28/20 [Rx] Thiamine [Vitamin B-1] 200 mg PO DAILY 30 Days #60 tablet 05/28/20 [Rx] Patient Handouts: Steps to Quit Smoking Referrals: Rosanna Paul PA-C [Physician Massotherapist] - - Discharge Summary/Plan Comment DC Time >30 min.: Yes - General Info Date of Service: 05/28/20 Subjective Update: General: Reports: Weakness. Good appetite today. Denies: Fever, Chills, tremors HEENT: Reports: No Symptoms Pulmonary: Reports: No Symptoms Cardiovascular: Denies: Chest Pain, Palpitations, Orthopnea, Edema Gastrointestinal: Reports: Abdominal Pain (LUQ comes and goes), no nausea today. Denies: Black Stool, Bloody Stool, Vomiting Skin: Reports: Dryness, Bruising Psychiatric: Reports: Depression, Anxiety - Patient Data Vitals - Most Recent: Last Vital Signs Temp 97.2 F 05/28/20 07:37 Pulse 73 05/28/20 07:37 Resp 18 05/28/20 07:37 BP 147/104 H 05/28/20 07:37 Pulse Ox 97 05/28/20 07:37 Weight - Most Recent: 181 lb 7.576 oz I&O - Last 24 hours: Intake & Output 05/27/20 05/28/20 05/28/20 22:59 06:59 14:59 Intake Total 1665 350 Balance 1665 350 Lab Results - Last 24 hrs: Laboratory Results - last 24 hr 05/28/20 05/28/20 Range/Units 05:28 05:28 Sodium 137 (136-145) mEq/L Potassium 3.8 (3.5-5.1) mEq/L Chloride 103 (98-107) mEq/L Carbon Dioxide 28 (21-32) mEq/L Anion Gap 9.8 (5-15) BUN 7 (7-18) mg/dL Creatinine 0.8 (0.7-1.3) mg/dL Est Cr Clr Drug Dosing 106.43 mL/min Estimated GFR (MDRD) > 60 (>60) mL/min BUN/Creatinine Ratio 8.8 L (14-18) Glucose 106 (80-115) mg/dL Calcium 8.7 (8.5-10.1) mg/dL Magnesium 1.8 (1.8-2.4) mg/dl Total Bilirubin 0.5 (0.2-1.0) mg/dL AST 60 H (15-37) U/L ALT 47 (16-63) U/L Alkaline Phosphatase 110 (46-116) U/L Ammonia 35 H (11-32) umol/L Total Protein 5.9 L (6.4-8.2) g/dl Albumin 3.0 L (3.4-5.0) g/dl Globulin 2.9 gm/dL Albumin/Globulin Ratio 1.0 (1-2) Med Orders - Current: Current Medications Acetaminophen (Tylenol) 650 mg PO Q6H PRN PRN Reason: Pain (Mild 1-3) or Fever Acetaminophen (Tylenol) 650 mg RECTAL Q6H PRN PRN Reason: Pain (Mild 1-3) or Fever Hydrocodone Bitart/Acetaminophen ([place] 325-5 Mg) 1 tab PO Q6H PRN PRN Reason: Pain (moderate 4-6) Albuterol/Ipratropium (Duoneb 3.0-0.5 Mg/3 Ml) 3 ml NEB Q4HRRT PRN PRN Reason: Wheezing Chlordiazepoxide HCl (Librium) 25 mg PO Q4H PRN PRN Reason: alcohol withdrawal Folic Acid (Folic Acid) 1 mg PO DAILY [facility] Last Admin: 05/27/20 08:37 Dose: 1 mg Documented by: Lorazepam (Ativan) 0 mg IV ASDIRECTED [facility]; Protocol Last Admin: 05/27/20 02:07 Dose: 1 mg Documented by: Magnesium Oxide (Magnesium Oxide) 400 mg PO BID [facility] Last Admin: 05/27/20 20:07 Dose: 400 mg Documented by: Miscellaneous Information (Remove Patch) 1 ea TRDERM DAILY@1630 [facility] Last Admin: 05/27/20 15:49 Dose: 1 ea Documented by: Nicotine (Habitrol) 21 mg TRDERM DAILY@1630 [facility] Last Admin: 05/27/20 15:49 Dose: 21 mg Documented by: Ondansetron HCl (Zofran) 4 mg IVPUSH Q4H PRN PRN Reason: Nausea and Vomiting Pantoprazole Sodium (Protonix) 40 mg PO BEDTIME [facility] Last Admin: 05/27/20 20:07 Dose: 40 mg Documented by: Sodium Chloride (Saline Flush) 10 ml FLUSH ASDIRECTED PRN PRN Reason: Keep Vein Open Last Admin: 05/26/20 10:11 Dose: 10 ml Documented by: Thiamine HCl (Vitamin B-1) 100 mg PO TID [facility] Last Admin: 05/27/20 20:07 Dose: 100 mg Documented by: Vitamin B Complex/Vit C/Folic Acid (Nephrocaps) 1 tab PO DAILY [facility] Last Admin: 05/27/20 08:34 Dose: 1 tab Documented by: Discontinued Medications Chlordiazepoxide HCl (Librium) 50 mg PO Q4H [facility] Last Admin: 05/27/20 12:09 Dose: 50 mg Documented by: Chlordiazepoxide HCl (Librium) 25 mg PO Q4H [facility] Last Admin: 05/28/20 03:37 Dose: 25 mg Documented by: Enoxaparin Sodium (Lovenox) 40 mg SUBCUT DAILY [facility] Sodium Chloride (Normal Saline) 1,000 mls @ 999 mls/hr IV ONETIME [facility] Last Admin: 05/26/20 10:11 Dose: 999 mls/hr Documented by: Magnesium Sulfate 2 gm/ Premix 50 mls @ 25 mls/hr IV ONETIME ONE Stop: 05/26/20 13:34 Last Admin: 05/26/20 12:33 Dose: 25 mls/hr Documented by: Lactated Ringer's (Ringers, Lactated) 1,000 mls @ 999 mls/hr IV .BOLUS ONE Stop: 05/26/20 12:36 Last Admin: 05/26/20 11:53 Dose: 999 mls/hr Documented by: Thiamine HCl 100 mg/ Sodium (Chloride) 101 mls @ 202 mls/hr IV ONETIME ONE Stop: 05/26/20 11:38 Last Admin: 05/26/20 11:53 Dose: 202 mls/hr Documented by: Potassium Chloride/Sodium Chloride (Normal Saline With 20 Meq Kcl) 1,000 mls @ 75 mls/hr IV ASDIRECTED [facility] Potassium Chloride/Dextrose/Sod Cl (D5 Ns With 20 Meq Kcl) 1,000 mls @ 75 mls/hr IV ASDIRECTED [facility] Last Admin: 05/27/20 20:08 Dose: 75 mls/hr Documented by: Magnesium Sulfate 2 gm/ Premix 50 mls @ 25 mls/hr IV Q2H DIDI Stop: 05/27/20 12:29 Last Admin: 05/27/20 10:53 Dose: 25 mls/hr Documented by: Lorazepam (Ativan) 1 mg IVPUSH ONETIME ONE Stop: 05/26/20 15:05 Last Admin: 05/26/20 15:34 Dose: 1 mg Documented by: Nicotine (Habitrol) 21 mg TRDERM DAILY [facility] Ondansetron HCl (Zofran) 4 mg IVPUSH ONETIME ONE Stop: 05/26/20 09:49 Last Admin: 05/26/20 10:11 Dose: 4 mg Documented by: Potassium Chloride (Klor-Con M20) 40 meq PO ONETIME ONE Stop: 05/26/20 16:01 Last Admin: 05/26/20 17:17 Dose: 40 meq Documented by: - Exam Physical Findings Comments:: General: Alert, Oriented, Cooperative, no longer anxious appearing. Makes eye contact. Sitting up at bedside eating breakfast. HEENT: EOMI, PERRL Neck: Supple, Trachea Midline Lungs: Clear to Auscultation, Normal Respiratory Effort Cardiovascular: Regular Rhythm, Tachycardia (sinus tachycardia HR 102) GI/Abdominal Exam: Normal Bowel Sounds, Soft, Non-Tender, No Distention Extremities: No Pedal Edema, Normal Capillary Refill, Other (patient without asterixis of hands) Skin: Warm, Dry, Intact, Other (Skin is thin and dry) Neuro Extensive - Mental Status: Alert, Oriented x3, no longer slurring words.
== END 2020-05-28 09:15 | DRG 897 ==
LOC: JD.ED 09:12 → JD.ICU 15:37
PROVIDERS: ADMIT Family Medicine; ATTEND Family Medicine
DX: F10.231 Alcohol dependence with withdrawal delirium (principal); E87.1 Hypo-osmolality and hyponatremia; E87.6 Hypokalemia; J43.9 Emphysema, unspecified; E83.42 Hypomagnesemia; Z20.828 Contact with and (suspected) exposure to other viral communicable diseases; I10 Essential (primary) hypertension; M54.9 Dorsalgia, unspecified; G89.29 Other chronic pain; F32.9 Major depressive disorder, single episode, unspecified; E55.9 Vitamin D deficiency, unspecified; F10.229 Alcohol dependence with intoxication, unspecified; Y90.0 Blood alcohol level of less than 20 mg/100 ml; F41.9 Anxiety disorder, unspecified; F17.210 Nicotine dependence, cigarettes, uncomplicated; E16.2 Hypoglycemia, unspecified; Z79.899 Other long term (current) drug therapy; Z71.6 Tobacco abuse counseling
CPT/HCPCS: 36415; 71045; 71045-26; 80053; 80061; 80306; 80307; 82140; 83036; 83690; 83735; 85025; 93005; 96361; 96365; 96366; 96367; 96375; 99222; 99232; 99239; 99284; 99285-25; A9270-GY; J2060; J2405; J3411; J3475; J3480; J7030; J7050; J7120; U0002

== ENCOUNTER 2020-11-26 14:36 | Emergency (ER) | payer MEDICAID ==
--- NOTE | 2020-11-26 15:13 | EDM.PDOCBH ---
ED HPI GENERAL MEDICAL PROBLEM - General Chief Complaint: Drug or Alcohol Abuse Stated Complaint: MED CLEARANCE FOR [facility] Time Seen by Provider: 11/26/20 14:55 Source of Information: Reports: Patient History Limitations: Reports: No Limitations - History of Present Illness INITIAL COMMENTS - FREE TEXT/NARRATIVE: 60-year-old male presents to the emergency department with request to detox from alcohol and enter the [facility]. Patient states his last drink was this morning and he has had 2 alcoholic drinks. States over the course of past year he has been drinking steadily and he drinks about a gallon of whiskey over the course of 3 days. Does report he has a history of seizures due to alcohol detox. States he has not eaten in 3 days and the water has been shut off in his home however he does still have heat. He was to the point where he was using toilet water to mix his drinks with whiskey. Denies any recent fever, chills, cough, nausea vomiting, diarrhea or abdominal pain. States he smokes about 2 packs a day for the past 43 years. Denies any recreational drug use. - Related Data Allergies Allergy/AdvReac Type Severity Reaction Status Date / Time No Known Allergies Allergy Verified 11/26/20 14:47 Home Meds: Home Meds LORazepam [Ativan] 1 mg PO ASDIRECTED #18 tablet 11/26/20 [Rx] Past Medical History HEENT History: Reports: Impaired Vision Cardiovascular History: Reports: Hypertension Respiratory History: Reports: COPD Gastrointestinal History: Reports: PUD Genitourinary History: Reports: None Musculoskeletal History: Reports: Back Pain, Chronic Neurological History: Reports: Migraines, Seizure Other Neuro History: 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 Psychiatric History: Reports: Addiction, Depression Endocrine/Metabolic History: Reports: Vitamin D Deficiency Hematologic History: Reports: None Immunologic History: Reports: None Oncologic (Cancer) History: Reports: None Dermatologic History: Reports: None - Infectious Disease History Infectious Disease History: Reports: Chicken Pox, Measles - Past Surgical History HEENT Surgical History: Reports: Oral Surgery, Tonsillectomy Other HEENT Surgeries/Procedures: cyst removal-neck surg Musculoskeletal Surgical History: Reports: Other (See Below) Other Musculoskeletal Surgeries/Procedures:: had cyst removed from neck, "right below my skull." Social & Family History - Family History Family Medical History: No Pertinent Family History Cardiac: Reports: Bypass Other Cardiac Family History: Dad Neurological: Reports: CVA Other Neurological Family History: Dad - Tobacco Use Tobacco Use Status *Q: Current Every Day Tobacco User Years of Tobacco use: 50 Packs/Tins Daily: 0.5 - Caffeine Use Caffeine Use: Reports: None Other Caffeine Use: 2 pots daily - Recreational Drug Use Recreational Drug Use: No - Living Situation & Occupation Living situation: Reports: , Alone 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 Denies: Fever, Chills HEENT: Reports: No Symptoms Respiratory: Reports: No Symptoms Cardiovascular: Reports: No Symptoms Endocrine: Reports: No Symptoms GI/Abdominal: Reports: No Symptoms : Reports: No Symptoms Musculoskeletal: Reports: No Symptoms Skin: Reports: No Symptoms Neurological: Reports: Other (peripheral neuropathy) Psychiatric: Reports: No Symptoms Hematologic/Lymphatic: Reports: No Symptoms Immunologic: Reports: No Symptoms ED EXAM, BEHAVIORAL HEALTH - Physical Exam Exam: See Below Exam Limited By: No Limitations General Appearance: Alert, WD/WN, No Apparent Distress Eye Exam: Bilateral Eye: PERRL Ears: Normal External Exam, Hearing Grossly Normal Nose: Normal Inspection, Normal Mucosa, No Blood Throat/Mouth: Normal Inspection, Normal Voice, No Airway Compromise Head: Atraumatic, Normocephalic Neck: Normal Inspection, Supple, Non-Tender, Full Range of Motion Respiratory/Chest: No Respiratory Distress, Normal Breath Sounds, No Accessory Muscle Use, Chest Non-Tender, Rhonchi (Scattered rhonchi that clears with cough). No: Lungs Clear Cardiovascular: Normal Peripheral Pulses, Regular Rate, Rhythm, No Edema, No Murmur GI/Abdominal: Normal Bowel Sounds, Soft, Non-Tender, No Distention (Male) Exam: Deferred Rectal (Males) Exam: Deferred Back Exam: Normal Inspection, Full Range of Motion Extremities: Normal Range of Motion, Non-Tender Neurological: Alert, Normal Mood/Affect, Normal Cognition, Normal Gait, Other (And is slightly intoxicated however he is alert and appropriate) Psychiatric: Alert, Normal Affect, Normal Cognition, Normal Mood, Oriented (to year only) Skin Exam: Warm, Dry, Intact, Normal color, No rash #1 Interpretation EKG Date: 11/26/20 Time: 15:09 Rhythm: NSR Rate (Beats/Min): 57 Ponce: Normal P-Wave: Present QRS: LBBB ST-T: Normal QT: Normal (Per Dr. Bueno interpretation: Sinus rhythm at 57, left bundle branch block, baseline wander in leads II, III, aVF) COURSE, BEHAVIORAL HEALTH COMP - Course Vital Signs: Last Vital Signs Temp 97.6 F 11/26/20 14:44 Pulse 92 11/26/20 14:44 Resp 16 11/26/20 14:44 BP 164/90 H 11/26/20 14:44 Pulse Ox 93 L 11/26/20 14:44 Orders, Labs, Meds: Active Orders 24 hr Category Date Time Status EKG Documentation Completion [RC] STAT Care 11/26/20 15:02 Active Dextrose 5%-0.9% NaCl [Dextrose 5%-Normal Saline] 1,000 Med 11/26/20 15:15 Active ml IV ASDIRECTED Medication Orders Dextrose/Sodium Chloride (Dextrose 5%-Normal Saline) 1,000 mls @ 999 mls/hr IV ASDIRECTED DIDI Last Admin: 11/26/20 15:32 Dose: 999 mls/hr Documented by: CORA Laboratory Tests 11/26/20 11/26/20 11/26/20 Range/Units 15:30 15:30 15:30 WBC 7.84 (4.23-9.07) K/mm3 RBC 4.54 L (4.63-6.08) M/mm3 Hgb 14.8 (13.7-17.5) gm/dl Hct 43.7 (40.1-51.0) % MCV 96.3 H D (79.0-92.2) fl MCH 32.6 H (25.7-32.2) pg MCHC 33.9 (32.2-35.5) g/dl RDW Std Deviation 54.5 H (35.1-43.9) fL Plt Count 197 (163-337) K/mm3 MPV 9.2 L (9.4-12.3) fl Neut % (Auto) 83.2 H (34.0-67.9) % Lymph % (Auto) 10.3 L (21.8-53.1) % Gillespie % (Auto) 5.4 (5.3-12.2) % Eos % (Auto) 0.1 L (0.8-7.0) Baso % (Auto) 0.9 (0.1-1.2) % Neut # (Auto) 6.52 H (1.78-5.38) K/mm3 Lymph # (Auto) 0.81 L (1.32-3.57) K/mm3 Gillespie # (Auto) 0.42 (0.30-0.82) K/mm3 Eos # (Auto) 0.01 L (0.04-0.54) K/mm3 Baso # (Auto) 0.07 (0.01-0.08) K/mm3 Manual Slide Review Abnormal smear Sodium 142 (136-145) mEq/L Potassium 3.4 L (3.5-5.1) mEq/L Chloride 98 (98-107) mEq/L Carbon Dioxide 21 (21-32) mEq/L Anion Gap 26.4 H (5-15) BUN 12 (7-18) mg/dL Creatinine 0.8 (0.7-1.3) mg/dL Est Cr Clr Drug Dosing TNP Estimated GFR (MDRD) > 60 (>60) mL/min BUN/Creatinine Ratio 15.0 (14-18) Glucose 76 L (80-115) mg/dL Calcium 8.7 (8.5-10.1) mg/dL Magnesium 1.7 L (1.8-2.4) mg/dl Total Bilirubin 0.6 (0.2-1.0) mg/dL AST 96 H (15-37) U/L ALT 64 H (16-63) U/L Alkaline Phosphatase 80 (46-116) U/L Total Protein 7.0 (6.4-8.2) g/dl Albumin 3.6 (3.4-5.0) g/dl Globulin 3.4 gm/dL Albumin/Globulin Ratio 1.1 (1-2) TSH 3rd Generation 1.191 (0.358-3.74) uIU/mL Salicylates (2.8-20) mg/dL Urine Opiates Screen (ZYNOFE=588) Ur Buprenorphine Scrn (CUTOFF=10) Ur Oxycodone Screen (YUR8NL=762) Urine Methadone Screen (BOW3QI=264) Ur Propoxyphene Screen (QUJXJO=378) Acetaminophen 0 L (10-30) ug/mL Ur Barbiturates Screen (TAEFKV=284) Ur Tricyclics Screen (TDRORO=381) Ur Phencyclidine Scrn (CUTOFF=25) Ur Amphetamine Screen (XHGFHA=008) U Methamphetamines Scrn (TCJJVY=352) U Benzodiazepines Scrn (OFPLVK=177) U Cocaine Metab Screen (PHBOFQ=063) U Marijuana (THC) Screen (CUTOFF=50) Ethyl Alcohol 0.29 (0.00) gm% SARS-CoV-2 RNA (SHON) Negative (NEGATIVE) 11/26/20 11/26/20 Range/Units 15:30 16:00 WBC (4.23-9.07) K/mm3 RBC (4.63-6.08) M/mm3 Hgb (13.7-17.5) gm/dl Hct (40.1-51.0) % MCV (79.0-92.2) fl MCH (25.7-32.2) pg MCHC (32.2-35.5) g/dl RDW Std Deviation (35.1-43.9) fL Plt Count (163-337) K/mm3 MPV (9.4-12.3) fl Neut % (Auto) (34.0-67.9) % Lymph % (Auto) (21.8-53.1) % Gillespie % (Auto) (5.3-12.2) % Eos % (Auto) (0.8-7.0) Baso % (Auto) (0.1-1.2) % Neut # (Auto) (1.78-5.38) K/mm3 Lymph # (Auto) (1.32-3.57) K/mm3 Gillespie # (Auto) (0.30-0.82) K/mm3 Eos # (Auto) (0.04-0.54) K/mm3 Baso # (Auto) (0.01-0.08) K/mm3 Manual Slide Review Sodium (136-145) mEq/L Potassium (3.5-5.1) mEq/L Chloride (98-107) mEq/L Carbon Dioxide (21-32) mEq/L Anion Gap (5-15) BUN (7-18) mg/dL Creatinine (0.7-1.3) mg/dL Est Cr Clr Drug Dosing Estimated GFR (MDRD) (>60) mL/min BUN/Creatinine Ratio (14-18) Glucose (80-115) mg/dL Calcium (8.5-10.1) mg/dL Magnesium (1.8-2.4) mg/dl Total Bilirubin (0.2-1.0) mg/dL AST (15-37) U/L ALT (16-63) U/L Alkaline Phosphatase (46-116) U/L Total Protein (6.4-8.2) g/dl Albumin (3.4-5.0) g/dl Globulin gm/dL Albumin/Globulin Ratio (1-2) TSH 3rd Generation (0.358-3.74) uIU/mL Salicylates 4.1 (2.8-20) mg/dL Urine Opiates Screen Negative (HSZFUR=984) Ur Buprenorphine Scrn Negative (CUTOFF=10) Ur Oxycodone Screen Negative (ITN6GD=720) Urine Methadone Screen Negative (DBE4QG=432) Ur Propoxyphene Screen Negative (TVKBIL=096) Acetaminophen (10-30) ug/mL Ur Barbiturates Screen Negative (CYAIVG=920) Ur Tricyclics Screen Negative (OSUIRE=754) Ur Phencyclidine Scrn Negative (CUTOFF=25) Ur Amphetamine Screen Negative (BTRDDV=301) U Methamphetamines Scrn Negative (OFOIEJ=752) U Benzodiazepines Scrn Negative (NKUWHK=044) U Cocaine Metab Screen Negative (GSSAMQ=409) U Marijuana (THC) Screen Negative (CUTOFF=50) Ethyl Alcohol (0.00) gm% SARS-CoV-2 RNA (SHON) (NEGATIVE) Medications Generic Name Dose Route Start Last Admin Trade Name Freq PRN Reason Stop Dose Admin Dextrose/Sodium Chloride 1,000 mls @ 999 mls/hr 11/26/20 15:15 11/26/20 15:32 Dextrose 5%-Normal Saline IV 999 mls/hr ASDIRECTED DIDI Administration Discontinued Medications Generic Name Dose Route Start Last Admin Trade Name Freq PRN Reason Stop Dose Admin Sodium Chloride 1,000 mls @ 999 mls/hr 11/26/20 17:27 11/26/20 17:36 Normal Saline IV 11/26/20 18:27 999 mls/hr ONETIME ONE Administration Lorazepam 1 mg 11/26/20 16:54 11/26/20 17:13 Ativan PO 11/26/20 16:55 1 mg ONETIME ONE Administration Magnesium Oxide 800 mg 11/26/20 16:54 02/12/21 17:13 Magnesium Oxide PO 11/26/20 16:55 800 mg ONETIME ONE Administration Potassium Chloride 40 meq 11/26/20 17:39 11/26/20 18:36 Klor-Con M20 PO 11/26/20 17:40 40 meq ONETIME ONE Administration Re-Assessment/Re-Exam: I have ordered routine labs and an EKG. I have ordered a liter of D5 NS as patient is likely dehydrated and hypoglycemic due to alcohol ingestion. Will contact the [facility] when that lab work is back. 173 Labs reveal WBC is 7.84, hemoglobin 14.8, hematocrit 43.7, MCV 96.3 platelet count 197, sodium 142, potassium 3.4, carbon dioxide 21, anion gap 26.4, BUN 12, creatinine 0.8, glucose 76, magnesium 1.7, AST 96, ALT 64, salicylate level 4.1, acetaminophen level 0, urine drug screen is negative, ethyl alcohol 0.29, and he is Covid negative. I have ordered for the patient to receive 800 mg of Mag-Ox orally, patient will also receive a liter of normal saline as he is quite dehydrated, and I have also ordered Ativan 1 mg p.o. now as patient's blood alcohol is less than 0.3 and he is likely to start detoxing. We will also order for the patient to receive 40 mEq of potassium p.o. x1 dose now. 1906 Patient's second liter of fluid is infused. He is taking p.o. well. He has eaten 2 full meals while in the emergency department. I feel he is ready to be discharged to the [facility]. Will order scheduled doses of ativan and prn zofran. Departure - Departure Time of Disposition: 19:08 Disposition: Home, Self-Care 01 Condition: Fair Clinical Impression: Alcohol abuse, Alcohol abuse with intoxication Alcohol withdrawal syndrome Qualifiers: Complication of substance-induced condition: uncomplicated Qualified Code(s): F10.230 - Alcohol dependence with withdrawal, uncomplicated - Discharge Information Prescriptions: LORazepam [Ativan] 1 mg PO ASDIRECTED #18 tablet Instructions: Alcohol Use Disorder Referrals: PCP,None [Primary Care Provider] - Forms: ED Department Discharge Additional Instructions: Ebenezer was seen in the emergency department today with the request to go to the [facility] for detox. Routine lab work was completed. At the time of lab draw the patient's blood alcohol was less than 0.3. He was also given 2 L of IV fluids and 1 mg p.o. of Ativan. Patient's vital signs have remained stable. He is eating and drinking well. He will be cleared to go to the [facility]. Prescriptions have been sent to [place] for Ativan 1 mg 3 times daily x3 days then Ativan 1 mg 2 times daily x3 days then Ativan 1 mg at bedtime x3 days. Sepsis Event Note (ED) - Evaluation Sepsis Screening Result: No Definite Risk - Focused Exam Vital Signs: Vital Signs Temp Pulse Resp BP Pulse Ox 11/26/20 14:44 97.6 F 92 16 164/90 H 93 L - My Orders Last 24 Hours: My Active Orders 11/26/20 15:02 EKG Documentation Completion [RC] STAT 11/26/20 15:15 Dextrose 5%-0.9% NaCl [Dextrose 5%-Normal Saline] 1,000 ml IV ASDIRECTED - Assessment/Plan Last 24 Hours: My Active Orders 11/26/20 15:02 EKG Documentation Completion [RC] STAT 11/26/20 15:15 Dextrose 5%-0.9% NaCl [Dextrose 5%-Normal Saline] 1,000 ml IV ASDIRECTED
[2020-11-26] MEDS ORDERED: Dextrose 5%-0.9% NaCl 1,000 ML IV SCH (15:15)
[2020-11-26 16:19] LABS: ACETAMINOPHEN 0 ug/mL (10-30)
[2020-11-26] MEDS ORDERED: LORazepam 1 MG Tab PO ONE ×2 (16:54→19:29)
[2020-11-26] MEDS ORDERED: Magnesium Oxide 400 MG Tab PO ONE (16:54)
[2020-11-26] MEDS ORDERED: Sodium Chloride 0.9% 1,000 ML IV ONE (17:27)
[2020-11-26] MEDS ORDERED: Potassium Chloride 20 MEQ Tab.ER PO ONE (17:39)
== END 2020-11-26 20:40 | disposition home or self-care (01) ==
LOC: JD.ED 14:36
DX: F10.230 Alcohol dependence with withdrawal, uncomplicated (principal); F10.229 Alcohol dependence with intoxication, unspecified; I10 Essential (primary) hypertension; J44.9 Chronic obstructive pulmonary disease, unspecified; R56.9 Unspecified convulsions; I44.7 Left bundle-branch block, unspecified; Z72.0 Tobacco use; Y90.0 Blood alcohol level of less than 20 mg/100 ml; Z20.822 Contact with and (suspected) exposure to COVID-19
CPT/HCPCS: 36415; 80053; 80143; 80179; 80306; 80307; 83735; 84443; 85025; 87635; 93005; 99285; A9270; J7030; J7042; 93010; 99284; U0002

== ENCOUNTER 2021-01-17 10:16 | Emergency (ER) | payer MEDICAID ==
[2021-01-17] MEDS ORDERED: Sodium Chloride 0.9% 10 ML Syringe FLUSH PRN (10:46)
[2021-01-17] MEDS ORDERED: cloNIDine 0.1 MG Tab PO ONE (10:47)
[2021-01-17] MEDS ORDERED: Thiamine 200 MG/2 ML MDV IVPUSH ONE (10:47)
[2021-01-17] MEDS ORDERED: Sodium Chloride 0.9% 1,000 ML IV SCH (11:00)
[2021-01-17 11:53] LABS: ACETAMINOPHEN 0 ug/mL (10-30)
--- NOTE | 2021-01-17 12:19 | EDM.PDOCBH ---
ED HPI GENERAL MEDICAL PROBLEM - General Chief Complaint: Drug or Alcohol Abuse Stated Complaint: MEDICAL CLEARANCE FOR [facility] Time Seen by Provider: 01/17/21 10:31 Source of Information: Reports: Patient History Limitations: Reports: No Limitations - History of Present Illness INITIAL COMMENTS - FREE TEXT/NARRATIVE: The patient presents for medical clearance for the [facility] for [facility]. He is addicted to alcohol and he drinks whiskey daily. He last drank yesterday. He has no fever, chills, cough, chest pain, shortness of breath, abdominal pain, nausea or vomiting. He says his legs have been numb for a long time and he has trouble walking because of it. He says that is why he drinks. The drinking may be why he has the weakness. Onset: Gradual Duration: Day(s): Severity: Moderate Improves with: Reports: None Worsens with: Reports: None Associated Symptoms: Reports: No Other Symptoms - Related Data Allergies Allergy/AdvReac Type Severity Reaction Status Date / Time No Known Allergies Allergy Verified 01/17/21 10:32 Home Meds: Home Meds LORazepam [Ativan] 1 mg PO DAILY #18 tablet 01/17/21 [Rx] Magnesium Oxide 400 mg PO DAILY #30 tab 01/17/21 [Rx] Ondansetron [Zofran ODT] 4 mg PO Q6H PRN #10 tab.dis 01/17/21 [Rx] lisinopriL [Lisinopril] 20 mg PO DAILY 01/17/21 [History] Past Medical History HEENT History: Reports: Impaired Vision Cardiovascular History: Reports: Hypertension Respiratory History: Reports: COPD Gastrointestinal History: Reports: PUD Genitourinary History: Reports: None Musculoskeletal History: Reports: Back Pain, Chronic Neurological History: Reports: Migraines, Seizure Other Neuro History: 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 Psychiatric History: Reports: Addiction, Depression Endocrine/Metabolic History: Reports: Vitamin D Deficiency Hematologic History: Reports: None Immunologic History: Reports: None Oncologic (Cancer) History: Reports: None Dermatologic History: Reports: None - Infectious Disease History Infectious Disease History: Reports: Chicken Pox, Measles - Past Surgical History HEENT Surgical History: Reports: Oral Surgery, Tonsillectomy Other HEENT Surgeries/Procedures: cyst removal-neck surg Musculoskeletal Surgical History: Reports: Other (See Below) Other Musculoskeletal Surgeries/Procedures:: had cyst removed from neck, "right below my skull." Social & Family History - Family History Family Medical History: No Pertinent Family History Cardiac: Reports: Bypass Other Cardiac Family History: Dad Neurological: Reports: CVA Other Neurological Family History: Dad - Tobacco Use Tobacco Use Status *Q: Current Every Day Tobacco User Years of Tobacco use: 40 Packs/Tins Daily: 1 - Caffeine Use Caffeine Use: Reports: None Other Caffeine Use: 2 pots daily - Alcohol Use Days Per Week of Alcohol Use: 7 Number of Drinks Per Day: 10 Total Drinks Per Week: 70 - Recreational Drug Use Recreational Drug Use: No - Living Situation & Occupation Living situation: Reports: , Alone 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) ED ROS GENERAL - Review of Systems Review Of Systems: See Below Constitutional: Reports: No Symptoms HEENT: Reports: No Symptoms Respiratory: Reports: No Symptoms Cardiovascular: Reports: No Symptoms Endocrine: Reports: No Symptoms GI/Abdominal: Reports: No Symptoms : Reports: No Symptoms Musculoskeletal: Reports: No Symptoms ED EXAM, BEHAVIORAL HEALTH - Physical Exam Exam: See Below Exam Limited By: No Limitations General Appearance: Alert, No Apparent Distress Ears: Normal External Exam Nose: Normal Inspection Head: Atraumatic, Normocephalic Neck: Normal Inspection Respiratory/Chest: No Respiratory Distress, Lungs Clear, Normal Breath Sounds Cardiovascular: Regular Rate, Rhythm, No Edema, No Murmur GI/Abdominal: Soft, Non-Tender, No Organomegaly, No Mass Back Exam: Normal Inspection Extremities: Normal Inspection COURSE, BEHAVIORAL HEALTH COMP - Course Vital Signs: Last Vital Signs Temp 97.4 F 01/17/21 10:29 Pulse 103 H 01/17/21 10:29 Resp 17 01/17/21 10:29 BP 160/101 H 01/17/21 11:07 Pulse Ox 97 01/17/21 10:29 Orders, Labs, Meds: Active Orders 24 hr Category Date Time Status Cardiac Monitoring [RC] . DIRECTED Care 01/17/21 10:46 Active Peripheral IV Care [RC] . DIRECTED Care 01/17/21 10:46 Active Sodium Chloride 0.9% [Normal Saline] 1,000 ml Med 01/17/21 11:00 Active IV .BOLUS Sodium Chloride 0.9% [Saline Flush] Med 01/17/21 10:46 Active 10 ml FLUSH ASDIRECTED PRN Peripheral IV Insertion Adult [OM.PC] Stat Ot 01/17/21 10:46 Ordered Medication Orders Sodium Chloride (Normal Saline) 1,000 mls @ 1,000 mls/hr IV .BOLUS DIDI Last Admin: 01/17/21 11:06 Dose: 1,000 mls/hr Documented by: AFSANEH Sodium Chloride (Sodium Chloride 0.9% 10 Ml Syringe) 10 ml FLUSH ASDIRECTED PRN PRN Reason: Keep Vein Open Last Admin: 01/17/21 11:08 Dose: 10 ml Documented by: AFSANEH Laboratory Tests 01/17/21 01/17/21 01/17/21 Range/Units 10:46 11:00 11:00 WBC 6.85 (4.23-9.07) K/mm3 RBC 4.54 L (4.63-6.08) M/mm3 Hgb 14.9 (13.7-17.5) gm/dl Hct 43.2 (40.1-51.0) % MCV 95.2 H D (79.0-92.2) fl MCH 32.8 H (25.7-32.2) pg MCHC 34.5 (32.2-35.5) g/dl RDW Std Deviation 50.7 H (35.1-43.9) fL Plt Count 106 L (163-337) K/mm3 MPV 11.1 (9.4-12.3) fl Neut % (Auto) 75.1 H (34.0-67.9) % Lymph % (Auto) 13.6 L (21.8-53.1) % [place] % (Auto) 10.4 (5.3-12.2) % Eos % (Auto) 0.3 L (0.8-7.0) Baso % (Auto) 0.3 (0.1-1.2) % Neut # (Auto) 5.15 (1.78-5.38) K/mm3 Lymph # (Auto) 0.93 L (1.32-3.57) K/mm3 [place] # (Auto) 0.71 (0.30-0.82) K/mm3 Eos # (Auto) 0.02 L (0.04-0.54) K/mm3 Baso # (Auto) 0.02 (0.01-0.08) K/mm3 Sodium 133 L (136-145) mEq/L Potassium 4.3 (3.5-5.1) mEq/L Chloride 92 L (98-107) mEq/L Carbon Dioxide 24 (21-32) mEq/L Anion Gap 21.3 H (5-15) BUN 8 (7-18) mg/dL Creatinine 0.9 (0.7-1.3) mg/dL Est Cr Clr Drug Dosing 94.60 mL/min Estimated GFR (MDRD) > 60 (>60) mL/min BUN/Creatinine Ratio 8.9 L (14-18) Glucose 115 (80-115) mg/dL Calcium 9.2 (8.5-10.1) mg/dL Magnesium 1.3 L (1.8-2.4) mg/dl Total Bilirubin 1.5 H (0.2-1.0) mg/dL AST 68 H (15-37) U/L ALT 51 (16-63) U/L Alkaline Phosphatase 68 (46-116) U/L Total Protein 7.7 (6.4-8.2) g/dl Albumin 4.3 (3.4-5.0) g/dl Globulin 3.4 gm/dL Albumin/Globulin Ratio 1.3 (1-2) TSH 3rd Generation 1.890 (0.358-3.74) uIU/mL Salicylates (2.8-20) mg/dL Urine Opiates Screen (KIVGAB=080) Ur Buprenorphine Scrn (CUTOFF=10) Ur Oxycodone Screen (YAT2SJ=790) Urine Methadone Screen (ZNC5BV=696) Ur Propoxyphene Screen (HCXFWL=984) Acetaminophen 0 L (10-30) ug/mL Ur Barbiturates Screen (LUHNBI=407) Ur Tricyclics Screen (XSOIOF=103) Ur Phencyclidine Scrn (CUTOFF=25) Ur Amphetamine Screen (UHPWTZ=710) U Methamphetamines Scrn (PQLHSJ=403) U Benzodiazepines Scrn (NGEZVG=581) U Cocaine Metab Screen (FRWMVD=679) U Marijuana (THC) Screen (CUTOFF=50) Ethyl Alcohol 0.00 (0.00) gm% SARS-CoV-2 RNA (SHON) Negative (NEGATIVE) 01/17/21 01/17/21 Range/Units 11:00 12:25 WBC (4.23-9.07) K/mm3 RBC (4.63-6.08) M/mm3 Hgb (13.7-17.5) gm/dl Hct (40.1-51.0) % MCV (79.0-92.2) fl MCH (25.7-32.2) pg MCHC (32.2-35.5) g/dl RDW Std Deviation (35.1-43.9) fL Plt Count (163-337) K/mm3 MPV (9.4-12.3) fl Neut % (Auto) (34.0-67.9) % Lymph % (Auto) (21.8-53.1) % [place] % (Auto) (5.3-12.2) % Eos % (Auto) (0.8-7.0) Baso % (Auto) (0.1-1.2) % Neut # (Auto) (1.78-5.38) K/mm3 Lymph # (Auto) (1.32-3.57) K/mm3 [place] # (Auto) (0.30-0.82) K/mm3 Eos # (Auto) (0.04-0.54) K/mm3 Baso # (Auto) (0.01-0.08) K/mm3 Sodium (136-145) mEq/L Potassium (3.5-5.1) mEq/L Chloride (98-107) mEq/L Carbon Dioxide (21-32) mEq/L Anion Gap (5-15) BUN (7-18) mg/dL Creatinine (0.7-1.3) mg/dL Est Cr Clr Drug Dosing mL/min Estimated GFR (MDRD) (>60) mL/min BUN/Creatinine Ratio (14-18) Glucose (80-115) mg/dL Calcium (8.5-10.1) mg/dL Magnesium (1.8-2.4) mg/dl Total Bilirubin (0.2-1.0) mg/dL AST (15-37) U/L ALT (16-63) U/L Alkaline Phosphatase (46-116) U/L Total Protein (6.4-8.2) g/dl Albumin (3.4-5.0) g/dl Globulin gm/dL Albumin/Globulin Ratio (1-2) TSH 3rd Generation (0.358-3.74) uIU/mL Salicylates 4.0 (2.8-20) mg/dL Urine Opiates Screen Negative (QYUMBC=390) Ur Buprenorphine Scrn Negative (CUTOFF=10) Ur Oxycodone Screen Negative (PSL6HC=803) Urine Methadone Screen Negative (GXQ3BT=699) Ur Propoxyphene Screen Negative (NWUYXD=356) Acetaminophen (10-30) ug/mL Ur Barbiturates Screen Negative (CZPUJR=755) Ur Tricyclics Screen Negative (XOQVEK=704) Ur Phencyclidine Scrn Negative (CUTOFF=25) Ur Amphetamine Screen Negative (YFVFRE=435) U Methamphetamines Scrn Negative (BZHUSV=286) U Benzodiazepines Scrn Negative (GTHHWW=068) U Cocaine Metab Screen Negative (EROGLC=414) U Marijuana (THC) Screen Negative (CUTOFF=50) Ethyl Alcohol (0.00) gm% SARS-CoV-2 RNA (SHON) (NEGATIVE) Medications Generic Name Dose Route Start Last Admin Trade Name Freq PRN Reason Stop Dose Admin Sodium Chloride 1,000 mls @ 1,000 mls/hr 01/17/21 11:00 01/17/21 11:06 Normal Saline IV 1,000 mls/hr .BOLUS DIDI Administration Sodium Chloride 10 ml 01/17/21 10:46 01/17/21 11:08 Sodium Chloride 0.9% 10 Ml Syringe FLUSH 10 ml ASDIRECTED PRN Administration Keep Vein Open Discontinued Medications Generic Name Dose Route Start Last Admin Trade Name Freq PRN Reason Stop Dose Admin Clonidine HCl 0.1 mg 01/17/21 10:47 01/17/21 11:07 Clonidine 0.1 Mg Tab PO 01/17/21 10:48 0.1 mg ONETIME ONE Administration Lorazepam 1 mg 01/17/21 12:23 01/17/21 12:36 Lorazepam 2 Mg/Ml Sdv IVPUSH 01/17/21 12:24 1 mg ONETIME ONE Administration Magnesium Oxide 400 mg 01/17/21 12:23 01/17/21 12:36 Magnesium Oxide 400 Mg Tab PO 01/17/21 12:24 400 mg ONETIME ONE Administration Thiamine HCl 100 mg 01/17/21 10:47 01/17/21 11:07 Thiamine 200 Mg/2 Ml Mdv IVPUSH 01/17/21 10:48 100 mg ONETIME ONE Administration Re-Assessment/Re-Exam: I ordered an IV NS 1L bolus, thiamine 100mg IV, clonidine 0.1mg PO, labs, urine drug screen. His platelets are low at 106. His Na is low at 133. His anion gap is elevated at 21.3. His magnesium is low at 1.3. His total bili is elevated at 1.5. His AST is elevated at 68. His TSH is normal. His ETOH is 0. His salicylates and acetaminophen are negative. COVID 19 is negative. His UDS is negative. I did give him some magnesium and ativan. I will get him a prescription for zofran, ativan and magnesium. Departure - Departure Time of Disposition: 13:10 Disposition: Home, Self-Care 01 Condition: Good Clinical Impression: Alcohol withdrawal syndrome Qualifiers: Complication of substance-induced condition: uncomplicated Qualified Code(s): F10.230 - Alcohol dependence with withdrawal, uncomplicated Alcohol dependence Qualifiers: Substance use status: unspecified alcohol-induced disorder Qualified Code(s): F10.29 - Alcohol dependence with unspecified alcohol-induced disorder - Discharge Information *PRESCRIPTION DRUG MONITORING PROGRAM REVIEWED*: Not Applicable *COPY OF PRESCRIPTION DRUG MONITORING REPORT IN PATIENT BRIAN: Not Applicable Prescriptions: LORazepam [Ativan] 1 mg PO DAILY #18 tablet Magnesium Oxide 400 mg PO DAILY #30 tab Ondansetron [Zofran ODT] 4 mg PO Q6H PRN #10 tab.dis PRN Reason: Nausea\\vomiting Referrals: Rosanna Paul PA-C [Primary Care Provider] - 1 Week Forms: ED Department Discharge Additional Instructions: Drink plenty of water or gatorade. Take the ativan 3 times per day for 3 days, then 2 times per day for 3 days and then at night for 3 days. Take the zofran every 6 hours. Take magnesium daily. Please return if you are worse. You have been medically cleared to go to the [facility]. Sepsis Event Note (ED) - Evaluation Sepsis Screening Result: No Definite Risk - Focused Exam Vital Signs: Vital Signs Temp Pulse Resp BP BP Pulse Ox 01/17/21 11:07 160/101 H 01/17/21 10:29 97.4 F 103 H 17 188/91 H 97 - My Orders Last 24 Hours: My Active Orders 01/17/21 10:46 Cardiac Monitoring [RC] . DIRECTED Peripheral IV Care [RC] . DIRECTED Sodium Chloride 0.9% [Saline Flush] 10 ml FLUSH ASDIRECTED PRN Peripheral IV Insertion Adult [OM.PC] Stat 01/17/21 11:00 Sodium Chloride 0.9% [Normal Saline] 1,000 ml IV .BOLUS - Assessment/Plan Last 24 Hours: My Active Orders 01/17/21 10:46 Cardiac Monitoring [RC] . DIRECTED Peripheral IV Care [RC] . DIRECTED Sodium Chloride 0.9% [Saline Flush] 10 ml FLUSH ASDIRECTED PRN Peripheral IV Insertion Adult [OM.PC] Stat 01/17/21 11:00 Sodium Chloride 0.9% [Normal Saline] 1,000 ml IV .BOLUS
[2021-01-17] MEDS ORDERED: Magnesium Oxide 400 MG Tab PO ONE (12:23)
[2021-01-17] MEDS ORDERED: LORazepam 2 MG/ML SDV IVPUSH ONE (12:23)
== END 2021-01-17 14:05 | disposition home or self-care (01) ==
LOC: JD.ED 10:16
DX: F10.230 Alcohol dependence with withdrawal, uncomplicated (principal); F10.239 Alcohol dependence with withdrawal, unspecified; F10.29 Alcohol dependence with unspecified alcohol-induced disorder; J44.9 Chronic obstructive pulmonary disease, unspecified; I10 Essential (primary) hypertension; Z79.899 Other long term (current) drug therapy; Z20.822 Contact with and (suspected) exposure to COVID-19; Z72.0 Tobacco use
CPT/HCPCS: 36415; 80053; 80143; 80179; 80306; 80307; 83735; 84443; 85025; 87635; 96374; 96375; 99283; A9270; J2060; J3411; J7030; 99284; U0002

== ENCOUNTER 2022-04-30 08:21 | Observation (INO) | payer MEDICAID ==
[2022-04-30] MEDS ORDERED: Sodium Chloride 0.9% 10 ML Syringe FLUSH PRN (08:55)
[2022-04-30] MEDS ORDERED: Sodium Chloride 0.9% 1,000 ML IV SCH (09:00)
[2022-04-30] MEDS ORDERED: Thiamine 200 MG/2 ML MDV IVPUSH ONE ×2 (09:16→10:17)
[2022-04-30] MEDS ORDERED: Magnesium Sulfate/Water 2 GM in Premix Bag 1 BAG IV ONE ×3 (10:07→14:00)
[2022-04-30] MEDS ORDERED: Magnesium Sulfate/Water 4 GM in Premix Bag 1 BAG IV ONE (10:18)
[2022-04-30] MEDS: Potassium Chloride 10 MEQ in Premix Bag 1 BAG IV SCH ×8 (10:19→20:10)
[2022-04-30] MEDS ORDERED: Acetaminophen 325 MG Tab PO PRN (10:58)
[2022-04-30] MEDS ORDERED: Nicotine Polacrilex 2 MG Gum CHEW PRN (11:02)
[2022-04-30] MEDS ORDERED: Nicotine 14 MG/24 Hr Patch TRDERM ONE (12:45)
[2022-04-30] MEDS: Potassium Chloride 20 MEQ Tab.ER PO SCH (13:28)
[2022-04-30] MEDS: Nicotine 14 MG/24 Hr Patch TRDERM SCH (13:38)
[2022-04-30] MEDS: Nystatin Topical Powder 15 GM Bottle TOP SCH ×3 (13:40→23:00)
[2022-04-30] MEDS: Magnesium Sulfate/Water 2 GM in Premix Bag 1 BAG IV SCH (14:48)
[2022-04-30] MEDS: Sodium Chloride 0.9% 1,000 ML IV SCH (15:17)
[2022-05-01] MEDS: Sodium Chloride 0.9% 1,000 ML IV SCH (04:04)
[2022-05-01] MEDS ORDERED: Magnesium Sulfate/Water 4 GM in Premix Bag 1 BAG IV ONE (06:38)
[2022-05-01 07:16] LABS: HEMOGLOBIN A1C 5.2 %
[2022-05-01] MEDS: Prenatal Multivitamin with Calcium/Folic Acid/Iron Tab PO SCH ×2 (07:53→08:20)
[2022-05-01] MEDS: Potassium Chloride 20 MEQ Tab.ER PO SCH ×2 (07:54→08:21)
[2022-05-01] MEDS: Potassium Chloride 10 MEQ in Premix Bag 1 BAG IV SCH ×4 (08:03→11:57)
[2022-05-01] MEDS: Nystatin Topical Powder 15 GM Bottle TOP SCH ×2 (08:20→20:23)
[2022-05-01] MEDS: Nicotine 14 MG/24 Hr Patch TRDERM SCH (08:21)
[2022-05-01] MEDS ORDERED: Remove Patch *NICOTINE PATCH TRDERM ONE (09:00)
[2022-05-01] MEDS ORDERED: Nicotine 14 MG/24 Hr Patch TRDERM SCH (09:00)
[2022-05-01] MEDS ORDERED: Enoxaparin 40 MG/0.4 ML Syringe SUBCUT SCH (09:00)
[2022-05-02] MEDS ORDERED: traZODone 50 MG Tab PO ONE (00:06)
[2022-05-02] MEDS: Nicotine 14 MG/24 Hr Patch TRDERM SCH (08:09)
[2022-05-02] MEDS: Potassium Chloride 20 MEQ Tab.ER PO SCH (08:09)
[2022-05-02] MEDS: Prenatal Multivitamin with Calcium/Folic Acid/Iron Tab PO SCH (08:09)
[2022-05-02] MEDS: Nystatin Topical Powder 15 GM Bottle TOP SCH (08:10)
[2022-05-02] MEDS ORDERED: Remove Patch *NICOTINE PATCH TRDERM SCH (09:00)
[2022-05-02] MEDS ORDERED: Magnesium Oxide 400 MG Tab PO ONE (11:00)
== END 2022-05-02 12:56 | disposition home or self-care (01) ==
LOC: JD.ED 08:21 → JD.MS 10:54
PROVIDERS: ADMIT Internal Medicine; ATTEND Internal Medicine
DX: E87.6 Hypokalemia (principal); R26.81 Unsteadiness on feet; E83.42 Hypomagnesemia; I10 Essential (primary) hypertension; J44.9 Chronic obstructive pulmonary disease, unspecified; E55.9 Vitamin D deficiency, unspecified; G43.909 Migraine, unspecified, not intractable, without status migrainosus; F32.A Depression, unspecified; F17.210 Nicotine dependence, cigarettes, uncomplicated; D69.6 Thrombocytopenia, unspecified; F10.21 Alcohol dependence, in remission; Z79.899 Other long term (current) drug therapy; Z98.890 Other specified postprocedural states
CPT/HCPCS: 36415; 70450; 80048; 80053; 80306; 80307; 82607; 83036; 83735; 84484; 85025; 85027; 93005; 96361; 96365; 96366; 96367; 96368; 96375; 96376; 97116; 97162; 97166; 97535; 99285; A9270; G0378; J3411; J3475; J3480; J3490; J7030

== ENCOUNTER 2022-06-10 11:39 | Emergency (ER) | payer SELFPAY | END 2022-06-10 12:50 | LOC: JD.ED 11:39 | DX: Z53.21 Procedure and treatment not carried out due to patient leaving prior to being seen by health care provider (principal) ==

== ENCOUNTER 2022-06-12 20:41 | Emergency (ER) | payer MEDICAID ==
[2022-06-13 00:27] LABS: ESTIMATED GFR 104 mL/min (>60)
[2022-06-13 01:31] LABS: CORONAVIRUS COVID-19 NAA NEGATIVE (NEGATIVE)
== END 2022-06-13 07:15 | disposition other institution (70) ==
LOC: JD.ED 20:41
DX: F10.10 Alcohol abuse, uncomplicated (principal); F19.10 Other psychoactive substance abuse, uncomplicated; J44.9 Chronic obstructive pulmonary disease, unspecified; Z20.822 Contact with and (suspected) exposure to COVID-19; Z79.899 Other long term (current) drug therapy
CPT/HCPCS: 0240U; 36415; 80053; 80306; 80307; 84443; 85007; 85027; 99284